=== PATIENT | female | born 1950 | race Caucasian/White ===

== ENCOUNTER 2017-07-04 07:09 | Inpatient (IN) | payer OTHER, MEDICARE ==
[~2017-07-04] VITALS: Ht 172.7 cm; Wt 89.9 kg
[2017-07-04] VITALS (11 sets, daily range): BP systolic 109–135; BP diastolic 59–74
[~2017-07-04 07:09] MED LIST: ASPI-612 PO; BUDE10.2 IH; CALC600T4 PO; CIPR500T94 PO; GLUC1CAP48 PO; ISOS60TA PO; LEVO750T5 PO; LISI-334 PO; LORA10CA PO; LOVA40TA2 PO; Lisinopril PO; METF-620 PO; METH-37 PO; METO50TA2 PO; METR500T8 PO; MIRA25TA PO; MULT-245 PO; OMEG300C PO; RANI150C PO; XOPENEX HFA15 GM IH
--- NOTE | 2017-07-04 07:15 | PHYS DOC ---
Past Medical History Past Medical History: Diabetes-Type II, Hypertension Past Surgical History: Other Alcohol Use: None Drug Use: None Adult General Chief Complaint Chief Complaint: NEAR SYNCOPE HPI HPI Patient is a 66 year old female presenting to the emergency department for evaluation of nausea and abdominal pain and generally not feeling well. 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 She reportedly felt poorly all night long and was having difficulty giving report. She has history of diverticulitis with a microperforation in 2015. Patient says that she has had a hysterectomy but no other abdominal surgeries. She is nontoxic-appearing in no obvious distress with normal vital signs. Review of Systems Review of Systems Constitutional: Denies fever or chills [] Respiratory: Denies cough or shortness of breath [] Cardiovascular: No additional information not addressed in HPI [] GI: + abdominal pain, nausea. No vomiting, bloody stools or diarrhea [] : Denies dysuria or hematuria [] Musculoskeletal: Denies back pain Current Medications Current Medications Current Medications Medications (Trade) Dose Ordered Sig/Vera Start Time Stop Time Status Last Admin Dose Admin Fentanyl Citrate (Fentanyl 2ml Vial) 75 mcg 1X ONCE 07/04/17 07:45 07/04/17 07:46 DC 07/04/17 07:46 75 MCG Multi-Ingredient Mouthwash/Gargle (Gi Cocktail Single Dose) 15 ml 1X ONCE 07/04/17 07:45 07/04/17 07:46 DC 07/04/17 08:17 15 ML Ondansetron HCl (Zofran) 4 mg PRN Q8HRS PRN 07/04/17 09:15 07/05/17 09:14 UNV Sodium Chloride 1,000 ml @ 150 mls/hr Q6H40M 07/04/17 09:09 07/05/17 09:08 UNV Allergies Allergies Allergies Coded Allergies Type Severity Reaction Last Updated Verified Iodinated Contrast- Oral and IV Dye Allergy Severe Shortness of Air 02/09/15 Yes erythromycin base Allergy Severe Shortness of Air 02/09/15 Yes morphine Allergy Severe Anaphylaxis 02/09/15 Yes hydrocodone Allergy Intermediate DIZZINESS 02/09/15 Yes iodine Allergy Intermediate 02/09/15 Yes acetaminophen Allergy Mild DIZZINESS 10/01/15 Yes Physical Exam Physical Exam Constitutional: Well developed, well nourished, no acute distress, non-toxic appearance. [] Cardiovascular:Heart rate regular rhythm, no murmur [] Lungs & Thorax: Bilateral breath sounds clear to auscultation [] Abdomen: Bowel sounds normal, soft, + epigastric tenderness, no rebound or guarding, no masses, no pulsatile masses. [] Skin: Warm, dry, no erythema, no rash. [] Back: No tenderness, no CVA tenderness. [] Extremities: No tenderness, no cyanosis, no clubbing, ROM intact, no edema. [] Neurologic: Alert and oriented X 3, normal motor function, normal sensory function, no focal deficits noted. [] Current Patient Data Vital Signs Vital Signs Date Time Temp Pulse Resp B/P (MAP) Pulse Ox O2 Delivery O2 Flow Rate FiO2 07/04/17 08:14 82 20 153/75 (101) 98 Nasal Cannula 2.0 Lab Values Laboratory Tests Test 07/04/17 07:42 White Blood Count 15.7 x10^3/uL (4.0-11.0) H Red Blood Count 4.56 x10^6/uL (3.50-5.40) Hemoglobin 12.6 g/dL (12.0-15.5) Hematocrit 38.2 % (36.0-47.0) Mean Corpuscular Volume 84 fL (79-100) Mean Corpuscular Hemoglobin 28 pg (25-35) Mean Corpuscular Hemoglobin Concent 33 g/dL (31-37) Red Cell Distribution Width 13.9 % (11.5-14.5) Platelet Count 334 x10^3/uL (140-400) Neutrophils (%) (Auto) 84 % (31-73) H Lymphocytes (%) (Auto) 10 % (24-48) L Monocytes (%) (Auto) 5 % (0-9) Eosinophils (%) (Auto) 1 % (0-3) Basophils (%) (Auto) 0 % (0-3) Neutrophils # (Auto) 13.2 x10^3uL (1.8-7.7) H Lymphocytes # (Auto) 1.6 x10^3/uL (1.0-4.8) Monocytes # (Auto) 0.8 x10^3/uL (0.0-1.1) Eosinophils # (Auto) 0.1 x10^3/uL (0.0-0.7) Basophils # (Auto) 0.1 x10^3/uL (0.0-0.2) Segmented Neutrophils % 77 % (35-66) H Band Neutrophils % 6 % (0-9) Lymphocytes % 12 % (24-48) L Monocytes % 3 % (0-10) Eosinophils % 2 % (0-5) Platelet Estimate Adequate (ADEQUATE) Prothrombin Time 12.7 SEC (11.7-14.0) Prothrombin Time INR 1.0 (0.8-1.1) PTT 25 SEC (24-38) Sodium Level 139 mmol/L (136-145) Potassium Level 4.2 mmol/L (3.5-5.1) Chloride Level 99 mmol/L (98-107) Carbon Dioxide Level 30 mmol/L (21-32) Anion Gap 10 (6-14) Blood Urea Nitrogen 18 mg/dL (7-20) Creatinine 1.5 mg/dL (0.6-1.0) H Estimated GFR (Cockcroft-Gault) 34.9 BUN/Creatinine Ratio 12 (6-20) Glucose Level 200 mg/dL (70-99) H Calcium Level 9.9 mg/dL (8.5-10.1) Magnesium Level 1.5 mg/dL (1.8-2.4) L Total Bilirubin 0.4 mg/dL (0.2-1.0) Aspartate Amino Transferase (AST) 17 U/L (15-37) Alanine Aminotransferase (ALT) 30 U/L (14-59) Alkaline Phosphatase 60 U/L (46-116) Troponin I Quantitative < 0.017 ng/mL (0.000-0.055) Total Protein 7.5 g/dL (6.4-8.2) Albumin 4.3 g/dL (3.4-5.0) Albumin/Globulin Ratio 1.3 (1.0-1.7) Lipase 113 U/L (73-393) Laboratory Tests 07/04/17 07:42 Laboratory Tests 07/04/17 07:42 EKG EKG Sinus rhythm at 80 beats per minutes with normal axis no obvious ST elevation or depression and normal T waves Radiology/Procedures Radiology/Procedures CT of the abdomen and pelvis without contrast, 07/04/2017: History: Abdominal pain Multidetector CT imaging was performed without oral or IV contrast. Comparison is made to a study from 11/06/2016. There is mild bibasilar atelectasis. The unopacified liver is unremarkable. The gallbladder is somewhat contracted. No gallstones are seen. The pancreas is unremarkable. The spleen is of normal size. The unopacified kidneys show no evidence of obstruction. No adrenal abnormality is detected. The abdominal aorta is of normal caliber. No abdominal or pelvic adenopathy is seen. There is gas and stool in the colon without colonic distention. Several colonic diverticula are present without evidence of paracolic inflammation. There is a moderate amount of retained food in the stomach. There is mild distention of mid small bowel loops with gas and fluid. The distal ileum is of normal caliber. There is a partially calcified mass within a small bowel loop in the mid pelvis. The calcification is elongated measuring approximately 30 x 24 x 6 mm. It is best seen on coronal image 26 of series #4 and axial image 78 of series #2. This probably represents a partially calcified enterolith and appears to lie near the level of partial small bowel obstruction. There are numerous duodenal diverticula in this patient. There is a known association of enteroliths with diverticula. A similar partially calcified structure is seen related to proximal small bowel on coronal image 30 of series #4. No free fluid or free air is evident in the abdomen or pelvis. IMPRESSION: 1. Partial small bowel obstruction which appears to be due to a partially calcified enterolith. 2. Duodenal diverticula with an additional developing enterolith within one of those diverticula. 3. Mild sigmoid diverticulosis. PQRS Compliance Statement: One or more of the following individualized dose reduction techniques were utilized for this examination: 1. Automated exposure control 2. Adjustment of the mA and/or kV according to patient size 3. Use of iterative reconstruction technique DICTATED and SIGNED BY: MADAI WILSON MD DATE: 07/04/17812 Course & Med Decision Making Course & Med Decision Making Patient with nonspecific abdominal pain and nausea. We'll check labs CT and reassess. CT shows partial small bowel obstruction from enterolith. She says that she feels quite miserable and given her CT and clinical exam she'll be admitted for further observation and treatment. Dragon Disclaimer Dragon Disclaimer This electronic medical record was generated, in whole or in part, using a voice recognition dictation system. Departure Departure Impression: Primary Impression: SBO (small bowel obstruction) Additional Impressions: Leukocytosis Hypomagnesemia Disposition: ADMITTED INPATIENT Admitting Physician: Alessia Delaney Condition: STABLE Referrals: CORRINA RUBIO MD (PCP) Problem Qualifiers KOBE SANTIAGO DO Jul 04, 2017 07:15
[2017-07-04] MEDS ORDERED: IV NORMAL SALINE 1000ML BAG 1,000 ML IV ONE (07:30)
[2017-07-04] MEDS ORDERED: fentaNYL PF VIAL 100 MCG/2 ML VIAL IV ONE (07:45)
[2017-07-04] MEDS ORDERED: LIDO:MAALOX:DONNATAL 1:1:1 15 ML SINGLE DOSE SWSW ONE (07:45)
[2017-07-04] MEDS ORDERED: ONDANSETRON PF 4 MG/2 ML VIAL. IV ONE (07:45)
[2017-07-04 07:56] LABS: BASO # 0.1 x10^3/uL (0.0-0.2); BASO % 0 % (0-3); EOS % 1 % (0-3); HEMATOCRIT 38.2 % (36.0-47.0); HEMOGLOBIN 12.6 g/dL (12.0-15.5); LYMPH # 1.6 x10^3/uL (1.0-4.8); LYMPH % 10 % (24-48); MEAN CORPUSCULAR HEMOGLOBIN 28 pg (25-35); MEAN CORPUSCULAR HGB CONC 33 g/dL (31-37); MEAN CORPUSCULAR VOLUME 84 fL (79-100); MONO % 5 % (0-9); NEUT % 84 % (31-73); PLATELET COUNT 334 x10^3/uL (140-400); RED BLOOD COUNT 4.56 x10^6/uL (3.50-5.40); RED CELL DISTRIBUTION WIDTH 13.9 % (11.5-14.5); WHITE BLOOD COUNT 15.7 x10^3/uL (4.0-11.0)
[2017-07-04 08:07] LABS: PROTHROMBIN TIME PATIENT 12.7 SEC (11.7-14.0)
[2017-07-04 08:08] LABS: CALCIUM 9.9 mg/dL (8.5-10.1); CREATININE 1.5 mg/dL (0.6-1.0); GFR 34.9; POTASSIUM 4.2 mmol/L (3.5-5.1)
[2017-07-04 08:14] LABS: ALBUMIN 4.3 g/dL (3.4-5.0); ALBUMIN/GLOBULIN RATIO 1.3 (1.0-1.7); MAGNESIUM 1.5 mg/dL (1.8-2.4); TOTAL BILIRUBIN 0.4 mg/dL (0.2-1.0); TOTAL PROTEIN 7.5 g/dL (6.4-8.2)
[2017-07-04 08:31] LABS: % EOS 2 % (0-5)
[2017-07-04 08:32] LABS: PLT ESTIMATE ADEQUATE (ADEQUATE)
--- NOTE | 2017-07-04 08:37 | EKG ---
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
--- NOTE | 2017-07-04 08:56 | RAD ---
CT of the abdomen and pelvis without contrast, 07/04/2017: History: Abdominal pain Multidetector CT imaging was performed without oral or IV contrast. Comparison is made to a study from 11/06/2016. There is mild bibasilar atelectasis. The unopacified liver is unremarkable. The gallbladder is somewhat contracted. No gallstones are seen. The pancreas is unremarkable. The spleen is of normal size. The unopacified kidneys show no evidence of obstruction. No adrenal abnormality is detected. The abdominal aorta is of normal caliber. No abdominal or pelvic adenopathy is seen. There is gas and stool in the colon without colonic distention. Several colonic diverticula are present without evidence of paracolic inflammation. There is a moderate amount of retained food in the stomach. There is mild distention of mid small bowel loops with gas and fluid. The distal ileum is of normal caliber. There is a partially calcified mass within a small bowel loop in the mid pelvis. The calcification is elongated measuring approximately 30 x 24 x 6 mm. It is best seen on coronal image 26 of series #4 and axial image 78 of series #2. This probably represents a partially calcified enterolith and appears to lie near the level of partial small bowel obstruction. There are numerous duodenal diverticula in this patient. There is a known association of enteroliths with diverticula. A similar partially calcified structure is seen related to proximal small bowel on coronal image 30 of series #4. No free fluid or free air is evident in the abdomen or pelvis. IMPRESSION: 1. Partial small bowel obstruction which appears to be due to a partially calcified enterolith. 2. Duodenal diverticula with an additional developing enterolith within one of those diverticula. 3. Mild sigmoid diverticulosis. PQRS Compliance Statement: One or more of the following individualized dose reduction techniques were utilized for this examination: 1. Automated exposure control 2. Adjustment of the mA and/or kV according to patient size 3. Use of iterative reconstruction technique
[2017-07-04] MEDS ORDERED: IV NORMAL SALINE 1000ML BAG 1,000 ML IV SCH (09:09)
[2017-07-04] MEDS ORDERED: ONDANSETRON PF 4 MG/2 ML VIAL. IV PRN ×3 (09:15→18:00)
[2017-07-04] MEDS ORDERED: DEXTROSE 50% 25 GM / 50ML DISP.SYRIN. IV PRN (10:00)
[2017-07-04] MEDS ORDERED: BENZOCAINE/MENTHOL LOZENGE. PO PRN (10:00)
[2017-07-04] MEDS ORDERED: SALIVA STIMULANT AGENT 44ML SPRAY BOTTLE. PO PRN (10:00)
[2017-07-04] MEDS ORDERED: MAGNESIUM SULFATE 2GM 50 ML IV ONE (10:00)
--- NOTE | 2017-07-04 10:02 | PDOC1 ---
History and Physical Date of Admission Date of Admission DATE: 07/04/17 TIME: 09:53 Identification/Chief Complaint Chief Complaint abd pain Problems: Source Source: Chart review, Patient History of Present Illness History of Present Illness Ms. Anna, is a 66 year old female admit from ER for acute nausea and abdominal pain. 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 She felt ill for entire shift at work, almost vomited on Ismael during report. She has history of diverticulitis with a microperforation in 2015. she would prefer to avoid having an NG tube, as she was forced to practice on each other, as a skill when in the , pain is 5/10, better when supine, worse when on her side Past Medical History Cardiovascular: HTN, Hyperlipidemia GI: GERD Endocrine: Diabetes Past Surgical History Past Surgical History: Other Family History Family History: No Significant Social History Smoke: No ALCOHOL: none Drugs: None Current Problem List Problem List Problems Medical Problems: (1) Hypomagnesemia Status: Acute (2) Leukocytosis Status: Acute (3) SBO (small bowel obstruction) Status: Acute Problems: Current Medications Current Medications Current Medications Ondansetron HCl (Zofran) 8 mg 1X ONCE IV Last administered on 07/04/17 07:44 ; Start 07/04/17 at 07:45; Stop 07/04/17 at 07:46; Status DC Fentanyl Citrate (Fentanyl 2ml Vial) 75 mcg 1X ONCE IV Last administered on 07:46; Start 07/04/17 at 07:45; Stop 07/04/17 at 07:46; Status DC Sodium Chloride 1,000 ml @ 1,000 mls/hr 1X ONCE IV Last administered on 07:44; Start 07/04/17 at 07:30; Stop 07/04/17 at 08:29; Status DC Multi-Ingredient Mouthwash/Gargle (Gi Cocktail Single Dose) 15 ml 1X ONCE SWSW Last administered on 07/04/17 08:17; Start 07/04/17 at 07:45; Stop 07/04/17 at 07:46; Status DC Ondansetron HCl (Zofran) 4 mg PRN Q8HRS PRN IV NAUSEA/VOMITING; Start 07/04/17 at 09:15; Stop 07/05/17 at 09:14 Sodium Chloride 1,000 ml @ 150 mls/hr Q6H40M IV ; Start 07/04/17 at 09:09; Stop 07/05/17 at 09:08 Active Scripts Active Levofloxacin 750 Mg Tablet 1 Tab PO DAILY Cipro (Ciprofloxacin Hcl) 500 Mg Tablet 1 Tab PO BID 4 Days Metronidazole 500 Mg Tablet 1 Tab PO TID 4 Days [Lisinopril] 2.5 MG Tablet 2.5 Mg PO DAILY Reported Lovastatin 40 Mg Tablet 40 Mg PO DAILY Imdur (Isosorbide Mononitrate) 60 Mg Tab.er.24h 60 Mg PO DAILY Glucosamine & Chondroitin Cap (Gluc 2KCL/Chondr/Sean Hy/Hy Ac) 1 Each Capsule 2 Each PO DAILY Xopenex Hfa (Levalbuterol Tartrate) 15 Gm Hfa.aer.ad 45 Mcg IH PRN Symbicort 160-4.5 Mcg Inhaler (Budesonide/Formoterol Fumarate) 10.2 Gm Hfa.aer.ad 10.2 Gm IH BID Multi Vitamin Daily (Multivitamin) 1 Each Tablet 1 Each PO DAILY Calcium (Calcium Carbonate) 600 Mg Tablet 600 Mg PO DAILY Fish Oil (Eure-3 Fatty Acids) 300 Mg Capsule 3,000 Mg PO DAILY Ranitidine Hcl 150 Mg Capsule 150 Mg PO DAILY Aspirin Ec (Aspirin) 81 Mg Tablet.dr 81 Mg PO DAILY Claritin (Loratadine) 10 Mg Capsule 10 Mg PO BID Metformin Hcl 1,000 Mg Tablet 1,000 Mg PO BID Metoprolol Tartrate 50 Mg Tablet 50 Mg PO BID Allergies Allergies: Coded Allergies: Iodinated Contrast- Oral and IV Dye (Verified Allergy, Severe, Shortness of Air, 02/09/15) rash erythromycin base (Verified Allergy, Severe, Shortness of Air, 02/09/15) hives morphine (Verified Allergy, Severe, Anaphylaxis, 02/09/15) hydrocodone (Verified Allergy, Intermediate, DIZZINESS, 02/09/15) iodine (Verified Allergy, Intermediate, 02/09/15) peels skin off acetaminophen (Verified Allergy, Mild, DIZZINESS, 10/01/15) ROS General: No: Chills, Night Sweats, Fatigue, Malaise, Appetite, Other PSYCHOLOGICAL ROS: No: Anxiety, Behavioral Disorder, Concentration difficultie , Decreased libido, Depression, Disorientation, Hallucinations, Hostility, Irritablity, Memory difficulties, Mood Swings, Obsessive thoughts, Physical abuse, Sexual abuse, Sleep disturbances, Suicidal ideation, Other Eyes: No Blurry vision, No Decreased vision, No Double vision, No Dry eyes, No Excessive tearing, No Eye Pain, No Itchy Eyes, No Loss of vision, No Photophobia , No Scotomata, No Uses contacts, No Uses glasses, No Other HEENT: No: Heacaches, Visual Changes, Hearing change, Nasal congestion, Nasal discharge, Oral lesions, Sinus pain, Sore Throat, Epistaxis, Sneezing, Snoring, Tinnitus, Vertigo, Vocal changes, Other Respiratory: No: Cough, Hemoptysis, Orthopnea, Pleuritic Pain, Shortness of breath, SOB with excertion, Sputum Changes, Stridor, Tachypnea, Wheezing, Other Cardiovascular: No Chest Pain, No Palpitations, No Orthopnea, No Paroxysmal Noc. Dyspnea, No Edema, No Lt Headedness, No Other Gastrointestinal: Yes Nausea, Yes Abdominal Pain, Yes Diarrhea, Yes Other ( freq stools, small caliber but formed, ) Genitourinary: No Dysuria, No Frequency, No Incontinence, No Hematuria, No Retention, No Discharge, No Urgency, No Pain, No Flank Pain, No Other, No , No , No , No , No , No , No Musculoskeletal: No Gait Disturbance, No Joint Pain, No Joint Stiffness, No Joint Swelling, No Muscle Pain, No Muscular Weakness, No Pain In:, No Swelling In:, No Other Neurological: No Behavorial Changes, No Bowel/Bladder ControlChng, No Confusion , No Dizziness, No Gait Disturbance, No Headaches, No Impaired Coord/balance, No Memory Loss, No Numbness/Tingling, No Seizures, No Speech Problems, No Tremors, No Visual Changes, No Weakness, No Other Skin: No Dry Skin, No Eczema, No Hair Changes, No Lumps, No Mole Changes, No Mottling, No Nail Changes, No Pruritus, No Rash, No Skin Lesion Changes, No Other, No Acne Physical Exam General: Alert, Oriented X3, Cooperative, mild distress HEENT: Atraumatic, PERRLA, EOMI Lungs: Clear to auscultation, Normal air movement Heart: S1S2, no gallops, no murmurs Abdomen: Soft (tender, very active and loud bowel sounds, pitch is normal, no rushing, no referred pain + guarding, no rebound) Male Genitals Exam: normal genitalia Rectal Exam: not examined Extremities: No clubbing, No cyanosis, No edema, Normal pulses Skin: No rashes, No breakdown, No significant lesion Neuro: Normal speech, Sensation intact Psych/Mental Status: Mental status NL, Mood NL Vitals Vitals Vital Signs Date Time Temp Pulse Resp B/P (MAP) Pulse Ox O2 Delivery O2 Flow Rate FiO2 07/04/17 09:44 84 20 142/81 (101) 98 Room Air 07/04/17 08:14 2.0 Labs Labs Laboratory Tests Test 07/04/17 07:42 White Blood Count 15.7 x10^3/uL (4.0-11.0) Red Blood Count 4.56 x10^6/uL (3.50-5.40) Hemoglobin 12.6 g/dL (12.0-15.5) Hematocrit 38.2 % (36.0-47.0) Mean Corpuscular Volume 84 fL (79-100) Mean Corpuscular Hemoglobin 28 pg (25-35) Mean Corpuscular Hemoglobin Concent 33 g/dL (31-37) Red Cell Distribution Width 13.9 % (11.5-14.5) Platelet Count 334 x10^3/uL (140-400) Neutrophils (%) (Auto) 84 % (31-73) Lymphocytes (%) (Auto) 10 % (24-48) Monocytes (%) (Auto) 5 % (0-9) Eosinophils (%) (Auto) 1 % (0-3) Basophils (%) (Auto) 0 % (0-3) Neutrophils # (Auto) 13.2 x10^3uL (1.8-7.7) Lymphocytes # (Auto) 1.6 x10^3/uL (1.0-4.8) Monocytes # (Auto) 0.8 x10^3/uL (0.0-1.1) Eosinophils # (Auto) 0.1 x10^3/uL (0.0-0.7) Basophils # (Auto) 0.1 x10^3/uL (0.0-0.2) Segmented Neutrophils % 77 % (35-66) Band Neutrophils % 6 % (0-9) Lymphocytes % 12 % (24-48) Monocytes % 3 % (0-10) Eosinophils % 2 % (0-5) Platelet Estimate Adequate (ADEQUATE) Prothrombin Time 12.7 SEC (11.7-14.0) Prothromb Time International Ratio 1.0 (0.8-1.1) Activated Partial Thromboplast Time 25 SEC (24-38) Sodium Level 139 mmol/L (136-145) Potassium Level 4.2 mmol/L (3.5-5.1) Chloride Level 99 mmol/L (98-107) Carbon Dioxide Level 30 mmol/L (21-32) Anion Gap 10 (6-14) Blood Urea Nitrogen 18 mg/dL (7-20) Creatinine 1.5 mg/dL (0.6-1.0) Estimated GFR (Cockcroft-Gault) 34.9 BUN/Creatinine Ratio 12 (6-20) Glucose Level 200 mg/dL (70-99) Calcium Level 9.9 mg/dL (8.5-10.1) Magnesium Level 1.5 mg/dL (1.8-2.4) Total Bilirubin 0.4 mg/dL (0.2-1.0) Aspartate Amino Transf (AST/SGOT) 17 U/L (15-37) Alanine Aminotransferase (ALT/SGPT) 30 U/L (14-59) Alkaline Phosphatase 60 U/L (46-116) Troponin I Quantitative < 0.017 ng/mL (0.000-0.055) Total Protein 7.5 g/dL (6.4-8.2) Albumin 4.3 g/dL (3.4-5.0) Albumin/Globulin Ratio 1.3 (1.0-1.7) Lipase 113 U/L (73-393) Laboratory Tests Test 07/04/17 07:42 White Blood Count 15.7 x10^3/uL (4.0-11.0) Red Blood Count 4.56 x10^6/uL (3.50-5.40) Hemoglobin 12.6 g/dL (12.0-15.5) Hematocrit 38.2 % (36.0-47.0) Mean Corpuscular Volume 84 fL (79-100) Mean Corpuscular Hemoglobin 28 pg (25-35) Mean Corpuscular Hemoglobin Concent 33 g/dL (31-37) Red Cell Distribution Width 13.9 % (11.5-14.5) Platelet Count 334 x10^3/uL (140-400) Neutrophils (%) (Auto) 84 % (31-73) Lymphocytes (%) (Auto) 10 % (24-48) Monocytes (%) (Auto) 5 % (0-9) Eosinophils (%) (Auto) 1 % (0-3) Basophils (%) (Auto) 0 % (0-3) Neutrophils # (Auto) 13.2 x10^3uL (1.8-7.7) Lymphocytes # (Auto) 1.6 x10^3/uL (1.0-4.8) Monocytes # (Auto) 0.8 x10^3/uL (0.0-1.1) Eosinophils # (Auto) 0.1 x10^3/uL (0.0-0.7) Basophils # (Auto) 0.1 x10^3/uL (0.0-0.2) Segmented Neutrophils % 77 % (35-66) Band Neutrophils % 6 % (0-9) Lymphocytes % 12 % (24-48) Monocytes % 3 % (0-10) Eosinophils % 2 % (0-5) Platelet Estimate Adequate (ADEQUATE) Prothrombin Time 12.7 SEC (11.7-14.0) Prothromb Time International Ratio 1.0 (0.8-1.1) Activated Partial Thromboplast Time 25 SEC (24-38) Sodium Level 139 mmol/L (136-145) Potassium Level 4.2 mmol/L (3.5-5.1) Chloride Level 99 mmol/L (98-107) Carbon Dioxide Level 30 mmol/L (21-32) Anion Gap 10 (6-14) Blood Urea Nitrogen 18 mg/dL (7-20) Creatinine 1.5 mg/dL (0.6-1.0) Estimated GFR (Cockcroft-Gault) 34.9 BUN/Creatinine Ratio 12 (6-20) Glucose Level 200 mg/dL (70-99) Calcium Level 9.9 mg/dL (8.5-10.1) Magnesium Level 1.5 mg/dL (1.8-2.4) Total Bilirubin 0.4 mg/dL (0.2-1.0) Aspartate Amino Transf (AST/SGOT) 17 U/L (15-37) Alanine Aminotransferase (ALT/SGPT) 30 U/L (14-59) Alkaline Phosphatase 60 U/L (46-116) Troponin I Quantitative < 0.017 ng/mL (0.000-0.055) Total Protein 7.5 g/dL (6.4-8.2) Albumin 4.3 g/dL (3.4-5.0) Albumin/Globulin Ratio 1.3 (1.0-1.7) Lipase 113 U/L (73-393) VTE Prophylaxis Ordered VTE Prophylaxis Devices: No VTE Pharmacological Prophylaxi: No Assessment/Plan Assessment/Plan acute abd pain with nausea partial small bowel obstruction admit with IV fluid, GI consult, may need NG tube if pain worsens obesity, BMI 30 BRYON ELDER MD Jul 04, 2017 10:02
[2017-07-04] MEDS ORDERED: MAGNESIUM SULFATE 2GM 50 ML IV PRN (11:00)
--- NOTE | 2017-07-04 11:03 | PDOC2 ---
CONSULT Date of Consult Date of Consult DATE: 07/04/17 TIME: 10:57 Reason for Consult Reason for Consult: FENG Referring Physician Referring Physician: Dr reyes Identification/Chief Complaint Chief Complaint Abd pain Problems: Source Source: Chart review, Patient History of Present Illness Reason for Visit: as dictated Past Medical History Cardiovascular: HTN, Hyperlipidemia Pulmonary: Asthma, Bronchitis GI: Diverticulosis, GERD, Hemorrhoids Endocrine: Diabetes Past Surgical History Past Surgical History: Hysterectomy, Other Family History Family History: No Significant Social History No ALCOHOL: none Drugs: None Lives: with Family Current Problem List Problem List Problems Medical Problems: (1) Hypomagnesemia Status: Acute (2) Leukocytosis Status: Acute (3) SBO (small bowel obstruction) Status: Acute Current Medications Current Medications Current Medications Ondansetron HCl (Zofran) 8 mg 1X ONCE IV Last administered on 07/04/17 07:44 ; Start 07/04/17 at 07:45; Stop 07/04/17 at 07:46; Status DC Fentanyl Citrate (Fentanyl 2ml Vial) 75 mcg 1X ONCE IV Last administered on 07:46; Start 07/04/17 at 07:45; Stop 07/04/17 at 07:46; Status DC Sodium Chloride 1,000 ml @ 1,000 mls/hr 1X ONCE IV Last administered on 07:44; Start 07/04/17 at 07:30; Stop 07/04/17 at 08:29; Status DC Multi-Ingredient Mouthwash/Gargle (Gi Cocktail Single Dose) 15 ml 1X ONCE SWSW Last administered on 07/04/17 08:17; Start 07/04/17 at 07:45; Stop 07/04/17 at 07:46; Status DC Ondansetron HCl (Zofran) 4 mg PRN Q8HRS PRN IV NAUSEA/VOMITING; Start 07/04/17 at 09:15; Stop 07/05/17 at 09:14 Sodium Chloride 1,000 ml @ 150 mls/hr Q6H40M IV ; Start 07/04/17 at 09:09; Stop 07/05/17 at 09:08 Saliva Substitute (Biotene Moisturizing Mouth) 2 spray PRN Q15MIN PRN PO DRY MOUTH; Start 07/04/17 at 10:00 Fentanyl Citrate (Fentanyl 2ml Vial) 50 mcg PRN Q2HR PRN IV PAIN; Start at 10:00 Throat Lozenges (Cepacol Sore Throat Lozenge) 1 caio PRN Q2HRS PRN PO SORE THROAT; Start 07/04/17 at 10:00 Insulin Aspart (NovoLOG) 0-7 UNITS TIDWMEALS SQ ; Start 07/04/17 at 12:00 Dextrose (Dextrose 50%-Water Syringe) 12.5 gm PRN Q15MIN PRN IV SEE COMMENTS; Start 07/04/17 at 10:00 Magnesium Sulfate/ Dextrose 50 ml @ 25 mls/hr 1X ONCE IV ; Start 07/04/17 at 10 :00; Stop 07/04/17 at 11:59 Aspirin (Ecotrin) 81 mg DAILY PO ; Start 07/04/17 at 11:00 Metoprolol Tartrate (Lopressor) 50 mg BID PO ; Start 07/04/17 at 10:30 Non-Formulary Medication 10.2 gm BID IH ; Start 07/04/17 at 21:00; Status UNV Calcium Carbonate/ Glycine (Oscal) 500 mg DAILY PO ; Start 07/04/17 at 10:30 Isosorbide Mononitrate (Imdur) 60 mg DAILY PO ; Start 07/04/17 at 10:30 Cetirizine HCl (ZyrTEC) 10 mg DAILY PO ; Start 07/05/17 at 09:00 Atorvastatin Calcium (Lipitor) 10 mg QHS PO ; Start 07/04/17 at 21:00 Budesonide (Pulmicort) 0.5 mg RTBID NEB ; Start 07/04/17 at 11:00 Albuterol Sulfate (Ventolin Neb Soln) 2.5 mg RTQID NEB ; Start 07/04/17 at 12:00 Active Scripts Active Levofloxacin 750 Mg Tablet 1 Tab PO DAILY Cipro (Ciprofloxacin Hcl) 500 Mg Tablet 1 Tab PO BID 4 Days Metronidazole 500 Mg Tablet 1 Tab PO TID 4 Days [Lisinopril] 2.5 MG Tablet 2.5 Mg PO DAILY Reported Lovastatin 40 Mg Tablet 40 Mg PO DAILY Imdur (Isosorbide Mononitrate) 60 Mg Tab.er.24h 60 Mg PO DAILY Glucosamine & Chondroitin Cap (Gluc 2KCL/Chondr/Sean Hy/Hy Ac) 1 Each Capsule 2 Each PO DAILY Xopenex Hfa (Levalbuterol Tartrate) 15 Gm Hfa.aer.ad 45 Mcg IH PRN Symbicort 160-4.5 Mcg Inhaler (Budesonide/Formoterol Fumarate) 10.2 Gm Hfa.aer.ad 10.2 Gm IH BID Multi Vitamin Daily (Multivitamin) 1 Each Tablet 1 Each PO DAILY Calcium (Calcium Carbonate) 600 Mg Tablet 600 Mg PO DAILY Fish Oil ([place]-3 Fatty Acids) 300 Mg Capsule 3,000 Mg PO DAILY Ranitidine Hcl 150 Mg Capsule 150 Mg PO DAILY Aspirin Ec (Aspirin) 81 Mg Tablet.dr 81 Mg PO DAILY Claritin (Loratadine) 10 Mg Capsule 10 Mg PO BID Metformin Hcl 1,000 Mg Tablet 1,000 Mg PO BID Metoprolol Tartrate 50 Mg Tablet 50 Mg PO BID Allergies Allergies: Coded Allergies: Iodinated Contrast- Oral and IV Dye (Verified Allergy, Severe, Shortness of Air, 02/09/15) rash erythromycin base (Verified Allergy, Severe, Shortness of Air, 02/09/15) hives morphine (Verified Allergy, Severe, Anaphylaxis, 02/09/15) hydrocodone (Verified Allergy, Intermediate, DIZZINESS, 02/09/15) iodine (Verified Allergy, Intermediate, 02/09/15) peels skin off acetaminophen (Verified Allergy, Mild, DIZZINESS, 10/01/15) ROS Review of System GEN: no Fevers no Chills EYES: no new Visual Complaints ENT: no EN Drainage no Hearing deficiets CVS: no Orthopnea no CP RESP: no SOB no FLORES GI: + Nausea no Vomiting + Abd Pain : no Dysuria no Urgency HEME: no easy bruising no Palp Ly Nodes NEURO no Focal Weakness no Sz PSYCH: no Suicidal Ideation no Depression SKIN: no Rashes ENDO: no Polyuria or Polydipsia no Hot/Cold Intolerance MU SK: no Arthraigia no Myalgia Physical Exam Physical Exam General Appearance: Awake Alert Oriented x 3 In no Distress Eyes: VIsion Unchanged Conjunctiva Normal EN: No EN Drainage Mucous Memb. moist Neck: no JVD no JVP Supple no Thyromegaly CVS: S1 S2 ? Murmur No Gallop No Rub no Edema Resp: no Rales no Rhonchi no Acc. Muscle use GI: BS +ve NO Bruit Non Tender Non Distended : no CVA tenderness; no Suprapubic Tenderness SKIN: no visible Rashes Breast Exam deferred Mu.Sk: Adequate ROM no Muscle Atrophy Heme: Unable to palpate Obvious LAD no Splenomegaly NEURO: Good Strength and Tone Cranial Nerves II - XII grossly intact Psych: no Depressed no Active hallucination Vital Signs Vital Signs Date Time Temp Pulse Resp B/P (MAP) Pulse Ox O2 Delivery O2 Flow Rate FiO2 07/04/17 09:44 84 20 142/81 (101) 98 Room Air 07/04/17 08:14 2.0 Assessment & Plan FENG - presumed VMn from recent NSAID use, ? Nausea and SBO. Current FLuid and E- lyte status does not necessitate emergent need for Dialysis. Will re-evaluate for Dialysis in am. Kidneys without obst on CT scan ? CKD - pt claims she has had ^ed Creat in the past at times. - No MA on most recent cehck. ? DM HTNsive /NS (drinks a lot of Diet Coke) Low Mag - IV supplementation as ordered ? Vol Depeltion - IVf as ordered - Will hold off of TPn for now, pending GS/ Gi plans SBo - await GI/ GS eval and plans Discussed Plan of Care with Pt Labs Labs Laboratory Tests Test 07/04/17 07:42 White Blood Count 15.7 x10^3/uL (4.0-11.0) Red Blood Count 4.56 x10^6/uL (3.50-5.40) Hemoglobin 12.6 g/dL (12.0-15.5) Hematocrit 38.2 % (36.0-47.0) Mean Corpuscular Volume 84 fL (79-100) Mean Corpuscular Hemoglobin 28 pg (25-35) Mean Corpuscular Hemoglobin Concent 33 g/dL (31-37) Red Cell Distribution Width 13.9 % (11.5-14.5) Platelet Count 334 x10^3/uL (140-400) Neutrophils (%) (Auto) 84 % (31-73) Lymphocytes (%) (Auto) 10 % (24-48) Monocytes (%) (Auto) 5 % (0-9) Eosinophils (%) (Auto) 1 % (0-3) Basophils (%) (Auto) 0 % (0-3) Neutrophils # (Auto) 13.2 x10^3uL (1.8-7.7) Lymphocytes # (Auto) 1.6 x10^3/uL (1.0-4.8) Monocytes # (Auto) 0.8 x10^3/uL (0.0-1.1) Eosinophils # (Auto) 0.1 x10^3/uL (0.0-0.7) Basophils # (Auto) 0.1 x10^3/uL (0.0-0.2) Segmented Neutrophils % 77 % (35-66) Band Neutrophils % 6 % (0-9) Lymphocytes % 12 % (24-48) Monocytes % 3 % (0-10) Eosinophils % 2 % (0-5) Platelet Estimate Adequate (ADEQUATE) Prothrombin Time 12.7 SEC (11.7-14.0) Prothromb Time International Ratio 1.0 (0.8-1.1) Activated Partial Thromboplast Time 25 SEC (24-38) Sodium Level 139 mmol/L (136-145) Potassium Level 4.2 mmol/L (3.5-5.1) Chloride Level 99 mmol/L (98-107) Carbon Dioxide Level 30 mmol/L (21-32) Anion Gap 10 (6-14) Blood Urea Nitrogen 18 mg/dL (7-20) Creatinine 1.5 mg/dL (0.6-1.0) Estimated GFR (Cockcroft-Gault) 34.9 BUN/Creatinine Ratio 12 (6-20) Glucose Level 200 mg/dL (70-99) Calcium Level 9.9 mg/dL (8.5-10.1) Magnesium Level 1.5 mg/dL (1.8-2.4) Total Bilirubin 0.4 mg/dL (0.2-1.0) Aspartate Amino Transf (AST/SGOT) 17 U/L (15-37) Alanine Aminotransferase (ALT/SGPT) 30 U/L (14-59) Alkaline Phosphatase 60 U/L (46-116) Troponin I Quantitative < 0.017 ng/mL (0.000-0.055) Total Protein 7.5 g/dL (6.4-8.2) Albumin 4.3 g/dL (3.4-5.0) Albumin/Globulin Ratio 1.3 (1.0-1.7) Lipase 113 U/L (73-393) Laboratory Tests Test 07/04/17 07:42 White Blood Count 15.7 x10^3/uL (4.0-11.0) Red Blood Count 4.56 x10^6/uL (3.50-5.40) Hemoglobin 12.6 g/dL (12.0-15.5) Hematocrit 38.2 % (36.0-47.0) Mean Corpuscular Volume 84 fL (79-100) Mean Corpuscular Hemoglobin 28 pg (25-35) Mean Corpuscular Hemoglobin Concent 33 g/dL (31-37) Red Cell Distribution Width 13.9 % (11.5-14.5) Platelet Count 334 x10^3/uL (140-400) Neutrophils (%) (Auto) 84 % (31-73) Lymphocytes (%) (Auto) 10 % (24-48) Monocytes (%) (Auto) 5 % (0-9) Eosinophils (%) (Auto) 1 % (0-3) Basophils (%) (Auto) 0 % (0-3) Neutrophils # (Auto) 13.2 x10^3uL (1.8-7.7) Lymphocytes # (Auto) 1.6 x10^3/uL (1.0-4.8) Monocytes # (Auto) 0.8 x10^3/uL (0.0-1.1) Eosinophils # (Auto) 0.1 x10^3/uL (0.0-0.7) Basophils # (Auto) 0.1 x10^3/uL (0.0-0.2) Segmented Neutrophils % 77 % (35-66) Band Neutrophils % 6 % (0-9) Lymphocytes % 12 % (24-48) Monocytes % 3 % (0-10) Eosinophils % 2 % (0-5) Platelet Estimate Adequate (ADEQUATE) Prothrombin Time 12.7 SEC (11.7-14.0) Prothromb Time International Ratio 1.0 (0.8-1.1) Activated Partial Thromboplast Time 25 SEC (24-38) Sodium Level 139 mmol/L (136-145) Potassium Level 4.2 mmol/L (3.5-5.1) Chloride Level 99 mmol/L (98-107) Carbon Dioxide Level 30 mmol/L (21-32) Anion Gap 10 (6-14) Blood Urea Nitrogen 18 mg/dL (7-20) Creatinine 1.5 mg/dL (0.6-1.0) Estimated GFR (Cockcroft-Gault) 34.9 BUN/Creatinine Ratio 12 (6-20) Glucose Level 200 mg/dL (70-99) Calcium Level 9.9 mg/dL (8.5-10.1) Magnesium Level 1.5 mg/dL (1.8-2.4) Total Bilirubin 0.4 mg/dL (0.2-1.0) Aspartate Amino Transf (AST/SGOT) 17 U/L (15-37) Alanine Aminotransferase (ALT/SGPT) 30 U/L (14-59) Alkaline Phosphatase 60 U/L (46-116) Troponin I Quantitative < 0.017 ng/mL (0.000-0.055) Total Protein 7.5 g/dL (6.4-8.2) Albumin 4.3 g/dL (3.4-5.0) Albumin/Globulin Ratio 1.3 (1.0-1.7) Lipase 113 U/L (73-393) Images Images IMPRESSION: 1. Partial small bowel obstruction which appears to be due to a partially calcified enterolith. 2. Duodenal diverticula with an additional developing enterolith within one of those diverticula. 3. Mild sigmoid diverticulosis. JUS GARDNER MD Jul 04, 2017 11:03
[2017-07-04] MEDS: BUDESONIDE 0.5 MG/2 ML NEBU. NEB SCH ×2 (11:24→20:39)
--- NOTE | 2017-07-04 11:33 | PDOC2 ---
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 Has felt bloated x 3 days, had potluck during her shift last night and felt worse after eating w/ nausea, sweating, and abd discomfort. "I looked like I was going to give to twins." Went to ER after her shift. Significant labs: WBC 15.7, Cr 1.5, Mg 1.5. CT A/P showed mild distention of small bowel loops, partially calcified mass (probably enterolith) within small bowel loop in pelvis, numerous duodenal diverticula w/ developing enterolith, sigmoid diverticulosis, gas and stool in the colon, and contracted gallbladder w/o stones. Overnight passed small, thin stools and this morning has passed a lot of gas and has noted loud stomach gurgling. Abd is less distended. H/o small pneumoperitoneum presumably due to ruptured diverticulum in 2014. Had EGD (w/ esophageal dilation) and colonoscopy w/ Dr. Hammonds after that, recalls findings c/w GERD, "scarring" probably related to previous ulcer, colon polyps, and diverticulosis. Since microperf, has had occasional recurrence of symptoms, empirically keeps to liquid diet for a few days until symptoms improve. Has had GERD for years, controlled w/ ranitidine BID (w/ previous trial of PPI stopped due to insurance reasons). Additional h/o hiatal hernia, feels this is sometimes bothersome when she feels food "sit" in the epigastrium. Some NSAID use recently. PMH: PMH: HTN, asthma, pneumonia, DM, HLD, DVT (30 years ago, no clear cause), pneumoperitoneum, GERD, hepatic steatosis, colon polyps, diverticulosis, sinus surgery (removal of benign mass), hysterectomy, cystocele repair, lumbar laminectomy FH: Family History: Other (brother - microperforation, father - colon resection for "concrete colon") Social History: Smoke: No ALCOHOL: none Drugs: None ROS: GEN: Denies fevers, chills, sweats HEENT: Denies blurred vision, sore throat CV: Denies chest pain RESP: Denies shortness of air, cough GI: Per HPI : Denies hematuria, dysuria ENDO: Denies weight changes NEURO: Denies confusion, dizziness MSK: Denies weakness, joint pain/swelling SKIN: Denies jaundice, pruritus Vitals: Vitals: Vital Signs Date Time Temp Pulse Resp B/P (MAP) Pulse Ox O2 Delivery O2 Flow Rate FiO2 07/04/17 09:44 84 20 142/81 (101) 98 Room Air 07/04/17 08:14 2.0 Labs: Labs: Laboratory Tests Test 07/04/17 07:42 White Blood Count 15.7 x10^3/uL (4.0-11.0) Red Blood Count 4.56 x10^6/uL (3.50-5.40) Hemoglobin 12.6 g/dL (12.0-15.5) Hematocrit 38.2 % (36.0-47.0) Mean Corpuscular Volume 84 fL (79-100) Mean Corpuscular Hemoglobin 28 pg (25-35) Mean Corpuscular Hemoglobin Concent 33 g/dL (31-37) Red Cell Distribution Width 13.9 % (11.5-14.5) Platelet Count 334 x10^3/uL (140-400) Neutrophils (%) (Auto) 84 % (31-73) Lymphocytes (%) (Auto) 10 % (24-48) Monocytes (%) (Auto) 5 % (0-9) Eosinophils (%) (Auto) 1 % (0-3) Basophils (%) (Auto) 0 % (0-3) Neutrophils # (Auto) 13.2 x10^3uL (1.8-7.7) Lymphocytes # (Auto) 1.6 x10^3/uL (1.0-4.8) Monocytes # (Auto) 0.8 x10^3/uL (0.0-1.1) Eosinophils # (Auto) 0.1 x10^3/uL (0.0-0.7) Basophils # (Auto) 0.1 x10^3/uL (0.0-0.2) Segmented Neutrophils % 77 % (35-66) Band Neutrophils % 6 % (0-9) Lymphocytes % 12 % (24-48) Monocytes % 3 % (0-10) Eosinophils % 2 % (0-5) Platelet Estimate Adequate (ADEQUATE) Prothrombin Time 12.7 SEC (11.7-14.0) Prothromb Time International Ratio 1.0 (0.8-1.1) Activated Partial Thromboplast Time 25 SEC (24-38) Sodium Level 139 mmol/L (136-145) Potassium Level 4.2 mmol/L (3.5-5.1) Chloride Level 99 mmol/L (98-107) Carbon Dioxide Level 30 mmol/L (21-32) Anion Gap 10 (6-14) Blood Urea Nitrogen 18 mg/dL (7-20) Creatinine 1.5 mg/dL (0.6-1.0) Estimated GFR (Cockcroft-Gault) 34.9 BUN/Creatinine Ratio 12 (6-20) Glucose Level 200 mg/dL (70-99) Calcium Level 9.9 mg/dL (8.5-10.1) Magnesium Level 1.5 mg/dL (1.8-2.4) Total Bilirubin 0.4 mg/dL (0.2-1.0) Aspartate Amino Transf (AST/SGOT) 17 U/L (15-37) Alanine Aminotransferase (ALT/SGPT) 30 U/L (14-59) Alkaline Phosphatase 60 U/L (46-116) Troponin I Quantitative < 0.017 ng/mL (0.000-0.055) Total Protein 7.5 g/dL (6.4-8.2) Albumin 4.3 g/dL (3.4-5.0) Albumin/Globulin Ratio 1.3 (1.0-1.7) Lipase 113 U/L (73-393) Allergies: Coded Allergies: Iodinated Contrast- Oral and IV Dye (Verified Allergy, Severe, Shortness of Air, 02/09/15) rash erythromycin base (Verified Allergy, Severe, Shortness of Air, 02/09/15) hives morphine (Verified Allergy, Severe, Anaphylaxis, 02/09/15) hydrocodone (Verified Allergy, Intermediate, DIZZINESS, 02/09/15) iodine (Verified Allergy, Intermediate, 02/09/15) peels skin off acetaminophen (Verified Allergy, Mild, DIZZINESS, 10/01/15) Medications: Current Medications Medications (Trade) Dose Ordered Sig/Vera Route PRN Reason Start Time Stop Time Status Last Admin Dose Admin Ondansetron HCl (Zofran) 8 mg 1X ONCE IV 07/04/17 07:45 07/04/17 07:46 DC 07/04/17 07:44 Fentanyl Citrate (Fentanyl 2ml Vial) 75 mcg 1X ONCE IV 07/04/17 07:45 07/04/17 07:46 DC 07/04/17 07:46 Sodium Chloride 1,000 ml @ 1,000 mls/hr 1X ONCE IV 07/04/17 07:30 07/04/17 08:29 DC 07/04/17 07:44 Multi-Ingredient Mouthwash/Gargle (Gi Cocktail Single Dose) 15 ml 1X ONCE SWSW 07/04/17 07:45 07/04/17 07:46 DC 07/04/17 08:17 Imaging: Imaging: CT A/P w/o contrast 07/04/17 There is mild bibasilar atelectasis. The unopacified liver is unremarkable. The gallbladder is somewhat contracted. No gallstones are seen. The pancreas is unremarkable. The spleen is of normal size. The unopacified kidneys show no evidence of obstruction. No adrenal abnormality is detected. The abdominal aorta is of normal caliber. No abdominal or pelvic adenopathy is seen. There is gas and stool in the colon without colonic distention. Several colonic diverticula are present without evidence of paracolic inflammation. There is a moderate amount of retained food in the stomach. There is mild distention of mid small bowel loops with gas and fluid. The distal ileum is of normal caliber. There is a partially calcified mass within a small bowel loop in the mid pelvis. The calcification is elongated measuring approximately 30 x 24 x 6 mm. It is best seen on coronal image 26 of series #4 and axial image 78 of series #2. This probably represents a partially calcified enterolith and appears to lie near the level of partial small bowel obstruction. There are numerous duodenal diverticula in this patient. There is a known association of enteroliths with diverticula. A similar partially calcified structure is seen related to proximal small bowel on coronal image 30 of series #4. No free fluid or free air is evident in the abdomen or pelvis. IMPRESSION: 1. Partial small bowel obstruction which appears to be due to a partially calcified enterolith. 2. Duodenal diverticula with an additional developing enterolith within one of those diverticula. 3. Mild sigmoid diverticulosis. PE: GEN: NAD HEENT: Atraumatic, PERRL LUNGS: CTAB anteriorly HEART: RRR ABD: +loud BS, distended, not particularly tender EXTREMITY: No edema SKIN: No rashes, no jaundice NEURO/PSYCH: A & O 3 A/P: A/P: Partial SBO w/ enteroliths -abd distention and nausea severe overnight while working, now improving ---> passing gas and small thin stools H/o pneumoperitoneum and diverticulosis (colon, duodenum) GERD -controlled w/ H2 analy BID, EGD ~2 years ago w/ Dr. Hammonds CRC screen, h/o colon polyps -colonoscopy ~2 years ago w/ Dr. Hammonds FENG/CKD, hypomagnesemia -renal following -- D/w Dr. Joyce - will ask surgery to see. NPO for now. NISA SMITH Jul 04, 2017 11:33
[2017-07-04] MEDS ORDERED: ALBUTEROL SULFATE 2.5 MG/3 ML NEBU. NEB SCH (12:00)
[2017-07-04] MEDS: CALCIUM CARBONATE 500 MG TABLET PO SCH (12:01)
[2017-07-04] MEDS: ASPIRIN ENTERIC COATED 81 MG TABLET.DR. PO SCH (12:01)
[2017-07-04] MEDS: METOPROLOL TART IMMED RELEASE 50 MG TABLET. PO SCH ×2 (12:03→21:00)
[2017-07-04] MEDS: ISOSORBIDE MONONITRATE ER 30 MG TAB.ER.24H PO SCH (12:05)
[2017-07-04] MEDS ORDERED: NON FORMULARY ITEM NEB SCH (14:00)
[2017-07-04] MEDS: LEVALBUTEROL 1.25 MG/0.5 ML NEBU. NEB SCH ×3 (14:00→20:39)
[2017-07-04] MEDS ORDERED: ROCURONIUM 100 MG/10 ML VIAL. ONE (14:03)
[2017-07-04] MEDS ORDERED: NEOSTIGMINE 10 MG/10 ML VIAL. ONE (14:03)
[2017-07-04] MEDS ORDERED: PROPOFOL 20 ML IV ONE (14:05)
[2017-07-04] MEDS ORDERED: LIDOCAINE 2% PF Vial for OR 5 ML VIAL. ONE (14:05)
[2017-07-04] MEDS ORDERED: fentaNYL PF VIAL 100 MCG/2 ML VIAL ONE ×4 (14:06→17:51)
[2017-07-04] MEDS ORDERED: SUCCINYLCHOLINE 200 MG/10 ML VIAL. ONE (14:07)
--- NOTE | 2017-07-04 14:25 | RAD ---
Right upper quadrant abdominal ultrasound, 07/04/2017: History: Right upper quadrant pain The gallbladder is partially contracted. No gallstones are seen. There is no evidence of a hepatic mass or bile duct dilatation. The visualized portions of the pancreas and right kidney are unremarkable. IMPRESSION: No significant mass is detected.
[2017-07-04] MEDS ORDERED: SCOPOLAMINE 1.5MG PATCH. TD ONE ×3 (15:16→15:30)
[2017-07-04] MEDS ORDERED: IV RINGERS,LACTATED 1000ML 1,000 ML IV SCH (15:24)
[2017-07-04] MEDS ORDERED: MORPHINE SULFATE 2 MG/ML DISP.SYRIN. IV PRN (15:30)
[2017-07-04] MEDS ORDERED: fentaNYL PF VIAL 100 MCG/2 ML VIAL IV PRN ×2 (15:30)
[2017-07-04] MEDS ORDERED: HYDROmorphone 2 MG/ML VIAL IV PRN (15:30)
[2017-07-04] MEDS ORDERED: LIDOCAINE 1% 1 ML SYRINGE. ID PRN (15:30)
[2017-07-04] MEDS ORDERED: PROCHLORPERAZINE 10 MG/2 ML VIAL. IV PRN (15:30)
[2017-07-04] MEDS ORDERED: DEXAMETHASONE SOD PHOS 20 MG/5 ML VIAL. ONE (15:39)
[2017-07-04] MEDS ORDERED: DESFLURANE 61 TO 120 MINUTES IH ONE (15:39)
--- NOTE | 2017-07-04 15:40 | PDOC ---
Provider Note Provider Note #[id number] ROSA RICHARDSON MD Jul 04, 2017 15:40
[2017-07-04] MEDS ORDERED: FAMOTIDINE 20 MG/2 ML VIAL ONE (15:59)
[2017-07-04] MEDS ORDERED: ONDANSETRON PF 4 MG/2 ML VIAL. ONE ×2 (15:59→17:01)
[2017-07-04] MEDS ORDERED: BUPIVAC MPF-EPI 0.5%-1:200000 30 ML VIAL. ONE (16:15)
[2017-07-04] MEDS: INSULIN ASPART 300 UNITS/3 ML INSULN.PEN SQ SCH ×2 (17:00→19:03)
[2017-07-04] MEDS ORDERED: GLYCOPYRROLATE 1 MG/5 ML VIAL. ONE (17:00)
[2017-07-04] MEDS ORDERED: hydrALAZINE 20 MG/ML VIAL. ONE (17:04)
[2017-07-04] MEDS ORDERED: PROCHLORPERAZINE 10 MG/2 ML VIAL. ONE (17:51)
--- NOTE | 2017-07-04 17:52 | PDOC ---
BRIEF OPERATIVE NOTE Pre-Op Diagnosis sbo same laparotomy; adhesiolysis, enterotomy with removal of enterolith yaa christianson ebl 100 ivf 2000 nadeen well specimen: enterolith to rr stable. ROSA RICHARDSON MD Jul 04, 2017 17:52
[2017-07-04] MEDS ORDERED: 0.9 % SODIUM CHLORIDE 10 ML DISP.SYRIN. IV PRN (18:00)
[2017-07-04] MEDS ORDERED: METOCLOPRAMIDE HCL 10 MG/2 ML VIAL. IV PRN (18:00)
[2017-07-04] MEDS: ENOXAPARIN 40 MG/0.4 ML SYRINGE. SQ SCH (18:00)
--- NOTE | 2017-07-04 18:08 | CONS ---
DATE OF CONSULTATION: 07/04/2017 PRIMARY PHYSICIAN: Dr. Delaney. REASON FOR CONSULTATION: Elevated creatinine. 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 She developed abdominal pain and at the end of her shift decided to be seen in the ER. She was noted to have a creatinine of 1.[address] scan as far abdominal pain as noted. She is known to have elevated creatinine from time to time by her reports, no microalbuminuria, diabetic for 5 years, hypertensive for 10. She does drink a lot of Diet Coke, by her reports no kidney stones that she is aware of. PAST MEDICAL HISTORY: Significant for; 1. Sinus surgery for a mass in 2010. 2. Left little toe numbness. 3. Coronary artery disease, status post cardiac catheterization without intervention. 4. Hyperlipidemia. 5. Hypertension. 6. DVT incidentally found. 7. Asthma, bronchitis, history of pneumonia, sleep apnea, does not use CPAP. 8. Previous history of perforated colon microperforation in 2014, unknown etiology. 9. History of diverticulosis. 10. Hemorrhoids. 11. Hiatal hernia. 12. Obesity. 13. GERD. 14. Hysterectomy. 15. Urinary incontinence and prolapsed bladder, which did "had to put back in." 16. Chronic arthritis. 17. Diabetes 5 years. 18. Hypertension 10 years. FAMILY HISTORY: Father was about to start dialysis prior to him passing away, etiology of renal failure was not known. 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 For rest of details, see electronic records. JUS GARDNER MD DR: PARISH/adeline JOB#: [id number] / [id number]
[2017-07-04] MEDS: IV NORMAL SALINE 1000ML BAG 1,000 ML IV SCH (20:48)
[2017-07-04] MEDS: FAMOTIDINE 20 MG/2 ML VIAL IVP SCH (20:56)
[2017-07-04] MEDS: HYDROmorphone 2 MG/ML VIAL IV PRN ×2 (20:56→23:58)
[2017-07-04] MEDS ORDERED: NON FORMULARY ITEM (Budesonide/Formoterol Fumarate (Symbicort 160-4.5 Mcg Inhaler) 10.2 GM IH SCH (21:00)
[2017-07-04] MEDS ORDERED: ATORVASTATIN CALCIUM 10 MG TABLET. PO SCH (21:00)
[2017-07-04 22:27] LABS: BILIRUBIN,URINE NEGATIVE (NEG); GLUCOSE,URINE 100 mg/dL (NEG); NITRITE,URINE NEGATIVE (NEG); PROTEIN,URINE NEGATIVE (NEG-TRACE); UROBILINOGEN,URINE 0.2 mg/dL (0.2 mg/dL)
[2017-07-04 22:35] LABS: BACTERIA,URINE 0 /HPF (0-FEW); RBC,URINE 0 /HPF (0-2); SQUAMOUS EPITHELIAL CELL,UR OCC /LPF
--- NOTE | 2017-07-04 23:25 | CONS ---
DATE OF CONSULTATION: 07/04/2017 CHIEF COMPLAINT: Abdominal pain. HISTORY OF PRESENT ILLNESS: The patient is a 66-year-old female who at least for the last several days has had increasing abdominal pain. It is diffuse. It is a crampy pain that at times becomes fairly intense. It is relieved at times by passing gas. It is associated with significant bloating and decrease in her stool production. The pain became increasingly severe until the time which she presented to the ER. The pain has now relieved as has her distention because she had the ability to pass a large amount of gas this afternoon after her CAT scan. PAST MEDICAL HISTORY: 1. Coronary artery disease. 2. Diabetes. 3. Hyperlipidemia. 4. Hypertension. 5. Asthma. PAST SURGICAL HISTORY: Hysterectomy. SOCIAL HISTORY: She is employed here at [employer]. She is a nonsmoker, nondrinker. FAMILY HISTORY: Interestingly, she has a family history of her father having surgery for what his surgeon told him was a calcified colon and the surgeon, according to the patient, says that he had not seen anything like that before in his career. CURRENT MEDICATIONS: Include: 1. Zyrtec. 2. Pepcid. 3. Lipitor. 4. Compazine. 5. Fentanyl. 6. Zofran. 7. Xopenex. 8. Insulin. 9. Pulmicort. 10. Aspirin. 11. Imdur. 12. Lopressor. 13. Os-Matt. ALLERGIES: 1. IODINATED CONTRAST. 2. ACETAMINOPHEN. 3. ERYTHROMYCIN. 4. HYDROCODONE. 5. IODINE. 6. MORPHINE. REVIEW OF SYSTEMS: CONSTITUTIONAL: No fevers or chills. EYES: No abrupt loss of vision or double vision. EARS, NOSE, MOUTH AND THROAT: No loss of hearing or ringing in her ears. CARDIOVASCULAR: No chest pain or heart palpitations. RESPIRATORY: She has chronic shortness of breath and cough due to her asthma. GASTROINTESTINAL: See HPI. GENITOURINARY: No dysuria or hematuria. HEMATOLOGIC: No easy bleeding or bruising. MUSCULOSKELETAL: No new myalgias or arthralgias. DERMATOLOGIC: No new skin rashes or lesions. PSYCHIATRIC: No depression or anxiety. ENDOCRINE: No polyuria or polydipsia. PHYSICAL EXAMINATION: VITAL SIGNS: Temperature is 97.9, pulse is 72, respiratory rate 20, blood pressure is 150/71, O2 sats 96% on room air. GENERAL: This is a well-developed, well-nourished female, mildly obese with a BMI of 30, who does not appear to feel well, but she is not in acute distress. EYES: Her pupils are round and reactive. Sclerae nonicteric. She is wearing glasses. HENT: Head is atraumatic. Mucous membranes moist. Face symmetric. NECK: Supple, without cervical lymphadenopathy, no supraclavicular lymphadenopathy. Neck is nontender without masses. CARDIOVASCULAR: By palpation of her right radial pulse, she has 2+ right radial pulse. No pedal edema noted. RESPIRATORY: Respirations are nonlabored. CHEST WALL: Nontender to palpation. She is on room air satting 96%. ABDOMEN: Soft, but distended and diffusely tender. No rebound, no guarding. PSYCHIATRIC: Cooperative with appropriate mood and affect. NEUROLOGIC: No resting tremor. She is alert and oriented x 3. DERMATOLOGIC: Exposed portions of her skin are unremarkable. LABORATORY DATA: Reviewed. I have reviewed her imaging including her CT scan images. ASSESSMENT: 1. Partial small-bowel obstruction due to enteroliths. 2. Duodenal diverticula. 3. Obesity with a BMI of 30. 4. Asthma. 5. Coronary artery disease. 6. Hypertension. 7. Diabetes mellitus. PLAN: Due to the obstructing nature of these enteroliths and the fact that she is quite symptomatic, I recommended that she go to the operating room for diagnostic laparoscopy and removal of the enteroliths, possible bowel resection, possible laparotomy. The duodenal diverticulum was discussed with her. I think at this point, I would advocate addressing the acute pathology of obstructing enteroliths and allowing for postoperative evaluation, possibly with endoscopy of her duodenal diverticulum to see if the developing enteroliths could be removed endoscopically. Ultimately, she may require surgical approach for her duodenal diverticulum, but I think this procedure would add unnecessary risks at this point in her care. The procedure today was discussed with her and the risks of bleeding, infection, need to convert to open, anastomotic leak, recurrent obstruction were all discussed with her. Questions were answered. She desires to proceed. ROSA RICHARDSON MD DR: KELIN/adeline JOB#: [id number] / [id number] CORRINA Bernard MD
--- NOTE | 2017-07-04 23:26 | ACF ---
Admission Forms Criteria INTESTINAL OBSTRUCTION Clinical Indications for Admission to Inpatient Care ([facility]/check or initial the applicable condition/criteria) Admission is indicated for 1 or more of the following (1)(2)(3)(4)(5)(6)(7): [X] I. Partial bowel obstruction II. Complete bowel obstruction Extended stay beyond goal length of stay may be needed for(3)(25): [ ]a) Identified etiology (eg, hernia, volvulus, cancer with obstruction) requiring intervention [ ]b) Gallstone ileus (26) [ ]c) Surgical intervention (3)(4)(5)(7)(27)(28)(29)(30): [ ]d) Acute comorbid illness (eg, electrolyte imbalance, hypovolemia, renal failure) The original [employer] content created by [employer] has been revised. The portions of the content which have been revised are identified through the use of italic text or in bold, and [facility] has neither reviewed nor approved the modified material. All other unmodified content is copyright [facility]. Please see references footnoted in the original [employer] edition 2017 Admission Criteria Met?: Yes LEEROY GREER Jul 04, 2017 23:26
[2017-07-05] VITALS (8 sets, daily range): BP systolic 91–153; BP diastolic 53–83
[2017-07-05] MEDS: HYDROmorphone 2 MG/ML VIAL IV PRN (05:49)
[2017-07-05] MEDS: IV NORMAL SALINE 1000ML BAG 1,000 ML IV SCH (05:50)
[2017-07-05 07:08] LABS: BASO % 0 % (0-3); EOS % 0 % (0-3); HEMATOCRIT 34.9 % (36.0-47.0); HEMOGLOBIN 11.5 g/dL (12.0-15.5); LYMPH # 0.6 x10^3/uL (1.0-4.8); LYMPH % 4 % (24-48); MEAN CORPUSCULAR HEMOGLOBIN 28 pg (25-35); MEAN CORPUSCULAR HGB CONC 33 g/dL (31-37); MEAN CORPUSCULAR VOLUME 83 fL (79-100); MONO % 6 % (0-9); NEUT % 90 % (31-73); PLATELET COUNT 291 x10^3/uL (140-400); RED BLOOD COUNT 4.19 x10^6/uL (3.50-5.40); RED CELL DISTRIBUTION WIDTH 13.8 % (11.5-14.5); WHITE BLOOD COUNT 14.7 x10^3/uL (4.0-11.0)
[2017-07-05 07:35] LABS: ALBUMIN 2.8 g/dL (3.4-5.0); CALCIUM 8.9 mg/dL (8.5-10.1); CREATININE 1.1 mg/dL (0.6-1.0); GFR 49.8; PHOSPHORUS 3.4 mg/dL (2.6-4.7); POTASSIUM 4.1 mmol/L (3.5-5.1)
[2017-07-05] MEDS: INSULIN ASPART 300 UNITS/3 ML INSULN.PEN SQ SCH ×3 (08:00→17:00)
[2017-07-05] MEDS: BUDESONIDE 0.5 MG/2 ML NEBU. NEB SCH ×2 (08:00→20:25)
[2017-07-05] MEDS: CETIRIZINE HCL 10 MG TABLET. PO SCH (09:00)
[2017-07-05] MEDS: ISOSORBIDE MONONITRATE ER 30 MG TAB.ER.24H PO SCH (09:00)
[2017-07-05] MEDS: ASPIRIN ENTERIC COATED 81 MG TABLET.DR. PO SCH (09:00)
[2017-07-05] MEDS: METOPROLOL TART IMMED RELEASE 50 MG TABLET. PO SCH ×2 (09:00→21:00)
[2017-07-05] MEDS: CALCIUM CARBONATE 500 MG TABLET PO SCH (09:00)
[2017-07-05] MEDS: fentaNYL PF VIAL 100 MCG/2 ML VIAL IV PRN ×3 (09:17→21:43)
--- NOTE | 2017-07-05 09:26 | PDOC ---
ABRAHAN LAFLEUR GENERAL ACCOUNTING CLERK 07/05/17 0926: SURGICAL PROGRESS NOTE Subjective up to chair sore improved nausea, was significant yesterday some bloating no flatus Vital Signs Vital Signs Date Time Temp Pulse Resp B/P (MAP) Pulse Ox O2 Delivery O2 Flow Rate FiO2 07/05/17 09:17 Room Air 07/05/17 08:53 95 2.0 07/05/17 07:00 98.1 114 18 142/76 (98) 98.1 I&O Intake and Output 07/05/17 07:00 Intake Total 5700 ml Output Total 650 ml Balance 5050 ml Intake IV Total 5700 ml Output Urine Total 650 ml # Voids 2 PATIENT HAS A RUBIO: No General: Alert, Oriented X3, Cooperative, No acute distress Abdomen: Soft, Other (mildly distended, dressing dry, incisional TTP) Labs Laboratory Tests Test 07/04/17 07:42 07/04/17 11:28 07/04/17 18:20 07/04/17 22:20 White Blood Count 15.7 x10^3/uL (4.0-11.0) Red Blood Count 4.56 x10^6/uL (3.50-5.40) Hemoglobin 12.6 g/dL (12.0-15.5) Hematocrit 38.2 % (36.0-47.0) Mean Corpuscular Volume 84 fL (79-100) Mean Corpuscular Hemoglobin 28 pg (25-35) Mean Corpuscular Hemoglobin Concent 33 g/dL (31-37) Red Cell Distribution Width 13.9 % (11.5-14.5) Platelet Count 334 x10^3/uL (140-400) Neutrophils (%) (Auto) 84 % (31-73) Lymphocytes (%) (Auto) 10 % (24-48) Monocytes (%) (Auto) 5 % (0-9) Eosinophils (%) (Auto) 1 % (0-3) Basophils (%) (Auto) 0 % (0-3) Neutrophils # (Auto) 13.2 x10^3uL (1.8-7.7) Lymphocytes # (Auto) 1.6 x10^3/uL (1.0-4.8) Monocytes # (Auto) 0.8 x10^3/uL (0.0-1.1) Eosinophils # (Auto) 0.1 x10^3/uL (0.0-0.7) Basophils # (Auto) 0.1 x10^3/uL (0.0-0.2) Segmented Neutrophils % 77 % (35-66) Band Neutrophils % 6 % (0-9) Lymphocytes % 12 % (24-48) Monocytes % 3 % (0-10) Eosinophils % 2 % (0-5) Platelet Estimate Adequate (ADEQUATE) Prothrombin Time 12.7 SEC (11.7-14.0) Prothromb Time International Ratio 1.0 (0.8-1.1) Activated Partial Thromboplast Time 25 SEC (24-38) Sodium Level 139 mmol/L (136-145) Potassium Level 4.2 mmol/L (3.5-5.1) Chloride Level 99 mmol/L (98-107) Carbon Dioxide Level 30 mmol/L (21-32) Anion Gap 10 (6-14) Blood Urea Nitrogen 18 mg/dL (7-20) Creatinine 1.5 mg/dL (0.6-1.0) Estimated GFR (Cockcroft-Gault) 34.9 BUN/Creatinine Ratio 12 (6-20) Glucose Level 200 mg/dL (70-99) Calcium Level 9.9 mg/dL (8.5-10.1) Magnesium Level 1.5 mg/dL (1.8-2.4) Total Bilirubin 0.4 mg/dL (0.2-1.0) Aspartate Amino Transf (AST/SGOT) 17 U/L (15-37) Alanine Aminotransferase (ALT/SGPT) 30 U/L (14-59) Alkaline Phosphatase 60 U/L (46-116) Troponin I Quantitative < 0.017 ng/mL (0.000-0.055) Total Protein 7.5 g/dL (6.4-8.2) Albumin 4.3 g/dL (3.4-5.0) Albumin/Globulin Ratio 1.3 (1.0-1.7) Lipase 113 U/L (73-393) Glucose (Fingerstick) 151 mg/dL (70-99) 234 mg/dL (70-99) Urine Collection Type U cath Urine Color Yellow Urine Clarity Clear Urine pH 5.0 Urine Specific [place] 1.020 Urine Protein Negative mg/dL (NEG-TRACE) Urine Glucose (UA) 100 mg/dL (NEG) Urine Ketones (Stick) Negative mg/dL (NEG) Urine Blood Negative (NEG) Urine Nitrite Negative (NEG) Urine Bilirubin Negative (NEG) Urine Urobilinogen Dipstick 0.2 mg/dL (0.2 mg/dL) Urine Leukocyte Esterase Negative (NEG) Urine RBC 0 /HPF (0-2) Urine WBC 1-4 /HPF (0-4) Urine Squamous Epithelial Cells Occ /LPF Urine Bacteria 0 /HPF (0-FEW) Urine Hyaline Casts Moderate /HPF Urine Mucus Mod /LPF Test 07/05/17 00:10 07/05/17 06:03 07/05/17 06:15 Glucose (Fingerstick) 199 mg/dL (70-99) 191 mg/dL (70-99) White Blood Count 14.7 x10^3/uL (4.0-11.0) Red Blood Count 4.19 x10^6/uL (3.50-5.40) Hemoglobin 11.5 g/dL (12.0-15.5) Hematocrit 34.9 % (36.0-47.0) Mean Corpuscular Volume 83 fL (79-100) Mean Corpuscular Hemoglobin 28 pg (25-35) Mean Corpuscular Hemoglobin Concent 33 g/dL (31-37) Red Cell Distribution Width 13.8 % (11.5-14.5) Platelet Count 291 x10^3/uL (140-400) Neutrophils (%) (Auto) 90 % (31-73) Lymphocytes (%) (Auto) 4 % (24-48) Monocytes (%) (Auto) 6 % (0-9) Eosinophils (%) (Auto) 0 % (0-3) Basophils (%) (Auto) 0 % (0-3) Neutrophils # (Auto) 13.2 x10^3uL (1.8-7.7) Lymphocytes # (Auto) 0.6 x10^3/uL (1.0-4.8) Monocytes # (Auto) 0.9 x10^3/uL (0.0-1.1) Eosinophils # (Auto) 0.0 x10^3/uL (0.0-0.7) Basophils # (Auto) 0.0 x10^3/uL (0.0-0.2) Sodium Level 139 mmol/L (136-145) Potassium Level 4.1 mmol/L (3.5-5.1) Chloride Level 103 mmol/L (98-107) Carbon Dioxide Level 24 mmol/L (21-32) Anion Gap 12 (6-14) Blood Urea Nitrogen 14 mg/dL (7-20) Creatinine 1.1 mg/dL (0.6-1.0) Estimated GFR (Cockcroft-Gault) 49.8 Glucose Level 191 mg/dL (70-99) Calcium Level 8.9 mg/dL (8.5-10.1) Phosphorus Level 3.4 mg/dL (2.6-4.7) Magnesium Level 1.6 mg/dL (1.8-2.4) Albumin 2.8 g/dL (3.4-5.0) Laboratory Tests Test 07/04/17 11:28 07/04/17 18:20 07/04/17 22:20 07/05/17 00:10 Glucose (Fingerstick) 151 mg/dL (70-99) 234 mg/dL (70-99) 199 mg/dL (70-99) Urine Collection Type U cath Urine Color Yellow Urine Clarity Clear Urine pH 5.0 Urine Specific [place] 1.020 Urine Protein Negative mg/dL (NEG-TRACE) Urine Glucose (UA) 100 mg/dL (NEG) Urine Ketones (Stick) Negative mg/dL (NEG) Urine Blood Negative (NEG) Urine Nitrite Negative (NEG) Urine Bilirubin Negative (NEG) Urine Urobilinogen Dipstick 0.2 mg/dL (0.2 mg/dL) Urine Leukocyte Esterase Negative (NEG) Urine RBC 0 /HPF (0-2) Urine WBC 1-4 /HPF (0-4) Urine Squamous Epithelial Cells Occ /LPF Urine Bacteria 0 /HPF (0-FEW) Urine Hyaline Casts Moderate /HPF Urine Mucus Mod /LPF Test 07/05/17 06:03 07/05/17 06:15 Glucose (Fingerstick) 191 mg/dL (70-99) White Blood Count 14.7 x10^3/uL (4.0-11.0) Red Blood Count 4.19 x10^6/uL (3.50-5.40) Hemoglobin 11.5 g/dL (12.0-15.5) Hematocrit 34.9 % (36.0-47.0) Mean Corpuscular Volume 83 fL (79-100) Mean Corpuscular Hemoglobin 28 pg (25-35) Mean Corpuscular Hemoglobin Concent 33 g/dL (31-37) Red Cell Distribution Width 13.8 % (11.5-14.5) Platelet Count 291 x10^3/uL (140-400) Neutrophils (%) (Auto) 90 % (31-73) Lymphocytes (%) (Auto) 4 % (24-48) Monocytes (%) (Auto) 6 % (0-9) Eosinophils (%) (Auto) 0 % (0-3) Basophils (%) (Auto) 0 % (0-3) Neutrophils # (Auto) 13.2 x10^3uL (1.8-7.7) Lymphocytes # (Auto) 0.6 x10^3/uL (1.0-4.8) Monocytes # (Auto) 0.9 x10^3/uL (0.0-1.1) Eosinophils # (Auto) 0.0 x10^3/uL (0.0-0.7) Basophils # (Auto) 0.0 x10^3/uL (0.0-0.2) Sodium Level 139 mmol/L (136-145) Potassium Level 4.1 mmol/L (3.5-5.1) Chloride Level 103 mmol/L (98-107) Carbon Dioxide Level 24 mmol/L (21-32) Anion Gap 12 (6-14) Blood Urea Nitrogen 14 mg/dL (7-20) Creatinine 1.1 mg/dL (0.6-1.0) Estimated GFR (Cockcroft-Gault) 49.8 Glucose Level 191 mg/dL (70-99) Calcium Level 8.9 mg/dL (8.5-10.1) Phosphorus Level 3.4 mg/dL (2.6-4.7) Magnesium Level 1.6 mg/dL (1.8-2.4) Albumin 2.8 g/dL (3.4-5.0) Problem List Problems Medical Problems: (1) Hypomagnesemia Status: Acute (2) Leukocytosis Status: Acute (3) SBO (small bowel obstruction) Status: Acute Assessment/Plan POD#1laparotomy; adhesiolysis, enterotomy with removal of enterolith await improved bowel function Problems: ROSA RICHARDSON MD 07/05/17 1620: SURGICAL PROGRESS NOTE Assessment/Plan addendum she has a low grade temps. incisional pain, but otherwise well abd soft moderate distention appropriately tender inc without redness a/p doing well expect this is a benign post op fever but agree with ordered cultures. Problems: ABRAHAN LAFLEUR APRN Jul 05, 2017 09:26 ROSA RICHARDSON MD Jul 05, 2017 16:20
--- NOTE | 2017-07-05 09:39 | PDOC ---
Subjective: Subjective: Sore, a little nausea, no flatus. Objective: Objective: Reviewed other notes. Vital Signs: Vital Signs Date Time Temp Pulse Resp B/P (MAP) Pulse Ox O2 Delivery O2 Flow Rate FiO2 07/05/17 09:17 Room Air 07/05/17 08:53 95 2.0 07/05/17 07:00 98.1 114 18 142/76 (98) 98.1 Labs: Laboratory Tests Test 07/04/17 11:28 07/04/17 18:20 07/04/17 22:20 07/05/17 00:10 Glucose (Fingerstick) 151 mg/dL 234 mg/dL 199 mg/dL Urine Collection Type U cath Urine Color Yellow Urine Clarity Clear Urine pH 5.0 Urine Specific [place] 1.020 Urine Protein Negative mg/dL Urine Glucose (UA) 100 mg/dL Urine Ketones (Stick) Negative mg/dL Urine Blood Negative Urine Nitrite Negative Urine Bilirubin Negative Urine Urobilinogen Dipstick 0.2 mg/dL Urine Leukocyte Esterase Negative Urine RBC 0 /HPF Urine WBC 1-4 /HPF Urine Squamous Epithelial Cells Occ /LPF Urine Bacteria 0 /HPF Urine Hyaline Casts Moderate /HPF Urine Mucus Mod /LPF Test 07/05/17 06:03 07/05/17 06:15 Glucose (Fingerstick) 191 mg/dL White Blood Count 14.7 x10^3/uL Red Blood Count 4.19 x10^6/uL Hemoglobin 11.5 g/dL Hematocrit 34.9 % Mean Corpuscular Volume 83 fL Mean Corpuscular Hemoglobin 28 pg Mean Corpuscular Hemoglobin Concent 33 g/dL Red Cell Distribution Width 13.8 % Platelet Count 291 x10^3/uL Neutrophils (%) (Auto) 90 % Lymphocytes (%) (Auto) 4 % Monocytes (%) (Auto) 6 % Eosinophils (%) (Auto) 0 % Basophils (%) (Auto) 0 % Neutrophils # (Auto) 13.2 x10^3uL Lymphocytes # (Auto) 0.6 x10^3/uL Monocytes # (Auto) 0.9 x10^3/uL Eosinophils # (Auto) 0.0 x10^3/uL Basophils # (Auto) 0.0 x10^3/uL Sodium Level 139 mmol/L Potassium Level 4.1 mmol/L Chloride Level 103 mmol/L Carbon Dioxide Level 24 mmol/L Anion Gap 12 Blood Urea Nitrogen 14 mg/dL Creatinine 1.1 mg/dL Estimated GFR (Cockcroft-Gault) 49.8 Glucose Level 191 mg/dL Calcium Level 8.9 mg/dL Phosphorus Level 3.4 mg/dL Magnesium Level 1.6 mg/dL Albumin 2.8 g/dL Imaging: Abd US IMPRESSION: No significant mass is detected. PE: GEN: NAD, up to chair LUNGS: clear HEART: RRR ABD: some distention NEURO/PSYCH: A & O 3 A/P: SBO s/p laparotomy: adhesiolysis, enterotomy w/ removal of enterolith -- Continue per surgery. NISA SMITH Jul 05, 2017 09:39
[2017-07-05] MEDS ORDERED: hydrALAZINE 20 MG/ML VIAL. IVP PRN ×2 (11:45→14:00)
--- NOTE | 2017-07-05 12:02 | PDOC ---
SUBJECTIVE ROS FENG Doing and feeing better today OBJECTIVE Vital Signs Vital Signs Date Time Temp Pulse Resp B/P (MAP) Pulse Ox O2 Delivery O2 Flow Rate FiO2 07/05/17 11:00 97.9 106 18 129/67 (87) 97 Nasal Cannula 2.0 97.9 I & 0 Intake and Output 07/05/17 07:00 Intake Total 5700 ml Output Total 650 ml Balance 5050 ml Intake IV Total 5700 ml Output Urine Total 650 ml # Voids 2 PHYSICAL EXAM Physical Exam General Appearance: Awake: Alert Oriented x 3 Neck: No JVD or JVP Chest: CTA Mat Heart: S1 S2 Abdomen - Soft NTND Extremities - No Edema DIAGNOSIS/ASSESSMENT Assessment & Plan FENG - resolved with IVF Low Mag - IV supplementation as ordered ? Vol Depeltion - IVf as ordered - Will hold off of TPn for now, pending GS/ Gi plans SBo - await GI/ GS eval and plans Will be available if plans change - pl call with Qs Problems: COMMENT/RELEVANT DATA Meds Current Medications Medications (Trade) Dose Ordered Sig/Vera Start Time Stop Time Status Last Admin Dose Admin Albuterol Sulfate (Ventolin Neb Soln) 2.5 mg RTQID 07/04/17 12:00 07/04/17 12:00 DC Aspirin (Ecotrin) 81 mg DAILY 07/04/17 11:00 07/04/17 12:01 81 MG Atorvastatin Calcium (Lipitor) 10 mg QHS 07/04/17 21:00 Budesonide (Pulmicort) 0.5 mg RTBID 07/04/17 11:00 07/04/17 20:39 0.5 MG Bupivacaine HCl/ Epinephrine Bitart (Sensorcain-Mpf Epi 0.5%-1:[id number]) 30 ml STK-MED ONCE 07/04/17 16:15 07/04/17 16:17 DC 07/04/17 16:15 8 ML Calcium Carbonate/ Glycine (Oscal) 500 mg DAILY 07/04/17 10:30 07/04/17 12:01 500 MG Cefoxitin Sodium 100 ml @ As Directed STK-MED ONCE 07/04/17 15:22 07/04/17 15:37 DC Cetirizine HCl (ZyrTEC) 10 mg DAILY 07/05/17 09:00 Desflurane (Suprane) 60 ml STK-MED ONCE 07/04/17 15:39 07/04/17 15:40 DC Dexamethasone Sodium Phosphate (Decadron) 20 mg STK-MED ONCE 07/04/17 15:39 07/04/17 15:40 DC Dextrose (Dextrose 50%-Water Syringe) 12.5 gm PRN Q15MIN PRN 07/04/17 10:00 Enoxaparin Sodium (Lovenox 40mg Syringe) 40 mg Q24H 07/04/17 18:00 Ephedrine Sulfate (Akovaz) 50 mg STK-MED ONCE 07/04/17 15:51 07/04/17 15:52 DC Famotidine (Pepcid) 20 mg STK-MED ONCE 07/04/17 15:59 07/04/17 16:00 DC Fentanyl Citrate 30 ml @ 0 mls/hr CONT PRN PRN 07/04/17 18:00 Fentanyl Citrate (Fentanyl 2ml Vial) 100 mcg STK-MED ONCE 07/04/17 17:51 07/04/17 17:52 DC Glycopyrrolate (Robinul) 1 mg STK-MED ONCE 07/04/17 17:00 07/04/17 17:01 DC Hydralazine HCl (Apresoline) 10 mg PRN Q4HRS PRN 07/05/17 11:45 Hydromorphone HCl (Dilaudid) 0.2 mg PRN Q1HR PRN 07/04/17 18:00 07/05/17 05:49 0.2 MG Insulin Aspart (NovoLOG) 0-7 UNITS TIDWMEALS 07/04/17 12:00 07/04/17 19:03 2 UNITS Isosorbide Mononitrate (Imdur) 60 mg DAILY 07/04/17 10:30 07/04/17 12:05 60 MG Levalbuterol HCl (Xopenex) 1.25 mg TID 07/04/17 14:00 07/04/17 20:39 1.25 MG Lidocaine HCl 2 ml PRN 1X PRN 07/04/17 15:30 07/05/17 15:29 Lidocaine HCl (Lidocaine Pf 2% Vial) 5 ml STK-MED ONCE 07/04/17 14:05 07/04/17 14:06 DC Magnesium Sulfate/ Dextrose 50 ml @ 25 mls/hr PRN DAILY PRN 07/04/17 11:00 Metoclopramide HCl (Reglan) 10 mg PRN Q6HRS PRN 07/04/17 18:00 Metoprolol Tartrate (Lopressor) 50 mg BID 07/04/17 10:30 07/04/17 12:03 50 MG Morphine Sulfate 1 mg PRN Q10MIN PRN 07/04/17 15:30 07/05/17 15:29 UNV Multi-Ingredient Mouthwash/Gargle (Gi Cocktail Single Dose) 15 ml 1X ONCE 07/04/17 07:45 07/04/17 07:46 DC 07/04/17 08:17 15 ML Neostigmine Methylsulfate (Bloxiverz) 10 mg STK-MED ONCE 07/04/17 14:03 07/04/17 14:04 DC Non-Formulary Medication 1 ea TID 07/04/17 14:00 UNV Ondansetron HCl (Zofran) 4 mg PRN Q6HRS PRN 07/04/17 18:00 Prochlorperazine Edisylate (Compazine) 10 mg STK-MED ONCE 07/04/17 17:51 07/04/17 17:52 DC Propofol 20 ml @ As Directed STK-MED ONCE 07/04/17 14:05 07/04/17 14:06 DC Ringer's Solution 1,000 ml @ 0 mls/hr Q0M 07/04/17 15:24 07/05/17 03:23 DC Rocuronium [place] (Zemuron) 100 mg STK-MED ONCE 07/04/17 14:03 07/04/17 14:04 DC Saliva Substitute (Biotene Moisturizing Mouth) 2 spray PRN Q15MIN PRN 07/04/17 10:00 07/04/17 12:16 2 SPRAY Scopolamine (Transderm-Scop) 1 patch STK-MED ONCE 07/04/17 15:16 07/04/17 15:37 DC Sodium Chloride 1,000 ml @ 100 mls/hr Q10H 07/04/17 17:52 07/05/17 05:50 100 MLS/HR Sodium Chloride (Normal Saline Flush) 3 ml QSHIFT PRN 07/04/17 18:00 Succinylcholine Chloride (Anectine) 200 mg STK-MED ONCE 07/04/17 14:07 07/04/17 14:08 DC Throat Lozenges (Cepacol Sore Throat Lozenge) 1 caio PRN Q2HRS PRN 07/04/17 10:00 Lab Laboratory Tests Test 07/04/17 18:20 07/04/17 22:20 07/05/17 00:10 07/05/17 06:03 Glucose (Fingerstick) 234 mg/dL (70-99) 199 mg/dL (70-99) 191 mg/dL (70-99) Urine Collection Type U cath Urine Color Yellow Urine Clarity Clear Urine pH 5.0 Urine Specific [place] 1.020 Urine Protein Negative mg/dL (NEG-TRACE) Urine Glucose (UA) 100 mg/dL (NEG) Urine Ketones (Stick) Negative mg/dL (NEG) Urine Blood Negative (NEG) Urine Nitrite Negative (NEG) Urine Bilirubin Negative (NEG) Urine Urobilinogen Dipstick 0.2 mg/dL (0.2 mg/dL) Urine Leukocyte Esterase Negative (NEG) Urine RBC 0 /HPF (0-2) Urine WBC 1-4 /HPF (0-4) Urine Squamous Epithelial Cells Occ /LPF Urine Bacteria 0 /HPF (0-FEW) Urine Hyaline Casts Moderate /HPF Urine Mucus Mod /LPF Urine Random Sodium 168 mmol/L (Not Estab.) Test 07/05/17 06:15 07/05/17 09:37 07/05/17 11:30 White Blood Count 14.7 x10^3/uL (4.0-11.0) Red Blood Count 4.19 x10^6/uL (3.50-5.40) Hemoglobin 11.5 g/dL (12.0-15.5) Hematocrit 34.9 % (36.0-47.0) Mean Corpuscular Volume 83 fL (79-100) Mean Corpuscular Hemoglobin 28 pg (25-35) Mean Corpuscular Hemoglobin Concent 33 g/dL (31-37) Red Cell Distribution Width 13.8 % (11.5-14.5) Platelet Count 291 x10^3/uL (140-400) Neutrophils (%) (Auto) 90 % (31-73) Lymphocytes (%) (Auto) 4 % (24-48) Monocytes (%) (Auto) 6 % (0-9) Eosinophils (%) (Auto) 0 % (0-3) Basophils (%) (Auto) 0 % (0-3) Neutrophils # (Auto) 13.2 x10^3uL (1.8-7.7) Lymphocytes # (Auto) 0.6 x10^3/uL (1.0-4.8) Monocytes # (Auto) 0.9 x10^3/uL (0.0-1.1) Eosinophils # (Auto) 0.0 x10^3/uL (0.0-0.7) Basophils # (Auto) 0.0 x10^3/uL (0.0-0.2) Sodium Level 139 mmol/L (136-145) Potassium Level 4.1 mmol/L (3.5-5.1) Chloride Level 103 mmol/L (98-107) Carbon Dioxide Level 24 mmol/L (21-32) Anion Gap 12 (6-14) Blood Urea Nitrogen 14 mg/dL (7-20) Creatinine 1.1 mg/dL (0.6-1.0) Estimated GFR (Cockcroft-Gault) 49.8 Glucose Level 191 mg/dL (70-99) Calcium Level 8.9 mg/dL (8.5-10.1) Phosphorus Level 3.4 mg/dL (2.6-4.7) Magnesium Level 1.6 mg/dL (1.8-2.4) Albumin 2.8 g/dL (3.4-5.0) Glucose (Fingerstick) 175 mg/dL (70-99) 164 mg/dL (70-99) JUS GARDNER MD Jul 05, 2017 12:02
[2017-07-05] MEDS: AMINO AC 3%/ELECTROLYTE/GLYCER 1,000 ML IV SCH (12:47)
--- NOTE | 2017-07-05 13:25 | PDOC ---
PROGRESS NOTES Chief Complaint Chief Complaint [dupl] ARIAS ZIMMER MD Jul 05, 2017 13:25
[2017-07-05] MEDS: LEVALBUTEROL 1.25 MG/0.5 ML NEBU. NEB SCH ×2 (13:26→20:25)
[2017-07-05] MEDS: METOPROLOL TARTRATE 5 MG/5 ML VIAL. IVP SCH ×2 (14:00→17:43)
--- NOTE | 2017-07-05 14:03 | PDOC ---
PROGRESS NOTES Chief Complaint Chief Complaint Partial small-bowel obstruction due to enteroliths ASSESSMENT AND PLAN: 1. Part SBO 2/ enterolith: s/p lap bowel resection with removal of enterolith. recovering appropriately 2. Pain control: IV dilaudid, toradol PRN 3. Nutrition: NPO for now. on PPN 4. DM: borderline control. metformin on hold, cont ISS 5. CAD: no acute issues. cont home meds (parenterally for now) 7. HTN: well controlled on BB. can restart ESTER-I with normalization of creat 8. FENG: vasomotor etiology from dehydration. resolving 9. Asthma: no acute issues. cont home meds/inh 10. Duodenal diverticula: incidental finding. poss resection on O/P basis after eval by GI 11. prophylaxis: lovenox 24h post surgery, SCDs. H2B History of Present Illness History of Present Illness feels ok, abd pain controlled (01/25) Vitals Vitals Vital Signs Date Time Temp Pulse Resp B/P (MAP) Pulse Ox O2 Delivery O2 Flow Rate FiO2 07/05/17 13:26 94 Nasal Cannula 2.0 07/05/17 11:00 97.9 106 18 129/67 (87) 97.9 Physical Exam General: Alert, Oriented X3, Cooperative, No acute distress Abdomen: Soft, Other (mildly distended, dressing dry, incisional TTP) Extremities: No clubbing, No cyanosis, No edema, Normal pulses Skin: No rashes, No breakdown, No significant lesion Labs LABS Laboratory Tests Test 07/04/17 18:20 07/04/17 22:20 07/05/17 00:10 07/05/17 06:03 Glucose (Fingerstick) 234 mg/dL (70-99) 199 mg/dL (70-99) 191 mg/dL (70-99) Urine Collection Type U cath Urine Color Yellow Urine Clarity Clear Urine pH 5.0 Urine Specific [place] 1.020 Urine Protein Negative mg/dL (NEG-TRACE) Urine Glucose (UA) 100 mg/dL (NEG) Urine Ketones (Stick) Negative mg/dL (NEG) Urine Blood Negative (NEG) Urine Nitrite Negative (NEG) Urine Bilirubin Negative (NEG) Urine Urobilinogen Dipstick 0.2 mg/dL (0.2 mg/dL) Urine Leukocyte Esterase Negative (NEG) Urine RBC 0 /HPF (0-2) Urine WBC 1-4 /HPF (0-4) Urine Squamous Epithelial Cells Occ /LPF Urine Bacteria 0 /HPF (0-FEW) Urine Hyaline Casts Moderate /HPF Urine Mucus Mod /LPF Urine Random Sodium 168 mmol/L (Not Estab.) Test 07/05/17 06:15 07/05/17 09:37 07/05/17 11:30 White Blood Count 14.7 x10^3/uL (4.0-11.0) Red Blood Count 4.19 x10^6/uL (3.50-5.40) Hemoglobin 11.5 g/dL (12.0-15.5) Hematocrit 34.9 % (36.0-47.0) Mean Corpuscular Volume 83 fL (79-100) Mean Corpuscular Hemoglobin 28 pg (25-35) Mean Corpuscular Hemoglobin Concent 33 g/dL (31-37) Red Cell Distribution Width 13.8 % (11.5-14.5) Platelet Count 291 x10^3/uL (140-400) Neutrophils (%) (Auto) 90 % (31-73) Lymphocytes (%) (Auto) 4 % (24-48) Monocytes (%) (Auto) 6 % (0-9) Eosinophils (%) (Auto) 0 % (0-3) Basophils (%) (Auto) 0 % (0-3) Neutrophils # (Auto) 13.2 x10^3uL (1.8-7.7) Lymphocytes # (Auto) 0.6 x10^3/uL (1.0-4.8) Monocytes # (Auto) 0.9 x10^3/uL (0.0-1.1) Eosinophils # (Auto) 0.0 x10^3/uL (0.0-0.7) Basophils # (Auto) 0.0 x10^3/uL (0.0-0.2) Sodium Level 139 mmol/L (136-145) Potassium Level 4.1 mmol/L (3.5-5.1) Chloride Level 103 mmol/L (98-107) Carbon Dioxide Level 24 mmol/L (21-32) Anion Gap 12 (6-14) Blood Urea Nitrogen 14 mg/dL (7-20) Creatinine 1.1 mg/dL (0.6-1.0) Estimated GFR (Cockcroft-Gault) 49.8 Glucose Level 191 mg/dL (70-99) Calcium Level 8.9 mg/dL (8.5-10.1) Phosphorus Level 3.4 mg/dL (2.6-4.7) Magnesium Level 1.6 mg/dL (1.8-2.4) Albumin 2.8 g/dL (3.4-5.0) Glucose (Fingerstick) 175 mg/dL (70-99) 164 mg/dL (70-99) ARIAS ZIMMER MD Jul 05, 2017 14:03
[2017-07-05] MEDS ORDERED: NITROGLYCERIN 0.3MG/HR PATCH. TD SCH (15:00)
[2017-07-05] MEDS: ACETAMINOPHEN 325 MG SUPP.RECT. PR PRN (16:30)
[2017-07-05] MEDS: ENOXAPARIN 40 MG/0.4 ML SYRINGE. SQ SCH (17:38)
[2017-07-05] MEDS: PIPERACILLIN/TAZOBACTAM 3.375 GM in IV NORMAL SALINE 50ML 50 ML IV SCH (17:44)
--- NOTE | 2017-07-05 20:49 | OP ---
DATE OF SURGERY: 07/04/2017 PREOPERATIVE DIAGNOSIS: Small bowel obstruction secondary to an enterolith. POSTOPERATIVE DIAGNOSIS: Small bowel obstruction secondary to an enterolith. PROCEDURE: 1. Laparoscopy converted to open exploratory laparotomy. 2. Extensive adhesiolysis. 3. Enterotomy and removal of enterolith. SURGEON: Rosa Richardson MD ANESTHESIA: General. ESTIMATED BLOOD LOSS: 100 mL IV FLUIDS: 2000 mL INDICATIONS: The patient is a 66-year-old female who presented with bowel obstruction. On CT scan, showed an enterolith thought to be responsible for her bowel obstruction. She was therefore taken to the operating room. FINDINGS: She had enterolith that was able to be removed via an enterotomy. The enterolith was freely floating within the dilated jejunum in which I located the enterolith; however, in the pelvis she has some very tightly adhesed loops of jejunum that were likely creating an obstructed area through which the enterolith could not pass. She has large diverticula through much of her proximal and mid jejunum. DESCRIPTION OF PROCEDURE: After informed consent was obtained, the patient was taken to the operating room and placed in supine position. After adequate induction of general anesthesia, she was prepped and draped in the usual sterile fashion. An umbilical skin incision was made with scalpel and subcutaneous tissues with a hemostat. [facility] was used to grab the fascia and lift it anteriorly. Veress was used to gain access to the peritoneal cavity carefully. Low opening pressures confirmed intraperitoneal placement of Veress. Pneumoperitoneum to 15 mmHg was established followed by placement of 5 mm port. A 5 mm 30 degree lens was inserted, which revealed good port placement. No evidence of entry trauma. She was placed head down. Two additional ports were placed, one was suprapubic 5 mm port and one was left lower quadrant 5 mm port. The small bowel was run and was diffusely dilated with some decompressed bowel in the pelvis. This pelvis was densely adherent due to the extensive distention of her colon as well as small bowel adhesiolysis was not feasible and the procedure was converted to open. At this point, while running the small bowel, an enterolith was identified. An incision was made on the antimesenteric side of the small bowel with cautery just large enough for the enterolith to be removed. This was removed and sent to Pathology for examination and then the enterotomy was closed in 2 layers in a transverse fashion with 3-0 Vicryl sutures. At this point, the small bowel was run from ligament of Treitz to ileocecal valve to distal jejunum, proximal ileum. The small bowel was decompressed and adhesed in the pelvis. These adhesions were taken down sharply. It was felt that the enterolith was unable to pass through this small bowel densely adhesed to the pelvis and this was why she was experiencing intermittent obstructive symptoms from her enterolith. After freeing the small bowel, it could be run in its entirety from the ileocecal valve to the ligament of Treitz. There was no enterotomy or serosal tears noted. The small bowel appeared healthy and viable. The visible portions of the rectum and sigmoid colon, right colon as well as transverse colon and cecum were unremarkable, other than being distended. 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 The extent of the diverticulum was too large to warrant resection at this time. At this point, the patient's incision was closed using instruments that had been and not used previously during the procedure. The entire team changed the gloves. The abdomen was re-explored with 4 clean sterile towels. Fascia was closed with the #1 looped PDS starting at the apices and meeting in the middle. Subcutaneous tissue was irrigated. Skin was loosely reapproximated with dwayne followed by insertion of Telfa kindra into the subcutaneous space between the dwayne. She tolerated the procedure well. There were no apparent complications. She was transferred in stable condition to the recovery room. ROSA RICHARDSON MD DR: KELIN/adeline JOB#: [id number] / [id number] NISA Arraiga SCOTT MD SIMMONS, TERRY MD MTDD
[2017-07-05] MEDS: FAMOTIDINE 20 MG/2 ML VIAL IVP SCH (21:42)
[2017-07-06] VITALS (7 sets, daily range): BP systolic 116–166; BP diastolic 60–97
[2017-07-06] MEDS: PIPERACILLIN/TAZOBACTAM 3.375 GM in IV NORMAL SALINE 50ML 50 ML IV SCH ×4 (00:25→18:14)
[2017-07-06] MEDS: AMINO AC 3%/ELECTROLYTE/GLYCER 1,000 ML IV SCH ×2 (00:26→14:34)
[2017-07-06] MEDS: METOPROLOL TARTRATE 5 MG/5 ML VIAL. IVP SCH ×4 (00:26→17:34)
[2017-07-06] MEDS: fentaNYL PF VIAL 100 MCG/2 ML VIAL IV PRN ×5 (02:24→21:24)
[2017-07-06 03:39] LABS: ALBUMIN 2.6 g/dL (3.4-5.0); CALCIUM 8.6 mg/dL (8.5-10.1); GFR 55.6; PHOSPHORUS 2.1 mg/dL (2.6-4.7); POTASSIUM 3.7 mmol/L (3.5-5.1)
[2017-07-06 03:48] LABS: BASO % 0 % (0-3); EOS % 0 % (0-3); HEMOGLOBIN 10.5 g/dL (12.0-15.5); LYMPH # 0.8 x10^3/uL (1.0-4.8); LYMPH % 7 % (24-48); MEAN CORPUSCULAR HEMOGLOBIN 28 pg (25-35); MEAN CORPUSCULAR HGB CONC 33 g/dL (31-37); MEAN CORPUSCULAR VOLUME 84 fL (79-100); MONO % 6 % (0-9); NEUT % 87 % (31-73); PLATELET COUNT 259 x10^3/uL (140-400); RED BLOOD COUNT 3.82 x10^6/uL (3.50-5.40); RED CELL DISTRIBUTION WIDTH 14.1 % (11.5-14.5); WHITE BLOOD COUNT 12.3 x10^3/uL (4.0-11.0)
[2017-07-06] MEDS: BUDESONIDE 0.5 MG/2 ML NEBU. NEB SCH ×2 (07:27→19:56)
[2017-07-06] MEDS: LEVALBUTEROL 1.25 MG/0.5 ML NEBU. NEB SCH ×3 (07:27→19:56)
[2017-07-06] MEDS: INSULIN ASPART 300 UNITS/3 ML INSULN.PEN SQ SCH ×3 (08:00→16:47)
[2017-07-06] MEDS: CALCIUM CARBONATE 500 MG TABLET PO SCH (09:00)
[2017-07-06] MEDS: CETIRIZINE HCL 10 MG TABLET. PO SCH (09:00)
[2017-07-06] MEDS: METOPROLOL TART IMMED RELEASE 50 MG TABLET. PO SCH ×2 (09:00→21:00)
[2017-07-06] MEDS: ACETAMINOPHEN 325 MG SUPP.RECT. PR PRN ×2 (09:47→17:36)
--- NOTE | 2017-07-06 09:54 | PDOC ---
SURGICAL PROGRESS NOTE Subjective Not feeling good. Some nausea has not passed gas or stool. Vital Signs Vital Signs Date Time Temp Pulse Resp B/P (MAP) Pulse Ox O2 Delivery O2 Flow Rate FiO2 07/06/17 09:40 100.3 100.3 07/06/17 09:37 18 Nasal Cannula 2.0 07/06/17 07:27 88 07/06/17 07:00 166/97 (120) 07/06/17 06:23 107 I&O Intake and Output 07/06/17 07:00 Intake Total 800 ml Output Total 700 ml Balance 100 ml Intake Oral 800 ml Output Urine Total 700 ml # Voids 4 PATIENT HAS A RUBIO: No General: Alert, Oriented X3, Cooperative, mild distress Abdomen: Soft, Other (mild incisional tenderness, slightly distended) Neuro: Normal speech Labs Laboratory Tests Test 07/04/17 11:28 07/04/17 18:20 07/04/17 22:20 07/05/17 00:10 Glucose (Fingerstick) 151 mg/dL (70-99) 234 mg/dL (70-99) 199 mg/dL (70-99) Urine Collection Type U cath Urine Color Yellow Urine Clarity Clear Urine pH 5.0 Urine Specific [place] 1.020 Urine Protein Negative mg/dL (NEG-TRACE) Urine Glucose (UA) 100 mg/dL (NEG) Urine Ketones (Stick) Negative mg/dL (NEG) Urine Blood Negative (NEG) Urine Nitrite Negative (NEG) Urine Bilirubin Negative (NEG) Urine Urobilinogen Dipstick 0.2 mg/dL (0.2 mg/dL) Urine Leukocyte Esterase Negative (NEG) Urine RBC 0 /HPF (0-2) Urine WBC 1-4 /HPF (0-4) Urine Squamous Epithelial Cells Occ /LPF Urine Bacteria 0 /HPF (0-FEW) Urine Hyaline Casts Moderate /HPF Urine Mucus Mod /LPF Urine Random Sodium 168 mmol/L (Not Estab.) Test 07/05/17 06:03 07/05/17 06:15 07/05/17 09:37 07/05/17 11:30 Glucose (Fingerstick) 191 mg/dL (70-99) 175 mg/dL (70-99) 164 mg/dL (70-99) White Blood Count 14.7 x10^3/uL (4.0-11.0) Red Blood Count 4.19 x10^6/uL (3.50-5.40) Hemoglobin 11.5 g/dL (12.0-15.5) Hematocrit 34.9 % (36.0-47.0) Mean Corpuscular Volume 83 fL (79-100) Mean Corpuscular Hemoglobin 28 pg (25-35) Mean Corpuscular Hemoglobin Concent 33 g/dL (31-37) Red Cell Distribution Width 13.8 % (11.5-14.5) Platelet Count 291 x10^3/uL (140-400) Neutrophils (%) (Auto) 90 % (31-73) Lymphocytes (%) (Auto) 4 % (24-48) Monocytes (%) (Auto) 6 % (0-9) Eosinophils (%) (Auto) 0 % (0-3) Basophils (%) (Auto) 0 % (0-3) Neutrophils # (Auto) 13.2 x10^3uL (1.8-7.7) Lymphocytes # (Auto) 0.6 x10^3/uL (1.0-4.8) Monocytes # (Auto) 0.9 x10^3/uL (0.0-1.1) Eosinophils # (Auto) 0.0 x10^3/uL (0.0-0.7) Basophils # (Auto) 0.0 x10^3/uL (0.0-0.2) Sodium Level 139 mmol/L (136-145) Potassium Level 4.1 mmol/L (3.5-5.1) Chloride Level 103 mmol/L (98-107) Carbon Dioxide Level 24 mmol/L (21-32) Anion Gap 12 (6-14) Blood Urea Nitrogen 14 mg/dL (7-20) Creatinine 1.1 mg/dL (0.6-1.0) Estimated GFR (Cockcroft-Gault) 49.8 Glucose Level 191 mg/dL (70-99) Calcium Level 8.9 mg/dL (8.5-10.1) Phosphorus Level 3.4 mg/dL (2.6-4.7) Magnesium Level 1.6 mg/dL (1.8-2.4) Albumin 2.8 g/dL (3.4-5.0) Test 07/05/17 16:05 07/05/17 16:20 07/05/17 20:46 07/06/17 03:00 Lactic Acid Level 3.0 mmol/L (0.4-2.0) 1.0 mmol/L (0.4-2.0) Glucose (Fingerstick) 156 mg/dL (70-99) 158 mg/dL (70-99) White Blood Count 12.3 x10^3/uL (4.0-11.0) Red Blood Count 3.82 x10^6/uL (3.50-5.40) Hemoglobin 10.5 g/dL (12.0-15.5) Hematocrit 32.0 % (36.0-47.0) Mean Corpuscular Volume 84 fL (79-100) Mean Corpuscular Hemoglobin 28 pg (25-35) Mean Corpuscular Hemoglobin Concent 33 g/dL (31-37) Red Cell Distribution Width 14.1 % (11.5-14.5) Platelet Count 259 x10^3/uL (140-400) Neutrophils (%) (Auto) 87 % (31-73) Lymphocytes (%) (Auto) 7 % (24-48) Monocytes (%) (Auto) 6 % (0-9) Eosinophils (%) (Auto) 0 % (0-3) Basophils (%) (Auto) 0 % (0-3) Neutrophils # (Auto) 10.8 x10^3uL (1.8-7.7) Lymphocytes # (Auto) 0.8 x10^3/uL (1.0-4.8) Monocytes # (Auto) 0.7 x10^3/uL (0.0-1.1) Eosinophils # (Auto) 0.0 x10^3/uL (0.0-0.7) Basophils # (Auto) 0.0 x10^3/uL (0.0-0.2) Sodium Level 134 mmol/L (136-145) Potassium Level 3.7 mmol/L (3.5-5.1) Chloride Level 100 mmol/L (98-107) Carbon Dioxide Level 26 mmol/L (21-32) Anion Gap 8 (6-14) Blood Urea Nitrogen 15 mg/dL (7-20) Creatinine 1.0 mg/dL (0.6-1.0) Estimated GFR (Cockcroft-Gault) 55.6 Glucose Level 179 mg/dL (70-99) Calcium Level 8.6 mg/dL (8.5-10.1) Phosphorus Level 2.1 mg/dL (2.6-4.7) Magnesium Level 1.9 mg/dL (1.8-2.4) Albumin 2.6 g/dL (3.4-5.0) Test 07/06/17 08:30 Glucose (Fingerstick) 149 mg/dL (70-99) Laboratory Tests Test 07/05/17 11:30 07/05/17 16:05 07/05/17 16:20 07/05/17 20:46 Glucose (Fingerstick) 164 mg/dL (70-99) 156 mg/dL (70-99) 158 mg/dL (70-99) Lactic Acid Level 3.0 mmol/L (0.4-2.0) Test 07/06/17 03:00 07/06/17 08:30 White Blood Count 12.3 x10^3/uL (4.0-11.0) Red Blood Count 3.82 x10^6/uL (3.50-5.40) Hemoglobin 10.5 g/dL (12.0-15.5) Hematocrit 32.0 % (36.0-47.0) Mean Corpuscular Volume 84 fL (79-100) Mean Corpuscular Hemoglobin 28 pg (25-35) Mean Corpuscular Hemoglobin Concent 33 g/dL (31-37) Red Cell Distribution Width 14.1 % (11.5-14.5) Platelet Count 259 x10^3/uL (140-400) Neutrophils (%) (Auto) 87 % (31-73) Lymphocytes (%) (Auto) 7 % (24-48) Monocytes (%) (Auto) 6 % (0-9) Eosinophils (%) (Auto) 0 % (0-3) Basophils (%) (Auto) 0 % (0-3) Neutrophils # (Auto) 10.8 x10^3uL (1.8-7.7) Lymphocytes # (Auto) 0.8 x10^3/uL (1.0-4.8) Monocytes # (Auto) 0.7 x10^3/uL (0.0-1.1) Eosinophils # (Auto) 0.0 x10^3/uL (0.0-0.7) Basophils # (Auto) 0.0 x10^3/uL (0.0-0.2) Sodium Level 134 mmol/L (136-145) Potassium Level 3.7 mmol/L (3.5-5.1) Chloride Level 100 mmol/L (98-107) Carbon Dioxide Level 26 mmol/L (21-32) Anion Gap 8 (6-14) Blood Urea Nitrogen 15 mg/dL (7-20) Creatinine 1.0 mg/dL (0.6-1.0) Estimated GFR (Cockcroft-Gault) 55.6 Glucose Level 179 mg/dL (70-99) Lactic Acid Level 1.0 mmol/L (0.4-2.0) Calcium Level 8.6 mg/dL (8.5-10.1) Phosphorus Level 2.1 mg/dL (2.6-4.7) Magnesium Level 1.9 mg/dL (1.8-2.4) Albumin 2.6 g/dL (3.4-5.0) Glucose (Fingerstick) 149 mg/dL (70-99) Problem List Problems Medical Problems: (1) Hypomagnesemia Status: Acute (2) Leukocytosis Status: Acute (3) SBO (small bowel obstruction) Status: Acute Assessment/Plan s/p xlap for sbo POD#2 low grade fever continue IS and abx awaiting return of bowel function Supportive care. Problems: ERIC HSU MD Jul 06, 2017 09:54
--- NOTE | 2017-07-06 10:20 | PDOC ---
PROGRESS NOTES Chief Complaint Chief Complaint SBO acute abd pain post-op ileus obesity, BMI 32 Dm2, htn Asthma GERD History of Present Illness History of Present Illness feels ok, abd pain controlled (10) pain up to 8 with movement no flatus, no sounds, no stool + dry mouth Vitals Vitals Vital Signs Date Time Temp Pulse Resp B/P (MAP) Pulse Ox O2 Delivery O2 Flow Rate FiO2 07/06/17 09:40 100.3 100.3 07/06/17 09:37 18 Nasal Cannula 2.0 07/06/17 07:27 88 07/06/17 07:00 166/97 (120) 07/06/17 06:23 107 Physical Exam General: Alert, Oriented X3, Cooperative, mild distress Heart: Regular rate, No murmurs Lungs: Clear Abdomen: Soft, Other (mild incisional tenderness, slightly distended) Extremities: No cyanosis Skin: No rashes Labs LABS Laboratory Tests Test 07/05/17 11:30 07/05/17 16:05 07/05/17 16:20 07/05/17 20:46 Glucose (Fingerstick) 164 mg/dL (70-99) 156 mg/dL (70-99) 158 mg/dL (70-99) Lactic Acid Level 3.0 mmol/L (0.4-2.0) Test 07/06/17 03:00 07/06/17 08:30 White Blood Count 12.3 x10^3/uL (4.0-11.0) Red Blood Count 3.82 x10^6/uL (3.50-5.40) Hemoglobin 10.5 g/dL (12.0-15.5) Hematocrit 32.0 % (36.0-47.0) Mean Corpuscular Volume 84 fL (79-100) Mean Corpuscular Hemoglobin 28 pg (25-35) Mean Corpuscular Hemoglobin Concent 33 g/dL (31-37) Red Cell Distribution Width 14.1 % (11.5-14.5) Platelet Count 259 x10^3/uL (140-400) Neutrophils (%) (Auto) 87 % (31-73) Lymphocytes (%) (Auto) 7 % (24-48) Monocytes (%) (Auto) 6 % (0-9) Eosinophils (%) (Auto) 0 % (0-3) Basophils (%) (Auto) 0 % (0-3) Neutrophils # (Auto) 10.8 x10^3uL (1.8-7.7) Lymphocytes # (Auto) 0.8 x10^3/uL (1.0-4.8) Monocytes # (Auto) 0.7 x10^3/uL (0.0-1.1) Eosinophils # (Auto) 0.0 x10^3/uL (0.0-0.7) Basophils # (Auto) 0.0 x10^3/uL (0.0-0.2) Sodium Level 134 mmol/L (136-145) Potassium Level 3.7 mmol/L (3.5-5.1) Chloride Level 100 mmol/L (98-107) Carbon Dioxide Level 26 mmol/L (21-32) Anion Gap 8 (6-14) Blood Urea Nitrogen 15 mg/dL (7-20) Creatinine 1.0 mg/dL (0.6-1.0) Estimated GFR (Cockcroft-Gault) 55.6 Glucose Level 179 mg/dL (70-99) Lactic Acid Level 1.0 mmol/L (0.4-2.0) Calcium Level 8.6 mg/dL (8.5-10.1) Phosphorus Level 2.1 mg/dL (2.6-4.7) Magnesium Level 1.9 mg/dL (1.8-2.4) Albumin 2.6 g/dL (3.4-5.0) Glucose (Fingerstick) 149 mg/dL (70-99) Review of Systems Review of Systems abd pain, no nausea dry mouth Assessment and Plan Assessmemt and Plan Problems Medical Problems: (1) Hypomagnesemia Status: Acute (2) Leukocytosis Status: Acute (3) SBO (small bowel obstruction) Status: Acute Problems: Comment Review of Relevant I have reviewed the following items feliciano (where applicable) has been applied. Labs Laboratory Tests Test 07/04/17 11:28 07/04/17 18:20 07/04/17 22:20 07/05/17 00:10 Glucose (Fingerstick) 151 mg/dL (70-99) 234 mg/dL (70-99) 199 mg/dL (70-99) Urine Collection Type U cath Urine Color Yellow Urine Clarity Clear Urine pH 5.0 Urine Specific [place] 1.020 Urine Protein Negative mg/dL (NEG-TRACE) Urine Glucose (UA) 100 mg/dL (NEG) Urine Ketones (Stick) Negative mg/dL (NEG) Urine Blood Negative (NEG) Urine Nitrite Negative (NEG) Urine Bilirubin Negative (NEG) Urine Urobilinogen Dipstick 0.2 mg/dL (0.2 mg/dL) Urine Leukocyte Esterase Negative (NEG) Urine RBC 0 /HPF (0-2) Urine WBC 1-4 /HPF (0-4) Urine Squamous Epithelial Cells Occ /LPF Urine Bacteria 0 /HPF (0-FEW) Urine Hyaline Casts Moderate /HPF Urine Mucus Mod /LPF Urine Random Sodium 168 mmol/L (Not Estab.) Test 07/05/17 06:03 07/05/17 06:15 07/05/17 09:37 07/05/17 11:30 Glucose (Fingerstick) 191 mg/dL (70-99) 175 mg/dL (70-99) 164 mg/dL (70-99) White Blood Count 14.7 x10^3/uL (4.0-11.0) Red Blood Count 4.19 x10^6/uL (3.50-5.40) Hemoglobin 11.5 g/dL (12.0-15.5) Hematocrit 34.9 % (36.0-47.0) Mean Corpuscular Volume 83 fL (79-100) Mean Corpuscular Hemoglobin 28 pg (25-35) Mean Corpuscular Hemoglobin Concent 33 g/dL (31-37) Red Cell Distribution Width 13.8 % (11.5-14.5) Platelet Count 291 x10^3/uL (140-400) Neutrophils (%) (Auto) 90 % (31-73) Lymphocytes (%) (Auto) 4 % (24-48) Monocytes (%) (Auto) 6 % (0-9) Eosinophils (%) (Auto) 0 % (0-3) Basophils (%) (Auto) 0 % (0-3) Neutrophils # (Auto) 13.2 x10^3uL (1.8-7.7) Lymphocytes # (Auto) 0.6 x10^3/uL (1.0-4.8) Monocytes # (Auto) 0.9 x10^3/uL (0.0-1.1) Eosinophils # (Auto) 0.0 x10^3/uL (0.0-0.7) Basophils # (Auto) 0.0 x10^3/uL (0.0-0.2) Sodium Level 139 mmol/L (136-145) Potassium Level 4.1 mmol/L (3.5-5.1) Chloride Level 103 mmol/L (98-107) Carbon Dioxide Level 24 mmol/L (21-32) Anion Gap 12 (6-14) Blood Urea Nitrogen 14 mg/dL (7-20) Creatinine 1.1 mg/dL (0.6-1.0) Estimated GFR (Cockcroft-Gault) 49.8 Glucose Level 191 mg/dL (70-99) Calcium Level 8.9 mg/dL (8.5-10.1) Phosphorus Level 3.4 mg/dL (2.6-4.7) Magnesium Level 1.6 mg/dL (1.8-2.4) Albumin 2.8 g/dL (3.4-5.0) Test 07/05/17 16:05 07/05/17 16:20 07/05/17 20:46 07/06/17 03:00 Lactic Acid Level 3.0 mmol/L (0.4-2.0) 1.0 mmol/L (0.4-2.0) Glucose (Fingerstick) 156 mg/dL (70-99) 158 mg/dL (70-99) White Blood Count 12.3 x10^3/uL (4.0-11.0) Red Blood Count 3.82 x10^6/uL (3.50-5.40) Hemoglobin 10.5 g/dL (12.0-15.5) Hematocrit 32.0 % (36.0-47.0) Mean Corpuscular Volume 84 fL (79-100) Mean Corpuscular Hemoglobin 28 pg (25-35) Mean Corpuscular Hemoglobin Concent 33 g/dL (31-37) Red Cell Distribution Width 14.1 % (11.5-14.5) Platelet Count 259 x10^3/uL (140-400) Neutrophils (%) (Auto) 87 % (31-73) Lymphocytes (%) (Auto) 7 % (24-48) Monocytes (%) (Auto) 6 % (0-9) Eosinophils (%) (Auto) 0 % (0-3) Basophils (%) (Auto) 0 % (0-3) Neutrophils # (Auto) 10.8 x10^3uL (1.8-7.7) Lymphocytes # (Auto) 0.8 x10^3/uL (1.0-4.8) Monocytes # (Auto) 0.7 x10^3/uL (0.0-1.1) Eosinophils # (Auto) 0.0 x10^3/uL (0.0-0.7) Basophils # (Auto) 0.0 x10^3/uL (0.0-0.2) Sodium Level 134 mmol/L (136-145) Potassium Level 3.7 mmol/L (3.5-5.1) Chloride Level 100 mmol/L (98-107) Carbon Dioxide Level 26 mmol/L (21-32) Anion Gap 8 (6-14) Blood Urea Nitrogen 15 mg/dL (7-20) Creatinine 1.0 mg/dL (0.6-1.0) Estimated GFR (Cockcroft-Gault) 55.6 Glucose Level 179 mg/dL (70-99) Calcium Level 8.6 mg/dL (8.5-10.1) Phosphorus Level 2.1 mg/dL (2.6-4.7) Magnesium Level 1.9 mg/dL (1.8-2.4) Albumin 2.6 g/dL (3.4-5.0) Test 07/06/17 08:30 Glucose (Fingerstick) 149 mg/dL (70-99) Laboratory Tests Test 07/05/17 11:30 07/05/17 16:05 07/05/17 16:20 07/05/17 20:46 Glucose (Fingerstick) 164 mg/dL (70-99) 156 mg/dL (70-99) 158 mg/dL (70-99) Lactic Acid Level 3.0 mmol/L (0.4-2.0) Test 07/06/17 03:00 07/06/17 08:30 White Blood Count 12.3 x10^3/uL (4.0-11.0) Red Blood Count 3.82 x10^6/uL (3.50-5.40) Hemoglobin 10.5 g/dL (12.0-15.5) Hematocrit 32.0 % (36.0-47.0) Mean Corpuscular Volume 84 fL (79-100) Mean Corpuscular Hemoglobin 28 pg (25-35) Mean Corpuscular Hemoglobin Concent 33 g/dL (31-37) Red Cell Distribution Width 14.1 % (11.5-14.5) Platelet Count 259 x10^3/uL (140-400) Neutrophils (%) (Auto) 87 % (31-73) Lymphocytes (%) (Auto) 7 % (24-48) Monocytes (%) (Auto) 6 % (0-9) Eosinophils (%) (Auto) 0 % (0-3) Basophils (%) (Auto) 0 % (0-3) Neutrophils # (Auto) 10.8 x10^3uL (1.8-7.7) Lymphocytes # (Auto) 0.8 x10^3/uL (1.0-4.8) Monocytes # (Auto) 0.7 x10^3/uL (0.0-1.1) Eosinophils # (Auto) 0.0 x10^3/uL (0.0-0.7) Basophils # (Auto) 0.0 x10^3/uL (0.0-0.2) Sodium Level 134 mmol/L (136-145) Potassium Level 3.7 mmol/L (3.5-5.1) Chloride Level 100 mmol/L (98-107) Carbon Dioxide Level 26 mmol/L (21-32) Anion Gap 8 (6-14) Blood Urea Nitrogen 15 mg/dL (7-20) Creatinine 1.0 mg/dL (0.6-1.0) Estimated GFR (Cockcroft-Gault) 55.6 Glucose Level 179 mg/dL (70-99) Lactic Acid Level 1.0 mmol/L (0.4-2.0) Calcium Level 8.6 mg/dL (8.5-10.1) Phosphorus Level 2.1 mg/dL (2.6-4.7) Magnesium Level 1.9 mg/dL (1.8-2.4) Albumin 2.6 g/dL (3.4-5.0) Glucose (Fingerstick) 149 mg/dL (70-99) Medications Current Medications Ondansetron HCl (Zofran) 8 mg 1X ONCE IV Last administered on 07/04/17 07:44 ; Start 07/04/17 at 07:45; Stop 07/04/17 at 07:46; Status DC Fentanyl Citrate (Fentanyl 2ml Vial) 75 mcg 1X ONCE IV Last administered on 07:46; Start 07/04/17 at 07:45; Stop 07/04/17 at 07:46; Status DC Sodium Chloride 1,000 ml @ 1,000 mls/hr 1X ONCE IV Last administered on 07:44; Start 07/04/17 at 07:30; Stop 07/04/17 at 08:29; Status DC Multi-Ingredient Mouthwash/Gargle (Gi Cocktail Single Dose) 15 ml 1X ONCE SWSW Last administered on 07/04/17 08:17; Start 07/04/17 at 07:45; Stop 07/04/17 at 07:46; Status DC Ondansetron HCl (Zofran) 4 mg PRN Q8HRS PRN IV NAUSEA/VOMITING; Start 07/04/17 at 09:15; Stop 07/05/17 at 09:14; Status DC Sodium Chloride 1,000 ml @ 150 mls/hr Q6H40M IV Last administered on 12:11; Start 07/04/17 at 09:09; Stop 07/05/17 at 01:17; Status DC Saliva Substitute (Biotene Moisturizing Mouth) 2 spray PRN Q15MIN PRN PO DRY MOUTH Last administered on 07/04/17 12:16; Start 07/04/17 at 10:00 Fentanyl Citrate (Fentanyl 2ml Vial) 50 mcg PRN Q2HR PRN IV PAIN Last administered on 07/06/17 09:37; Start 07/04/17 at 10:00 Throat Lozenges (Cepacol Sore Throat Lozenge) 1 caio PRN Q2HRS PRN PO SORE THROAT; Start 07/04/17 at 10:00 Insulin Aspart (NovoLOG) 0-7 UNITS TIDWMEALS SQ Last administered on 07/04/17 19:03; Start 07/04/17 at 12:00 Dextrose (Dextrose 50%-Water Syringe) 12.5 gm PRN Q15MIN PRN IV SEE COMMENTS; Start 07/04/17 at 10:00 Magnesium Sulfate/ Dextrose 50 ml @ 25 mls/hr 1X ONCE IV Last administered on 07/04/17 12:15; Start 07/04/17 at 10:00; Stop 07/04/17 at 11:59; Status DC Aspirin (Ecotrin) 81 mg DAILY PO Last administered on 07/04/17 12:01; Start at 11:00; Stop 07/05/17 at 14:02; Status DC Metoprolol Tartrate (Lopressor) 50 mg BID PO Last administered on 07/04/17 12: 03; Start 07/04/17 at 10:30 Non-Formulary Medication 10.2 gm BID IH ; Start 07/04/17 at 21:00; Status UNV Calcium Carbonate/ Glycine (Oscal) 500 mg DAILY PO Last administered on 12:01; Start 07/04/17 at 10:30 Isosorbide Mononitrate (Imdur) 60 mg DAILY PO Last administered on 07/04/17 12 :05; Start 07/04/17 at 10:30; Stop 07/05/17 at 14:02; Status DC Cetirizine HCl (ZyrTEC) 10 mg DAILY PO ; Start 07/05/17 at 09:00 Atorvastatin Calcium (Lipitor) 10 mg QHS PO ; Start 07/04/17 at 21:00; Stop at 14:02; Status DC Budesonide (Pulmicort) 0.5 mg RTBID NEB Last administered on 07/06/17 07:27; Start 07/04/17 at 11:00 Albuterol Sulfate (Ventolin Neb Soln) 2.5 mg RTQID NEB ; Start 07/04/17 at 12:00 ; Stop 07/04/17 at 12:00; Status DC Magnesium Sulfate/ Dextrose 50 ml @ 25 mls/hr PRN DAILY PRN IV for Mag < 1.7 on am labs Last administered on 07/05/17 12:48; Start 07/04/17 at 11:00 Famotidine (Pepcid) 20 mg QHS IVP Last administered on 07/05/17 21:42; Start 07/04/17 at 21:00 Non-Formulary Medication 1 ea TID NEB ; Start 07/04/17 at 14:00; Status UNV Levalbuterol HCl (Xopenex) 1.25 mg TID NEB Last administered on 07/06/17t 07:27 ; Start 07/04/17 at 14:00 Neostigmine Methylsulfate (Bloxiverz) 10 mg STK-MED ONCE .ROUTE ; Start at 14:03; Stop 07/04/17 at 14:04; Status DC Rocuronium [place] (Zemuron) 100 mg STK-MED ONCE .ROUTE ; Start 07/04/17 at 14: 03; Stop 07/04/17 at 14:04; Status DC Propofol 20 ml @ As Directed STK-MED ONCE IV ; Start 07/04/17 at 14:05; Stop at 14:06; Status DC Lidocaine HCl (Lidocaine Pf 2% Vial) 5 ml STK-MED ONCE .ROUTE ; Start 07/04/17 at 14:05; Stop 07/04/17 at 14:06; Status DC Fentanyl Citrate (Fentanyl 2ml Vial) 100 mcg STK-MED ONCE .ROUTE ; Start at 14:06; Stop 07/04/17 at 14:07; Status DC Succinylcholine Chloride (Anectine) 200 mg STK-MED ONCE .ROUTE ; Start 07/04/17 at 14:07; Stop 07/04/17 at 14:08; Status DC Scopolamine (Transderm-Scop) 1 patch 1X ONCE TD Last administered on t 15:22; Start 07/04/17 at 15:30; Stop 07/04/17 at 15:31; Status DC Scopolamine (Transderm-Scop) 1 patch 1X ONCE TD ; Start 07/04/17 at 15:30; Stop 07/04/17 at 15:31; Status DC Ondansetron HCl (Zofran) 4 mg PRN Q6HRS PRN IV NAUSEA/VOMITING; Start 07/04/17 at 15:30; Stop 07/05/17 at 15:29; Status DC Fentanyl Citrate (Fentanyl 2ml Vial) 25 mcg PRN Q5MIN PRN IV MILD PAIN Last administered on 07/04/17t 18:43; Start 07/04/17 at 15:30; Stop 07/05/17 at 15:29 ; Status DC Fentanyl Citrate (Fentanyl 2ml Vial) 50 mcg PRN Q5MIN PRN IV MODERATE PAIN; Start 07/04/17 at 15:30; Stop 07/05/17 at 15:29; Status DC Morphine Sulfate 1 mg PRN Q10MIN PRN IV SEVERE PAIN; Start 07/04/17 at 15:30; Stop 07/05/17 at 15:29; Status UNV Ringer's Solution 1,000 ml @ 0 mls/hr Q0M IV ; Start 07/04/17 at 15:24; Stop at 03:23; Status DC Lidocaine HCl 2 ml PRN 1X PRN ID PRIOR TO IV START; Start 07/04/17 at 15:30; Stop 07/05/17 at 15:29; Status DC Hydromorphone HCl (Dilaudid) 0.5 mg PRN Q10MIN PRN IV SEV PAIN, Second choice; Start 07/04/17 at 15:30; Stop 07/05/17 at 15:29; Status UNV Prochlorperazine Edisylate (Compazine) 5 mg PACU PRN PRN IV NAUSEA, MRX1 Last administered on 07/04/17t 18:53; Start 07/04/17 at 15:30; Stop 07/05/17 at 15:29 ; Status DC Scopolamine (Transderm-Scop) 1 patch STK-MED ONCE TD ; Start 07/04/17 at 15:16; Stop 07/04/17 at 15:37; Status DC Cefoxitin Sodium 100 ml @ As Directed STK-MED ONCE IV ; Start 07/04/17 at 15:22 ; Stop 07/04/17 at 15:37; Status DC Dexamethasone Sodium Phosphate (Decadron) 20 mg STK-MED ONCE .ROUTE ; Start at 15:39; Stop 07/04/17 at 15:40; Status DC Desflurane (Suprane) 60 ml STK-MED ONCE IH ; Start 07/04/17 at 15:39; Stop 07/04 at 15:40; Status DC Ephedrine Sulfate (Akovaz) 50 mg STK-MED ONCE .ROUTE ; Start 07/04/17 at 15:51; Stop 07/04/17 at 15:52; Status DC Famotidine (Pepcid) 20 mg STK-MED ONCE .ROUTE ; Start 07/04/17 at 15:59; Stop at 16:00; Status DC Ondansetron HCl (Zofran) 4 mg STK-MED ONCE .ROUTE ; Start 07/04/17 at 15:59; Stop 07/04/17 at 16:00; Status DC Bupivacaine HCl/ Epinephrine Bitart (Sensorcain-Mpf Epi 0.5%-[id number]) 30 ml STK -MED ONCE .ROUTE Last administered on 07/04/17t 16:15; Start 07/04/17 at 16:15 ; Stop 07/04/17 at 16:17; Status DC Fentanyl Citrate (Fentanyl 2ml Vial) 100 mcg STK-MED ONCE .ROUTE ; Start at 16:27; Stop 07/04/17 at 16:28; Status DC Glycopyrrolate (Robinul) 1 mg STK-MED ONCE .ROUTE ; Start 07/04/17 at 17:00; Stop 07/04/17 at 17:01; Status DC Ondansetron HCl (Zofran) 4 mg STK-MED ONCE .ROUTE ; Start 07/04/17 at 17:01; Stop 07/04/17 at 17:02; Status DC Hydralazine HCl (Apresoline) 20 mg STK-MED ONCE .ROUTE ; Start 07/04/17 at 17:04 ; Stop 07/04/17 at 17:05; Status DC Fentanyl Citrate (Fentanyl 2ml Vial) 100 mcg STK-MED ONCE .ROUTE ; Start at 17:09; Stop 07/04/17 at 17:10; Status DC Prochlorperazine Edisylate (Compazine) 10 mg STK-MED ONCE .ROUTE ; Start at 17:51; Stop 07/04/17 at 17:52; Status DC Fentanyl Citrate (Fentanyl 2ml Vial) 100 mcg STK-MED ONCE .ROUTE ; Start at 17:51; Stop 07/04/17 at 17:52; Status DC Enoxaparin Sodium (Lovenox 40mg Syringe) 40 mg Q24H SQ Last administered on t 17:38; Start 07/04/17 at 18:00 Sodium Chloride (Normal Saline Flush) 3 ml QSHIFT PRN IV AFTER MEDS AND BLOOD DRAWS; Start 07/04/17 at 18:00 Sodium Chloride 1,000 ml @ 100 mls/hr Q10H IV Last administered on 07/05/17 05:50; Start 07/04/17 at 17:52; Stop 07/05/17 at 12:17; Status DC Fentanyl Citrate 30 ml @ 0 mls/hr CONT PRN PRN IV PROTOCOL; Start 07/04/17 at 18:00 Hydromorphone HCl (Dilaudid) 0.2 mg PRN Q1HR PRN IV PAIN Last administered on 05:49; Start 07/04/17 at 18:00 Ondansetron HCl (Zofran) 4 mg PRN Q6HRS PRN IV NAUESA, 1ST CHOICE Last administered on 07/06/17 09:47; Start 07/04/17 at 18:00 Metoclopramide HCl (Reglan) 10 mg PRN Q6HRS PRN IV Nausea/Vomiting, 2nd Choice ; Start 07/04/17 at 18:00 Hydralazine HCl (Apresoline) 10 mg PRN Q4HRS PRN IVP ELEVATED BP, SEE COMMENTS ; Start 07/05/17 at 11:45 Amino Acids/ Glycerin/ Electrolytes 1,000 ml @ 80 mls/hr [id number] IV Last administered on 07/06/17 00:26; Start 07/05/17 at 13:00 Metoprolol Tartrate (Lopressor) 5 mg Q6HRS IVP Last administered on 07/06/17 06:23; Start 07/05/17 at 14:00 Hydralazine HCl (Apresoline) 10 mg PRN Q4HRS PRN IVP ELEVATED BP, SEE COMMENTS ; Start 07/05/17 at 14:00 Nitroglycerin (Nitro-Dur 0.3mg) 1 patch DAILY TD ; Start 07/05/17 at 15:00; Stop 07/05/17 at 19:52; Status DC Acetaminophen (Tylenol) 325 mg PRN Q6HRS PRN [place] MILD PAIN / TEMP Last administered on 07/06/17 09:47; Start 07/05/17 at 15:45 Piperacillin Sod/ Tazobactam Sod 3.375 gm/Sodium Chloride 50 ml @ 100 mls/hr Q6HRS IV Last administered on 07/06/17t 06:23; Start 07/05/17 at 16:00 Active Scripts Active Levofloxacin 750 Mg Tablet 1 Tab PO DAILY Cipro (Ciprofloxacin Hcl) 500 Mg Tablet 1 Tab PO BID 4 Days Metronidazole 500 Mg Tablet 1 Tab PO TID 4 Days [Lisinopril] 2.5 MG Tablet 2.5 Mg PO DAILY Reported Lovastatin 40 Mg Tablet 40 Mg PO DAILY Imdur (Isosorbide Mononitrate) 60 Mg Tab.er.24h 60 Mg PO DAILY Glucosamine & Chondroitin Cap (Gluc 2KCL/Chondr/Sean Hy/Hy Ac) 1 Each Capsule 2 Each PO DAILY Xopenex Hfa (Levalbuterol Tartrate) 15 Gm Hfa.aer.ad 45 Mcg IH PRN Symbicort 160-4.5 Mcg Inhaler (Budesonide/Formoterol Fumarate) 10.2 Gm Hfa.aer.ad 10.2 Gm IH BID Multi Vitamin Daily (Multivitamin) 1 Each Tablet 1 Each PO DAILY Calcium (Calcium Carbonate) 600 Mg Tablet 600 Mg PO DAILY Fish Oil (Hubertus-3 Fatty Acids) 300 Mg Capsule 3,000 Mg PO DAILY Ranitidine Hcl 150 Mg Capsule 150 Mg PO DAILY Aspirin Ec (Aspirin) 81 Mg Tablet.dr 81 Mg PO DAILY Claritin (Loratadine) 10 Mg Capsule 10 Mg PO BID Metformin Hcl 1,000 Mg Tablet 1,000 Mg PO BID Metoprolol Tartrate 50 Mg Tablet 50 Mg PO BID Vitals/I & O Vital Sign - Last 24 Hours 07/05/17 07/05/17 07/05/17 07/05/17 11:00 13:26 14:00 14:33 Temp 97.9 97.9 Pulse 106 106 Resp 18 B/P (MAP) 129/67 (87) 129/67 Pulse Ox 97 94 94 O2 Delivery Nasal Cannula Nasal Cannula Nasal Cannula O2 Flow Rate 2.0 2.0 2.0 07/05/17 07/05/17 07/05/17 07/05/17 15:00 17:43 19:30 19:37 Temp 100.9 100.8 100.9 100.8 Pulse 113 113 117 Resp 18 18 B/P (MAP) 139/65 (89) 139/65 153/83 (106) Pulse Ox 93 92 O2 Delivery Nasal Cannula Nasal Cannula Room Air O2 Flow Rate 2.0 07/05/17 07/05/17 07/05/17 07/05/17 20:25 20:29 21:43 23:26 Temp 100.3 100.3 Pulse 113 Resp 18 B/P (MAP) 143/74 (97) Pulse Ox 87 92 92 92 O2 Delivery Room Air Nasal Cannula Nasal Cannula Nasal Cannula O2 Flow Rate 2.0 2.0 07/06/17 07/06/17 07/06/17 07/06/17 00:26 02:24 03:42 04:00 Temp 100.3 99.5 100.3 99.5 Pulse 113 107 Resp 18 B/P (MAP) 143/74 127/74 (91) Pulse Ox 92 90 O2 Delivery Nasal Cannula Room Air O2 Flow Rate 2.0 07/06/17 07/06/17 07/06/17 07/06/17 05:15 05:55 06:23 07:00 Temp 99.9 99.9 Pulse 107 Resp 20 B/P (MAP) 127/74 166/97 (120) Pulse Ox 90 90 91 O2 Delivery Nasal Cannula Nasal Cannula Room Air O2 Flow Rate 2.0 2.0 07/06/17 07/06/17 07/06/17 07:27 09:37 09:40 Temp 100.3 100.3 Resp 18 Pulse Ox 88 O2 Delivery Room Air Nasal Cannula O2 Flow Rate 2.0 Intake and Output 07/05/17 07/05/17 07/06/17 15:00 23:00 07:00 Intake Total 800 ml Output Total 400 ml 300 ml Balance 400 ml -300 ml BRYON ELDER MD Jul 06, 2017 10:20
[2017-07-06] MEDS: POTASSIUM PHOSPHATE DIBASIC 10 MMOL in IV NORMAL SALINE 100ML 100 ML IV SCH ×2 (16:01→19:01)
[2017-07-06] MEDS: ENOXAPARIN 40 MG/0.4 ML SYRINGE. SQ SCH (17:35)
[2017-07-06] MEDS: FAMOTIDINE 20 MG/2 ML VIAL IVP SCH (21:23)
[2017-07-07] MEDS: PIPERACILLIN/TAZOBACTAM 3.375 GM in IV NORMAL SALINE 50ML 50 ML IV SCH ×5 (00:55→23:43)
[2017-07-07] MEDS: METOPROLOL TARTRATE 5 MG/5 ML VIAL. IVP SCH ×5 (00:56→23:42)
[2017-07-07] MEDS: AMINO AC 3%/ELECTROLYTE/GLYCER 1,000 ML IV SCH ×2 (02:35→15:38)
[2017-07-07 03:00] VITALS: BP 133/81
[2017-07-07 06:02] LABS: BASO % 0 % (0-3); EOS % 1 % (0-3); HEMATOCRIT 28.5 % (36.0-47.0); HEMOGLOBIN 9.8 g/dL (12.0-15.5); LYMPH % 10 % (24-48); MEAN CORPUSCULAR HEMOGLOBIN 28 pg (25-35); MEAN CORPUSCULAR HGB CONC 34 g/dL (31-37); MEAN CORPUSCULAR VOLUME 82 fL (79-100); MONO % 6 % (0-9); NEUT % 83 % (31-73); PLATELET COUNT 255 x10^3/uL (140-400); RED BLOOD COUNT 3.47 x10^6/uL (3.50-5.40); WHITE BLOOD COUNT 9.6 x10^3/uL (4.0-11.0)
[2017-07-07 06:25] LABS: ALBUMIN 2.3 g/dL (3.4-5.0); CALCIUM 8.3 mg/dL (8.5-10.1); GFR 55.6; PHOSPHORUS 2.7 mg/dL (2.6-4.7); POTASSIUM 4.5 mmol/L (3.5-5.1)
[2017-07-07 07:00] VITALS: BP 146/85
[2017-07-07] MEDS: BUDESONIDE 0.5 MG/2 ML NEBU. NEB SCH ×2 (07:20→18:57)
[2017-07-07] MEDS: LEVALBUTEROL 1.25 MG/0.5 ML NEBU. NEB SCH ×3 (07:20→18:57)
[2017-07-07] MEDS: INSULIN ASPART 300 UNITS/3 ML INSULN.PEN SQ SCH ×3 (08:00→17:00)
[2017-07-07] MEDS: CALCIUM CARBONATE 500 MG TABLET PO SCH (08:49)
[2017-07-07] MEDS: METOPROLOL TART IMMED RELEASE 50 MG TABLET. PO SCH (08:49)
[2017-07-07] MEDS: CETIRIZINE HCL 10 MG TABLET. PO SCH (08:50)
--- NOTE | 2017-07-07 10:26 | PDOC ---
PROGRESS NOTES Chief Complaint Chief Complaint SBO, s/p surg on 07/05,. open exploratory laparotomy for Extensive adhesiolysis. w/ Enterotomy and removal of enterolith. acute abd pain post-op ileus obesity, BMI 32 Dm2, htn Asthma GERD History of Present Illness History of Present Illness feels better today, no flatus, some bowel sounds, she has been ambulating, still req 2 liters 02, desat to 85 % with exertion, peak flow is down, check CXR, likely atelectasis , abd pain controlled (3/10) pain up to 8 with movement no flatus, no sounds, no stool + dry mouth Vitals Vitals Vital Signs Date Time Temp Pulse Resp B/P (MAP) Pulse Ox O2 Delivery O2 Flow Rate FiO2 07/07/17 07:22 96 Nasal Cannula 2.0 07/07/17 07:00 99.5 103 20 146/85 (105) 99.5 Physical Exam General: Alert, Oriented X3, Cooperative, mild distress Heart: Regular rate, No murmurs Lungs: Clear Abdomen: Soft, Other (mild incisional tenderness, slightly distended) Extremities: No cyanosis Skin: No rashes Labs LABS Laboratory Tests Test 07/06/17 11:52 07/06/17 16:40 07/06/17 21:17 07/07/17 05:40 Glucose (Fingerstick) 164 mg/dL (70-99) 136 mg/dL (70-99) 171 mg/dL (70-99) White Blood Count 9.6 x10^3/uL (4.0-11.0) Red Blood Count 3.47 x10^6/uL (3.50-5.40) Hemoglobin 9.8 g/dL (12.0-15.5) Hematocrit 28.5 % (36.0-47.0) Mean Corpuscular Volume 82 fL (79-100) Mean Corpuscular Hemoglobin 28 pg (25-35) Mean Corpuscular Hemoglobin Concent 34 g/dL (31-37) Red Cell Distribution Width 14.0 % (11.5-14.5) Platelet Count 255 x10^3/uL (140-400) Neutrophils (%) (Auto) 83 % (31-73) Lymphocytes (%) (Auto) 10 % (24-48) Monocytes (%) (Auto) 6 % (0-9) Eosinophils (%) (Auto) 1 % (0-3) Basophils (%) (Auto) 0 % (0-3) Neutrophils # (Auto) 8.0 x10^3uL (1.8-7.7) Lymphocytes # (Auto) 1.0 x10^3/uL (1.0-4.8) Monocytes # (Auto) 0.6 x10^3/uL (0.0-1.1) Eosinophils # (Auto) 0.0 x10^3/uL (0.0-0.7) Basophils # (Auto) 0.0 x10^3/uL (0.0-0.2) Sodium Level 139 mmol/L (136-145) Potassium Level 4.5 mmol/L (3.5-5.1) Chloride Level 104 mmol/L (98-107) Carbon Dioxide Level 28 mmol/L (21-32) Anion Gap 7 (6-14) Blood Urea Nitrogen 13 mg/dL (7-20) Creatinine 1.0 mg/dL (0.6-1.0) Estimated GFR (Cockcroft-Gault) 55.6 Glucose Level 134 mg/dL (70-99) Calcium Level 8.3 mg/dL (8.5-10.1) Phosphorus Level 2.7 mg/dL (2.6-4.7) Magnesium Level 1.8 mg/dL (1.8-2.4) Albumin 2.3 g/dL (3.4-5.0) Test 07/07/17 07:41 Glucose (Fingerstick) 121 mg/dL (70-99) Assessment and Plan Assessmemt and Plan Problems Medical Problems: (1) Hypomagnesemia Status: Acute (2) Leukocytosis Status: Acute (3) SBO (small bowel obstruction) Status: Acute Problems: Comment Review of Relevant I have reviewed the following items feliciano (where applicable) has been applied. Labs Laboratory Tests Test 07/05/17 11:30 07/05/17 16:05 07/05/17 16:20 07/05/17 20:46 Glucose (Fingerstick) 164 mg/dL (70-99) 156 mg/dL (70-99) 158 mg/dL (70-99) Lactic Acid Level 3.0 mmol/L (0.4-2.0) Test 07/06/17 03:00 07/06/17 08:30 07/06/17 11:52 07/06/17 16:40 White Blood Count 12.3 x10^3/uL (4.0-11.0) Red Blood Count 3.82 x10^6/uL (3.50-5.40) Hemoglobin 10.5 g/dL (12.0-15.5) Hematocrit 32.0 % (36.0-47.0) Mean Corpuscular Volume 84 fL (79-100) Mean Corpuscular Hemoglobin 28 pg (25-35) Mean Corpuscular Hemoglobin Concent 33 g/dL (31-37) Red Cell Distribution Width 14.1 % (11.5-14.5) Platelet Count 259 x10^3/uL (140-400) Neutrophils (%) (Auto) 87 % (31-73) Lymphocytes (%) (Auto) 7 % (24-48) Monocytes (%) (Auto) 6 % (0-9) Eosinophils (%) (Auto) 0 % (0-3) Basophils (%) (Auto) 0 % (0-3) Neutrophils # (Auto) 10.8 x10^3uL (1.8-7.7) Lymphocytes # (Auto) 0.8 x10^3/uL (1.0-4.8) Monocytes # (Auto) 0.7 x10^3/uL (0.0-1.1) Eosinophils # (Auto) 0.0 x10^3/uL (0.0-0.7) Basophils # (Auto) 0.0 x10^3/uL (0.0-0.2) Sodium Level 134 mmol/L (136-145) Potassium Level 3.7 mmol/L (3.5-5.1) Chloride Level 100 mmol/L (98-107) Carbon Dioxide Level 26 mmol/L (21-32) Anion Gap 8 (6-14) Blood Urea Nitrogen 15 mg/dL (7-20) Creatinine 1.0 mg/dL (0.6-1.0) Estimated GFR (Cockcroft-Gault) 55.6 Glucose Level 179 mg/dL (70-99) Lactic Acid Level 1.0 mmol/L (0.4-2.0) Calcium Level 8.6 mg/dL (8.5-10.1) Phosphorus Level 2.1 mg/dL (2.6-4.7) Magnesium Level 1.9 mg/dL (1.8-2.4) Albumin 2.6 g/dL (3.4-5.0) Glucose (Fingerstick) 149 mg/dL (70-99) 164 mg/dL (70-99) 136 mg/dL (70-99) Test 07/06/17 21:17 07/07/17 05:40 07/07/17 07:41 Glucose (Fingerstick) 171 mg/dL (70-99) 121 mg/dL (70-99) White Blood Count 9.6 x10^3/uL (4.0-11.0) Red Blood Count 3.47 x10^6/uL (3.50-5.40) Hemoglobin 9.8 g/dL (12.0-15.5) Hematocrit 28.5 % (36.0-47.0) Mean Corpuscular Volume 82 fL (79-100) Mean Corpuscular Hemoglobin 28 pg (25-35) Mean Corpuscular Hemoglobin Concent 34 g/dL (31-37) Red Cell Distribution Width 14.0 % (11.5-14.5) Platelet Count 255 x10^3/uL (140-400) Neutrophils (%) (Auto) 83 % (31-73) Lymphocytes (%) (Auto) 10 % (24-48) Monocytes (%) (Auto) 6 % (0-9) Eosinophils (%) (Auto) 1 % (0-3) Basophils (%) (Auto) 0 % (0-3) Neutrophils # (Auto) 8.0 x10^3uL (1.8-7.7) Lymphocytes # (Auto) 1.0 x10^3/uL (1.0-4.8) Monocytes # (Auto) 0.6 x10^3/uL (0.0-1.1) Eosinophils # (Auto) 0.0 x10^3/uL (0.0-0.7) Basophils # (Auto) 0.0 x10^3/uL (0.0-0.2) Sodium Level 139 mmol/L (136-145) Potassium Level 4.5 mmol/L (3.5-5.1) Chloride Level 104 mmol/L (98-107) Carbon Dioxide Level 28 mmol/L (21-32) Anion Gap 7 (6-14) Blood Urea Nitrogen 13 mg/dL (7-20) Creatinine 1.0 mg/dL (0.6-1.0) Estimated GFR (Cockcroft-Gault) 55.6 Glucose Level 134 mg/dL (70-99) Calcium Level 8.3 mg/dL (8.5-10.1) Phosphorus Level 2.7 mg/dL (2.6-4.7) Magnesium Level 1.8 mg/dL (1.8-2.4) Albumin 2.3 g/dL (3.4-5.0) Laboratory Tests Test 07/06/17 11:52 07/06/17 16:40 07/06/17 21:17 07/07/17 05:40 Glucose (Fingerstick) 164 mg/dL (70-99) 136 mg/dL (70-99) 171 mg/dL (70-99) White Blood Count 9.6 x10^3/uL (4.0-11.0) Red Blood Count 3.47 x10^6/uL (3.50-5.40) Hemoglobin 9.8 g/dL (12.0-15.5) Hematocrit 28.5 % (36.0-47.0) Mean Corpuscular Volume 82 fL (79-100) Mean Corpuscular Hemoglobin 28 pg (25-35) Mean Corpuscular Hemoglobin Concent 34 g/dL (31-37) Red Cell Distribution Width 14.0 % (11.5-14.5) Platelet Count 255 x10^3/uL (140-400) Neutrophils (%) (Auto) 83 % (31-73) Lymphocytes (%) (Auto) 10 % (24-48) Monocytes (%) (Auto) 6 % (0-9) Eosinophils (%) (Auto) 1 % (0-3) Basophils (%) (Auto) 0 % (0-3) Neutrophils # (Auto) 8.0 x10^3uL (1.8-7.7) Lymphocytes # (Auto) 1.0 x10^3/uL (1.0-4.8) Monocytes # (Auto) 0.6 x10^3/uL (0.0-1.1) Eosinophils # (Auto) 0.0 x10^3/uL (0.0-0.7) Basophils # (Auto) 0.0 x10^3/uL (0.0-0.2) Sodium Level 139 mmol/L (136-145) Potassium Level 4.5 mmol/L (3.5-5.1) Chloride Level 104 mmol/L (98-107) Carbon Dioxide Level 28 mmol/L (21-32) Anion Gap 7 (6-14) Blood Urea Nitrogen 13 mg/dL (7-20) Creatinine 1.0 mg/dL (0.6-1.0) Estimated GFR (Cockcroft-Gault) 55.6 Glucose Level 134 mg/dL (70-99) Calcium Level 8.3 mg/dL (8.5-10.1) Phosphorus Level 2.7 mg/dL (2.6-4.7) Magnesium Level 1.8 mg/dL (1.8-2.4) Albumin 2.3 g/dL (3.4-5.0) Test 07/07/17 07:41 Glucose (Fingerstick) 121 mg/dL (70-99) Microbiology 07/05/17 Blood Culture - Preliminary, Resulted NO GROWTH AFTER 1 DAY Medications Current Medications Ondansetron HCl (Zofran) 8 mg 1X ONCE IV Last administered on 07/04/17 07:44 ; Start 07/04/17 at 07:45; Stop 07/04/17 at 07:46; Status DC Fentanyl Citrate (Fentanyl 2ml Vial) 75 mcg 1X ONCE IV Last administered on 07:46; Start 07/04/17 at 07:45; Stop 07/04/17 at 07:46; Status DC Sodium Chloride 1,000 ml @ 1,000 mls/hr 1X ONCE IV Last administered on 07:44; Start 07/04/17 at 07:30; Stop 07/04/17 at 08:29; Status DC Multi-Ingredient Mouthwash/Gargle (Gi Cocktail Single Dose) 15 ml 1X ONCE SWSW Last administered on 07/04/17 08:17; Start 07/04/17 at 07:45; Stop 07/04/17 at 07:46; Status DC Ondansetron HCl (Zofran) 4 mg PRN Q8HRS PRN IV NAUSEA/VOMITING; Start 07/04/17 at 09:15; Stop 07/05/17 at 09:14; Status DC Sodium Chloride 1,000 ml @ 150 mls/hr Q6H40M IV Last administered on 12:11; Start 07/04/17 at 09:09; Stop 07/05/17 at 01:17; Status DC Saliva Substitute (Biotene Moisturizing Mouth) 2 spray PRN Q15MIN PRN PO DRY MOUTH Last administered on 07/04/17 12:16; Start 07/04/17 at 10:00 Fentanyl Citrate (Fentanyl 2ml Vial) 50 mcg PRN Q2HR PRN IV PAIN Last administered on 07/06/17 21:24; Start 07/04/17 at 10:00 Throat Lozenges (Cepacol Sore Throat Lozenge) 1 caio PRN Q2HRS PRN PO SORE THROAT; Start 07/04/17 at 10:00 Insulin Aspart (NovoLOG) 0-7 UNITS TIDWMEALS SQ Last administered on 07/04/17 19:03; Start 07/04/17 at 12:00 Dextrose (Dextrose 50%-Water Syringe) 12.5 gm PRN Q15MIN PRN IV SEE COMMENTS; Start 07/04/17 at 10:00 Magnesium Sulfate/ Dextrose 50 ml @ 25 mls/hr 1X ONCE IV Last administered on 07/04/17 12:15; Start 07/04/17 at 10:00; Stop 07/04/17 at 11:59; Status DC Aspirin (Ecotrin) 81 mg DAILY PO Last administered on 07/04/17 12:01; Start at 11:00; Stop 07/05/17 at 14:02; Status DC Metoprolol Tartrate (Lopressor) 50 mg BID PO Last administered on 07/04/17 12: 03; Start 07/04/17 at 10:30 Non-Formulary Medication 10.2 gm BID IH ; Start 07/04/17 at 21:00; Status UNV Calcium Carbonate/ Glycine (Oscal) 500 mg DAILY PO Last administered on 12:01; Start 07/04/17 at 10:30 Isosorbide Mononitrate (Imdur) 60 mg DAILY PO Last administered on 07/04/17 12 :05; Start 07/04/17 at 10:30; Stop 07/05/17 at 14:02; Status DC Cetirizine HCl (ZyrTEC) 10 mg DAILY PO ; Start 07/05/17 at 09:00 Atorvastatin Calcium (Lipitor) 10 mg QHS PO ; Start 07/04/17 at 21:00; Stop at 14:02; Status DC Budesonide (Pulmicort) 0.5 mg RTBID NEB Last administered on 07/07/17 07:20; Start 07/04/17 at 11:00 Albuterol Sulfate (Ventolin Neb Soln) 2.5 mg RTQID NEB ; Start 07/04/17 at 12:00 ; Stop 07/04/17 at 12:00; Status DC Magnesium Sulfate/ Dextrose 50 ml @ 25 mls/hr PRN DAILY PRN IV for Mag < 1.7 on am labs Last administered on 07/05/17 12:48; Start 07/04/17 at 11:00 Famotidine (Pepcid) 20 mg QHS IVP Last administered on 07/06/17 21:23; Start 07/04/17 at 21:00 Non-Formulary Medication 1 ea TID NEB ; Start 07/04/17 at 14:00; Status UNV Levalbuterol HCl (Xopenex) 1.25 mg TID NEB Last administered on 07/07/17 07:20 ; Start 07/04/17 at 14:00 Neostigmine Methylsulfate (Bloxiverz) 10 mg STK-MED ONCE .ROUTE ; Start at 14:03; Stop 07/04/17 at 14:04; Status DC Rocuronium Mcdowell (Zemuron) 100 mg STK-MED ONCE .ROUTE ; Start 07/04/17 at 14: 03; Stop 07/04/17 at 14:04; Status DC Propofol 20 ml @ As Directed STK-MED ONCE IV ; Start 07/04/17 at 14:05; Stop at 14:06; Status DC Lidocaine HCl (Lidocaine Pf 2% Vial) 5 ml STK-MED ONCE .ROUTE ; Start 07/04/17 at 14:05; Stop 07/04/17 at 14:06; Status DC Fentanyl Citrate (Fentanyl 2ml Vial) 100 mcg STK-MED ONCE .ROUTE ; Start at 14:06; Stop 07/04/17 at 14:07; Status DC Succinylcholine Chloride (Anectine) 200 mg STK-MED ONCE .ROUTE ; Start 07/04/17 at 14:07; Stop 07/04/17 at 14:08; Status DC Scopolamine (Transderm-Scop) 1 patch 1X ONCE TD Last administered on t 15:22; Start 07/04/17 at 15:30; Stop 07/04/17 at 15:31; Status DC Scopolamine (Transderm-Scop) 1 patch 1X ONCE TD ; Start 07/04/17 at 15:30; Stop 07/04/17 at 15:31; Status DC Ondansetron HCl (Zofran) 4 mg PRN Q6HRS PRN IV NAUSEA/VOMITING; Start 07/04/17 at 15:30; Stop 07/05/17 at 15:29; Status DC Fentanyl Citrate (Fentanyl 2ml Vial) 25 mcg PRN Q5MIN PRN IV MILD PAIN Last administered on 07/04/17t 18:43; Start 07/04/17 at 15:30; Stop 07/05/17 at 15:29 ; Status DC Fentanyl Citrate (Fentanyl 2ml Vial) 50 mcg PRN Q5MIN PRN IV MODERATE PAIN; Start 07/04/17 at 15:30; Stop 07/05/17 at 15:29; Status DC Morphine Sulfate 1 mg PRN Q10MIN PRN IV SEVERE PAIN; Start 07/04/17 at 15:30; Stop 07/05/17 at 15:29; Status UNV Ringer's Solution 1,000 ml @ 0 mls/hr Q0M IV ; Start 07/04/17 at 15:24; Stop at 03:23; Status DC Lidocaine HCl 2 ml PRN 1X PRN ID PRIOR TO IV START; Start 07/04/17 at 15:30; Stop 07/05/17 at 15:29; Status DC Hydromorphone HCl (Dilaudid) 0.5 mg PRN Q10MIN PRN IV SEV PAIN, Second choice; Start 07/04/17 at 15:30; Stop 07/05/17 at 15:29; Status UNV Prochlorperazine Edisylate (Compazine) 5 mg PACU PRN PRN IV NAUSEA, MRX1 Last administered on 07/04/17t 18:53; Start 07/04/17 at 15:30; Stop 07/05/17 at 15:29 ; Status DC Scopolamine (Transderm-Scop) 1 patch STK-MED ONCE TD ; Start 07/04/17 at 15:16; Stop 07/04/17 at 15:37; Status DC Cefoxitin Sodium 100 ml @ As Directed STK-MED ONCE IV ; Start 07/04/17 at 15:22 ; Stop 07/04/17 at 15:37; Status DC Dexamethasone Sodium Phosphate (Decadron) 20 mg STK-MED ONCE .ROUTE ; Start at 15:39; Stop 07/04/17 at 15:40; Status DC Desflurane (Suprane) 60 ml STK-MED ONCE IH ; Start 07/04/17 at 15:39; Stop 07/04 at 15:40; Status DC Ephedrine Sulfate (Akovaz) 50 mg STK-MED ONCE .ROUTE ; Start 07/04/17 at 15:51; Stop 07/04/17 at 15:52; Status DC Famotidine (Pepcid) 20 mg STK-MED ONCE .ROUTE ; Start 07/04/17 at 15:59; Stop at 16:00; Status DC Ondansetron HCl (Zofran) 4 mg STK-MED ONCE .ROUTE ; Start 07/04/17 at 15:59; Stop 07/04/17 at 16:00; Status DC Bupivacaine HCl/ Epinephrine Bitart (Sensorcain-Mpf Epi 0.5%-1:[id number]) 30 ml STK -MED ONCE .ROUTE Last administered on 07/04/17 16:15; Start 07/04/17 at 16:15 ; Stop 07/04/17 at 16:17; Status DC Fentanyl Citrate (Fentanyl 2ml Vial) 100 mcg STK-MED ONCE .ROUTE ; Start at 16:27; Stop 07/04/17 at 16:28; Status DC Glycopyrrolate (Robinul) 1 mg STK-MED ONCE .ROUTE ; Start 07/04/17 at 17:00; Stop 07/04/17 at 17:01; Status DC Ondansetron HCl (Zofran) 4 mg STK-MED ONCE .ROUTE ; Start 07/04/17 at 17:01; Stop 07/04/17 at 17:02; Status DC Hydralazine HCl (Apresoline) 20 mg STK-MED ONCE .ROUTE ; Start 07/04/17 at 17:04 ; Stop 07/04/17 at 17:05; Status DC Fentanyl Citrate (Fentanyl 2ml Vial) 100 mcg STK-MED ONCE .ROUTE ; Start at 17:09; Stop 07/04/17 at 17:10; Status DC Prochlorperazine Edisylate (Compazine) 10 mg STK-MED ONCE .ROUTE ; Start at 17:51; Stop 07/04/17 at 17:52; Status DC Fentanyl Citrate (Fentanyl 2ml Vial) 100 mcg STK-MED ONCE .ROUTE ; Start at 17:51; Stop 07/04/17 at 17:52; Status DC Enoxaparin Sodium (Lovenox 40mg Syringe) 40 mg Q24H SQ Last administered on 17:35; Start 07/04/17 at 18:00 Sodium Chloride (Normal Saline Flush) 3 ml QSHIFT PRN IV AFTER MEDS AND BLOOD DRAWS; Start 07/04/17 at 18:00 Sodium Chloride 1,000 ml @ 100 mls/hr Q10H IV Last administered on 07/05/17 05:50; Start 07/04/17 at 17:52; Stop 07/05/17 at 12:17; Status DC Fentanyl Citrate 30 ml @ 0 mls/hr CONT PRN PRN IV PROTOCOL; Start 07/04/17 at 18:00 Hydromorphone HCl (Dilaudid) 0.2 mg PRN Q1HR PRN IV PAIN Last administered on 05:49; Start 07/04/17 at 18:00 Ondansetron HCl (Zofran) 4 mg PRN Q6HRS PRN IV NAUESA, 1ST CHOICE Last administered on 07/06/17 09:47; Start 07/04/17 at 18:00 Metoclopramide HCl (Reglan) 10 mg PRN Q6HRS PRN IV Nausea/Vomiting, 2nd Choice ; Start 07/04/17 at 18:00 Hydralazine HCl (Apresoline) 10 mg PRN Q4HRS PRN IVP ELEVATED BP, SEE COMMENTS ; Start 07/05/17 at 11:45 Amino Acids/ Glycerin/ Electrolytes 1,000 ml @ 80 mls/hr [id number] IV Last administered on 07/07/17 02:35; Start 07/05/17 at 13:00 Metoprolol Tartrate (Lopressor) 5 mg Q6HRS IVP Last administered on 07/07/17 06:09; Start 07/05/17 at 14:00 Hydralazine HCl (Apresoline) 10 mg PRN Q4HRS PRN IVP ELEVATED BP, SEE COMMENTS ; Start 07/05/17 at 14:00 Nitroglycerin (Nitro-Dur 0.3mg) 1 patch DAILY TD ; Start 07/05/17 at 15:00; Stop 07/05/17 at 19:52; Status DC Acetaminophen (Tylenol) 325 mg PRN Q6HRS PRN [place] MILD PAIN / TEMP Last administered on 07/06/17 17:36; Start 07/05/17 at 15:45 Piperacillin Sod/ Tazobactam Sod 3.375 gm/Sodium Chloride 50 ml @ 100 mls/hr Q6HRS IV Last administered on 07/07/17 06:08; Start 07/05/17 at 16:00 Potassium Phosphate 10 mmol/ Sodium Chloride 103.3333 ml @ 51.667 m... Q2H IV Last administered on 07/06/17 19:01; Start 07/06/17 at 15:00; Stop 07/06/17 at 18:59; Status DC Active Scripts Active Levofloxacin 750 Mg Tablet 1 Tab PO DAILY Cipro (Ciprofloxacin Hcl) 500 Mg Tablet 1 Tab PO BID 4 Days Metronidazole 500 Mg Tablet 1 Tab PO TID 4 Days [Lisinopril] 2.5 MG Tablet 2.5 Mg PO DAILY Reported Lovastatin 40 Mg Tablet 40 Mg PO DAILY Imdur (Isosorbide Mononitrate) 60 Mg Tab.er.24h 60 Mg PO DAILY Glucosamine & Chondroitin Cap (Gluc 2KCL/Chondr/Sean Hy/Hy Ac) 1 Each Capsule 2 Each PO DAILY Xopenex Hfa (Levalbuterol Tartrate) 15 Gm Hfa.aer.ad 45 Mcg IH PRN Symbicort 160-4.5 Mcg Inhaler (Budesonide/Formoterol Fumarate) 10.2 Gm Hfa.aer.ad 10.2 Gm IH BID Multi Vitamin Daily (Multivitamin) 1 Each Tablet 1 Each PO DAILY Calcium (Calcium Carbonate) 600 Mg Tablet 600 Mg PO DAILY Fish Oil ([place]-3 Fatty Acids) 300 Mg Capsule 3,000 Mg PO DAILY Ranitidine Hcl 150 Mg Capsule 150 Mg PO DAILY Aspirin Ec (Aspirin) 81 Mg Tablet.dr 81 Mg PO DAILY Claritin (Loratadine) 10 Mg Capsule 10 Mg PO BID Metformin Hcl 1,000 Mg Tablet 1,000 Mg PO BID Metoprolol Tartrate 50 Mg Tablet 50 Mg PO BID Vitals/I & O Vital Sign - Last 24 Hours 07/06/17 07/06/17 07/06/17 07/06/17 11:00 12:50 13:11 15:00 Temp 99.8 99.8 99.8 99.8 Pulse 128 128 144 Resp 20 20 B/P (MAP) 147/86 (106) 147/86 137/60 (85) Pulse Ox 92 94 O2 Delivery Nasal Cannula Nasal Cannula Nasal Cannula O2 Flow Rate 2.0 2.0 2.0 07/06/17 07/06/17 07/06/17 07/06/17 17:31 17:34 19:00 19:57 Temp 100.1 99.6 100.1 99.6 Pulse 121 121 121 Resp 24 20 B/P (MAP) 132/77 (95) 132/77 116/67 (83) Pulse Ox 92 92 91 O2 Delivery Nasal Cannula Nasal Cannula Nasal Cannula O2 Flow Rate 2.0 2.0 2.0 07/06/17 07/06/17 07/06/17 07/06/17 20:00 21:24 21:54 23:00 Temp 97.7 97.7 Pulse 107 Resp 16 16 18 B/P (MAP) 123/66 (85) Pulse Ox 93 O2 Delivery Nasal Cannula Nasal Cannula Nasal Cannula O2 Flow Rate 2.0 2.0 2.0 07/07/17 07/07/17 07/07/17 07/07/17 00:56 03:00 06:09 07:00 Temp 100.4 99.5 100.4 99.5 Pulse 107 107 107 103 Resp 18 20 B/P (MAP) 123/66 133/81 (98) 133/81 146/85 (105) Pulse Ox 93 95 O2 Delivery Nasal Cannula Nasal Cannula O2 Flow Rate 2.0 2.0 07/07/17 07:22 Pulse Ox 96 O2 Delivery Nasal Cannula O2 Flow Rate 2.0 Intake and Output 07/06/17 07/06/17 07/07/17 15:00 23:00 07:00 Intake Total 90 ml Balance 90 ml BRYON ELDER MD Jul 07, 2017 10:26
[2017-07-07] MEDS: fentaNYL PF VIAL 100 MCG/2 ML VIAL IV PRN ×3 (10:51→21:22)
[2017-07-07 11:00] VITALS: BP 120/73
--- NOTE | 2017-07-07 11:09 | RAD ---
Indication: Atelectasis. Technique: Semiupright portable chest radiograph was obtained. Comparison is from November 01, 2016. There is also a CT abdomen and pelvis from July 04, 2017. Findings: Bands of atelectasis in the lung bases are again noted, similar to recent CT. These are a change from prior chest radiograph. Less likely, this bandlike opacity on the right could represent diaphragm with air under the diaphragm. If there is concern for pneumoperitoneum consider decubitus films. No airspace disease is identified. The heart is not enlarged. The pulmonary vasculature is mildly cephalized. There is no pleural effusion. Bony structures are intact. Bowel in the upper abdomen appears distended. Impression: Bands of atelectasis in the lung bases bilaterally. Less likely, the finding on the right could represent the diaphragm with air under the diaphragm. If there is concern for free air, consider decubitus films.
--- NOTE | 2017-07-07 11:36 | PDOC ---
SURGICAL PROGRESS NOTE Subjective Feeling better, still no flatus or BM, no nausea Vital Signs Vital Signs Date Time Temp Pulse Resp B/P (MAP) Pulse Ox O2 Delivery O2 Flow Rate FiO2 07/07/17 10:51 18 Nasal Cannula 2.0 07/07/17 07:22 96 07/07/17 07:00 99.5 103 146/85 (105) 99.5 I&O Intake and Output 07/07/17 07:00 Intake Total 90 ml Balance 90 ml Intake Oral 90 ml # Voids 9 PATIENT HAS A RUBIO: No General: Alert, Oriented X3, Cooperative, mild distress Abdomen: Normal bowel sounds, Soft, Other (incisional tenderness) Labs Laboratory Tests Test 07/05/17 16:05 07/05/17 16:20 07/05/17 20:46 07/06/17 03:00 Lactic Acid Level 3.0 mmol/L (0.4-2.0) 1.0 mmol/L (0.4-2.0) Glucose (Fingerstick) 156 mg/dL (70-99) 158 mg/dL (70-99) White Blood Count 12.3 x10^3/uL (4.0-11.0) Red Blood Count 3.82 x10^6/uL (3.50-5.40) Hemoglobin 10.5 g/dL (12.0-15.5) Hematocrit 32.0 % (36.0-47.0) Mean Corpuscular Volume 84 fL (79-100) Mean Corpuscular Hemoglobin 28 pg (25-35) Mean Corpuscular Hemoglobin Concent 33 g/dL (31-37) Red Cell Distribution Width 14.1 % (11.5-14.5) Platelet Count 259 x10^3/uL (140-400) Neutrophils (%) (Auto) 87 % (31-73) Lymphocytes (%) (Auto) 7 % (24-48) Monocytes (%) (Auto) 6 % (0-9) Eosinophils (%) (Auto) 0 % (0-3) Basophils (%) (Auto) 0 % (0-3) Neutrophils # (Auto) 10.8 x10^3uL (1.8-7.7) Lymphocytes # (Auto) 0.8 x10^3/uL (1.0-4.8) Monocytes # (Auto) 0.7 x10^3/uL (0.0-1.1) Eosinophils # (Auto) 0.0 x10^3/uL (0.0-0.7) Basophils # (Auto) 0.0 x10^3/uL (0.0-0.2) Sodium Level 134 mmol/L (136-145) Potassium Level 3.7 mmol/L (3.5-5.1) Chloride Level 100 mmol/L (98-107) Carbon Dioxide Level 26 mmol/L (21-32) Anion Gap 8 (6-14) Blood Urea Nitrogen 15 mg/dL (7-20) Creatinine 1.0 mg/dL (0.6-1.0) Estimated GFR (Cockcroft-Gault) 55.6 Glucose Level 179 mg/dL (70-99) Calcium Level 8.6 mg/dL (8.5-10.1) Phosphorus Level 2.1 mg/dL (2.6-4.7) Magnesium Level 1.9 mg/dL (1.8-2.4) Albumin 2.6 g/dL (3.4-5.0) Test 07/06/17 08:30 07/06/17 11:52 07/06/17 16:40 07/06/17 21:17 Glucose (Fingerstick) 149 mg/dL (70-99) 164 mg/dL (70-99) 136 mg/dL (70-99) 171 mg/dL (70-99) Test 07/07/17 05:40 07/07/17 07:41 White Blood Count 9.6 x10^3/uL (4.0-11.0) Red Blood Count 3.47 x10^6/uL (3.50-5.40) Hemoglobin 9.8 g/dL (12.0-15.5) Hematocrit 28.5 % (36.0-47.0) Mean Corpuscular Volume 82 fL (79-100) Mean Corpuscular Hemoglobin 28 pg (25-35) Mean Corpuscular Hemoglobin Concent 34 g/dL (31-37) Red Cell Distribution Width 14.0 % (11.5-14.5) Platelet Count 255 x10^3/uL (140-400) Neutrophils (%) (Auto) 83 % (31-73) Lymphocytes (%) (Auto) 10 % (24-48) Monocytes (%) (Auto) 6 % (0-9) Eosinophils (%) (Auto) 1 % (0-3) Basophils (%) (Auto) 0 % (0-3) Neutrophils # (Auto) 8.0 x10^3uL (1.8-7.7) Lymphocytes # (Auto) 1.0 x10^3/uL (1.0-4.8) Monocytes # (Auto) 0.6 x10^3/uL (0.0-1.1) Eosinophils # (Auto) 0.0 x10^3/uL (0.0-0.7) Basophils # (Auto) 0.0 x10^3/uL (0.0-0.2) Sodium Level 139 mmol/L (136-145) Potassium Level 4.5 mmol/L (3.5-5.1) Chloride Level 104 mmol/L (98-107) Carbon Dioxide Level 28 mmol/L (21-32) Anion Gap 7 (6-14) Blood Urea Nitrogen 13 mg/dL (7-20) Creatinine 1.0 mg/dL (0.6-1.0) Estimated GFR (Cockcroft-Gault) 55.6 Glucose Level 134 mg/dL (70-99) Calcium Level 8.3 mg/dL (8.5-10.1) Phosphorus Level 2.7 mg/dL (2.6-4.7) Magnesium Level 1.8 mg/dL (1.8-2.4) Albumin 2.3 g/dL (3.4-5.0) Glucose (Fingerstick) 121 mg/dL (70-99) Laboratory Tests Test 07/06/17 11:52 07/06/17 16:40 07/06/17 21:17 07/07/17 05:40 Glucose (Fingerstick) 164 mg/dL (70-99) 136 mg/dL (70-99) 171 mg/dL (70-99) White Blood Count 9.6 x10^3/uL (4.0-11.0) Red Blood Count 3.47 x10^6/uL (3.50-5.40) Hemoglobin 9.8 g/dL (12.0-15.5) Hematocrit 28.5 % (36.0-47.0) Mean Corpuscular Volume 82 fL (79-100) Mean Corpuscular Hemoglobin 28 pg (25-35) Mean Corpuscular Hemoglobin Concent 34 g/dL (31-37) Red Cell Distribution Width 14.0 % (11.5-14.5) Platelet Count 255 x10^3/uL (140-400) Neutrophils (%) (Auto) 83 % (31-73) Lymphocytes (%) (Auto) 10 % (24-48) Monocytes (%) (Auto) 6 % (0-9) Eosinophils (%) (Auto) 1 % (0-3) Basophils (%) (Auto) 0 % (0-3) Neutrophils # (Auto) 8.0 x10^3uL (1.8-7.7) Lymphocytes # (Auto) 1.0 x10^3/uL (1.0-4.8) Monocytes # (Auto) 0.6 x10^3/uL (0.0-1.1) Eosinophils # (Auto) 0.0 x10^3/uL (0.0-0.7) Basophils # (Auto) 0.0 x10^3/uL (0.0-0.2) Sodium Level 139 mmol/L (136-145) Potassium Level 4.5 mmol/L (3.5-5.1) Chloride Level 104 mmol/L (98-107) Carbon Dioxide Level 28 mmol/L (21-32) Anion Gap 7 (6-14) Blood Urea Nitrogen 13 mg/dL (7-20) Creatinine 1.0 mg/dL (0.6-1.0) Estimated GFR (Cockcroft-Gault) 55.6 Glucose Level 134 mg/dL (70-99) Calcium Level 8.3 mg/dL (8.5-10.1) Phosphorus Level 2.7 mg/dL (2.6-4.7) Magnesium Level 1.8 mg/dL (1.8-2.4) Albumin 2.3 g/dL (3.4-5.0) Test 07/07/17 07:41 Glucose (Fingerstick) 121 mg/dL (70-99) Problem List Problems Medical Problems: (1) Hypomagnesemia Status: Acute (2) Leukocytosis Status: Acute (3) SBO (small bowel obstruction) Status: Acute Assessment/Plan s/p xlap for sbo Awaiting return of bowel function Problems: ERIC HSU MD Jul 07, 2017 11:36
[2017-07-07 15:00] VITALS: BP 138/82
[2017-07-07] MEDS: ENOXAPARIN 40 MG/0.4 ML SYRINGE. SQ SCH (18:39)
[2017-07-07 19:49] VITALS: BP 145/79
[2017-07-07] MEDS: FAMOTIDINE 20 MG/2 ML VIAL IVP SCH (21:20)
[2017-07-07 22:55] VITALS: BP 128/75
[2017-07-08 03:00] VITALS: BP_SYST 134; BP_SYST 144; BP_DIAS 66; BP_DIAS 84
[2017-07-08] MEDS: AMINO AC 3%/ELECTROLYTE/GLYCER 1,000 ML IV SCH ×2 (03:07→15:29)
[2017-07-08 04:42] LABS: BASO # 0.1 x10^3/uL (0.0-0.2); BASO % 1 % (0-3); EOS % 1 % (0-3); HEMATOCRIT 31.4 % (36.0-47.0); HEMOGLOBIN 10.6 g/dL (12.0-15.5); LYMPH # 0.8 x10^3/uL (1.0-4.8); LYMPH % 9 % (24-48); MEAN CORPUSCULAR HEMOGLOBIN 28 pg (25-35); MEAN CORPUSCULAR HGB CONC 34 g/dL (31-37); MEAN CORPUSCULAR VOLUME 83 fL (79-100); MONO % 8 % (0-9); NEUT % 82 % (31-73); PLATELET COUNT 297 x10^3/uL (140-400); RED BLOOD COUNT 3.77 x10^6/uL (3.50-5.40); WHITE BLOOD COUNT 9.6 x10^3/uL (4.0-11.0)
[2017-07-08] MEDS: PIPERACILLIN/TAZOBACTAM 3.375 GM in IV NORMAL SALINE 50ML 50 ML IV SCH ×4 (05:06→23:55)
[2017-07-08 05:55] LABS: ALBUMIN 2.4 g/dL (3.4-5.0); CALCIUM 8.9 mg/dL (8.5-10.1); CREATININE 0.9 mg/dL (0.6-1.0); GFR 62.8; PHOSPHORUS 3.2 mg/dL (2.6-4.7); POTASSIUM 3.7 mmol/L (3.5-5.1)
[2017-07-08] MEDS: METOPROLOL TARTRATE 5 MG/5 ML VIAL. IVP SCH ×4 (05:59→23:55)
[2017-07-08] MEDS: fentaNYL PF VIAL 100 MCG/2 ML VIAL IV PRN ×2 (06:00→21:09)
[2017-07-08 07:00] VITALS: BP 148/94
[2017-07-08] MEDS: BUDESONIDE 0.5 MG/2 ML NEBU. NEB SCH ×2 (07:57→19:55)
[2017-07-08] MEDS: LEVALBUTEROL 1.25 MG/0.5 ML NEBU. NEB SCH ×3 (07:57→19:55)
[2017-07-08] MEDS: INSULIN ASPART 300 UNITS/3 ML INSULN.PEN SQ SCH ×3 (08:00→17:00)
[2017-07-08] MEDS: CETIRIZINE HCL 10 MG TABLET. PO SCH (08:13)
[2017-07-08] MEDS: CALCIUM CARBONATE 500 MG TABLET PO SCH (08:13)
[2017-07-08] MEDS ORDERED: MAGNESIUM SULFATE 2GM 50 ML IV ONE (09:00)
--- NOTE | 2017-07-08 09:29 | PDOC ---
Subjective: Subjective: Excited she passed gas, hopeful to try some clear liquids. Pain managed, worse w/ movement (up to 5-6/10). Nausea yesterday but none today. Objective: Objective: Tmax 100.9 Vital Signs: Vital Signs Date Time Temp Pulse Resp B/P (MAP) Pulse Ox O2 Delivery O2 Flow Rate FiO2 07/08/17 07:59 93 Room Air 07/08/17 07:00 99.0 99 16 148/94 (112) 99.0 07/07/17 21:59 2.0 Labs: Laboratory Tests Test 07/07/17 11:40 07/07/17 16:35 07/07/17 20:06 07/08/17 03:55 Glucose (Fingerstick) 110 mg/dL 113 mg/dL 105 mg/dL White Blood Count 9.6 x10^3/uL Red Blood Count 3.77 x10^6/uL Hemoglobin 10.6 g/dL Hematocrit 31.4 % Mean Corpuscular Volume 83 fL Mean Corpuscular Hemoglobin 28 pg Mean Corpuscular Hemoglobin Concent 34 g/dL Red Cell Distribution Width 14.0 % Platelet Count 297 x10^3/uL Neutrophils (%) (Auto) 82 % Lymphocytes (%) (Auto) 9 % Monocytes (%) (Auto) 8 % Eosinophils (%) (Auto) 1 % Basophils (%) (Auto) 1 % Neutrophils # (Auto) 7.9 x10^3uL Lymphocytes # (Auto) 0.8 x10^3/uL Monocytes # (Auto) 0.8 x10^3/uL Eosinophils # (Auto) 0.1 x10^3/uL Basophils # (Auto) 0.1 x10^3/uL Sodium Level 137 mmol/L Potassium Level 3.7 mmol/L Chloride Level 100 mmol/L Carbon Dioxide Level 25 mmol/L Anion Gap 12 Blood Urea Nitrogen 13 mg/dL Creatinine 0.9 mg/dL Estimated GFR (Cockcroft-Gault) 62.8 Glucose Level 126 mg/dL Calcium Level 8.9 mg/dL Phosphorus Level 3.2 mg/dL Magnesium Level 1.6 mg/dL Albumin 2.4 g/dL Test 07/08/17 07:02 Glucose (Fingerstick) 138 mg/dL PE: GEN: NAD, up to chair LUNGS: CTAB HEART: RRR ABD: soft NEURO/PSYCH: A & O 3 A/P: SBO s/p laparotomy: adhesiolysis, enterotomy w/ removal of enterolith -path pending -- Improving, diet per surgery. NISA SMITH Jul 08, 2017 09:29
[2017-07-08 10:39] VITALS: BP 134/75
--- NOTE | 2017-07-08 10:47 | PDOC ---
ABRAHAN LAFLEUR FLANGER 07/08/17 1047: SURGICAL PROGRESS NOTE Subjective + flatus today no nausea or emesis mild bloating Vital Signs Vital Signs Date Time Temp Pulse Resp B/P (MAP) Pulse Ox O2 Delivery O2 Flow Rate FiO2 07/08/17 10:39 100.0 57 17 134/75 (94) 92 Room Air 100.0 07/07/17 21:59 2.0 I&O Intake and Output 07/08/17 07:00 Intake Total 4236 ml Output Total 1150 ml Balance 3086 ml Intake Oral 100 ml IV Total 4136 ml Output Urine Total 1150 ml # Voids 4 General: Alert, Oriented X3, Cooperative, No acute distress Abdomen: Soft, Other (incision c/d/i, kindra removed, no drainage) Labs Laboratory Tests Test 07/06/17 11:52 07/06/17 16:40 07/06/17 21:17 07/07/17 05:40 Glucose (Fingerstick) 164 mg/dL (70-99) 136 mg/dL (70-99) 171 mg/dL (70-99) White Blood Count 9.6 x10^3/uL (4.0-11.0) Red Blood Count 3.47 x10^6/uL (3.50-5.40) Hemoglobin 9.8 g/dL (12.0-15.5) Hematocrit 28.5 % (36.0-47.0) Mean Corpuscular Volume 82 fL (79-100) Mean Corpuscular Hemoglobin 28 pg (25-35) Mean Corpuscular Hemoglobin Concent 34 g/dL (31-37) Red Cell Distribution Width 14.0 % (11.5-14.5) Platelet Count 255 x10^3/uL (140-400) Neutrophils (%) (Auto) 83 % (31-73) Lymphocytes (%) (Auto) 10 % (24-48) Monocytes (%) (Auto) 6 % (0-9) Eosinophils (%) (Auto) 1 % (0-3) Basophils (%) (Auto) 0 % (0-3) Neutrophils # (Auto) 8.0 x10^3uL (1.8-7.7) Lymphocytes # (Auto) 1.0 x10^3/uL (1.0-4.8) Monocytes # (Auto) 0.6 x10^3/uL (0.0-1.1) Eosinophils # (Auto) 0.0 x10^3/uL (0.0-0.7) Basophils # (Auto) 0.0 x10^3/uL (0.0-0.2) Sodium Level 139 mmol/L (136-145) Potassium Level 4.5 mmol/L (3.5-5.1) Chloride Level 104 mmol/L (98-107) Carbon Dioxide Level 28 mmol/L (21-32) Anion Gap 7 (6-14) Blood Urea Nitrogen 13 mg/dL (7-20) Creatinine 1.0 mg/dL (0.6-1.0) Estimated GFR (Cockcroft-Gault) 55.6 Glucose Level 134 mg/dL (70-99) Calcium Level 8.3 mg/dL (8.5-10.1) Phosphorus Level 2.7 mg/dL (2.6-4.7) Magnesium Level 1.8 mg/dL (1.8-2.4) Albumin 2.3 g/dL (3.4-5.0) Test 07/07/17 07:41 07/07/17 11:40 07/07/17 16:35 07/07/17 20:06 Glucose (Fingerstick) 121 mg/dL (70-99) 110 mg/dL (70-99) 113 mg/dL (70-99) 105 mg/dL (70-99) Test 07/08/17 03:55 07/08/17 07:02 White Blood Count 9.6 x10^3/uL (4.0-11.0) Red Blood Count 3.77 x10^6/uL (3.50-5.40) Hemoglobin 10.6 g/dL (12.0-15.5) Hematocrit 31.4 % (36.0-47.0) Mean Corpuscular Volume 83 fL (79-100) Mean Corpuscular Hemoglobin 28 pg (25-35) Mean Corpuscular Hemoglobin Concent 34 g/dL (31-37) Red Cell Distribution Width 14.0 % (11.5-14.5) Platelet Count 297 x10^3/uL (140-400) Neutrophils (%) (Auto) 82 % (31-73) Lymphocytes (%) (Auto) 9 % (24-48) Monocytes (%) (Auto) 8 % (0-9) Eosinophils (%) (Auto) 1 % (0-3) Basophils (%) (Auto) 1 % (0-3) Neutrophils # (Auto) 7.9 x10^3uL (1.8-7.7) Lymphocytes # (Auto) 0.8 x10^3/uL (1.0-4.8) Monocytes # (Auto) 0.8 x10^3/uL (0.0-1.1) Eosinophils # (Auto) 0.1 x10^3/uL (0.0-0.7) Basophils # (Auto) 0.1 x10^3/uL (0.0-0.2) Sodium Level 137 mmol/L (136-145) Potassium Level 3.7 mmol/L (3.5-5.1) Chloride Level 100 mmol/L (98-107) Carbon Dioxide Level 25 mmol/L (21-32) Anion Gap 12 (6-14) Blood Urea Nitrogen 13 mg/dL (7-20) Creatinine 0.9 mg/dL (0.6-1.0) Estimated GFR (Cockcroft-Gault) 62.8 Glucose Level 126 mg/dL (70-99) Calcium Level 8.9 mg/dL (8.5-10.1) Phosphorus Level 3.2 mg/dL (2.6-4.7) Magnesium Level 1.6 mg/dL (1.8-2.4) Albumin 2.4 g/dL (3.4-5.0) Glucose (Fingerstick) 138 mg/dL (70-99) Laboratory Tests Test 07/07/17 11:40 07/07/17 16:35 07/07/17 20:06 07/08/17 03:55 Glucose (Fingerstick) 110 mg/dL (70-99) 113 mg/dL (70-99) 105 mg/dL (70-99) White Blood Count 9.6 x10^3/uL (4.0-11.0) Red Blood Count 3.77 x10^6/uL (3.50-5.40) Hemoglobin 10.6 g/dL (12.0-15.5) Hematocrit 31.4 % (36.0-47.0) Mean Corpuscular Volume 83 fL (79-100) Mean Corpuscular Hemoglobin 28 pg (25-35) Mean Corpuscular Hemoglobin Concent 34 g/dL (31-37) Red Cell Distribution Width 14.0 % (11.5-14.5) Platelet Count 297 x10^3/uL (140-400) Neutrophils (%) (Auto) 82 % (31-73) Lymphocytes (%) (Auto) 9 % (24-48) Monocytes (%) (Auto) 8 % (0-9) Eosinophils (%) (Auto) 1 % (0-3) Basophils (%) (Auto) 1 % (0-3) Neutrophils # (Auto) 7.9 x10^3uL (1.8-7.7) Lymphocytes # (Auto) 0.8 x10^3/uL (1.0-4.8) Monocytes # (Auto) 0.8 x10^3/uL (0.0-1.1) Eosinophils # (Auto) 0.1 x10^3/uL (0.0-0.7) Basophils # (Auto) 0.1 x10^3/uL (0.0-0.2) Sodium Level 137 mmol/L (136-145) Potassium Level 3.7 mmol/L (3.5-5.1) Chloride Level 100 mmol/L (98-107) Carbon Dioxide Level 25 mmol/L (21-32) Anion Gap 12 (6-14) Blood Urea Nitrogen 13 mg/dL (7-20) Creatinine 0.9 mg/dL (0.6-1.0) Estimated GFR (Cockcroft-Gault) 62.8 Glucose Level 126 mg/dL (70-99) Calcium Level 8.9 mg/dL (8.5-10.1) Phosphorus Level 3.2 mg/dL (2.6-4.7) Magnesium Level 1.6 mg/dL (1.8-2.4) Albumin 2.4 g/dL (3.4-5.0) Test 07/08/17 07:02 Glucose (Fingerstick) 138 mg/dL (70-99) Problem List Problems Medical Problems: (1) Hypomagnesemia Status: Acute (2) Leukocytosis Status: Acute (3) SBO (small bowel obstruction) Status: Acute Assessment/Plan POD#4 xlap, sbo some flatus-start clears kindra removed, wound clean low grade intermittent fevers postop, normal WBC--she is on Zosyn Lovenox dvt proph Problems: ROSA RICHARDSON MD 07/08/17 1235: SURGICAL PROGRESS NOTE Assessment/Plan addendum i saw and examined her. she is feeling well. she looks well. fever likely benign postop but given persistence will cont zosyn for now abd soft nd nt inc cdi a/p agree with clears Problems: ABRAHAN LAFLEUR FLANGER Jul 08, 2017 10:47 ROSA RICHARDSON MD Jul 08, 2017 12:35
[2017-07-08] MEDS ORDERED: ALBUTEROL SULFATE 2.5 MG/3 ML NEBU. NEB PRN (14:15)
--- NOTE | 2017-07-08 14:19 | PDOC ---
PROGRESS NOTES Chief Complaint Chief Complaint SBO, s/p surg on 07/05,. open exploratory laparotomy for Extensive adhesiolysis. w/ Enterotomy and removal of enterolith on 07/04 acute abd pain post-op ileus intermittent asthma obesity, BMI 32 Dm2, htn acute hypoxic resp failure post op ,2/2 atelectasis likely GERD hypomagnesemia plan; fu with gi, sx clear liquid 07/08 cont ppn replETE MAG ENCourage ambulate cont pain control labs tmr dvt ppx albuterol prn still on zosyn History of Present Illness History of Present Illness better today, + flatus, no BM post op on PPN low Mag abd pain + sob better today, on RA T 100.9 Vitals Vitals Vital Signs Date Time Temp Pulse Resp B/P (MAP) Pulse Ox O2 Delivery O2 Flow Rate FiO2 07/08/17 13:50 Room Air 07/08/17 12:45 57 134/75 07/08/17 10:39 100.0 17 92 100.0 07/07/17 21:59 2.0 Physical Exam General: Alert, Oriented X3, Cooperative, No acute distress Heart: Regular rate, No murmurs Lungs: Clear Abdomen: Soft, Other (incision c/d/i, kindra removed, no drainage) Extremities: No cyanosis Skin: No rashes Labs LABS Laboratory Tests Test 07/07/17 16:35 07/07/17 20:06 07/08/17 03:55 07/08/17 07:02 Glucose (Fingerstick) 113 mg/dL (70-99) 105 mg/dL (70-99) 138 mg/dL (70-99) White Blood Count 9.6 x10^3/uL (4.0-11.0) Red Blood Count 3.77 x10^6/uL (3.50-5.40) Hemoglobin 10.6 g/dL (12.0-15.5) Hematocrit 31.4 % (36.0-47.0) Mean Corpuscular Volume 83 fL (79-100) Mean Corpuscular Hemoglobin 28 pg (25-35) Mean Corpuscular Hemoglobin Concent 34 g/dL (31-37) Red Cell Distribution Width 14.0 % (11.5-14.5) Platelet Count 297 x10^3/uL (140-400) Neutrophils (%) (Auto) 82 % (31-73) Lymphocytes (%) (Auto) 9 % (24-48) Monocytes (%) (Auto) 8 % (0-9) Eosinophils (%) (Auto) 1 % (0-3) Basophils (%) (Auto) 1 % (0-3) Neutrophils # (Auto) 7.9 x10^3uL (1.8-7.7) Lymphocytes # (Auto) 0.8 x10^3/uL (1.0-4.8) Monocytes # (Auto) 0.8 x10^3/uL (0.0-1.1) Eosinophils # (Auto) 0.1 x10^3/uL (0.0-0.7) Basophils # (Auto) 0.1 x10^3/uL (0.0-0.2) Sodium Level 137 mmol/L (136-145) Potassium Level 3.7 mmol/L (3.5-5.1) Chloride Level 100 mmol/L (98-107) Carbon Dioxide Level 25 mmol/L (21-32) Anion Gap 12 (6-14) Blood Urea Nitrogen 13 mg/dL (7-20) Creatinine 0.9 mg/dL (0.6-1.0) Estimated GFR (Cockcroft-Gault) 62.8 Glucose Level 126 mg/dL (70-99) Calcium Level 8.9 mg/dL (8.5-10.1) Phosphorus Level 3.2 mg/dL (2.6-4.7) Magnesium Level 1.6 mg/dL (1.8-2.4) Albumin 2.4 g/dL (3.4-5.0) Test 07/08/17 11:21 Glucose (Fingerstick) 138 mg/dL (70-99) Review of Systems Review of Systems no chills, sob or chest pain Assessment and Plan Assessmemt and Plan Problems Medical Problems: (1) Hypomagnesemia Status: Acute (2) Leukocytosis Status: Acute (3) SBO (small bowel obstruction) Status: Acute Problems: Comment Review of Relevant I have reviewed the following items feliciano (where applicable) has been applied. Labs Laboratory Tests Test 07/06/17 16:40 07/06/17 21:17 07/07/17 05:40 07/07/17 07:41 Glucose (Fingerstick) 136 mg/dL (70-99) 171 mg/dL (70-99) 121 mg/dL (70-99) White Blood Count 9.6 x10^3/uL (4.0-11.0) Red Blood Count 3.47 x10^6/uL (3.50-5.40) Hemoglobin 9.8 g/dL (12.0-15.5) Hematocrit 28.5 % (36.0-47.0) Mean Corpuscular Volume 82 fL (79-100) Mean Corpuscular Hemoglobin 28 pg (25-35) Mean Corpuscular Hemoglobin Concent 34 g/dL (31-37) Red Cell Distribution Width 14.0 % (11.5-14.5) Platelet Count 255 x10^3/uL (140-400) Neutrophils (%) (Auto) 83 % (31-73) Lymphocytes (%) (Auto) 10 % (24-48) Monocytes (%) (Auto) 6 % (0-9) Eosinophils (%) (Auto) 1 % (0-3) Basophils (%) (Auto) 0 % (0-3) Neutrophils # (Auto) 8.0 x10^3uL (1.8-7.7) Lymphocytes # (Auto) 1.0 x10^3/uL (1.0-4.8) Monocytes # (Auto) 0.6 x10^3/uL (0.0-1.1) Eosinophils # (Auto) 0.0 x10^3/uL (0.0-0.7) Basophils # (Auto) 0.0 x10^3/uL (0.0-0.2) Sodium Level 139 mmol/L (136-145) Potassium Level 4.5 mmol/L (3.5-5.1) Chloride Level 104 mmol/L (98-107) Carbon Dioxide Level 28 mmol/L (21-32) Anion Gap 7 (6-14) Blood Urea Nitrogen 13 mg/dL (7-20) Creatinine 1.0 mg/dL (0.6-1.0) Estimated GFR (Cockcroft-Gault) 55.6 Glucose Level 134 mg/dL (70-99) Calcium Level 8.3 mg/dL (8.5-10.1) Phosphorus Level 2.7 mg/dL (2.6-4.7) Magnesium Level 1.8 mg/dL (1.8-2.4) Albumin 2.3 g/dL (3.4-5.0) Test 07/07/17 11:40 07/07/17 16:35 07/07/17 20:06 07/08/17 03:55 Glucose (Fingerstick) 110 mg/dL (70-99) 113 mg/dL (70-99) 105 mg/dL (70-99) White Blood Count 9.6 x10^3/uL (4.0-11.0) Red Blood Count 3.77 x10^6/uL (3.50-5.40) Hemoglobin 10.6 g/dL (12.0-15.5) Hematocrit 31.4 % (36.0-47.0) Mean Corpuscular Volume 83 fL (79-100) Mean Corpuscular Hemoglobin 28 pg (25-35) Mean Corpuscular Hemoglobin Concent 34 g/dL (31-37) Red Cell Distribution Width 14.0 % (11.5-14.5) Platelet Count 297 x10^3/uL (140-400) Neutrophils (%) (Auto) 82 % (31-73) Lymphocytes (%) (Auto) 9 % (24-48) Monocytes (%) (Auto) 8 % (0-9) Eosinophils (%) (Auto) 1 % (0-3) Basophils (%) (Auto) 1 % (0-3) Neutrophils # (Auto) 7.9 x10^3uL (1.8-7.7) Lymphocytes # (Auto) 0.8 x10^3/uL (1.0-4.8) Monocytes # (Auto) 0.8 x10^3/uL (0.0-1.1) Eosinophils # (Auto) 0.1 x10^3/uL (0.0-0.7) Basophils # (Auto) 0.1 x10^3/uL (0.0-0.2) Sodium Level 137 mmol/L (136-145) Potassium Level 3.7 mmol/L (3.5-5.1) Chloride Level 100 mmol/L (98-107) Carbon Dioxide Level 25 mmol/L (21-32) Anion Gap 12 (6-14) Blood Urea Nitrogen 13 mg/dL (7-20) Creatinine 0.9 mg/dL (0.6-1.0) Estimated GFR (Cockcroft-Gault) 62.8 Glucose Level 126 mg/dL (70-99) Calcium Level 8.9 mg/dL (8.5-10.1) Phosphorus Level 3.2 mg/dL (2.6-4.7) Magnesium Level 1.6 mg/dL (1.8-2.4) Albumin 2.4 g/dL (3.4-5.0) Test 07/08/17 07:02 07/08/17 11:21 Glucose (Fingerstick) 138 mg/dL (70-99) 138 mg/dL (70-99) Laboratory Tests Test 07/07/17 16:35 07/07/17 20:06 07/08/17 03:55 07/08/17 07:02 Glucose (Fingerstick) 113 mg/dL (70-99) 105 mg/dL (70-99) 138 mg/dL (70-99) White Blood Count 9.6 x10^3/uL (4.0-11.0) Red Blood Count 3.77 x10^6/uL (3.50-5.40) Hemoglobin 10.6 g/dL (12.0-15.5) Hematocrit 31.4 % (36.0-47.0) Mean Corpuscular Volume 83 fL (79-100) Mean Corpuscular Hemoglobin 28 pg (25-35) Mean Corpuscular Hemoglobin Concent 34 g/dL (31-37) Red Cell Distribution Width 14.0 % (11.5-14.5) Platelet Count 297 x10^3/uL (140-400) Neutrophils (%) (Auto) 82 % (31-73) Lymphocytes (%) (Auto) 9 % (24-48) Monocytes (%) (Auto) 8 % (0-9) Eosinophils (%) (Auto) 1 % (0-3) Basophils (%) (Auto) 1 % (0-3) Neutrophils # (Auto) 7.9 x10^3uL (1.8-7.7) Lymphocytes # (Auto) 0.8 x10^3/uL (1.0-4.8) Monocytes # (Auto) 0.8 x10^3/uL (0.0-1.1) Eosinophils # (Auto) 0.1 x10^3/uL (0.0-0.7) Basophils # (Auto) 0.1 x10^3/uL (0.0-0.2) Sodium Level 137 mmol/L (136-145) Potassium Level 3.7 mmol/L (3.5-5.1) Chloride Level 100 mmol/L (98-107) Carbon Dioxide Level 25 mmol/L (21-32) Anion Gap 12 (6-14) Blood Urea Nitrogen 13 mg/dL (7-20) Creatinine 0.9 mg/dL (0.6-1.0) Estimated GFR (Cockcroft-Gault) 62.8 Glucose Level 126 mg/dL (70-99) Calcium Level 8.9 mg/dL (8.5-10.1) Phosphorus Level 3.2 mg/dL (2.6-4.7) Magnesium Level 1.6 mg/dL (1.8-2.4) Albumin 2.4 g/dL (3.4-5.0) Test 07/08/17 11:21 Glucose (Fingerstick) 138 mg/dL (70-99) Microbiology 07/05/17 Blood Culture - Preliminary, Resulted NO GROWTH AFTER 2 DAYS Medications Current Medications Ondansetron HCl (Zofran) 8 mg 1X ONCE IV Last administered on 07/04/17 07:44 ; Start 07/04/17 at 07:45; Stop 07/04/17 at 07:46; Status DC Fentanyl Citrate (Fentanyl 2ml Vial) 75 mcg 1X ONCE IV Last administered on 07:46; Start 07/04/17 at 07:45; Stop 07/04/17 at 07:46; Status DC Sodium Chloride 1,000 ml @ 1,000 mls/hr 1X ONCE IV Last administered on 07:44; Start 07/04/17 at 07:30; Stop 07/04/17 at 08:29; Status DC Multi-Ingredient Mouthwash/Gargle (Gi Cocktail Single Dose) 15 ml 1X ONCE SWSW Last administered on 07/04/17 08:17; Start 07/04/17 at 07:45; Stop 07/04/17 at 07:46; Status DC Ondansetron HCl (Zofran) 4 mg PRN Q8HRS PRN IV NAUSEA/VOMITING; Start 07/04/17 at 09:15; Stop 07/05/17 at 09:14; Status DC Sodium Chloride 1,000 ml @ 150 mls/hr Q6H40M IV Last administered on 12:11; Start 07/04/17 at 09:09; Stop 07/05/17 at 01:17; Status DC Saliva Substitute (Biotene Moisturizing Mouth) 2 spray PRN Q15MIN PRN PO DRY MOUTH Last administered on 07/04/17 12:16; Start 07/04/17 at 10:00 Fentanyl Citrate (Fentanyl 2ml Vial) 50 mcg PRN Q2HR PRN IV PAIN Last administered on 07/08/17 06:00; Start 07/04/17 at 10:00; Stop 07/08/17 at 13:43 ; Status DC Throat Lozenges (Cepacol Sore Throat Lozenge) 1 caio PRN Q2HRS PRN PO SORE THROAT; Start 07/04/17 at 10:00 Insulin Aspart (NovoLOG) 0-7 UNITS TIDWMEALS SQ Last administered on 07/04/17 19:03; Start 07/04/17 at 12:00 Dextrose (Dextrose 50%-Water Syringe) 12.5 gm PRN Q15MIN PRN IV SEE COMMENTS; Start 07/04/17 at 10:00 Magnesium Sulfate/ Dextrose 50 ml @ 25 mls/hr 1X ONCE IV Last administered on 07/04/17 12:15; Start 07/04/17 at 10:00; Stop 07/04/17 at 11:59; Status DC Aspirin (Ecotrin) 81 mg DAILY PO Last administered on 07/04/17 12:01; Start at 11:00; Stop 07/05/17 at 14:02; Status DC Metoprolol Tartrate (Lopressor) 50 mg BID PO Last administered on 07/04/17 12: 03; Start 07/04/17 at 10:30; Stop 07/07/17 at 12:56; Status DC Non-Formulary Medication 10.2 gm BID IH ; Start 07/04/17 at 21:00; Status UNV Calcium Carbonate/ Glycine (Oscal) 500 mg DAILY PO Last administered on 12:01; Start 07/04/17 at 10:30 Isosorbide Mononitrate (Imdur) 60 mg DAILY PO Last administered on 07/04/17 12 :05; Start 07/04/17 at 10:30; Stop 07/05/17 at 14:02; Status DC Cetirizine HCl (ZyrTEC) 10 mg DAILY PO ; Start 07/05/17 at 09:00 Atorvastatin Calcium (Lipitor) 10 mg QHS PO ; Start 07/04/17 at 21:00; Stop at 14:02; Status DC Budesonide (Pulmicort) 0.5 mg RTBID NEB Last administered on 07/08/17 07:57; Start 07/04/17 at 11:00 Albuterol Sulfate (Ventolin Neb Soln) 2.5 mg RTQID NEB ; Start 07/04/17 at 12:00 ; Stop 07/04/17 at 12:00; Status DC Magnesium Sulfate/ Dextrose 50 ml @ 25 mls/hr PRN DAILY PRN IV for Mag < 1.7 on am labs Last administered on 07/05/17 12:48; Start 07/04/17 at 11:00 Famotidine (Pepcid) 20 mg QHS IVP Last administered on 07/07/17 21:20; Start 07/04/17 at 21:00 Non-Formulary Medication 1 ea TID NEB ; Start 07/04/17 at 14:00; Status UNV Levalbuterol HCl (Xopenex) 1.25 mg TID NEB Last administered on 07/08/17 13:50 ; Start 07/04/17 at 14:00 Neostigmine Methylsulfate (Bloxiverz) 10 mg STK-MED ONCE .ROUTE ; Start at 14:03; Stop 07/04/17 at 14:04; Status DC Rocuronium Mcalister (Zemuron) 100 mg STK-MED ONCE .ROUTE ; Start 07/04/17 at 14: 03; Stop 07/04/17 at 14:04; Status DC Propofol 20 ml @ As Directed STK-MED ONCE IV ; Start 07/04/17 at 14:05; Stop at 14:06; Status DC Lidocaine HCl (Lidocaine Pf 2% Vial) 5 ml STK-MED ONCE .ROUTE ; Start 07/04/17 at 14:05; Stop 07/04/17 at 14:06; Status DC Fentanyl Citrate (Fentanyl 2ml Vial) 100 mcg STK-MED ONCE .ROUTE ; Start at 14:06; Stop 07/04/17 at 14:07; Status DC Succinylcholine Chloride (Anectine) 200 mg STK-MED ONCE .ROUTE ; Start 07/04/17 at 14:07; Stop 07/04/17 at 14:08; Status DC Scopolamine (Transderm-Scop) 1 patch 1X ONCE TD Last administered on t 15:22; Start 07/04/17 at 15:30; Stop 07/04/17 at 15:31; Status DC Scopolamine (Transderm-Scop) 1 patch 1X ONCE TD ; Start 07/04/17 at 15:30; Stop 07/04/17 at 15:31; Status DC Ondansetron HCl (Zofran) 4 mg PRN Q6HRS PRN IV NAUSEA/VOMITING; Start 07/04/17 at 15:30; Stop 07/05/17 at 15:29; Status DC Fentanyl Citrate (Fentanyl 2ml Vial) 25 mcg PRN Q5MIN PRN IV MILD PAIN Last administered on 07/04/17t 18:43; Start 07/04/17 at 15:30; Stop 07/05/17 at 15:29 ; Status DC Fentanyl Citrate (Fentanyl 2ml Vial) 50 mcg PRN Q5MIN PRN IV MODERATE PAIN; Start 07/04/17 at 15:30; Stop 07/05/17 at 15:29; Status DC Morphine Sulfate 1 mg PRN Q10MIN PRN IV SEVERE PAIN; Start 07/04/17 at 15:30; Stop 07/05/17 at 15:29; Status UNV Ringer's Solution 1,000 ml @ 0 mls/hr Q0M IV ; Start 07/04/17 at 15:24; Stop at 03:23; Status DC Lidocaine HCl 2 ml PRN 1X PRN ID PRIOR TO IV START; Start 07/04/17 at 15:30; Stop 07/05/17 at 15:29; Status DC Hydromorphone HCl (Dilaudid) 0.5 mg PRN Q10MIN PRN IV SEV PAIN, Second choice; Start 07/04/17 at 15:30; Stop 07/05/17 at 15:29; Status UNV Prochlorperazine Edisylate (Compazine) 5 mg PACU PRN PRN IV NAUSEA, MRX1 Last administered on 07/04/17t 18:53; Start 07/04/17 at 15:30; Stop 07/05/17 at 15:29 ; Status DC Scopolamine (Transderm-Scop) 1 patch STK-MED ONCE TD ; Start 07/04/17 at 15:16; Stop 07/04/17 at 15:37; Status DC Cefoxitin Sodium 100 ml @ As Directed STK-MED ONCE IV ; Start 07/04/17 at 15:22 ; Stop 07/04/17 at 15:37; Status DC Dexamethasone Sodium Phosphate (Decadron) 20 mg STK-MED ONCE .ROUTE ; Start at 15:39; Stop 07/04/17 at 15:40; Status DC Desflurane (Suprane) 60 ml STK-MED ONCE IH ; Start 07/04/17 at 15:39; Stop 07/04 at 15:40; Status DC Ephedrine Sulfate (Akovaz) 50 mg STK-MED ONCE .ROUTE ; Start 07/04/17 at 15:51; Stop 07/04/17 at 15:52; Status DC Famotidine (Pepcid) 20 mg STK-MED ONCE .ROUTE ; Start 07/04/17 at 15:59; Stop at 16:00; Status DC Ondansetron HCl (Zofran) 4 mg STK-MED ONCE .ROUTE ; Start 07/04/17 at 15:59; Stop 07/04/17 at 16:00; Status DC Bupivacaine HCl/ Epinephrine Bitart (Sensorcain-Mpf Epi 0.5%-1:[id number]) 30 ml STK -MED ONCE .ROUTE Last administered on 07/04/17t 16:15; Start 07/04/17 at 16:15 ; Stop 07/04/17 at 16:17; Status DC Fentanyl Citrate (Fentanyl 2ml Vial) 100 mcg STK-MED ONCE .ROUTE ; Start at 16:27; Stop 07/04/17 at 16:28; Status DC Glycopyrrolate (Robinul) 1 mg STK-MED ONCE .ROUTE ; Start 07/04/17 at 17:00; Stop 07/04/17 at 17:01; Status DC Ondansetron HCl (Zofran) 4 mg STK-MED ONCE .ROUTE ; Start 07/04/17 at 17:01; Stop 07/04/17 at 17:02; Status DC Hydralazine HCl (Apresoline) 20 mg STK-MED ONCE .ROUTE ; Start 07/04/17 at 17:04 ; Stop 07/04/17 at 17:05; Status DC Fentanyl Citrate (Fentanyl 2ml Vial) 100 mcg STK-MED ONCE .ROUTE ; Start at 17:09; Stop 07/04/17 at 17:10; Status DC Prochlorperazine Edisylate (Compazine) 10 mg STK-MED ONCE .ROUTE ; Start at 17:51; Stop 07/04/17 at 17:52; Status DC Fentanyl Citrate (Fentanyl 2ml Vial) 100 mcg STK-MED ONCE .ROUTE ; Start at 17:51; Stop 07/04/17 at 17:52; Status DC Enoxaparin Sodium (Lovenox 40mg Syringe) 40 mg Q24H SQ Last administered on t 18:39; Start 07/04/17 at 18:00 Sodium Chloride (Normal Saline Flush) 3 ml QSHIFT PRN IV AFTER MEDS AND BLOOD DRAWS; Start 07/04/17 at 18:00 Sodium Chloride 1,000 ml @ 100 mls/hr Q10H IV Last administered on 07/05/17t 05:50; Start 07/04/17 at 17:52; Stop 07/05/17 at 12:17; Status DC Fentanyl Citrate 30 ml @ 0 mls/hr CONT PRN PRN IV PROTOCOL; Start 07/04/17 at 18:00 Hydromorphone HCl (Dilaudid) 0.2 mg PRN Q1HR PRN IV PAIN Last administered on 05:49; Start 07/04/17 at 18:00; Stop 07/08/17 at 13:44; Status DC Ondansetron HCl (Zofran) 4 mg PRN Q6HRS PRN IV NAUESA, 1ST CHOICE Last administered on 07/06/17 09:47; Start 07/04/17 at 18:00 Metoclopramide HCl (Reglan) 10 mg PRN Q6HRS PRN IV Nausea/Vomiting, 2nd Choice ; Start 07/04/17 at 18:00 Hydralazine HCl (Apresoline) 10 mg PRN Q4HRS PRN IVP ELEVATED BP, SEE COMMENTS ; Start 07/05/17 at 11:45 Amino Acids/ Glycerin/ Electrolytes 1,000 ml @ 80 mls/hr [id number] IV Last administered on 07/08/17 03:07; Start 07/05/17 at 13:00 Metoprolol Tartrate (Lopressor) 5 mg Q6HRS IVP Last administered on 07/08/17 12:45; Start 07/05/17 at 14:00 Hydralazine HCl (Apresoline) 10 mg PRN Q4HRS PRN IVP ELEVATED BP, SEE COMMENTS ; Start 07/05/17 at 14:00; Stop 07/07/17 at 12:55; Status DC Nitroglycerin (Nitro-Dur 0.3mg) 1 patch DAILY TD ; Start 07/05/17 at 15:00; Stop 07/05/17 at 19:52; Status DC Acetaminophen (Tylenol) 325 mg PRN Q6HRS PRN IL MILD PAIN / TEMP Last administered on 07/06/17 17:36; Start 07/05/17 at 15:45 Piperacillin Sod/ Tazobactam Sod 3.375 gm/Sodium Chloride 50 ml @ 100 mls/hr Q6HRS IV Last administered on 07/08/17 12:44; Start 07/05/17 at 16:00 Potassium Phosphate 10 mmol/ Sodium Chloride 103.3333 ml @ 51.667 m... Q2H IV Last administered on 07/06/17 19:01; Start 07/06/17 at 15:00; Stop 07/06/17 at 18:59; Status DC Magnesium Sulfate/ Dextrose 50 ml @ 25 mls/hr 1X ONCE IV Last administered on 07/08/17 10:12; Start 07/08/17 at 09:00; Stop 07/08/17 at 10:59; Status DC Active Scripts Active Levofloxacin 750 Mg Tablet 1 Tab PO DAILY Cipro (Ciprofloxacin Hcl) 500 Mg Tablet 1 Tab PO BID 4 Days Metronidazole 500 Mg Tablet 1 Tab PO TID 4 Days [Lisinopril] 2.5 MG Tablet 2.5 Mg PO DAILY Reported Lovastatin 40 Mg Tablet 40 Mg PO DAILY Imdur (Isosorbide Mononitrate) 60 Mg Tab.er.24h 60 Mg PO DAILY Glucosamine & Chondroitin Cap (Gluc 2KCL/Chondr/Sean Hy/Hy Ac) 1 Each Capsule 2 Each PO DAILY Xopenex Hfa (Levalbuterol Tartrate) 15 Gm Hfa.aer.ad 45 Mcg IH PRN Symbicort 160-4.5 Mcg Inhaler (Budesonide/Formoterol Fumarate) 10.2 Gm Hfa.aer.ad 10.2 Gm IH BID Multi Vitamin Daily (Multivitamin) 1 Each Tablet 1 Each PO DAILY Calcium (Calcium Carbonate) 600 Mg Tablet 600 Mg PO DAILY Fish Oil ([place]-3 Fatty Acids) 300 Mg Capsule 3,000 Mg PO DAILY Ranitidine Hcl 150 Mg Capsule 150 Mg PO DAILY Aspirin Ec (Aspirin) 81 Mg Tablet.dr 81 Mg PO DAILY Claritin (Loratadine) 10 Mg Capsule 10 Mg PO BID Metformin Hcl 1,000 Mg Tablet 1,000 Mg PO BID Metoprolol Tartrate 50 Mg Tablet 50 Mg PO BID Vitals/I & O Vital Sign - Last 24 Hours 07/07/17 07/07/17 07/07/17 07/07/17 15:00 15:39 16:00 18:40 Temp 100.2 100.2 Pulse 102 102 Resp 20 16 16 B/P (MAP) 138/82 (100) 138/82 Pulse Ox 91 O2 Delivery Room Air Room Air 07/07/17 07/07/17 07/07/17 07/07/17 18:58 19:49 20:00 21:22 Temp 100.8 100.8 Pulse 102 Resp 16 B/P (MAP) 145/79 (101) Pulse Ox 95 O2 Delivery Nasal Cannula Nasal Cannula Nasal Cannula O2 Flow Rate 2.0 2.0 07/07/17 07/07/17 07/07/17 07/08/17 21:59 22:55 23:42 03:00 Temp 99.3 100.9 99.3 100.9 Pulse 96 96 99 Resp 14 18 B/P (MAP) 128/75 (92) 128/75 144/84 (104) Pulse Ox 95 93 O2 Delivery Nasal Cannula Room Air Room Air O2 Flow Rate 2.0 07/08/17 07/08/17 07/08/17 07/08/17 05:59 06:00 06:30 07:00 Temp 99.0 99.0 Pulse 99 99 Resp 20 16 B/P (MAP) 144/84 148/94 (112) Pulse Ox 93 100 O2 Delivery Nasal Cannula Nasal Cannula Room Air 07/08/17 07/08/17 07/08/17 07/08/17 07:59 10:39 12:45 13:50 Temp 100.0 100.0 Pulse 57 57 Resp 17 B/P (MAP) 134/75 (94) 134/75 Pulse Ox 93 92 O2 Delivery Room Air Room Air Room Air Intake and Output 07/07/17 07/07/17 07/08/17 15:00 23:00 07:00 Intake Total 4236 ml Output Total 750 ml 400 ml Balance -750 ml 3836 ml GIBRAN SORIA MD Jul 08, 2017 14:19
[2017-07-08 14:42] VITALS: BP 141/82
[2017-07-08] MEDS: ENOXAPARIN 40 MG/0.4 ML SYRINGE. SQ SCH (18:09)
[2017-07-08 19:00] VITALS: BP 137/80
[2017-07-08] MEDS: FAMOTIDINE 20 MG/2 ML VIAL IVP SCH (21:09)
[2017-07-08 23:00] VITALS: BP 139/76
[2017-07-09 03:00] VITALS: BP 130/67
[2017-07-09] MEDS: AMINO AC 3%/ELECTROLYTE/GLYCER 1,000 ML IV SCH ×2 (03:47→16:39)
[2017-07-09] MEDS: PIPERACILLIN/TAZOBACTAM 3.375 GM in IV NORMAL SALINE 50ML 50 ML IV SCH ×3 (05:10→18:00)
[2017-07-09] MEDS: METOPROLOL TARTRATE 5 MG/5 ML VIAL. IVP SCH ×2 (05:49→12:00)
[2017-07-09 07:00] VITALS: BP 138/80
[2017-07-09 07:05] LABS: BASO % 0 % (0-3); EOS % 3 % (0-3); HEMATOCRIT 31.8 % (36.0-47.0); HEMOGLOBIN 10.5 g/dL (12.0-15.5); LYMPH # 1.2 x10^3/uL (1.0-4.8); LYMPH % 14 % (24-48); MEAN CORPUSCULAR HEMOGLOBIN 27 pg (25-35); MEAN CORPUSCULAR HGB CONC 33 g/dL (31-37); MEAN CORPUSCULAR VOLUME 83 fL (79-100); MONO % 10 % (0-9); NEUT % 73 % (31-73); PLATELET COUNT 362 x10^3/uL (140-400); RED BLOOD COUNT 3.85 x10^6/uL (3.50-5.40); RED CELL DISTRIBUTION WIDTH 13.9 % (11.5-14.5); WHITE BLOOD COUNT 8.8 x10^3/uL (4.0-11.0)
[2017-07-09 07:30] LABS: ALBUMIN 2.4 g/dL (3.4-5.0); CALCIUM 8.7 mg/dL (8.5-10.1); CREATININE 0.9 mg/dL (0.6-1.0); GFR 62.8; PHOSPHORUS 4.5 mg/dL (2.6-4.7)
[2017-07-09] MEDS: BUDESONIDE 0.5 MG/2 ML NEBU. NEB SCH ×2 (07:52→19:47)
[2017-07-09] MEDS: LEVALBUTEROL 1.25 MG/0.5 ML NEBU. NEB SCH ×3 (07:52→19:47)
[2017-07-09] MEDS: INSULIN ASPART 300 UNITS/3 ML INSULN.PEN SQ SCH ×3 (08:00→17:00)
[2017-07-09] MEDS: CETIRIZINE HCL 10 MG TABLET. PO SCH (08:15)
[2017-07-09] MEDS: CALCIUM CARBONATE 500 MG TABLET PO SCH (08:15)
--- NOTE | 2017-07-09 08:23 | PATHOLOGY ---
PATHOLOGY REPORT * * * * * * * * FINAL DIAGNOSIS: Enterolith, clinically from small bowel (Gross only). (JPM:mgr; 07/08/2017) REPORT ELECTRONICALLY SIGNED BY: Nikos Villegas M.D. DATE/TIME: 07/09/2017 08:23 * * * * * * * * GROSS PATHOLOGY: The specimen is received in formalin labeled "Luz Pleitez, enterolith". Received is a flat, somewhat rounded segment of firm ribeiro brown material measuring up to 3.0 cm in diameter and 0.6 cm in thickness. The specimen is gritty and has a bright yellow orange cut surface. No sections are submitted. (JPM; 07/05/17) INITIAL CPT CODE(S): 66158 Professional services performed by [facility] [place] [address] Technical services performed by [facility] at [address] [place] [address]. SPECIMEN(S) RECEIVED: A.Enterolith CLINICAL HISTORY: Small bowel resection PATIENT: LUZ PLEITEZ /AGE: 12 1950 (Age: 66) PATIENT #: [id number] ALT CASE #: SPECIMEN COLLECTION DATE: 07/04/2017 SPECIMEN RECEIVED DATE: 07/05/2017 [facility] - [address] [place] [address] - PHONE: [phone] * * * END OF REPORT * * *
[2017-07-09] MEDS ORDERED: ACETAMINOPHEN 325 MG TABLET. PO PRN (09:30)
[2017-07-09 11:00] VITALS: BP 125/77
[2017-07-09] MEDS: traMADol 50 MG TABLET PO PRN ×2 (11:22→20:00)
--- NOTE | 2017-07-09 12:16 | PDOC ---
ABRAHAN LAFLEUR MOVIE ACTOR 07/09/17 1216: SURGICAL PROGRESS NOTE Subjective tolerating clears, does not like some of the high salt, sugar items + BM today no n/v Vital Signs Vital Signs Date Time Temp Pulse Resp B/P (MAP) Pulse Ox O2 Delivery O2 Flow Rate FiO2 07/09/17 12:00 93 125/77 07/09/17 11:22 97 Room Air 07/09/17 11:00 97.3 16 97.3 07/09/17 08:15 2.0 I&O Intake and Output 07/09/17 07:00 Intake Total 1850 ml Output Total 850 ml Balance 1000 ml Intake Oral 1320 ml IV Total 530 ml Output Urine Total 850 ml # Voids 3 General: Alert, Oriented X3, Cooperative, No acute distress Abdomen: Soft, Other (small amout of serosang drainage to lower portion of incision(noted on dressing no active drainage from incision), some mild erythema to lower incision ) Labs Laboratory Tests Test 07/07/17 16:35 07/07/17 20:06 07/08/17 03:55 07/08/17 07:02 Glucose (Fingerstick) 113 mg/dL (70-99) 105 mg/dL (70-99) 138 mg/dL (70-99) White Blood Count 9.6 x10^3/uL (4.0-11.0) Red Blood Count 3.77 x10^6/uL (3.50-5.40) Hemoglobin 10.6 g/dL (12.0-15.5) Hematocrit 31.4 % (36.0-47.0) Mean Corpuscular Volume 83 fL (79-100) Mean Corpuscular Hemoglobin 28 pg (25-35) Mean Corpuscular Hemoglobin Concent 34 g/dL (31-37) Red Cell Distribution Width 14.0 % (11.5-14.5) Platelet Count 297 x10^3/uL (140-400) Neutrophils (%) (Auto) 82 % (31-73) Lymphocytes (%) (Auto) 9 % (24-48) Monocytes (%) (Auto) 8 % (0-9) Eosinophils (%) (Auto) 1 % (0-3) Basophils (%) (Auto) 1 % (0-3) Neutrophils # (Auto) 7.9 x10^3uL (1.8-7.7) Lymphocytes # (Auto) 0.8 x10^3/uL (1.0-4.8) Monocytes # (Auto) 0.8 x10^3/uL (0.0-1.1) Eosinophils # (Auto) 0.1 x10^3/uL (0.0-0.7) Basophils # (Auto) 0.1 x10^3/uL (0.0-0.2) Sodium Level 137 mmol/L (136-145) Potassium Level 3.7 mmol/L (3.5-5.1) Chloride Level 100 mmol/L (98-107) Carbon Dioxide Level 25 mmol/L (21-32) Anion Gap 12 (6-14) Blood Urea Nitrogen 13 mg/dL (7-20) Creatinine 0.9 mg/dL (0.6-1.0) Estimated GFR (Cockcroft-Gault) 62.8 Glucose Level 126 mg/dL (70-99) Calcium Level 8.9 mg/dL (8.5-10.1) Phosphorus Level 3.2 mg/dL (2.6-4.7) Magnesium Level 1.6 mg/dL (1.8-2.4) Albumin 2.4 g/dL (3.4-5.0) Test 07/08/17 11:21 07/08/17 21:14 07/09/17 06:40 07/09/17 07:04 Glucose (Fingerstick) 138 mg/dL (70-99) 184 mg/dL (70-99) 122 mg/dL (70-99) White Blood Count 8.8 x10^3/uL (4.0-11.0) Red Blood Count 3.85 x10^6/uL (3.50-5.40) Hemoglobin 10.5 g/dL (12.0-15.5) Hematocrit 31.8 % (36.0-47.0) Mean Corpuscular Volume 83 fL (79-100) Mean Corpuscular Hemoglobin 27 pg (25-35) Mean Corpuscular Hemoglobin Concent 33 g/dL (31-37) Red Cell Distribution Width 13.9 % (11.5-14.5) Platelet Count 362 x10^3/uL (140-400) Neutrophils (%) (Auto) 73 % (31-73) Lymphocytes (%) (Auto) 14 % (24-48) Monocytes (%) (Auto) 10 % (0-9) Eosinophils (%) (Auto) 3 % (0-3) Basophils (%) (Auto) 0 % (0-3) Neutrophils # (Auto) 6.4 x10^3uL (1.8-7.7) Lymphocytes # (Auto) 1.2 x10^3/uL (1.0-4.8) Monocytes # (Auto) 0.9 x10^3/uL (0.0-1.1) Eosinophils # (Auto) 0.2 x10^3/uL (0.0-0.7) Basophils # (Auto) 0.0 x10^3/uL (0.0-0.2) Sodium Level 139 mmol/L (136-145) Potassium Level 4.0 mmol/L (3.5-5.1) Chloride Level 102 mmol/L (98-107) Carbon Dioxide Level 25 mmol/L (21-32) Anion Gap 12 (6-14) Blood Urea Nitrogen 15 mg/dL (7-20) Creatinine 0.9 mg/dL (0.6-1.0) Estimated GFR (Cockcroft-Gault) 62.8 Glucose Level 125 mg/dL (70-99) Calcium Level 8.7 mg/dL (8.5-10.1) Phosphorus Level 4.5 mg/dL (2.6-4.7) Magnesium Level 1.8 mg/dL (1.8-2.4) Albumin 2.4 g/dL (3.4-5.0) Test 07/09/17 10:27 Glucose (Fingerstick) 158 mg/dL (70-99) Laboratory Tests Test 07/08/17 21:14 07/09/17 06:40 07/09/17 07:04 07/09/17 10:27 Glucose (Fingerstick) 184 mg/dL (70-99) 122 mg/dL (70-99) 158 mg/dL (70-99) White Blood Count 8.8 x10^3/uL (4.0-11.0) Red Blood Count 3.85 x10^6/uL (3.50-5.40) Hemoglobin 10.5 g/dL (12.0-15.5) Hematocrit 31.8 % (36.0-47.0) Mean Corpuscular Volume 83 fL (79-100) Mean Corpuscular Hemoglobin 27 pg (25-35) Mean Corpuscular Hemoglobin Concent 33 g/dL (31-37) Red Cell Distribution Width 13.9 % (11.5-14.5) Platelet Count 362 x10^3/uL (140-400) Neutrophils (%) (Auto) 73 % (31-73) Lymphocytes (%) (Auto) 14 % (24-48) Monocytes (%) (Auto) 10 % (0-9) Eosinophils (%) (Auto) 3 % (0-3) Basophils (%) (Auto) 0 % (0-3) Neutrophils # (Auto) 6.4 x10^3uL (1.8-7.7) Lymphocytes # (Auto) 1.2 x10^3/uL (1.0-4.8) Monocytes # (Auto) 0.9 x10^3/uL (0.0-1.1) Eosinophils # (Auto) 0.2 x10^3/uL (0.0-0.7) Basophils # (Auto) 0.0 x10^3/uL (0.0-0.2) Sodium Level 139 mmol/L (136-145) Potassium Level 4.0 mmol/L (3.5-5.1) Chloride Level 102 mmol/L (98-107) Carbon Dioxide Level 25 mmol/L (21-32) Anion Gap 12 (6-14) Blood Urea Nitrogen 15 mg/dL (7-20) Creatinine 0.9 mg/dL (0.6-1.0) Estimated GFR (Cockcroft-Gault) 62.8 Glucose Level 125 mg/dL (70-99) Calcium Level 8.7 mg/dL (8.5-10.1) Phosphorus Level 4.5 mg/dL (2.6-4.7) Magnesium Level 1.8 mg/dL (1.8-2.4) Albumin 2.4 g/dL (3.4-5.0) Problem List Problems Medical Problems: (1) Hypomagnesemia Status: Acute (2) Leukocytosis Status: Acute (3) SBO (small bowel obstruction) Status: Acute Assessment/Plan s/p xlap advance diet to full liquids if continues to do well dc likely in next day or two watch incision, right now small amount of drainage and mild erythema to lower incision--does not appear to need to be packed at this time Problems: ROSA RICHARDSON MD 07/09/17 1302: SURGICAL PROGRESS NOTE Assessment/Plan addendum i saw and examined her. +small bm and +flatus. starting fulls now for lunch abd soft nd approp tender a/p cont supportive care. Problems: ABRAHAN LAFLEUR APRN Jul 09, 2017 12:16 ROSA RICHARDSON MD Jul 09, 2017 13:02
--- NOTE | 2017-07-09 12:25 | PDOC ---
PROGRESS NOTES Chief Complaint Chief Complaint SBO, s/p surg on 07/05,. open exploratory laparotomy for Extensive adhesiolysis. w/ Enterotomy and removal of enterolith on 07/04 acute abd pain post-op ileus intermittent asthma obesity, BMI 32 Dm2, htn acute hypoxic resp failure post op ,2/2 atelectasis likely GERD hypomagnesemia plan; fu with gi, sx clear liquid 07/08, advance to full liquid 07/09 with sx cont ppn ENCourage ambulate cont pain control, add tramadol, allergic to morphine, hydrocodone labs tmr dvt ppx albuterol prn still on zosyn dc in 1-2 ds History of Present Illness History of Present Illness better today, + flatus, + BM post op 07/09 on PPN abd pain + sob better , on RA T 100.0 ROS : no chills, sob or chest pain Vitals Vitals Vital Signs Date Time Temp Pulse Resp B/P (MAP) Pulse Ox O2 Delivery O2 Flow Rate FiO2 07/09/17 12:00 93 125/77 07/09/17 11:22 97 Room Air 07/09/17 11:00 97.3 16 97.3 07/09/17 08:15 2.0 Physical Exam General: Alert, Oriented X3, Cooperative, No acute distress Heart: Regular rate, No murmurs Lungs: Clear Abdomen: Soft, Other (small amout of serosang drainage to lower portion of incision(noted on dressing no active drainage from incision), some mild erythema to lower incision ) Extremities: No cyanosis Skin: No rashes Labs LABS Laboratory Tests Test 07/08/17 21:14 07/09/17 06:40 07/09/17 07:04 07/09/17 10:27 Glucose (Fingerstick) 184 mg/dL (70-99) 122 mg/dL (70-99) 158 mg/dL (70-99) White Blood Count 8.8 x10^3/uL (4.0-11.0) Red Blood Count 3.85 x10^6/uL (3.50-5.40) Hemoglobin 10.5 g/dL (12.0-15.5) Hematocrit 31.8 % (36.0-47.0) Mean Corpuscular Volume 83 fL (79-100) Mean Corpuscular Hemoglobin 27 pg (25-35) Mean Corpuscular Hemoglobin Concent 33 g/dL (31-37) Red Cell Distribution Width 13.9 % (11.5-14.5) Platelet Count 362 x10^3/uL (140-400) Neutrophils (%) (Auto) 73 % (31-73) Lymphocytes (%) (Auto) 14 % (24-48) Monocytes (%) (Auto) 10 % (0-9) Eosinophils (%) (Auto) 3 % (0-3) Basophils (%) (Auto) 0 % (0-3) Neutrophils # (Auto) 6.4 x10^3uL (1.8-7.7) Lymphocytes # (Auto) 1.2 x10^3/uL (1.0-4.8) Monocytes # (Auto) 0.9 x10^3/uL (0.0-1.1) Eosinophils # (Auto) 0.2 x10^3/uL (0.0-0.7) Basophils # (Auto) 0.0 x10^3/uL (0.0-0.2) Sodium Level 139 mmol/L (136-145) Potassium Level 4.0 mmol/L (3.5-5.1) Chloride Level 102 mmol/L (98-107) Carbon Dioxide Level 25 mmol/L (21-32) Anion Gap 12 (6-14) Blood Urea Nitrogen 15 mg/dL (7-20) Creatinine 0.9 mg/dL (0.6-1.0) Estimated GFR (Cockcroft-Gault) 62.8 Glucose Level 125 mg/dL (70-99) Calcium Level 8.7 mg/dL (8.5-10.1) Phosphorus Level 4.5 mg/dL (2.6-4.7) Magnesium Level 1.8 mg/dL (1.8-2.4) Albumin 2.4 g/dL (3.4-5.0) Assessment and Plan Assessmemt and Plan Problems Medical Problems: (1) Hypomagnesemia Status: Acute (2) Leukocytosis Status: Acute (3) SBO (small bowel obstruction) Status: Acute Problems: Comment Review of Relevant I have reviewed the following items feliciano (where applicable) has been applied. Labs Laboratory Tests Test 07/07/17 16:35 07/07/17 20:06 07/08/17 03:55 07/08/17 07:02 Glucose (Fingerstick) 113 mg/dL (70-99) 105 mg/dL (70-99) 138 mg/dL (70-99) White Blood Count 9.6 x10^3/uL (4.0-11.0) Red Blood Count 3.77 x10^6/uL (3.50-5.40) Hemoglobin 10.6 g/dL (12.0-15.5) Hematocrit 31.4 % (36.0-47.0) Mean Corpuscular Volume 83 fL (79-100) Mean Corpuscular Hemoglobin 28 pg (25-35) Mean Corpuscular Hemoglobin Concent 34 g/dL (31-37) Red Cell Distribution Width 14.0 % (11.5-14.5) Platelet Count 297 x10^3/uL (140-400) Neutrophils (%) (Auto) 82 % (31-73) Lymphocytes (%) (Auto) 9 % (24-48) Monocytes (%) (Auto) 8 % (0-9) Eosinophils (%) (Auto) 1 % (0-3) Basophils (%) (Auto) 1 % (0-3) Neutrophils # (Auto) 7.9 x10^3uL (1.8-7.7) Lymphocytes # (Auto) 0.8 x10^3/uL (1.0-4.8) Monocytes # (Auto) 0.8 x10^3/uL (0.0-1.1) Eosinophils # (Auto) 0.1 x10^3/uL (0.0-0.7) Basophils # (Auto) 0.1 x10^3/uL (0.0-0.2) Sodium Level 137 mmol/L (136-145) Potassium Level 3.7 mmol/L (3.5-5.1) Chloride Level 100 mmol/L (98-107) Carbon Dioxide Level 25 mmol/L (21-32) Anion Gap 12 (6-14) Blood Urea Nitrogen 13 mg/dL (7-20) Creatinine 0.9 mg/dL (0.6-1.0) Estimated GFR (Cockcroft-Gault) 62.8 Glucose Level 126 mg/dL (70-99) Calcium Level 8.9 mg/dL (8.5-10.1) Phosphorus Level 3.2 mg/dL (2.6-4.7) Magnesium Level 1.6 mg/dL (1.8-2.4) Albumin 2.4 g/dL (3.4-5.0) Test 07/08/17 11:21 07/08/17 21:14 07/09/17 06:40 07/09/17 07:04 Glucose (Fingerstick) 138 mg/dL (70-99) 184 mg/dL (70-99) 122 mg/dL (70-99) White Blood Count 8.8 x10^3/uL (4.0-11.0) Red Blood Count 3.85 x10^6/uL (3.50-5.40) Hemoglobin 10.5 g/dL (12.0-15.5) Hematocrit 31.8 % (36.0-47.0) Mean Corpuscular Volume 83 fL (79-100) Mean Corpuscular Hemoglobin 27 pg (25-35) Mean Corpuscular Hemoglobin Concent 33 g/dL (31-37) Red Cell Distribution Width 13.9 % (11.5-14.5) Platelet Count 362 x10^3/uL (140-400) Neutrophils (%) (Auto) 73 % (31-73) Lymphocytes (%) (Auto) 14 % (24-48) Monocytes (%) (Auto) 10 % (0-9) Eosinophils (%) (Auto) 3 % (0-3) Basophils (%) (Auto) 0 % (0-3) Neutrophils # (Auto) 6.4 x10^3uL (1.8-7.7) Lymphocytes # (Auto) 1.2 x10^3/uL (1.0-4.8) Monocytes # (Auto) 0.9 x10^3/uL (0.0-1.1) Eosinophils # (Auto) 0.2 x10^3/uL (0.0-0.7) Basophils # (Auto) 0.0 x10^3/uL (0.0-0.2) Sodium Level 139 mmol/L (136-145) Potassium Level 4.0 mmol/L (3.5-5.1) Chloride Level 102 mmol/L (98-107) Carbon Dioxide Level 25 mmol/L (21-32) Anion Gap 12 (6-14) Blood Urea Nitrogen 15 mg/dL (7-20) Creatinine 0.9 mg/dL (0.6-1.0) Estimated GFR (Cockcroft-Gault) 62.8 Glucose Level 125 mg/dL (70-99) Calcium Level 8.7 mg/dL (8.5-10.1) Phosphorus Level 4.5 mg/dL (2.6-4.7) Magnesium Level 1.8 mg/dL (1.8-2.4) Albumin 2.4 g/dL (3.4-5.0) Test 07/09/17 10:27 Glucose (Fingerstick) 158 mg/dL (70-99) Laboratory Tests Test 07/08/17 21:14 07/09/17 06:40 07/09/17 07:04 07/09/17 10:27 Glucose (Fingerstick) 184 mg/dL (70-99) 122 mg/dL (70-99) 158 mg/dL (70-99) White Blood Count 8.8 x10^3/uL (4.0-11.0) Red Blood Count 3.85 x10^6/uL (3.50-5.40) Hemoglobin 10.5 g/dL (12.0-15.5) Hematocrit 31.8 % (36.0-47.0) Mean Corpuscular Volume 83 fL (79-100) Mean Corpuscular Hemoglobin 27 pg (25-35) Mean Corpuscular Hemoglobin Concent 33 g/dL (31-37) Red Cell Distribution Width 13.9 % (11.5-14.5) Platelet Count 362 x10^3/uL (140-400) Neutrophils (%) (Auto) 73 % (31-73) Lymphocytes (%) (Auto) 14 % (24-48) Monocytes (%) (Auto) 10 % (0-9) Eosinophils (%) (Auto) 3 % (0-3) Basophils (%) (Auto) 0 % (0-3) Neutrophils # (Auto) 6.4 x10^3uL (1.8-7.7) Lymphocytes # (Auto) 1.2 x10^3/uL (1.0-4.8) Monocytes # (Auto) 0.9 x10^3/uL (0.0-1.1) Eosinophils # (Auto) 0.2 x10^3/uL (0.0-0.7) Basophils # (Auto) 0.0 x10^3/uL (0.0-0.2) Sodium Level 139 mmol/L (136-145) Potassium Level 4.0 mmol/L (3.5-5.1) Chloride Level 102 mmol/L (98-107) Carbon Dioxide Level 25 mmol/L (21-32) Anion Gap 12 (6-14) Blood Urea Nitrogen 15 mg/dL (7-20) Creatinine 0.9 mg/dL (0.6-1.0) Estimated GFR (Cockcroft-Gault) 62.8 Glucose Level 125 mg/dL (70-99) Calcium Level 8.7 mg/dL (8.5-10.1) Phosphorus Level 4.5 mg/dL (2.6-4.7) Magnesium Level 1.8 mg/dL (1.8-2.4) Albumin 2.4 g/dL (3.4-5.0) Microbiology 07/05/17 Blood Culture - Preliminary, Resulted NO GROWTH AFTER 3 DAYS Medications Current Medications Ondansetron HCl (Zofran) 8 mg 1X ONCE IV Last administered on 07/04/17 07:44 ; Start 07/04/17 at 07:45; Stop 07/04/17 at 07:46; Status DC Fentanyl Citrate (Fentanyl 2ml Vial) 75 mcg 1X ONCE IV Last administered on 07:46; Start 07/04/17 at 07:45; Stop 07/04/17 at 07:46; Status DC Sodium Chloride 1,000 ml @ 1,000 mls/hr 1X ONCE IV Last administered on 07:44; Start 07/04/17 at 07:30; Stop 07/04/17 at 08:29; Status DC Multi-Ingredient Mouthwash/Gargle (Gi Cocktail Single Dose) 15 ml 1X ONCE SWSW Last administered on 07/04/17 08:17; Start 07/04/17 at 07:45; Stop 07/04/17 at 07:46; Status DC Ondansetron HCl (Zofran) 4 mg PRN Q8HRS PRN IV NAUSEA/VOMITING; Start 07/04/17 at 09:15; Stop 07/05/17 at 09:14; Status DC Sodium Chloride 1,000 ml @ 150 mls/hr Q6H40M IV Last administered on 12:11; Start 07/04/17 at 09:09; Stop 07/05/17 at 01:17; Status DC Saliva Substitute (Biotene Moisturizing Mouth) 2 spray PRN Q15MIN PRN PO DRY MOUTH Last administered on 07/04/17 12:16; Start 07/04/17 at 10:00 Fentanyl Citrate (Fentanyl 2ml Vial) 50 mcg PRN Q2HR PRN IV PAIN Last administered on 07/08/17 06:00; Start 07/04/17 at 10:00; Stop 07/08/17 at 13:43 ; Status DC Throat Lozenges (Cepacol Sore Throat Lozenge) 1 caio PRN Q2HRS PRN PO SORE THROAT; Start 07/04/17 at 10:00 Insulin Aspart (NovoLOG) 0-7 UNITS TIDWMEALS SQ Last administered on 07/04/17 19:03; Start 07/04/17 at 12:00 Dextrose (Dextrose 50%-Water Syringe) 12.5 gm PRN Q15MIN PRN IV SEE COMMENTS; Start 07/04/17 at 10:00 Magnesium Sulfate/ Dextrose 50 ml @ 25 mls/hr 1X ONCE IV Last administered on 07/04/17 12:15; Start 07/04/17 at 10:00; Stop 07/04/17 at 11:59; Status DC Aspirin (Ecotrin) 81 mg DAILY PO Last administered on 07/04/17 12:01; Start at 11:00; Stop 07/05/17 at 14:02; Status DC Metoprolol Tartrate (Lopressor) 50 mg BID PO Last administered on 07/04/17 12: 03; Start 07/04/17 at 10:30; Stop 07/07/17 at 12:56; Status DC Non-Formulary Medication 10.2 gm BID IH ; Start 07/04/17 at 21:00; Status UNV Calcium Carbonate/ Glycine (Oscal) 500 mg DAILY PO Last administered on 08:15; Start 07/04/17 at 10:30 Isosorbide Mononitrate (Imdur) 60 mg DAILY PO Last administered on 07/04/17 12 :05; Start 07/04/17 at 10:30; Stop 07/05/17 at 14:02; Status DC Cetirizine HCl (ZyrTEC) 10 mg DAILY PO Last administered on 07/09/17 08:15; Start 07/05/17 at 09:00 Atorvastatin Calcium (Lipitor) 10 mg QHS PO ; Start 07/04/17 at 21:00; Stop at 14:02; Status DC Budesonide (Pulmicort) 0.5 mg RTBID NEB Last administered on 07/09/17 07:52; Start 07/04/17 at 11:00 Albuterol Sulfate (Ventolin Neb Soln) 2.5 mg RTQID NEB ; Start 07/04/17 at 12:00 ; Stop 07/04/17 at 12:00; Status DC Magnesium Sulfate/ Dextrose 50 ml @ 25 mls/hr PRN DAILY PRN IV for Mag < 1.7 on am labs Last administered on 07/05/17 12:48; Start 07/04/17 at 11:00 Famotidine (Pepcid) 20 mg QHS IVP Last administered on 07/08/17 21:09; Start 07/04/17 at 21:00; Stop 07/09/17 at 12:06; Status DC Non-Formulary Medication 1 ea TID NEB ; Start 07/04/17 at 14:00; Status UNV Levalbuterol HCl (Xopenex) 1.25 mg TID NEB Last administered on 07/09/17 12:20 ; Start 07/04/17 at 14:00 Neostigmine Methylsulfate (Bloxiverz) 10 mg STK-MED ONCE .ROUTE ; Start at 14:03; Stop 07/04/17 at 14:04; Status DC Rocuronium [place] (Zemuron) 100 mg STK-MED ONCE .ROUTE ; Start 07/04/17 at 14: 03; Stop 07/04/17 at 14:04; Status DC Propofol 20 ml @ As Directed STK-MED ONCE IV ; Start 07/04/17 at 14:05; Stop at 14:06; Status DC Lidocaine HCl (Lidocaine Pf 2% Vial) 5 ml STK-MED ONCE .ROUTE ; Start 07/04/17 at 14:05; Stop 07/04/17 at 14:06; Status DC Fentanyl Citrate (Fentanyl 2ml Vial) 100 mcg STK-MED ONCE .ROUTE ; Start at 14:06; Stop 07/04/17 at 14:07; Status DC Succinylcholine Chloride (Anectine) 200 mg STK-MED ONCE .ROUTE ; Start 07/04/17 at 14:07; Stop 07/04/17 at 14:08; Status DC Scopolamine (Transderm-Scop) 1 patch 1X ONCE TD Last administered on t 15:22; Start 07/04/17 at 15:30; Stop 07/04/17 at 15:31; Status DC Scopolamine (Transderm-Scop) 1 patch 1X ONCE TD ; Start 07/04/17 at 15:30; Stop 07/04/17 at 15:31; Status DC Ondansetron HCl (Zofran) 4 mg PRN Q6HRS PRN IV NAUSEA/VOMITING; Start 07/04/17 at 15:30; Stop 07/05/17 at 15:29; Status DC Fentanyl Citrate (Fentanyl 2ml Vial) 25 mcg PRN Q5MIN PRN IV MILD PAIN Last administered on 07/04/17t 18:43; Start 07/04/17 at 15:30; Stop 07/05/17 at 15:29 ; Status DC Fentanyl Citrate (Fentanyl 2ml Vial) 50 mcg PRN Q5MIN PRN IV MODERATE PAIN; Start 07/04/17 at 15:30; Stop 07/05/17 at 15:29; Status DC Morphine Sulfate 1 mg PRN Q10MIN PRN IV SEVERE PAIN; Start 07/04/17 at 15:30; Stop 07/05/17 at 15:29; Status UNV Ringer's Solution 1,000 ml @ 0 mls/hr Q0M IV ; Start 07/04/17 at 15:24; Stop at 03:23; Status DC Lidocaine HCl 2 ml PRN 1X PRN ID PRIOR TO IV START; Start 07/04/17 at 15:30; Stop 07/05/17 at 15:29; Status DC Hydromorphone HCl (Dilaudid) 0.5 mg PRN Q10MIN PRN IV SEV PAIN, Second choice; Start 07/04/17 at 15:30; Stop 07/05/17 at 15:29; Status UNV Prochlorperazine Edisylate (Compazine) 5 mg PACU PRN PRN IV NAUSEA, MRX1 Last administered on 07/04/17t 18:53; Start 07/04/17 at 15:30; Stop 07/05/17 at 15:29 ; Status DC Scopolamine (Transderm-Scop) 1 patch STK-MED ONCE TD ; Start 07/04/17 at 15:16; Stop 07/04/17 at 15:37; Status DC Cefoxitin Sodium 100 ml @ As Directed STK-MED ONCE IV ; Start 07/04/17 at 15:22 ; Stop 07/04/17 at 15:37; Status DC Dexamethasone Sodium Phosphate (Decadron) 20 mg STK-MED ONCE .ROUTE ; Start at 15:39; Stop 07/04/17 at 15:40; Status DC Desflurane (Suprane) 60 ml STK-MED ONCE IH ; Start 07/04/17 at 15:39; Stop 07/04 at 15:40; Status DC Ephedrine Sulfate (Akovaz) 50 mg STK-MED ONCE .ROUTE ; Start 07/04/17 at 15:51; Stop 07/04/17 at 15:52; Status DC Famotidine (Pepcid) 20 mg STK-MED ONCE .ROUTE ; Start 07/04/17 at 15:59; Stop at 16:00; Status DC Ondansetron HCl (Zofran) 4 mg STK-MED ONCE .ROUTE ; Start 07/04/17 at 15:59; Stop 07/04/17 at 16:00; Status DC Bupivacaine HCl/ Epinephrine Bitart (Sensorcain-Mpf Epi 0.5%-[id number]) 30 ml STK -MED ONCE .ROUTE Last administered on 07/04/17t 16:15; Start 07/04/17 at 16:15 ; Stop 07/04/17 at 16:17; Status DC Fentanyl Citrate (Fentanyl 2ml Vial) 100 mcg STK-MED ONCE .ROUTE ; Start at 16:27; Stop 07/04/17 at 16:28; Status DC Glycopyrrolate (Robinul) 1 mg STK-MED ONCE .ROUTE ; Start 07/04/17 at 17:00; Stop 07/04/17 at 17:01; Status DC Ondansetron HCl (Zofran) 4 mg STK-MED ONCE .ROUTE ; Start 07/04/17 at 17:01; Stop 07/04/17 at 17:02; Status DC Hydralazine HCl (Apresoline) 20 mg STK-MED ONCE .ROUTE ; Start 07/04/17 at 17:04 ; Stop 07/04/17 at 17:05; Status DC Fentanyl Citrate (Fentanyl 2ml Vial) 100 mcg STK-MED ONCE .ROUTE ; Start at 17:09; Stop 07/04/17 at 17:10; Status DC Prochlorperazine Edisylate (Compazine) 10 mg STK-MED ONCE .ROUTE ; Start at 17:51; Stop 07/04/17 at 17:52; Status DC Fentanyl Citrate (Fentanyl 2ml Vial) 100 mcg STK-MED ONCE .ROUTE ; Start at 17:51; Stop 07/04/17 at 17:52; Status DC Enoxaparin Sodium (Lovenox 40mg Syringe) 40 mg Q24H SQ Last administered on 18:09; Start 07/04/17 at 18:00 Sodium Chloride (Normal Saline Flush) 3 ml QSHIFT PRN IV AFTER MEDS AND BLOOD DRAWS; Start 07/04/17 at 18:00 Sodium Chloride 1,000 ml @ 100 mls/hr Q10H IV Last administered on 07/05/17 05:50; Start 07/04/17 at 17:52; Stop 07/05/17 at 12:17; Status DC Fentanyl Citrate 30 ml @ 0 mls/hr CONT PRN PRN IV PROTOCOL; Start 07/04/17 at 18:00; Stop 07/08/17 at 20:42; Status DC Hydromorphone HCl (Dilaudid) 0.2 mg PRN Q1HR PRN IV PAIN Last administered on 05:49; Start 07/04/17 at 18:00; Stop 07/08/17 at 13:44; Status DC Ondansetron HCl (Zofran) 4 mg PRN Q6HRS PRN IV NAUESA, 1ST CHOICE Last administered on 07/06/17 09:47; Start 07/04/17 at 18:00 Metoclopramide HCl (Reglan) 10 mg PRN Q6HRS PRN IV Nausea/Vomiting, 2nd Choice ; Start 07/04/17 at 18:00 Hydralazine HCl (Apresoline) 10 mg PRN Q4HRS PRN IVP ELEVATED BP, SEE COMMENTS ; Start 07/05/17 at 11:45 Amino Acids/ Glycerin/ Electrolytes 1,000 ml @ 80 mls/hr [id number] IV Last administered on 07/09/17 03:47; Start 07/05/17 at 13:00 Metoprolol Tartrate (Lopressor) 5 mg Q6HRS IVP Last administered on 07/09/17 05:49; Start 07/05/17 at 14:00; Stop 07/09/17 at 12:08; Status DC Hydralazine HCl (Apresoline) 10 mg PRN Q4HRS PRN IVP ELEVATED BP, SEE COMMENTS ; Start 07/05/17 at 14:00; Stop 07/07/17 at 12:55; Status DC Nitroglycerin (Nitro-Dur 0.3mg) 1 patch DAILY TD ; Start 07/05/17 at 15:00; Stop 07/05/17 at 19:52; Status DC Acetaminophen (Tylenol) 325 mg PRN Q6HRS PRN CA MILD PAIN / TEMP Last administered on 07/06/17 17:36; Start 07/05/17 at 15:45 Piperacillin Sod/ Tazobactam Sod 3.375 gm/Sodium Chloride 50 ml @ 100 mls/hr Q6HRS IV Last administered on 07/09/17 11:23; Start 07/05/17 at 16:00 Potassium Phosphate 10 mmol/ Sodium Chloride 103.3333 ml @ 51.667 m... Q2H IV Last administered on 07/06/17 19:01; Start 07/06/17 at 15:00; Stop 07/06/17 at 18:59; Status DC Magnesium Sulfate/ Dextrose 50 ml @ 25 mls/hr 1X ONCE IV Last administered on 07/08/17 10:12; Start 07/08/17 at 09:00; Stop 07/08/17 at 10:59; Status DC Albuterol Sulfate (Ventolin Neb Soln) 2.5 mg PRN Q4HRS PRN NEB SHORTNESS OF BREATH; Start 07/08/17 at 14:15 Fentanyl Citrate (Fentanyl 2ml Vial) 50 mcg PRN Q2HR PRN IV PAIN Last administered on 07/08/17 21:09; Start 07/08/17 at 20:45 Acetaminophen (Tylenol) 650 mg PRN Q6HRS PRN PO FEVER; Start 07/09/17 at 09:30 Tramadol HCl (Ultram) 50 mg PRN Q6HRS PRN PO PAIN Last administered on 11:22; Start 07/09/17 at 09:30 Famotidine (Pepcid) 20 mg QHS PO ; Start 07/09/17 at 21:00 Active Scripts Active Levofloxacin 750 Mg Tablet 1 Tab PO DAILY Cipro (Ciprofloxacin Hcl) 500 Mg Tablet 1 Tab PO BID 4 Days Metronidazole 500 Mg Tablet 1 Tab PO TID 4 Days [Lisinopril] 2.5 MG Tablet 2.5 Mg PO DAILY Reported Lovastatin 40 Mg Tablet 40 Mg PO DAILY Imdur (Isosorbide Mononitrate) 60 Mg Tab.er.24h 60 Mg PO DAILY Glucosamine & Chondroitin Cap (Gluc 2KCL/Chondr/Sean Hy/Hy Ac) 1 Each Capsule 2 Each PO DAILY Xopenex Hfa (Levalbuterol Tartrate) 15 Gm Hfa.aer.ad 45 Mcg IH PRN Symbicort 160-4.5 Mcg Inhaler (Budesonide/Formoterol Fumarate) 10.2 Gm Hfa.aer.ad 10.2 Gm IH BID Multi Vitamin Daily (Multivitamin) 1 Each Tablet 1 Each PO DAILY Calcium (Calcium Carbonate) 600 Mg Tablet 600 Mg PO DAILY Fish Oil ([place]-3 Fatty Acids) 300 Mg Capsule 3,000 Mg PO DAILY Ranitidine Hcl 150 Mg Capsule 150 Mg PO DAILY Aspirin Ec (Aspirin) 81 Mg Tablet.dr 81 Mg PO DAILY Claritin (Loratadine) 10 Mg Capsule 10 Mg PO BID Metformin Hcl 1,000 Mg Tablet 1,000 Mg PO BID Metoprolol Tartrate 50 Mg Tablet 50 Mg PO BID Vitals/I & O Vital Sign - Last 24 Hours 07/08/17 07/08/17 07/08/17 07/08/17 12:45 13:50 14:42 18:10 Temp 100.0 100.0 Pulse 57 94 94 Resp 17 B/P (MAP) 134/75 141/82 (101) 141/82 Pulse Ox 95 O2 Delivery Room Air Room Air 07/08/17 07/08/17 07/08/17 07/08/17 19:00 19:55 19:57 20:00 Temp 99.8 99.8 Pulse 91 Resp 20 B/P (MAP) 137/80 (99) Pulse Ox 94 96 96 O2 Delivery Room Air Room Air Room Air Room Air 07/08/17 07/08/17 07/08/17 07/08/17 21:09 21:39 23:00 23:55 Temp 99.6 99.6 Pulse 89 89 Resp 20 B/P (MAP) 139/76 (97) 139/76 Pulse Ox 93 O2 Delivery Room Air Room Air Room Air 07/09/17 07/09/17 07/09/17 07/09/17 03:00 05:49 07:00 07:52 Temp 99.3 99.2 99.3 99.2 Pulse 87 87 84 Resp 20 18 B/P (MAP) 130/67 (88) 130/67 138/80 (99) Pulse Ox 94 95 97 O2 Delivery Room Air Room Air Room Air 07/09/17 07/09/17 07/09/17 07/09/17 08:15 11:00 11:22 12:00 Temp 97.3 97.3 Pulse 93 93 Resp 16 B/P (MAP) 125/77 (93) 125/77 Pulse Ox 95 97 O2 Delivery Room Air Room Air Room Air O2 Flow Rate 2.0 Intake and Output 07/08/17 07/08/17 07/09/17 15:00 23:00 07:00 Intake Total 240 ml 480 ml 1130 ml Output Total 850 ml Balance 240 ml 480 ml 280 ml GIBRAN SORIA MD Jul 09, 2017 12:25
--- NOTE | 2017-07-09 13:20 | PDOC ---
Subjective: Subjective: Doing better. +flatus + stool Trying Tramadol for pain and full liquids for lunch. Objective: Vital Signs: Vital Signs Date Time Temp Pulse Resp B/P (MAP) Pulse Ox O2 Delivery O2 Flow Rate FiO2 07/09/17 12:23 97 Room Air 07/09/17 12:00 93 125/77 07/09/17 11:00 97.3 16 97.3 07/09/17 08:15 2.0 Labs: Laboratory Tests Test 07/08/17 21:14 07/09/17 07:04 07/09/17 10:27 Glucose (Fingerstick) 184 mg/dL (70-99) 122 mg/dL (70-99) 158 mg/dL (70-99) PE: GEN: NAD, up to chair LUNGS: clear HEART: RRR ABD: soft NEURO/PSYCH: A & O 3 A/P: SBO s/p laparotomy: adhesiolysis, enterotomy w/ removal of enterolith -- Improved, advancing diet per surgery. NISA SMITH Jul 09, 2017 13:20
[2017-07-09 15:00] VITALS: BP 142/81
[2017-07-09] MEDS: ENOXAPARIN 40 MG/0.4 ML SYRINGE. SQ SCH (18:00)
[2017-07-09 19:00] VITALS: BP 153/87
[2017-07-09] MEDS: FAMOTIDINE 20 MG TABLET. PO SCH (19:59)
[2017-07-09] MEDS: METOPROLOL TART IMMED RELEASE 50 MG TABLET. PO SCH (20:05)
[2017-07-09 23:00] VITALS: BP 137/87
[2017-07-10] MEDS: PIPERACILLIN/TAZOBACTAM 3.375 GM in IV NORMAL SALINE 50ML 50 ML IV SCH ×5 (00:08→23:46)
[2017-07-10 03:00] VITALS: BP 132/78
[2017-07-10] MEDS: AMINO AC 3%/ELECTROLYTE/GLYCER 1,000 ML IV SCH (05:50)
[2017-07-10 05:58] LABS: BASO # 0.1 x10^3/uL (0.0-0.2); BASO % 1 % (0-3); EOS % 3 % (0-3); HEMATOCRIT 32.3 % (36.0-47.0); HEMOGLOBIN 11.1 g/dL (12.0-15.5); LYMPH # 1.3 x10^3/uL (1.0-4.8); LYMPH % 14 % (24-48); MEAN CORPUSCULAR HEMOGLOBIN 28 pg (25-35); MEAN CORPUSCULAR HGB CONC 34 g/dL (31-37); MEAN CORPUSCULAR VOLUME 82 fL (79-100); MONO % 10 % (0-9); NEUT % 73 % (31-73); PLATELET COUNT 365 x10^3/uL (140-400); RED BLOOD COUNT 3.95 x10^6/uL (3.50-5.40); RED CELL DISTRIBUTION WIDTH 13.8 % (11.5-14.5); WHITE BLOOD COUNT 8.8 x10^3/uL (4.0-11.0)
[2017-07-10 06:25] LABS: ALBUMIN 2.3 g/dL (3.4-5.0); CALCIUM 9.3 mg/dL (8.5-10.1); CREATININE 0.8 mg/dL (0.6-1.0); PHOSPHORUS 4.3 mg/dL (2.6-4.7); POTASSIUM 4.1 mmol/L (3.5-5.1)
[2017-07-10 07:00] VITALS: BP 122/69
[2017-07-10] MEDS: LEVALBUTEROL 1.25 MG/0.5 ML NEBU. NEB SCH ×3 (07:22→19:56)
[2017-07-10] MEDS: BUDESONIDE 0.5 MG/2 ML NEBU. NEB SCH ×2 (07:23→19:56)
[2017-07-10] MEDS: INSULIN ASPART 300 UNITS/3 ML INSULN.PEN SQ SCH ×3 (08:00→17:00)
[2017-07-10] MEDS: CALCIUM CARBONATE 500 MG TABLET PO SCH (09:27)
[2017-07-10] MEDS: CETIRIZINE HCL 10 MG TABLET. PO SCH (09:28)
[2017-07-10] MEDS: METOPROLOL TART IMMED RELEASE 50 MG TABLET. PO SCH ×2 (09:28→21:31)
[2017-07-10] MEDS: traMADol 50 MG TABLET PO PRN ×3 (11:00→17:06)
[2017-07-10 11:06] VITALS: BP 124/71
--- NOTE | 2017-07-10 12:19 | PDOC ---
Provider Note Provider Note wound with serous drainage. +bm nadeen full liquids. is hungry tmax 100.1 vss abd soft nd nt inc without purulence or erythema wbc normal a/p advance to solid food pack wound daily with guaze to promote drainage and prevent infection. i packed the wound with sterile iodoform. fascia intact. ROSA RICHARDSON MD Jul 10, 2017 12:19
--- NOTE | 2017-07-10 12:27 | PDOC ---
PROGRESS NOTES Chief Complaint Chief Complaint SBO, s/p surg on 07/05,. open exploratory laparotomy for Extensive adhesiolysis. w/ Enterotomy and removal of enterolith on 07/04 acute abd pain post-op ileus intermittent asthma obesity, BMI 32 Dm2, htn acute hypoxic resp failure post op ,2/2 atelectasis likely GERD hypomagnesemia plan; fu with gi, sx clear liquid 07/08, advance to full liquid 07/09 with sx, advance again today dc ppn ENCourage ambulate, local wound care cont pain control, add tramadol, allergic to morphine, hydrocodone labs tmr dvt ppx albuterol prn still on zosyn dc tmr History of Present Illness History of Present Illness better today, + flatus, + BM post op 07/09 on PPN abd pain better sob better , on RA T 100.1 tolerate full liquid well ROS : no chills, sob or chest pain Vitals Vitals Vital Signs Date Time Temp Pulse Resp B/P (MAP) Pulse Ox O2 Delivery O2 Flow Rate FiO2 07/10/17 11:10 Room Air 07/10/17 11:06 99.4 93 18 124/71 (88) 95 99.4 07/09/17 21:00 2.0 Physical Exam General: Alert, Oriented X3, Cooperative, No acute distress Heart: Regular rate, No murmurs Lungs: Clear Abdomen: Soft, Other (small amout of serosang drainage to lower portion of incision(noted on dressing no active drainage from incision), some mild erythema to lower incision ) Extremities: No cyanosis Skin: No rashes Labs LABS Laboratory Tests Test 07/09/17 16:53 07/09/17 23:30 07/10/17 04:35 07/10/17 09:29 Glucose (Fingerstick) 137 mg/dL (70-99) 157 mg/dL (70-99) 210 mg/dL (70-99) White Blood Count 8.8 x10^3/uL (4.0-11.0) Red Blood Count 3.95 x10^6/uL (3.50-5.40) Hemoglobin 11.1 g/dL (12.0-15.5) Hematocrit 32.3 % (36.0-47.0) Mean Corpuscular Volume 82 fL (79-100) Mean Corpuscular Hemoglobin 28 pg (25-35) Mean Corpuscular Hemoglobin Concent 34 g/dL (31-37) Red Cell Distribution Width 13.8 % (11.5-14.5) Platelet Count 365 x10^3/uL (140-400) Neutrophils (%) (Auto) 73 % (31-73) Lymphocytes (%) (Auto) 14 % (24-48) Monocytes (%) (Auto) 10 % (0-9) Eosinophils (%) (Auto) 3 % (0-3) Basophils (%) (Auto) 1 % (0-3) Neutrophils # (Auto) 6.4 x10^3uL (1.8-7.7) Lymphocytes # (Auto) 1.3 x10^3/uL (1.0-4.8) Monocytes # (Auto) 0.8 x10^3/uL (0.0-1.1) Eosinophils # (Auto) 0.3 x10^3/uL (0.0-0.7) Basophils # (Auto) 0.1 x10^3/uL (0.0-0.2) Sodium Level 138 mmol/L (136-145) Potassium Level 4.1 mmol/L (3.5-5.1) Chloride Level 101 mmol/L (98-107) Carbon Dioxide Level 27 mmol/L (21-32) Anion Gap 10 (6-14) Blood Urea Nitrogen 14 mg/dL (7-20) Creatinine 0.8 mg/dL (0.6-1.0) Estimated GFR (Cockcroft-Gault) 72.0 Glucose Level 120 mg/dL (70-99) Calcium Level 9.3 mg/dL (8.5-10.1) Phosphorus Level 4.3 mg/dL (2.6-4.7) Albumin 2.3 g/dL (3.4-5.0) Test 07/10/17 11:47 Glucose (Fingerstick) 168 mg/dL (70-99) Assessment and Plan Assessmemt and Plan Problems Medical Problems: (1) Hypomagnesemia Status: Acute (2) Leukocytosis Status: Acute (3) SBO (small bowel obstruction) Status: Acute Problems: Comment Review of Relevant I have reviewed the following items feliciano (where applicable) has been applied. Labs Laboratory Tests Test 07/08/17 21:14 07/09/17 06:40 07/09/17 07:04 07/09/17 10:27 Glucose (Fingerstick) 184 mg/dL (70-99) 122 mg/dL (70-99) 158 mg/dL (70-99) White Blood Count 8.8 x10^3/uL (4.0-11.0) Red Blood Count 3.85 x10^6/uL (3.50-5.40) Hemoglobin 10.5 g/dL (12.0-15.5) Hematocrit 31.8 % (36.0-47.0) Mean Corpuscular Volume 83 fL (79-100) Mean Corpuscular Hemoglobin 27 pg (25-35) Mean Corpuscular Hemoglobin Concent 33 g/dL (31-37) Red Cell Distribution Width 13.9 % (11.5-14.5) Platelet Count 362 x10^3/uL (140-400) Neutrophils (%) (Auto) 73 % (31-73) Lymphocytes (%) (Auto) 14 % (24-48) Monocytes (%) (Auto) 10 % (0-9) Eosinophils (%) (Auto) 3 % (0-3) Basophils (%) (Auto) 0 % (0-3) Neutrophils # (Auto) 6.4 x10^3uL (1.8-7.7) Lymphocytes # (Auto) 1.2 x10^3/uL (1.0-4.8) Monocytes # (Auto) 0.9 x10^3/uL (0.0-1.1) Eosinophils # (Auto) 0.2 x10^3/uL (0.0-0.7) Basophils # (Auto) 0.0 x10^3/uL (0.0-0.2) Sodium Level 139 mmol/L (136-145) Potassium Level 4.0 mmol/L (3.5-5.1) Chloride Level 102 mmol/L (98-107) Carbon Dioxide Level 25 mmol/L (21-32) Anion Gap 12 (6-14) Blood Urea Nitrogen 15 mg/dL (7-20) Creatinine 0.9 mg/dL (0.6-1.0) Estimated GFR (Cockcroft-Gault) 62.8 Glucose Level 125 mg/dL (70-99) Calcium Level 8.7 mg/dL (8.5-10.1) Phosphorus Level 4.5 mg/dL (2.6-4.7) Magnesium Level 1.8 mg/dL (1.8-2.4) Albumin 2.4 g/dL (3.4-5.0) Test 07/09/17 16:53 07/09/17 23:30 07/10/17 04:35 07/10/17 09:29 Glucose (Fingerstick) 137 mg/dL (70-99) 157 mg/dL (70-99) 210 mg/dL (70-99) White Blood Count 8.8 x10^3/uL (4.0-11.0) Red Blood Count 3.95 x10^6/uL (3.50-5.40) Hemoglobin 11.1 g/dL (12.0-15.5) Hematocrit 32.3 % (36.0-47.0) Mean Corpuscular Volume 82 fL (79-100) Mean Corpuscular Hemoglobin 28 pg (25-35) Mean Corpuscular Hemoglobin Concent 34 g/dL (31-37) Red Cell Distribution Width 13.8 % (11.5-14.5) Platelet Count 365 x10^3/uL (140-400) Neutrophils (%) (Auto) 73 % (31-73) Lymphocytes (%) (Auto) 14 % (24-48) Monocytes (%) (Auto) 10 % (0-9) Eosinophils (%) (Auto) 3 % (0-3) Basophils (%) (Auto) 1 % (0-3) Neutrophils # (Auto) 6.4 x10^3uL (1.8-7.7) Lymphocytes # (Auto) 1.3 x10^3/uL (1.0-4.8) Monocytes # (Auto) 0.8 x10^3/uL (0.0-1.1) Eosinophils # (Auto) 0.3 x10^3/uL (0.0-0.7) Basophils # (Auto) 0.1 x10^3/uL (0.0-0.2) Sodium Level 138 mmol/L (136-145) Potassium Level 4.1 mmol/L (3.5-5.1) Chloride Level 101 mmol/L (98-107) Carbon Dioxide Level 27 mmol/L (21-32) Anion Gap 10 (6-14) Blood Urea Nitrogen 14 mg/dL (7-20) Creatinine 0.8 mg/dL (0.6-1.0) Estimated GFR (Cockcroft-Gault) 72.0 Glucose Level 120 mg/dL (70-99) Calcium Level 9.3 mg/dL (8.5-10.1) Phosphorus Level 4.3 mg/dL (2.6-4.7) Albumin 2.3 g/dL (3.4-5.0) Test 07/10/17 11:47 Glucose (Fingerstick) 168 mg/dL (70-99) Laboratory Tests Test 07/09/17 16:53 07/09/17 23:30 07/10/17 04:35 07/10/17 09:29 Glucose (Fingerstick) 137 mg/dL (70-99) 157 mg/dL (70-99) 210 mg/dL (70-99) White Blood Count 8.8 x10^3/uL (4.0-11.0) Red Blood Count 3.95 x10^6/uL (3.50-5.40) Hemoglobin 11.1 g/dL (12.0-15.5) Hematocrit 32.3 % (36.0-47.0) Mean Corpuscular Volume 82 fL (79-100) Mean Corpuscular Hemoglobin 28 pg (25-35) Mean Corpuscular Hemoglobin Concent 34 g/dL (31-37) Red Cell Distribution Width 13.8 % (11.5-14.5) Platelet Count 365 x10^3/uL (140-400) Neutrophils (%) (Auto) 73 % (31-73) Lymphocytes (%) (Auto) 14 % (24-48) Monocytes (%) (Auto) 10 % (0-9) Eosinophils (%) (Auto) 3 % (0-3) Basophils (%) (Auto) 1 % (0-3) Neutrophils # (Auto) 6.4 x10^3uL (1.8-7.7) Lymphocytes # (Auto) 1.3 x10^3/uL (1.0-4.8) Monocytes # (Auto) 0.8 x10^3/uL (0.0-1.1) Eosinophils # (Auto) 0.3 x10^3/uL (0.0-0.7) Basophils # (Auto) 0.1 x10^3/uL (0.0-0.2) Sodium Level 138 mmol/L (136-145) Potassium Level 4.1 mmol/L (3.5-5.1) Chloride Level 101 mmol/L (98-107) Carbon Dioxide Level 27 mmol/L (21-32) Anion Gap 10 (6-14) Blood Urea Nitrogen 14 mg/dL (7-20) Creatinine 0.8 mg/dL (0.6-1.0) Estimated GFR (Cockcroft-Gault) 72.0 Glucose Level 120 mg/dL (70-99) Calcium Level 9.3 mg/dL (8.5-10.1) Phosphorus Level 4.3 mg/dL (2.6-4.7) Albumin 2.3 g/dL (3.4-5.0) Test 07/10/17 11:47 Glucose (Fingerstick) 168 mg/dL (70-99) Microbiology 07/05/17 Blood Culture - Preliminary, Resulted NO GROWTH AFTER 4 DAYS Medications Current Medications Ondansetron HCl (Zofran) 8 mg 1X ONCE IV Last administered on 07/04/17 07:44 ; Start 07/04/17 at 07:45; Stop 07/04/17 at 07:46; Status DC Fentanyl Citrate (Fentanyl 2ml Vial) 75 mcg 1X ONCE IV Last administered on 07:46; Start 07/04/17 at 07:45; Stop 07/04/17 at 07:46; Status DC Sodium Chloride 1,000 ml @ 1,000 mls/hr 1X ONCE IV Last administered on 07:44; Start 07/04/17 at 07:30; Stop 07/04/17 at 08:29; Status DC Multi-Ingredient Mouthwash/Gargle (Gi Cocktail Single Dose) 15 ml 1X ONCE SWSW Last administered on 07/04/17 08:17; Start 07/04/17 at 07:45; Stop 07/04/17 at 07:46; Status DC Ondansetron HCl (Zofran) 4 mg PRN Q8HRS PRN IV NAUSEA/VOMITING; Start 07/04/17 at 09:15; Stop 07/05/17 at 09:14; Status DC Sodium Chloride 1,000 ml @ 150 mls/hr Q6H40M IV Last administered on 12:11; Start 07/04/17 at 09:09; Stop 07/05/17 at 01:17; Status DC Saliva Substitute (Biotene Moisturizing Mouth) 2 spray PRN Q15MIN PRN PO DRY MOUTH Last administered on 07/04/17 12:16; Start 07/04/17 at 10:00 Fentanyl Citrate (Fentanyl 2ml Vial) 50 mcg PRN Q2HR PRN IV PAIN Last administered on 07/08/17 06:00; Start 07/04/17 at 10:00; Stop 07/08/17 at 13:43 ; Status DC Throat Lozenges (Cepacol Sore Throat Lozenge) 1 caio PRN Q2HRS PRN PO SORE THROAT; Start 07/04/17 at 10:00 Insulin Aspart (NovoLOG) 0-7 UNITS TIDWMEALS SQ Last administered on 07/04/17 19:03; Start 07/04/17 at 12:00 Dextrose (Dextrose 50%-Water Syringe) 12.5 gm PRN Q15MIN PRN IV SEE COMMENTS; Start 07/04/17 at 10:00 Magnesium Sulfate/ Dextrose 50 ml @ 25 mls/hr 1X ONCE IV Last administered on 07/04/17 12:15; Start 07/04/17 at 10:00; Stop 07/04/17 at 11:59; Status DC Aspirin (Ecotrin) 81 mg DAILY PO Last administered on 07/04/17 12:01; Start at 11:00; Stop 07/05/17 at 14:02; Status DC Metoprolol Tartrate (Lopressor) 50 mg BID PO Last administered on 07/04/17 12: 03; Start 07/04/17 at 10:30; Stop 07/07/17 at 12:56; Status DC Non-Formulary Medication 10.2 gm BID IH ; Start 07/04/17 at 21:00; Status UNV Calcium Carbonate/ Glycine (Oscal) 500 mg DAILY PO Last administered on 09:27; Start 07/04/17 at 10:30 Isosorbide Mononitrate (Imdur) 60 mg DAILY PO Last administered on 07/04/17 12 :05; Start 07/04/17 at 10:30; Stop 07/05/17 at 14:02; Status DC Cetirizine HCl (ZyrTEC) 10 mg DAILY PO Last administered on 07/10/17 09:28; Start 07/05/17 at 09:00 Atorvastatin Calcium (Lipitor) 10 mg QHS PO ; Start 07/04/17 at 21:00; Stop at 14:02; Status DC Budesonide (Pulmicort) 0.5 mg RTBID NEB Last administered on 07/10/17 07:23; Start 07/04/17 at 11:00 Albuterol Sulfate (Ventolin Neb Soln) 2.5 mg RTQID NEB ; Start 07/04/17 at 12:00 ; Stop 07/04/17 at 12:00; Status DC Magnesium Sulfate/ Dextrose 50 ml @ 25 mls/hr PRN DAILY PRN IV for Mag < 1.7 on am labs Last administered on 07/05/17 12:48; Start 07/04/17 at 11:00 Famotidine (Pepcid) 20 mg QHS IVP Last administered on 07/08/17 21:09; Start 07/04/17 at 21:00; Stop 07/09/17 at 12:06; Status DC Non-Formulary Medication 1 ea TID NEB ; Start 07/04/17 at 14:00; Status UNV Levalbuterol HCl (Xopenex) 1.25 mg TID NEB Last administered on 07/10/17 07:22 ; Start 07/04/17 at 14:00 Neostigmine Methylsulfate (Bloxiverz) 10 mg STK-MED ONCE .ROUTE ; Start at 14:03; Stop 07/04/17 at 14:04; Status DC Rocuronium Lipscomb (Zemuron) 100 mg STK-MED ONCE .ROUTE ; Start 07/04/17 at 14: 03; Stop 07/04/17 at 14:04; Status DC Propofol 20 ml @ As Directed STK-MED ONCE IV ; Start 07/04/17 at 14:05; Stop at 14:06; Status DC Lidocaine HCl (Lidocaine Pf 2% Vial) 5 ml STK-MED ONCE .ROUTE ; Start 07/04/17 at 14:05; Stop 07/04/17 at 14:06; Status DC Fentanyl Citrate (Fentanyl 2ml Vial) 100 mcg STK-MED ONCE .ROUTE ; Start at 14:06; Stop 07/04/17 at 14:07; Status DC Succinylcholine Chloride (Anectine) 200 mg STK-MED ONCE .ROUTE ; Start 07/04/17 at 14:07; Stop 07/04/17 at 14:08; Status DC Scopolamine (Transderm-Scop) 1 patch 1X ONCE TD Last administered on t 15:22; Start 07/04/17 at 15:30; Stop 07/04/17 at 15:31; Status DC Scopolamine (Transderm-Scop) 1 patch 1X ONCE TD ; Start 07/04/17 at 15:30; Stop 07/04/17 at 15:31; Status DC Ondansetron HCl (Zofran) 4 mg PRN Q6HRS PRN IV NAUSEA/VOMITING; Start 07/04/17 at 15:30; Stop 07/05/17 at 15:29; Status DC Fentanyl Citrate (Fentanyl 2ml Vial) 25 mcg PRN Q5MIN PRN IV MILD PAIN Last administered on 07/04/17t 18:43; Start 07/04/17 at 15:30; Stop 07/05/17 at 15:29 ; Status DC Fentanyl Citrate (Fentanyl 2ml Vial) 50 mcg PRN Q5MIN PRN IV MODERATE PAIN; Start 07/04/17 at 15:30; Stop 07/05/17 at 15:29; Status DC Morphine Sulfate 1 mg PRN Q10MIN PRN IV SEVERE PAIN; Start 07/04/17 at 15:30; Stop 07/05/17 at 15:29; Status UNV Ringer's Solution 1,000 ml @ 0 mls/hr Q0M IV ; Start 07/04/17 at 15:24; Stop at 03:23; Status DC Lidocaine HCl 2 ml PRN 1X PRN ID PRIOR TO IV START; Start 07/04/17 at 15:30; Stop 07/05/17 at 15:29; Status DC Hydromorphone HCl (Dilaudid) 0.5 mg PRN Q10MIN PRN IV SEV PAIN, Second choice; Start 07/04/17 at 15:30; Stop 07/05/17 at 15:29; Status UNV Prochlorperazine Edisylate (Compazine) 5 mg PACU PRN PRN IV NAUSEA, MRX1 Last administered on 07/04/17t 18:53; Start 07/04/17 at 15:30; Stop 07/05/17 at 15:29 ; Status DC Scopolamine (Transderm-Scop) 1 patch STK-MED ONCE TD ; Start 07/04/17 at 15:16; Stop 07/04/17 at 15:37; Status DC Cefoxitin Sodium 100 ml @ As Directed STK-MED ONCE IV ; Start 07/04/17 at 15:22 ; Stop 07/04/17 at 15:37; Status DC Dexamethasone Sodium Phosphate (Decadron) 20 mg STK-MED ONCE .ROUTE ; Start at 15:39; Stop 07/04/17 at 15:40; Status DC Desflurane (Suprane) 60 ml STK-MED ONCE IH ; Start 07/04/17 at 15:39; Stop 07/04 at 15:40; Status DC Ephedrine Sulfate (Akovaz) 50 mg STK-MED ONCE .ROUTE ; Start 07/04/17 at 15:51; Stop 07/04/17 at 15:52; Status DC Famotidine (Pepcid) 20 mg STK-MED ONCE .ROUTE ; Start 07/04/17 at 15:59; Stop at 16:00; Status DC Ondansetron HCl (Zofran) 4 mg STK-MED ONCE .ROUTE ; Start 07/04/17 at 15:59; Stop 07/04/17 at 16:00; Status DC Bupivacaine HCl/ Epinephrine Bitart (Sensorcain-Mpf Epi 0.5%-1:[id number]) 30 ml STK -MED ONCE .ROUTE Last administered on 07/04/17t 16:15; Start 07/04/17 at 16:15 ; Stop 07/04/17 at 16:17; Status DC Fentanyl Citrate (Fentanyl 2ml Vial) 100 mcg STK-MED ONCE .ROUTE ; Start at 16:27; Stop 07/04/17 at 16:28; Status DC Glycopyrrolate (Robinul) 1 mg STK-MED ONCE .ROUTE ; Start 07/04/17 at 17:00; Stop 07/04/17 at 17:01; Status DC Ondansetron HCl (Zofran) 4 mg STK-MED ONCE .ROUTE ; Start 07/04/17 at 17:01; Stop 07/04/17 at 17:02; Status DC Hydralazine HCl (Apresoline) 20 mg STK-MED ONCE .ROUTE ; Start 07/04/17 at 17:04 ; Stop 07/04/17 at 17:05; Status DC Fentanyl Citrate (Fentanyl 2ml Vial) 100 mcg STK-MED ONCE .ROUTE ; Start at 17:09; Stop 07/04/17 at 17:10; Status DC Prochlorperazine Edisylate (Compazine) 10 mg STK-MED ONCE .ROUTE ; Start at 17:51; Stop 07/04/17 at 17:52; Status DC Fentanyl Citrate (Fentanyl 2ml Vial) 100 mcg STK-MED ONCE .ROUTE ; Start at 17:51; Stop 07/04/17 at 17:52; Status DC Enoxaparin Sodium (Lovenox 40mg Syringe) 40 mg Q24H SQ Last administered on 18:09; Start 07/04/17 at 18:00 Sodium Chloride (Normal Saline Flush) 3 ml QSHIFT PRN IV AFTER MEDS AND BLOOD DRAWS; Start 07/04/17 at 18:00 Sodium Chloride 1,000 ml @ 100 mls/hr Q10H IV Last administered on 07/05/17 05:50; Start 07/04/17 at 17:52; Stop 07/05/17 at 12:17; Status DC Fentanyl Citrate 30 ml @ 0 mls/hr CONT PRN PRN IV PROTOCOL; Start 07/04/17 at 18:00; Stop 07/08/17 at 20:42; Status DC Hydromorphone HCl (Dilaudid) 0.2 mg PRN Q1HR PRN IV PAIN Last administered on 05:49; Start 07/04/17 at 18:00; Stop 07/08/17 at 13:44; Status DC Ondansetron HCl (Zofran) 4 mg PRN Q6HRS PRN IV NAUESA, 1ST CHOICE Last administered on 07/06/17 09:47; Start 07/04/17 at 18:00 Metoclopramide HCl (Reglan) 10 mg PRN Q6HRS PRN IV Nausea/Vomiting, 2nd Choice ; Start 07/04/17 at 18:00 Hydralazine HCl (Apresoline) 10 mg PRN Q4HRS PRN IVP ELEVATED BP, SEE COMMENTS ; Start 07/05/17 at 11:45 Amino Acids/ Glycerin/ Electrolytes 1,000 ml @ 80 mls/hr [id number] IV Last administered on 07/10/17 05:50; Start 07/05/17 at 13:00; Stop 07/10/17 at 10:50 ; Status DC Metoprolol Tartrate (Lopressor) 5 mg Q6HRS IVP Last administered on 07/09/17 05:49; Start 07/05/17 at 14:00; Stop 07/09/17 at 12:08; Status DC Hydralazine HCl (Apresoline) 10 mg PRN Q4HRS PRN IVP ELEVATED BP, SEE COMMENTS ; Start 07/05/17 at 14:00; Stop 07/07/17 at 12:55; Status DC Nitroglycerin (Nitro-Dur 0.3mg) 1 patch DAILY TD ; Start 07/05/17 at 15:00; Stop 07/05/17 at 19:52; Status DC Acetaminophen (Tylenol) 325 mg PRN Q6HRS PRN CT MILD PAIN / TEMP Last administered on 07/06/17 17:36; Start 07/05/17 at 15:45 Piperacillin Sod/ Tazobactam Sod 3.375 gm/Sodium Chloride 50 ml @ 100 mls/hr Q6HRS IV Last administered on 07/10/17 11:11; Start 07/05/17 at 16:00 Potassium Phosphate 10 mmol/ Sodium Chloride 103.3333 ml @ 51.667 m... Q2H IV Last administered on 07/06/17 19:01; Start 07/06/17 at 15:00; Stop 07/06/17 at 18:59; Status DC Magnesium Sulfate/ Dextrose 50 ml @ 25 mls/hr 1X ONCE IV Last administered on 07/08/17 10:12; Start 07/08/17 at 09:00; Stop 07/08/17 at 10:59; Status DC Albuterol Sulfate (Ventolin Neb Soln) 2.5 mg PRN Q4HRS PRN NEB SHORTNESS OF BREATH; Start 07/08/17 at 14:15 Fentanyl Citrate (Fentanyl 2ml Vial) 50 mcg PRN Q2HR PRN IV PAIN Last administered on 07/08/17 21:09; Start 07/08/17 at 20:45 Acetaminophen (Tylenol) 650 mg PRN Q6HRS PRN PO FEVER Last administered on 07/09 19:51; Start 07/09/17 at 09:30 Tramadol HCl (Ultram) 50 mg PRN Q6HRS PRN PO PAIN Last administered on 11:10; Start 07/09/17 at 09:30 Famotidine (Pepcid) 20 mg QHS PO Last administered on 07/09/17 19:59; Start at 21:00 Metoprolol Tartrate (Lopressor) 50 mg BID PO Last administered on 07/10/17 09: 28; Start 07/09/17 at 21:00 Active Scripts Active Levofloxacin 750 Mg Tablet 1 Tab PO DAILY Cipro (Ciprofloxacin Hcl) 500 Mg Tablet 1 Tab PO BID 4 Days Metronidazole 500 Mg Tablet 1 Tab PO TID 4 Days [Lisinopril] 2.5 MG Tablet 2.5 Mg PO DAILY Reported Lovastatin 40 Mg Tablet 40 Mg PO DAILY Imdur (Isosorbide Mononitrate) 60 Mg Tab.er.24h 60 Mg PO DAILY Glucosamine & Chondroitin Cap (Gluc 2KCL/Chondr/Sean Hy/Hy Ac) 1 Each Capsule 2 Each PO DAILY Xopenex Hfa (Levalbuterol Tartrate) 15 Gm Hfa.aer.ad 45 Mcg IH PRN Symbicort 160-4.5 Mcg Inhaler (Budesonide/Formoterol Fumarate) 10.2 Gm Hfa.aer.ad 10.2 Gm IH BID Multi Vitamin Daily (Multivitamin) 1 Each Tablet 1 Each PO DAILY Calcium (Calcium Carbonate) 600 Mg Tablet 600 Mg PO DAILY Fish Oil (Howell-3 Fatty Acids) 300 Mg Capsule 3,000 Mg PO DAILY Ranitidine Hcl 150 Mg Capsule 150 Mg PO DAILY Aspirin Ec (Aspirin) 81 Mg Tablet.dr 81 Mg PO DAILY Claritin (Loratadine) 10 Mg Capsule 10 Mg PO BID Metformin Hcl 1,000 Mg Tablet 1,000 Mg PO BID Metoprolol Tartrate 50 Mg Tablet 50 Mg PO BID Vitals/I & O Vital Sign - Last 24 Hours 07/09/17 07/09/17 07/09/17 07/09/17 15:00 19:00 19:51 20:00 Temp 98.6 100.1 98.6 100.1 Pulse 95 100 Resp 18 18 20 B/P (MAP) 142/81 (101) 153/87 (109) Pulse Ox 95 95 96 96 O2 Delivery Room Air Room Air Room Air Room Air 07/09/17 07/09/17 07/09/17 07/10/17 20:05 21:00 23:00 03:00 Temp 98.3 98.1 98.3 98.1 Pulse 100 80 81 Resp 18 18 18 B/P (MAP) 153/87 137/87 (104) 132/78 (96) Pulse Ox 98 92 93 O2 Delivery Room Air Room Air Room Air O2 Flow Rate 2.0 07/10/17 07/10/17 07/10/17 07/10/17 07:00 07:24 08:00 09:28 Temp 98.4 98.4 Pulse 85 85 Resp 18 B/P (MAP) 122/69 (86) 122/69 Pulse Ox 94 98 O2 Delivery Room Air Room Air Room Air 07/10/17 07/10/17 11:06 11:10 Temp 99.4 99.4 Pulse 93 Resp 18 B/P (MAP) 124/71 (88) Pulse Ox 95 O2 Delivery Room Air Room Air Intake and Output 07/09/17 07/09/17 07/10/17 15:00 23:00 07:00 Intake Total 180 ml Output Total 1405 ml 1150 ml Balance -1405 ml -970 ml GIBRAN SORIA MD Jul 10, 2017 12:27
--- NOTE | 2017-07-10 13:20 | PDOC ---
Subjective: Subjective: Says wound just packed, possible DC tomorrow. Had a few bites of chicken, peas, and cake. Okay so far although chicken rather bland. Objective: Objective: Tmax 100.1 Vital Signs: Vital Signs Date Time Temp Pulse Resp B/P (MAP) Pulse Ox O2 Delivery O2 Flow Rate FiO2 07/10/17 11:10 Room Air 07/10/17 11:06 99.4 93 18 124/71 (88) 95 99.4 07/09/17 21:00 2.0 Labs: Laboratory Tests Test 07/09/17 16:53 07/09/17 23:30 07/10/17 04:35 07/10/17 09:29 Glucose (Fingerstick) 137 mg/dL 157 mg/dL 210 mg/dL White Blood Count 8.8 x10^3/uL Red Blood Count 3.95 x10^6/uL Hemoglobin 11.1 g/dL Hematocrit 32.3 % Mean Corpuscular Volume 82 fL Mean Corpuscular Hemoglobin 28 pg Mean Corpuscular Hemoglobin Concent 34 g/dL Red Cell Distribution Width 13.8 % Platelet Count 365 x10^3/uL Neutrophils (%) (Auto) 73 % Lymphocytes (%) (Auto) 14 % Monocytes (%) (Auto) 10 % Eosinophils (%) (Auto) 3 % Basophils (%) (Auto) 1 % Neutrophils # (Auto) 6.4 x10^3uL Lymphocytes # (Auto) 1.3 x10^3/uL Monocytes # (Auto) 0.8 x10^3/uL Eosinophils # (Auto) 0.3 x10^3/uL Basophils # (Auto) 0.1 x10^3/uL Sodium Level 138 mmol/L Potassium Level 4.1 mmol/L Chloride Level 101 mmol/L Carbon Dioxide Level 27 mmol/L Anion Gap 10 Blood Urea Nitrogen 14 mg/dL Creatinine 0.8 mg/dL Estimated GFR (Cockcroft-Gault) 72.0 Glucose Level 120 mg/dL Calcium Level 9.3 mg/dL Phosphorus Level 4.3 mg/dL Albumin 2.3 g/dL Test 07/10/17 11:47 Glucose (Fingerstick) 168 mg/dL PE: GEN: NAD, up to chair talking on phone LUNGS: clear HEART: RRR ABD: soft NEURO/PSYCH: A & O 3 A/P: SBO s/p laparotomy: adhesiolysis, enterotomy w/ removal of enterolith Fever, on atbx -- Improving, tolerating GI soft. DC per surgery. NISA SMITH Jul 10, 2017 13:19
[2017-07-10 15:00] VITALS: BP 122/74
[2017-07-10] MEDS: ENOXAPARIN 40 MG/0.4 ML SYRINGE. SQ SCH (17:08)
[2017-07-10 19:00] VITALS: BP 129/79
[2017-07-10] MEDS: FAMOTIDINE 20 MG TABLET. PO SCH (21:30)
[2017-07-10 23:00] VITALS: BP 113/66
[2017-07-10] MEDS: fentaNYL PF VIAL 100 MCG/2 ML VIAL IV PRN (23:56)
[2017-07-11 03:00] VITALS: BP 147/88
[2017-07-11] MEDS: PIPERACILLIN/TAZOBACTAM 3.375 GM in IV NORMAL SALINE 50ML 50 ML IV SCH (05:33)
[2017-07-11] MEDS: LEVALBUTEROL 1.25 MG/0.5 ML NEBU. NEB SCH ×2 (06:55→11:45)
[2017-07-11] MEDS: BUDESONIDE 0.5 MG/2 ML NEBU. NEB SCH (06:55)
[2017-07-11 07:00] VITALS: BP 129/62
[2017-07-11] MEDS: INSULIN ASPART 300 UNITS/3 ML INSULN.PEN SQ SCH ×3 (07:31→12:18)
[2017-07-11] MEDS: CETIRIZINE HCL 10 MG TABLET. PO SCH (08:18)
[2017-07-11] MEDS: METOPROLOL TART IMMED RELEASE 50 MG TABLET. PO SCH (08:18)
[2017-07-11] MEDS: CALCIUM CARBONATE 500 MG TABLET PO SCH (08:18)
[2017-07-11] MEDS: traMADol 50 MG TABLET PO PRN (09:08)
[2017-07-11 11:00] VITALS: BP 148/89
--- NOTE | 2017-07-11 11:00 | PDOC ---
Provider Note Provider Note feeling really well. daughter packed her wound and the pt is comfortable dcing home nadeen diet. +flatus afeb vss abd soft nd nt inc clean. some serous drainage, less than yest at lowest part of wound a/p dc home. ROSA RICHARDSON MD Jul 11, 2017 11:00
[2017-07-11] MEDS ORDERED: TRAM50TA PO (11:28)
--- NOTE | 2017-07-11 11:29 | PDOC3 ---
Discharge Summary Visit Information Date of Admission: Jul 04, 2017 Date of Discharge: Jul 11, 2017 Admitting Diagnosis Comment: SBO, s/p surg on 07/05,. open exploratory laparotomy for Extensive adhesiolysis. w/ Enterotomy and removal of enterolith on 07/04 acute abd pain post-op ileus intermittent asthma obesity, BMI 32 Dm2, htn acute hypoxic resp failure post op ,2/2 atelectasis likely GERD hypomagnesemia Final Diagnosis Problems Medical Problems: (1) Hypomagnesemia Status: Acute (2) Leukocytosis Status: Acute (3) SBO (small bowel obstruction) Status: Acute Brief Hospital Course Allergies Allergies Coded Allergies Type Severity Reaction Last Updated Verified Iodinated Contrast- Oral and IV Dye Allergy Severe Shortness of Air 02/09/15 Yes erythromycin base Allergy Severe Shortness of Air 02/09/15 Yes morphine Allergy Severe Anaphylaxis 02/09/15 Yes hydrocodone Allergy Intermediate DIZZINESS 02/09/15 Yes iodine Allergy Intermediate 02/09/15 Yes Vital Signs Vital Signs Date Time Temp Pulse Resp B/P (MAP) Pulse Ox O2 Delivery O2 Flow Rate FiO2 07/11/17 11:12 Room Air 07/11/17 08:18 83 147/88 07/11/17 07:00 97.8 20 94 97.8 Lab Results Laboratory Tests Test 07/09/17 16:53 07/09/17 23:30 07/10/17 04:35 07/10/17 09:29 Glucose (Fingerstick) 137 mg/dL (70-99) 157 mg/dL (70-99) 210 mg/dL (70-99) White Blood Count 8.8 x10^3/uL (4.0-11.0) Red Blood Count 3.95 x10^6/uL (3.50-5.40) Hemoglobin 11.1 g/dL (12.0-15.5) Hematocrit 32.3 % (36.0-47.0) Mean Corpuscular Volume 82 fL (79-100) Mean Corpuscular Hemoglobin 28 pg (25-35) Mean Corpuscular Hemoglobin Concent 34 g/dL (31-37) Red Cell Distribution Width 13.8 % (11.5-14.5) Platelet Count 365 x10^3/uL (140-400) Neutrophils (%) (Auto) 73 % (31-73) Lymphocytes (%) (Auto) 14 % (24-48) Monocytes (%) (Auto) 10 % (0-9) Eosinophils (%) (Auto) 3 % (0-3) Basophils (%) (Auto) 1 % (0-3) Neutrophils # (Auto) 6.4 x10^3uL (1.8-7.7) Lymphocytes # (Auto) 1.3 x10^3/uL (1.0-4.8) Monocytes # (Auto) 0.8 x10^3/uL (0.0-1.1) Eosinophils # (Auto) 0.3 x10^3/uL (0.0-0.7) Basophils # (Auto) 0.1 x10^3/uL (0.0-0.2) Sodium Level 138 mmol/L (136-145) Potassium Level 4.1 mmol/L (3.5-5.1) Chloride Level 101 mmol/L (98-107) Carbon Dioxide Level 27 mmol/L (21-32) Anion Gap 10 (6-14) Blood Urea Nitrogen 14 mg/dL (7-20) Creatinine 0.8 mg/dL (0.6-1.0) Estimated GFR (Cockcroft-Gault) 72.0 Glucose Level 120 mg/dL (70-99) Calcium Level 9.3 mg/dL (8.5-10.1) Phosphorus Level 4.3 mg/dL (2.6-4.7) Albumin 2.3 g/dL (3.4-5.0) Test 07/10/17 11:47 07/10/17 16:44 07/10/17 20:51 07/11/17 07:28 Glucose (Fingerstick) 168 mg/dL (70-99) 113 mg/dL (70-99) 155 mg/dL (70-99) 131 mg/dL (70-99) Laboratory Tests Test 07/10/17 11:47 07/10/17 16:44 07/10/17 20:51 07/11/17 07:28 Glucose (Fingerstick) 168 mg/dL (70-99) 113 mg/dL (70-99) 155 mg/dL (70-99) 131 mg/dL (70-99) Brief Hospital Course Ms. Anna is a 66 old female admitted fro SBO, underwent SBO, s/p surg on 07/05,. open exploratory laparotomy for Extensive adhesiolysis. w/ Enterotomy and removal of enterolith on 07/04. I am assuming care on day of dc. BEing dcd on PO tramadol prn. Ff up GS next sat as instructed nO pT needs Discharge Information Condition at Discharge: Improved, Stable Follow Up: Weeks (Saturday Dr. Kang) Disposition/Orders: D/C to Home Scheduled Aspirin (Aspirin Ec), 81 MG PO DAILY, (Reported) Budesonide/Formoterol Fumarate (Symbicort 160-4.5 Mcg Inhaler), 10.2 GM IH BID, (Reported) Calcium Carbonate (Calcium), 600 MG PO DAILY, (Reported) Ciprofloxacin Hcl (Cipro), 1 TAB PO BID Gluc 2KCL/Chondr/Sean Hy/Hy Ac (Glucosamine & Chondroitin Cap), 2 EACH PO DAILY, (Reported) Isosorbide Mononitrate (Imdur), 60 MG PO DAILY, (Reported) Levofloxacin (Levofloxacin), 1 TAB PO DAILY Loratadine (Claritin), 10 MG PO BID, (Reported) Lovastatin (Lovastatin), 40 MG PO DAILY, (Reported) Metformin Hcl (Metformin Hcl), 1,000 MG PO BID, (Reported) Metoprolol Tartrate (Metoprolol Tartrate), 50 MG PO BID, (Reported) Metronidazole (Metronidazole), 1 TAB PO TID Multivitamin (Multi Vitamin Daily), 1 EACH PO DAILY, (Reported) Wells-3 Fatty Acids (Fish Oil), 3,000 MG PO DAILY, (Reported) Ranitidine Hcl (Ranitidine Hcl), 150 MG PO DAILY, (Reported) [Lisinopril], 2.5 MG PO DAILY Scheduled PRN Levalbuterol Tartrate (Xopenex Hfa), 45 MCG IH, (Reported) KASSY MADERA MD Jul 11, 2017 11:29
--- NOTE | 2017-07-11 13:50 | PDOC ---
Subjective: Subjective: Ready to go home. Objective: Vital Signs: Vital Signs Date Time Temp Pulse Resp B/P (MAP) Pulse Ox O2 Delivery O2 Flow Rate FiO2 07/11/17 11:12 Room Air 07/11/17 11:00 98.9 84 20 148/89 (108) 99 98.9 Labs: Laboratory Tests Test 07/10/17 16:44 07/10/17 20:51 07/11/17 07:28 07/11/17 11:27 Glucose (Fingerstick) 113 mg/dL 155 mg/dL 131 mg/dL 130 mg/dL PE: GEN: NAD LUNGS: CTAB HEART: RRR ABD: soft NEURO/PSYCH: A & O 3 A/P: SBO s/p laparotomy: adhesiolysis, enterotomy w/ removal of enterolith -- DC per primary, follow-up w/ GI PRN. NISA SMITH Jul 11, 2017 13:50 CHEYANNE BAKER MD Jul 11, 2017 13:56
== END 2017-07-11 14:30 | disposition home or self-care (01) | DRG 335 ==
LOC: ER 07:09 → 4 NORTH 09:08
PROVIDERS: ADMIT Internal Medicine; ATTEND Internal Medicine
PROC: 0DNW0ZZ Release Peritoneum, Open Approach (ICD-10-PCS; principal; 2017-07-05)
PROC: 0DPD0JZ Removal of Synthetic Substitute from Lower Intestinal Tract, Open Approach (ICD-10-PCS; 2017-07-05)
PROC: 0WJG0ZZ Inspection of Peritoneal Cavity, Open Approach (ICD-10-PCS; 2017-07-05)
DX: K56.60 Unspecified intestinal obstruction (principal); J96.01 Acute respiratory failure with hypoxia; N17.9 Acute kidney failure, unspecified; K66.8 Other specified disorders of peritoneum; E11.22 Type 2 diabetes mellitus with diabetic chronic kidney disease; E83.42 Hypomagnesemia; J98.11 Atelectasis; E87.71 Transfusion associated circulatory overload; D72.829 Elevated white blood cell count, unspecified; G47.30 Sleep apnea, unspecified; G89.18 Other acute postprocedural pain; J45.20 Mild intermittent asthma, uncomplicated; I25.10 Atherosclerotic heart disease of native coronary artery without angina pectoris; E78.5 Hyperlipidemia, unspecified; E66.9 Obesity, unspecified; K57.50 Diverticulosis of both small and large intestine without perforation or abscess without bleeding; K56.7 Ileus, unspecified; K56.49 Other impaction of intestine; K21.9 Gastro-esophageal reflux disease without esophagitis; Z53.31 Laparoscopic surgical procedure converted to open procedure; Z68.32 Body mass index [BMI] 32.0-32.9, adult; Z88.5 Allergy status to narcotic agent; Z87.01 Personal history of pneumonia (recurrent); Z86.718 Personal history of other venous thrombosis and embolism; Z86.010 Personal history of colon polyps; Z90.710 Acquired absence of both cervix and uterus; M19.90 Unspecified osteoarthritis, unspecified site; Z88.1 Allergy status to other antibiotic agents; Z88.8 Allergy status to other drugs, medicaments and biological substances; I12.9 Hypertensive chronic kidney disease with stage 1 through stage 4 chronic kidney disease, or unspecified chronic kidney disease; N18.9 Chronic kidney disease, unspecified
CPT/HCPCS: 36415; 71010; 74176; 76705; 80053; 80069; 81001; 82962; 83605; 83690; 83735; 84300; 84484; 85007; 85025; 85610; 85730; 87040; 88300; 93005; 94250; 94640; 94760; 96361; 96374; 96375; J0330; J0360; J0694; J0780; J1100; J1170; J1650; J1815; J2405; J2543; J2704; J2710; J3010; J3490; J7030; J7060; J7120; J7626; S0028; 97116; 97530; 99285-25; J2001

== ENCOUNTER → 2018-05-13 | Outpatient (CLI) | payer OTHER, MEDICARE | END | disposition home or self-care (01) | LOC: RAD 12:15 | DX: M25.561 Pain in right knee (principal); M25.562 Pain in left knee; I12.9 Hypertensive chronic kidney disease with stage 1 through stage 4 chronic kidney disease, or unspecified chronic kidney disease; E11.22 Type 2 diabetes mellitus with diabetic chronic kidney disease; N18.9 Chronic kidney disease, unspecified; E78.5 Hyperlipidemia, unspecified; E78.00 Pure hypercholesterolemia, unspecified | CPT/HCPCS: 73562; 73565 ==

== ENCOUNTER → 2018-08-25 | Outpatient (CLI) | payer OTHER, MEDICARE ==
[2018-08-17 11:00] VITALS: BP 125/78
[~2018-08-25] MED LIST changes: +AMOX1TAB11 PO; +FENO145T PO; +FLUT1DIS3 IH; +HYDR25TA9 PO; +LISI10TA PO; -METF-620 PO; +METF10007 PO; -METO50TA2 PO; +METO50TA6 PO; +MONT10TA9 PO; +OMEG100021 PO; +TIOT18CA IH; +TRAM50TA PO
[2018-08-25 08:05] LABS: BASO # 0.2 x10^3/uL (0.0-0.2); BASO % 2 % (0-3); EOS # 0.2 x10^3/uL (0.0-0.7); EOS % 2 % (0-3); HEMATOCRIT 36.9 % (36.0-47.0); HEMOGLOBIN 12.4 g/dL (12.0-15.5); LYMPH # 2.4 x10^3/uL (1.0-4.8); LYMPH % 26 % (24-48); MEAN CORPUSCULAR HEMOGLOBIN 28 pg (25-35); MEAN CORPUSCULAR HGB CONC 34 g/dL (31-37); MEAN CORPUSCULAR VOLUME 82 fL (79-100); MONO # 0.7 x10^3/uL (0.0-1.1); MONO % 8 % (0-9); NEUT # 5.8 x10^3uL (1.8-7.7); NEUT % 63 % (31-73); PLATELET COUNT 391 x10^3/uL (140-400); RED BLOOD COUNT 4.48 x10^6/uL (3.50-5.40); RED CELL DISTRIBUTION WIDTH 14.9 % (11.5-14.5); WHITE BLOOD COUNT 9.2 x10^3/uL (4.0-11.0)
[2018-08-25 08:29] LABS: ALBUMIN 3.9 g/dL (3.4-5.0); CREATININE 1.1 mg/dL (0.6-1.0); GFR 49.7; POTASSIUM 4.3 mmol/L (3.5-5.1); TOTAL BILIRUBIN 0.4 mg/dL (0.2-1.0); TOTAL PROTEIN 7.7 g/dL (6.4-8.2)
== END | disposition home or self-care (01) ==
LOC: LAB 07:12
PROVIDERS: ATTEND Family Medicine
DX: K52.9 Noninfective gastroenteritis and colitis, unspecified (principal)
CPT/HCPCS: 36415; 80053; 85025

== ENCOUNTER → 2018-09-12 | Day surgery (SDC) | payer OTHER, MEDICARE ==
[~2018-09-12] MED LIST changes: +IV RINGERS,LACTATED 1000ML 1,000 ML IV SCH; +LIDOCAINE 1% PF 2 ML VIAL. ID PRN; +LIDOCAINE 1% PF 2 ML VIAL. ONE; +ONDANSETRON PF 4 MG/2 ML VIAL. IV PRN; +PROCHLORPERAZINE 10 MG/2 ML VIAL. IV PRN; +PROPOFOL 20 ML IV ONE; +fentaNYL PF VIAL 100 MCG/2 ML VIAL IV PRN
[2018-09-12 09:31] VITALS: BP 112/65
--- NOTE | 2018-09-12 21:10 | CONS ---
DATE OF CONSULTATION: UPDATE HISTORY AND PHYSICAL REASON FOR CONSULTATION: Left lower quadrant abdominal pain, diverticulitis, and abnormal CT scan. HISTORY OF PRESENT ILLNESS: A 67-year-old female whose past medical history is significant for hypertension, bronchitis, GERD, diabetes, hyperlipidemia, history of diverticular disease as well as partial small-bowel obstruction, admitted to [facility] with diverticulitis, responded to antibiotics and she is now here for interval colonoscopy. No bleeding was encountered. No weight loss is noted. She is otherwise without additional complaints. PAST MEDICAL HISTORY: Significant for hypertension, GERD, diabetes. ALLERGIES: IODINE, ERYTHROMYCIN, HYDROCODONE. MEDICATIONS: Aspirin, fenofibrate, Advair, hydrochlorothiazide, Imdur, Prinivil, Claritin, lovastatin, metformin, metoprolol, montelukast, omega-3 fish oils, ranitidine and Spiriva. FAMILY AND SOCIAL HISTORY: Nondrinker, nonsmoker. Per records. REVIEW OF SYSTEMS: Per records. PHYSICAL EXAMINATION: GENERAL: Reveals a well-nourished, well-developed female who is alert, cooperative, in no acute distress. VITAL SIGNS: Temperature 97.7, pulse , respiratory rate 20. HEENT: Reveals normocephalic, atraumatic head. Pupils and extraocular muscles are not tested. Sclerae anicteric. NECK: Supple. LUNGS: Clear. CARDIOVASCULAR: Reveals an S1, S2 without S3, S4 or appreciable murmur. ABDOMEN: Reveals soft abdomen, normal bowel sounds without appreciable hepatosplenomegaly. EXTREMITIES: Reveals no cyanosis, clubbing or edema. IMPRESSION AND PLAN: Left lower quadrant abdominal pain, abnormal CT scan, diverticular disease, most likely resolving diverticulitis. Interval colonoscopy to assess risks and benefits of the procedures including the risk of hemorrhage and perforation requiring operation have been discussed with the patient and is willing to proceed at this time. CHEYANNE BAKER MD DR: DELVIS/adeline JOB#: [id number] / [id number]
== END | disposition home or self-care (01) ==
LOC: ENDOS 07:33
PROVIDERS: ATTEND Internal Medicine Gastroenterology
DX: K57.30 Diverticulosis of large intestine without perforation or abscess without bleeding (principal); K64.0 First degree hemorrhoids; I10 Essential (primary) hypertension; K21.9 Gastro-esophageal reflux disease without esophagitis; E11.9 Type 2 diabetes mellitus without complications; E78.5 Hyperlipidemia, unspecified; Z88.8 Allergy status to other drugs, medicaments and biological substances; Z88.1 Allergy status to other antibiotic agents; Z88.5 Allergy status to narcotic agent; Z79.82 Long term (current) use of aspirin; Z79.899 Other long term (current) drug therapy; Z79.84 Long term (current) use of oral hypoglycemic drugs
CPT/HCPCS: 45378; J2704

== ENCOUNTER 2018-11-24 20:42 | Inpatient (IN) | payer OTHER, MEDICARE ==
[~2018-11-24] VITALS: Ht 172.7 cm; Wt 89.0 kg
--- NOTE | 2018-11-24 20:10 | NUR ---
Admission The patient, FLOYD PLEITEZ, 68 y/o, F admitted by KASSY MADERA MD, was given written information regarding hospital policies, unit procedures and contact persons. Pt was brought up via wheelchair from ED with daughter by her side. VSS and afebrile. Head to toe assessment was done at this time. Valuables were checked and left with patient in the room.
[~2018-11-24 20:42] MED LIST changes: +HYDR-2145 PO; -HYDR25TA9 PO; -IV RINGERS,LACTATED 1000ML 1,000 ML IV SCH; -LIDOCAINE 1% PF 2 ML VIAL. ID PRN; -LIDOCAINE 1% PF 2 ML VIAL. ONE; +METR-84 PO; -METR500T8 PO; -ONDANSETRON PF 4 MG/2 ML VIAL. IV PRN; -PROCHLORPERAZINE 10 MG/2 ML VIAL. IV PRN; -PROPOFOL 20 ML IV ONE; -fentaNYL PF VIAL 100 MCG/2 ML VIAL IV PRN
[2018-11-24] MEDS ORDERED: FAMOTIDINE 20 MG/2 ML VIAL IVP ONE (21:00)
[2018-11-24] MEDS ORDERED: IV NORMAL SALINE 1000ML BAG 1,000 ML IV ONE (21:00)
--- NOTE | 2018-11-24 21:08 | PHYS DOC ---
Past Medical History Past Medical History: Diabetes-Type II, Hypertension, Other Additional Past Medical Histor: ruptured diverticulm, bowel obstruction Past Surgical History: Hysterectomy, Other Additional Past Surgical Histo: lumbar laminectomy, Colectomy Alcohol Use: None Drug Use: None Adult General Chief Complaint Chief Complaint: ABDOMINAL PAIN HPI HPI 68-year-old female presents with one-day history of diffuse abdominal pain and distention with associated nausea and vomiting. Patient reports history of prior perforated diverticulum with abscess requiring admission and surgical intervention. Patient also with prior obstruction. Reports some associated subjective fever and chills. Denies known trauma. Denies known sick contacts. 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 Review of Systems Review of Systems Constitutional: Reports subjective fever and chills [] Eyes: Denies change in visual acuity, redness, or eye pain [] HENT: Denies nasal congestion or sore throat [] Respiratory: Denies cough or shortness of breath [] Cardiovascular: Denies chest pain or palpitations GI: Reports abdominal pain, distention, nausea, and vomiting : Denies dysuria or hematuria [] Musculoskeletal: Denies back pain or joint pain [] Integument: Denies rash or skin lesions [] Neurologic: Denies headache, focal weakness or sensory changes [] Complete systems were reviewed and found to be within normal limits, except as documented in this note. Current Medications Current Medications Current Medications Medications (Trade) Dose Ordered Sig/Vera Start Time Stop Time Status Last Admin Dose Admin Dextrose (Dextrose 50%-Water Syringe) 12.5 gm PRN Q15MIN PRN 11/24/18 22:45 Famotidine (Pepcid Vial) 20 mg 1X ONCE 11/24/18 21:00 11/24/18 21:03 DC 11/24/18 21:39 20 MG Fentanyl Citrate (Fentanyl 2ml Vial) 50 mcg PRN Q2HR PRN 11/24/18 22:45 Insulin Human Lispro (HumaLOG) 0-5 UNITS TIDWMEALS 11/25/18 08:00 Ondansetron HCl (Zofran) 4 mg PRN Q8HRS PRN 11/24/18 22:45 11/25/18 22:44 Sodium Chloride 1,000 ml @ 1,000 mls/hr 1X ONCE 11/24/18 21:00 11/24/18 21:59 DC 11/24/18 21:40 1,000 MLS/HR Allergies Allergies Allergies Coded Allergies Type Severity Reaction Last Updated Verified Iodinated Contrast- Oral and IV Dye Allergy Severe Shortness of Air 09/12/18 Yes erythromycin base Allergy Severe Shortness of Air 09/12/18 Yes morphine Allergy Severe Anaphylaxis 09/12/18 Yes hydrocodone Allergy Intermediate DIZZINESS 09/12/18 Yes iodine Allergy Intermediate 09/12/18 Yes Physical Exam Physical Exam Constitutional: Well developed, well nourished, no acute distress, non-toxic appearance. [] HENT: Normocephalic, atraumatic, oropharynx moist Eyes: Conjunctiva normal, no discharge. [] Neck: Normal range of motion, no tenderness, supple, no stridor. [] Cardiovascular: Heart rate regular rhythm, no murmur [] Lungs & Thorax: Bilateral breath sounds clear to auscultation [] Abdomen: Soft, mild diffuse tenderness, moderate distention Skin: Warm, dry, no erythema, no rash. [] Extremities: No tenderness, ROM intact, 1+ nonpitting edema. [] Neurologic: Alert and oriented X 3, no focal deficits noted. [] Psychologic: Affect normal, judgement normal, mood normal. [] Current Patient Data Vital Signs Vital Signs Date Time Temp Pulse Resp B/P (MAP) Pulse Ox O2 Delivery O2 Flow Rate FiO2 11/24/18 21:02 97.6 107 18 182/84 (116) 97 Room Air 97.6 Lab Values Laboratory Tests Test 11/24/18 21:14 White Blood Count 14.6 x10^3/uL (4.0-11.0) H Red Blood Count 4.52 x10^6/uL (3.50-5.40) Hemoglobin 12.6 g/dL (12.0-15.5) Hematocrit 36.4 % (36.0-47.0) Mean Corpuscular Volume 80 fL (79-100) Mean Corpuscular Hemoglobin 28 pg (25-35) Mean Corpuscular Hemoglobin Concent 35 g/dL (31-37) Red Cell Distribution Width 14.5 % (11.5-14.5) Platelet Count 326 x10^3/uL (140-400) Neutrophils (%) (Auto) 86 % (31-73) H Lymphocytes (%) (Auto) 9 % (24-48) L Monocytes (%) (Auto) 4 % (0-9) Eosinophils (%) (Auto) 0 % (0-3) Basophils (%) (Auto) 1 % (0-3) Neutrophils # (Auto) 12.6 x10^3uL (1.8-7.7) H Lymphocytes # (Auto) 1.3 x10^3/uL (1.0-4.8) Monocytes # (Auto) 0.6 x10^3/uL (0.0-1.1) Eosinophils # (Auto) 0.0 x10^3/uL (0.0-0.7) Basophils # (Auto) 0.1 x10^3/uL (0.0-0.2) Segmented Neutrophils % 83 % (35-66) H Band Neutrophils % 8 % (0-9) Lymphocytes % 5 % (24-48) L Monocytes % 4 % (0-10) Platelet Estimate Adequate (ADEQUATE) Prothrombin Time 13.6 SEC (11.7-14.0) Prothrombin Time INR 1.1 (0.8-1.1) PTT 28 SEC (24-38) Urine Collection Type Unknown Urine Color Yellow Urine Clarity Cloudy Urine pH 7.5 Urine Specific [place] 1.020 Urine Protein Negative mg/dL (NEG-TRACE) Urine Glucose (UA) Negative mg/dL (NEG) Urine Ketones (Stick) Negative mg/dL (NEG) Urine Blood Negative (NEG) Urine Nitrite Negative (NEG) Urine Bilirubin Negative (NEG) Urine Urobilinogen Dipstick 0.2 mg/dL (0.2 mg/dL) Urine Leukocyte Esterase Small (NEG) Urine RBC 0 /HPF (0-2) Urine WBC Occ /HPF (0-4) Urine Squamous Epithelial Cells Few /LPF Urine Amorphous Sediment Present /HPF Urine Bacteria Few /HPF (0-FEW) Urine Mucus Mod /LPF Sodium Level 136 mmol/L (136-145) Potassium Level 4.1 mmol/L (3.5-5.1) Chloride Level 100 mmol/L (98-107) Carbon Dioxide Level 27 mmol/L (21-32) Anion Gap 9 (6-14) Blood Urea Nitrogen 18 mg/dL (7-20) Creatinine 1.3 mg/dL (0.6-1.0) H Estimated GFR (Cockcroft-Gault) 40.9 BUN/Creatinine Ratio 14 (6-20) Glucose Level 177 mg/dL (70-99) H Lactic Acid Level 1.7 mmol/L (0.4-2.0) Calcium Level 10.2 mg/dL (8.5-10.1) H Magnesium Level 1.4 mg/dL (1.8-2.4) L Total Bilirubin 0.4 mg/dL (0.2-1.0) Aspartate Amino Transferase (AST) 23 U/L (15-37) Alanine Aminotransferase (ALT) 25 U/L (14-59) Alkaline Phosphatase 63 U/L (46-116) Creatine Kinase 76 U/L (26-192) Creatine Kinase MB (Mass) 5.3 ng/mL (0.0-3.6) H Creatine Kinase MB Relative Index 7.0 % (0-4) H Troponin I Quantitative < 0.017 ng/mL (0.000-0.055) Total Protein 7.3 g/dL (6.4-8.2) Albumin 3.4 g/dL (3.4-5.0) Albumin/Globulin Ratio 0.9 (1.0-1.7) L Lipase 77 U/L (73-393) Laboratory Tests 11/24/18 21:14 Laboratory Tests 11/24/18 21:14 EKG EKG @2135 NSR at 100bpm, NO ST elevation Radiology/Procedures Radiology/Procedures PROCEDURE: CT ABDOMEN PELVIS WO CONTRAST Examination: CT ABDOMEN PELVIS WO CONTRAST History: ABD PAIN, N/V, HX DIVERITCULITIS, COLON SX, PRIOR SENT Comparison/Correlation: 08/17/2018 CT abdomen and pelvis without contrast Findings: Axial images of the abdomen and pelvis were obtained without contrast. Minimal left basilar atelectasis is present. Minimal right perihepatic ascites is noted. Unenhanced liver, spleen, pancreas, adrenal glands, and kidneys are unremarkable. Gallbladder fossa is normal. No radiopaque collecting system calculi. Urinary bladder is mostly decompressed. Duodenal diverticulum is present. No extraluminal gas. Multiple fluid-filled, distended small bowel loops are present. Fluid is noted within colon is well. Distention of small bowel is primarily noted at the level of the pelvis. Terminal ileum is relatively decompressed. Linear density involving left upper quadrant small bowel is again seen. Diverticulosis of the colon is present. No inflammatory findings or abscess. L2-3 disc space narrowing present. Left very low abdominal wall laxity noted near the midline. Minimal extension of omental fat into this region noted. Midline scarring of the low abdominal wall is evident. Hysterectomy noted. Pelvic ascites evident. Impression: Diverticulosis of the duodenum and colon are present without acute inflammatory findings. Multiple distended small bowel loops are present and fluid-filled. Possibility transition point involving the lower pelvis is raised. Findings may represent early/partial obstruction or possibly ileus. Fluid is noted within the colon is well. Findings alternatively may represent gastroenteritis. Correlate clinically in determining further evaluation. Minimal ascites. Electronically signed by: Gaurang Hummel MD (11/24/2018 9:56 PM) [facility] Course & Med Decision Making Course & Med Decision Making Pertinent Labs and Imaging studies reviewed. (See chart for details) Patient presents with diffuse abdominal pain with distention and associated nausea and vomiting. History of prior diverticulum perforations with abscess requiring surgical intervention. Patient also with history of bowel obstruction. Labs obtained and posted to chart. EKG stable. IV fluid hydration provided. IV Pepcid also given. Patient declined antiemetic or pain medication at this time. CT abdomen/pelvis with concern for partial small bowel obstruction /ileus. Patient without vomiting in ED. Patient requiring admission for further evaluation and treatment. Discussed with Dr. Celaya (hospitalist) who is in agreement with admission. Consult placed to Dr. Newsome (surgery) due to patient request and continuity of care. Discussed findings and plan with patient and family, who acknowledge understanding and agreement. Dragon Disclaimer Dragon Disclaimer This electronic medical record was generated, in whole or in part, using a voice recognition dictation system. Departure Departure Impression: Primary Impression: Small bowel obstruction Disposition: ADMITTED INPATIENT Admitting Physician: Justyna Celaya Condition: GUARDED Referrals: CORRINA RUBIO MD (PCP) OSORIO YOUNG DO Nov 24, 2018 21:08
[2018-11-24 21:29] LABS: BASO # 0.1 x10^3/uL (0.0-0.2); BASO % 1 % (0-3); BILIRUBIN,URINE NEGATIVE (NEG); CLARITY,URINE CLOUDY; COLOR,URINE YELLOW; EOS % 0 % (0-3); HEMATOCRIT 36.4 % (36.0-47.0); HEMOGLOBIN 12.6 g/dL (12.0-15.5); LYMPH # 1.3 x10^3/uL (1.0-4.8); LYMPH % 9 % (24-48); MEAN CORPUSCULAR HEMOGLOBIN 28 pg (25-35); MEAN CORPUSCULAR HGB CONC 35 g/dL (31-37); MEAN CORPUSCULAR VOLUME 80 fL (79-100); MONO # 0.6 x10^3/uL (0.0-1.1); MONO % 4 % (0-9); NEUT # 12.6 x10^3uL (1.8-7.7); NEUT % 86 % (31-73); NITRITE,URINE NEGATIVE (NEG); PH,URINE 7.5; PLATELET COUNT 326 x10^3/uL (140-400); PROTEIN,URINE NEGATIVE (NEG-TRACE); RED BLOOD COUNT 4.52 x10^6/uL (3.50-5.40); RED CELL DISTRIBUTION WIDTH 14.5 % (11.5-14.5); UROBILINOGEN,URINE 0.2 mg/dL (0.2 mg/dL); WHITE BLOOD COUNT 14.6 x10^3/uL (4.0-11.0)
[2018-11-24 21:39] LABS: PROTHROMBIN TIME PATIENT 13.6 SEC (11.7-14.0)
[2018-11-24 21:40] LABS: SQUAMOUS EPITHELIAL CELL,UR FEW /LPF
[2018-11-24 21:43] LABS: AMORPHOUS SEDIMENT,UR PRESENT /HPF; BACTERIA,URINE FEW /HPF (0-FEW); RBC,URINE 0 /HPF (0-2); WBC,URINE OCC /HPF (0-4)
[2018-11-24 21:50] LABS: CALCIUM 10.2 mg/dL (8.5-10.1); CREATININE 1.3 mg/dL (0.6-1.0); GFR 40.9; POTASSIUM 4.1 mmol/L (3.5-5.1)
[2018-11-24 21:55] LABS: ALBUMIN 3.4 g/dL (3.4-5.0); ALBUMIN/GLOBULIN RATIO 0.9 (1.0-1.7); MAGNESIUM 1.4 mg/dL (1.8-2.4); TOTAL BILIRUBIN 0.4 mg/dL (0.2-1.0); TOTAL PROTEIN 7.3 g/dL (6.4-8.2)
[2018-11-24 21:57] LABS: % BANDS 8 % (0-9); % LYMPHS 5 % (24-48); % MONOS 4 % (0-10); % SEGS 83 % (35-66); PLT ESTIMATE ADEQUATE (ADEQUATE)
--- NOTE | 2018-11-24 22:01 | RAD ---
Examination: CT ABDOMEN PELVIS WO CONTRAST History: ABD PAIN, N/V, HX DIVERITCULITIS, COLON SX, PRIOR SENT Comparison/Correlation: 08/17/2018 CT abdomen and pelvis without contrast Findings: Axial images of the abdomen and pelvis were obtained without contrast. Minimal left basilar atelectasis is present. Minimal right perihepatic ascites is noted. Unenhanced liver, spleen, pancreas, adrenal glands, and kidneys are unremarkable. Gallbladder fossa is normal. No radiopaque collecting system calculi. Urinary bladder is mostly decompressed. Duodenal diverticulum is present. No extraluminal gas. Multiple fluid-filled, distended small bowel loops are present. Fluid is noted within colon is well. Distention of small bowel is primarily noted at the level of the pelvis. Terminal ileum is relatively decompressed. Linear density involving left upper quadrant small bowel is again seen. Diverticulosis of the colon is present. No inflammatory findings or abscess. L2-3 disc space narrowing present. Left very low abdominal wall laxity noted near the midline. Minimal extension of omental fat into this region noted. Midline scarring of the low abdominal wall is evident. Hysterectomy noted. Pelvic ascites evident. Impression: Diverticulosis of the duodenum and colon are present without acute inflammatory findings. Multiple distended small bowel loops are present and fluid-filled. Possibility transition point involving the lower pelvis is raised. Findings may represent early/partial obstruction or possibly ileus. Fluid is noted within the colon is well. Findings alternatively may represent gastroenteritis. Correlate clinically in determining further evaluation. Minimal ascites. Electronically signed by: Gaurang Hummel MD (11/24/2018 9:56 PM) [facility]
[2018-11-24] MEDS ORDERED: fentaNYL PF VIAL 100 MCG/2 ML VIAL IV PRN (22:45)
[2018-11-24] MEDS ORDERED: DEXTROSE 50% 25 GM / 50ML DISP.SYRIN. IV PRN (22:45)
[2018-11-24] MEDS ORDERED: ONDANSETRON PF 4 MG/2 ML VIAL. IV PRN (22:45)
[2018-11-24 23:15] VITALS: BP 127/75
[2018-11-25] MEDS: IV NORMAL SALINE 1000ML BAG 1,000 ML IV SCH ×3 (00:26→23:17)
[2018-11-25] MEDS ORDERED: MAGNESIUM SULFATE 1GM 100 ML IV ONE (00:30)
[2018-11-25 03:45] VITALS: BP 102/53
--- NOTE | 2018-11-25 05:06 | EKG ---
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
[2018-11-25 07:00] VITALS: BP 173/88
[2018-11-25] MEDS: INSULIN LISPRO 300 UNITS/3 ML INSULN.PEN. SQ SCH ×3 (07:26→17:00)
--- NOTE | 2018-11-25 08:36 | PDOC2 ---
ABRAHAN LAFLEUR [employer] 11/25/18 0836: CONSULT Date of Consult Date of Consult DATE: 11/25/18 TIME: 08:31 Reason for Consult Reason for Consult: SBO Referring Physician Referring Physician: ER Identification/Chief Complaint Chief Complaint abdominal pain and distention Source Source: Chart review, Patient History of Present Illness Reason for Visit: Reports developed abdominal distention, pain and vomiting yesterday. Some stools yesterday, however they were thin. Associated belching and flatus Hx of 1. Laparoscopy converted to open exploratory laparotomy.2. Extensive adhesiolysis.3. Enterotomy and removal of enterolith. With Dr Horta in 2017 Here last in Jul 2018 for diverticulitis, treated medically Currently feels better, minimal pain, no emesis, less bloating, some flatus Past Medical History Cardiovascular: HTN, Hyperlipidemia Pulmonary: Asthma, Bronchitis GI: Diverticulosis, GERD, Hemorrhoids Endocrine: Diabetes Past Surgical History Past Surgical History: Hysterectomy, Other (XLAP, DEBO) Family History Family History: No Significant Social History No ALCOHOL: none Drugs: None Lives: with Family Current Problem List Problem List Problems Medical Problems: (1) Small bowel obstruction Status: Acute Current Medications Current Medications Current Medications Famotidine (Pepcid Vial) 20 mg 1X ONCE IVP Last administered on 11/24/18at 21:39 ; Start 11/24/18 at 21:00; Stop 11/24/18 at 21:03; Status DC Sodium Chloride 1,000 ml @ 1,000 mls/hr 1X ONCE IV Last administered on at 21:40; Start 11/24/18 at 21:00; Stop 11/24/18 at 21:59; Status DC Ondansetron HCl (Zofran) 4 mg PRN Q8HRS PRN IV NAUSEA/VOMITING 1ST CHOICE; Start 11/24/18 at 22:45; Stop 11/25/18 at 22:44 Fentanyl Citrate (Fentanyl 2ml Vial) 50 mcg PRN Q2HR PRN IV SEVERE PAIN; Start 11/24/18 at 22:45 Insulin Human Lispro (HumaLOG) 0-5 UNITS TIDWMEALS SQ ; Start 11/25/18 at 08:00 Dextrose (Dextrose 50%-Water Syringe) 12.5 gm PRN Q15MIN PRN IV SEE COMMENTS; Start 11/24/18 at 22:45 Magnesium Sulfate/ Dextrose 100 ml @ 100 mls/hr 1X ONCE IV Last administered on 11/25/18at 00:07; Start 11/25/18 at 00:30; Stop 11/25/18 at 01:29; Status DC Sodium Chloride 1,000 ml @ 100 mls/hr Q10H IV Last administered on 11/25/18at 00 :26; Start 11/25/18 at 00:30 Active Scripts Active Reported Advair 250-50 Diskus (Fluticasone/Salmeterol) 1 Each Disk.w.dev 1 Puff IH BID Hydrochlorothiazide Tablet (Hydrochlorothiazide) 25 Mg Tablet 1 Tab PO DAILY Tricor (Fenofibrate Nanocrystallized) 145 Mg Tablet 1 Tab PO DAILY Montelukast Sodium Tablet (Montelukast Sodium) 10 Mg Tablet 1 Tab PO DAILY Spiriva (Tiotropium [place]) 18 Mcg Cap.w.dev 2 Inh IH DAILY Multi Vitamin Daily (Multivitamin) 1 Each Tablet 1 Each PO DAILY Prinivil (Lisinopril) 10 Mg Tablet 10 Mg PO BID Fish Oil 1,000 mg Softgel ([place]-3/Dha/Epa/Fish Oil) 1,000 Mg Capsule 1,000 Mg PO HS Lovastatin 40 Mg Tablet 40 Mg PO HS Imdur (Isosorbide Mononitrate) 60 Mg Tab.er.24h 60 Mg PO HS Glucosamine & Chondroitin Cap (Gluc 2KCL/Chondr/Sean Hy/Hy Ac) 1 Each Capsule 2 Each PO DAILY Calcium (Calcium Carbonate) 600 Mg Tablet 600 Mg PO HS Fish Oil ([place]-3 Fatty Acids) 300 Mg Capsule 2,000 Mg PO DAILY Ranitidine Hcl 150 Mg Capsule 150 Mg PO BID Aspirin Ec (Aspirin) 81 Mg Tablet.dr 81 Mg PO HS Claritin (Loratadine) 10 Mg Capsule 10 Mg PO HS Metformin Hcl 1,000 Mg Tablet 1,000 Mg PO BID Metoprolol Tartrate 50 Mg Tablet 50 Mg PO BID Allergies Allergies: Coded Allergies: Iodinated Contrast- Oral and IV Dye (Verified Allergy, Severe, Shortness of Air, 09/12/18) rash erythromycin base (Verified Allergy, Severe, Shortness of Air, 09/12/18) hives morphine (Verified Allergy, Severe, Anaphylaxis, 09/12/18) hydrocodone (Verified Allergy, Intermediate, DIZZINESS, 09/12/18) iodine (Verified Allergy, Intermediate, 09/12/18) peels skin off ROS General: YES: Chills, Other (+fevers subjectively ) PSYCHOLOGICAL ROS: No: Anxiety, Depression Eyes: No Blurry vision, No Double vision HEENT: No: Heacaches, Sore Throat Hematological and Lymphatic: No: Bleeding Problems, Blood Clots Respiratory: No: Cough, Shortness of breath Cardiovascular: No Chest Pain, No Palpitations Gastrointestinal: Yes Other (see hpi) Genitourinary: No Dysuria, No Hematuria Musculoskeletal: No Joint Pain, No Muscle Pain Neurological: No Confusion, No Numbness/Tingling Skin: No Pruritus, No Rash Physical Exam General: Alert, Oriented X3, Cooperative, No acute distress HEENT: PERRLA, Mucous membr. moist/pink Lungs: Clear to auscultation, Normal air movement Heart: Regular rate, Normal S1, Normal S2, No murmurs Abdomen: Soft, Other (mild distention, mild TTP mid right abdomen, midline scar ) Extremities: No clubbing, No cyanosis Skin: No rashes, No breakdown Neuro: Normal gait, Normal speech Psych/Mental Status: Mental status NL, Mood NL MUSCULOSKELETAL: No deformity, No swelling Vitals VITALS Vital Signs Date Time Temp Pulse Resp B/P (MAP) Pulse Ox O2 Delivery O2 Flow Rate FiO2 11/25/18 07:00 97.7 99 18 173/88 (116) 100 Room Air 97.7 Labs Labs Laboratory Tests Test 11/24/18 21:14 11/25/18 00:07 11/25/18 06:07 11/25/18 06:11 White Blood Count 14.6 x10^3/uL (4.0-11.0) Red Blood Count 4.52 x10^6/uL (3.50-5.40) Hemoglobin 12.6 g/dL (12.0-15.5) Hematocrit 36.4 % (36.0-47.0) Mean Corpuscular Volume 80 fL (79-100) Mean Corpuscular Hemoglobin 28 pg (25-35) Mean Corpuscular Hemoglobin Concent 35 g/dL (31-37) Red Cell Distribution Width 14.5 % (11.5-14.5) Platelet Count 326 x10^3/uL (140-400) Neutrophils (%) (Auto) 86 % (31-73) Lymphocytes (%) (Auto) 9 % (24-48) Monocytes (%) (Auto) 4 % (0-9) Eosinophils (%) (Auto) 0 % (0-3) Basophils (%) (Auto) 1 % (0-3) Neutrophils # (Auto) 12.6 x10^3uL (1.8-7.7) Lymphocytes # (Auto) 1.3 x10^3/uL (1.0-4.8) Monocytes # (Auto) 0.6 x10^3/uL (0.0-1.1) Eosinophils # (Auto) 0.0 x10^3/uL (0.0-0.7) Basophils # (Auto) 0.1 x10^3/uL (0.0-0.2) Segmented Neutrophils % 83 % (35-66) Band Neutrophils % 8 % (0-9) Lymphocytes % 5 % (24-48) Monocytes % 4 % (0-10) Platelet Estimate Adequate (ADEQUATE) Prothrombin Time 13.6 SEC (11.7-14.0) Prothromb Time International Ratio 1.1 (0.8-1.1) Activated Partial Thromboplast Time 28 SEC (24-38) Urine Collection Type Unknown Urine Color Yellow Urine Clarity Cloudy Urine pH 7.5 Urine Specific [place] 1.020 Urine Protein Negative mg/dL (NEG-TRACE) Urine Glucose (UA) Negative mg/dL (NEG) Urine Ketones (Stick) Negative mg/dL (NEG) Urine Blood Negative (NEG) Urine Nitrite Negative (NEG) Urine Bilirubin Negative (NEG) Urine Urobilinogen Dipstick 0.2 mg/dL (0.2 mg/dL) Urine Leukocyte Esterase Small (NEG) Urine RBC 0 /HPF (0-2) Urine WBC Occ /HPF (0-4) Urine Squamous Epithelial Cells Few /LPF Urine Amorphous Sediment Present /HPF Urine Bacteria Few /HPF (0-FEW) Urine Mucus Mod /LPF Sodium Level 136 mmol/L (136-145) Potassium Level 4.1 mmol/L (3.5-5.1) Chloride Level 100 mmol/L (98-107) Carbon Dioxide Level 27 mmol/L (21-32) Anion Gap 9 (6-14) Blood Urea Nitrogen 18 mg/dL (7-20) Creatinine 1.3 mg/dL (0.6-1.0) Estimated GFR (Cockcroft-Gault) 40.9 BUN/Creatinine Ratio 14 (6-20) Glucose Level 177 mg/dL (70-99) Lactic Acid Level 1.7 mmol/L (0.4-2.0) Calcium Level 10.2 mg/dL (8.5-10.1) Magnesium Level 1.4 mg/dL (1.8-2.4) 1.7 mg/dL (1.8-2.4) Total Bilirubin 0.4 mg/dL (0.2-1.0) Aspartate Amino Transf (AST/SGOT) 23 U/L (15-37) Alanine Aminotransferase (ALT/SGPT) 25 U/L (14-59) Alkaline Phosphatase 63 U/L (46-116) Creatine Kinase 76 U/L (26-192) Creatine Kinase MB (Mass) 5.3 ng/mL (0.0-3.6) Creatine Kinase MB Relative Index 7.0 % (0-4) Troponin I Quantitative < 0.017 ng/mL (0.000-0.055) Total Protein 7.3 g/dL (6.4-8.2) Albumin 3.4 g/dL (3.4-5.0) Albumin/Globulin Ratio 0.9 (1.0-1.7) Lipase 77 U/L (73-393) Glucose (Fingerstick) 116 mg/dL (70-99) 101 mg/dL (70-99) Laboratory Tests Test 11/24/18 21:14 11/25/18 00:07 11/25/18 06:07 11/25/18 06:11 White Blood Count 14.6 x10^3/uL (4.0-11.0) Red Blood Count 4.52 x10^6/uL (3.50-5.40) Hemoglobin 12.6 g/dL (12.0-15.5) Hematocrit 36.4 % (36.0-47.0) Mean Corpuscular Volume 80 fL (79-100) Mean Corpuscular Hemoglobin 28 pg (25-35) Mean Corpuscular Hemoglobin Concent 35 g/dL (31-37) Red Cell Distribution Width 14.5 % (11.5-14.5) Platelet Count 326 x10^3/uL (140-400) Neutrophils (%) (Auto) 86 % (31-73) Lymphocytes (%) (Auto) 9 % (24-48) Monocytes (%) (Auto) 4 % (0-9) Eosinophils (%) (Auto) 0 % (0-3) Basophils (%) (Auto) 1 % (0-3) Neutrophils # (Auto) 12.6 x10^3uL (1.8-7.7) Lymphocytes # (Auto) 1.3 x10^3/uL (1.0-4.8) Monocytes # (Auto) 0.6 x10^3/uL (0.0-1.1) Eosinophils # (Auto) 0.0 x10^3/uL (0.0-0.7) Basophils # (Auto) 0.1 x10^3/uL (0.0-0.2) Segmented Neutrophils % 83 % (35-66) Band Neutrophils % 8 % (0-9) Lymphocytes % 5 % (24-48) Monocytes % 4 % (0-10) Platelet Estimate Adequate (ADEQUATE) Prothrombin Time 13.6 SEC (11.7-14.0) Prothromb Time International Ratio 1.1 (0.8-1.1) Activated Partial Thromboplast Time 28 SEC (24-38) Urine Collection Type Unknown Urine Color Yellow Urine Clarity Cloudy Urine pH 7.5 Urine Specific [place] 1.020 Urine Protein Negative mg/dL (NEG-TRACE) Urine Glucose (UA) Negative mg/dL (NEG) Urine Ketones (Stick) Negative mg/dL (NEG) Urine Blood Negative (NEG) Urine Nitrite Negative (NEG) Urine Bilirubin Negative (NEG) Urine Urobilinogen Dipstick 0.2 mg/dL (0.2 mg/dL) Urine Leukocyte Esterase Small (NEG) Urine RBC 0 /HPF (0-2) Urine WBC Occ /HPF (0-4) Urine Squamous Epithelial Cells Few /LPF Urine Amorphous Sediment Present /HPF Urine Bacteria Few /HPF (0-FEW) Urine Mucus Mod /LPF Sodium Level 136 mmol/L (136-145) Potassium Level 4.1 mmol/L (3.5-5.1) Chloride Level 100 mmol/L (98-107) Carbon Dioxide Level 27 mmol/L (21-32) Anion Gap 9 (6-14) Blood Urea Nitrogen 18 mg/dL (7-20) Creatinine 1.3 mg/dL (0.6-1.0) Estimated GFR (Cockcroft-Gault) 40.9 BUN/Creatinine Ratio 14 (6-20) Glucose Level 177 mg/dL (70-99) Lactic Acid Level 1.7 mmol/L (0.4-2.0) Calcium Level 10.2 mg/dL (8.5-10.1) Magnesium Level 1.4 mg/dL (1.8-2.4) 1.7 mg/dL (1.8-2.4) Total Bilirubin 0.4 mg/dL (0.2-1.0) Aspartate Amino Transf (AST/SGOT) 23 U/L (15-37) Alanine Aminotransferase (ALT/SGPT) 25 U/L (14-59) Alkaline Phosphatase 63 U/L (46-116) Creatine Kinase 76 U/L (26-192) Creatine Kinase MB (Mass) 5.3 ng/mL (0.0-3.6) Creatine Kinase MB Relative Index 7.0 % (0-4) Troponin I Quantitative < 0.017 ng/mL (0.000-0.055) Total Protein 7.3 g/dL (6.4-8.2) Albumin 3.4 g/dL (3.4-5.0) Albumin/Globulin Ratio 0.9 (1.0-1.7) Lipase 77 U/L (73-393) Glucose (Fingerstick) 116 mg/dL (70-99) 101 mg/dL (70-99) Assessment/Plan Assessment/Plan SBO vs ileus/enteritis bowel rest, hydration will check xrays toady ERIC HSU MD 11/25/18 1141: CONSULT Assessment/Plan Assessment/Plan Patient seen and examined by me, feeling better. Passing flatus had BM yesterday. No nausea or vomiting. Abd soft, NT ND abd films today improved. Start clear liquids. Agree with Winter's assessment and plan. ABRAHAN LAFLEUR APRN Nov 25, 2018 08:36 ERIC HSU MD Nov 25, 2018 11:41
--- NOTE | 2018-11-25 10:35 | RAD ---
Acute abdomen series with chest, 3 views, 11/25/2018: HISTORY: Small bowel obstruction There is a moderate amount gas in large and small bowel in a nonspecific pattern. No significant air-fluid levels are seen. No free air is evident in the abdomen. There is no evidence organomegaly. The heart size is normal. There is minimal parenchymal scarring. No consolidating infiltrate is seen. IMPRESSION: Nonspecific bowel gas pattern. Electronically signed by: Donald Pineda MD (11/25/2018 10:31 AM) [facility]
[2018-11-25 11:00] VITALS: BP 140/69
--- NOTE | 2018-11-25 13:23 | PDOC1 ---
History and Physical Date of Admission Date of Admission DATE: 11/25/18 TIME: 13:19 Identification/Chief Complaint Chief Complaint abdominal pain Problems: (1) Small bowel obstruction History of Present Illness History of Present Illness Pleasant 68 year old female abdominal distention, pain and vomiting yesterday now resolved with associatd belching and flatus patient has Laparoscopy converted to open exploratory laparotomy.2. Extensive adhesiolysis.3. Enterotomy and removal of enterolith. With Dr Horta in 2016 Here last in Jul 2018 for diverticulitis, treated medically. admitted to hospitalst service for sbo vs enteritis feels better, minimal pain, no vomiting, passing gas Past Medical History Cardiovascular: HTN, Hyperlipidemia Pulmonary: Asthma, Bronchitis GI: Diverticulosis, GERD, Hemorrhoids Endocrine: Diabetes Past Surgical History Past Surgical History: Hysterectomy, Other (XLAP, DEBO) Family History Family History: No Significant Social History Smoke: No ALCOHOL: none Drugs: None Current Problem List Problem List Problems Medical Problems: (1) Small bowel obstruction Status: Acute Current Medications Current Medications Current Medications Famotidine (Pepcid Vial) 20 mg 1X ONCE IVP Last administered on 11/24/18at 21:39 ; Start 11/24/18 at 21:00; Stop 11/24/18 at 21:03; Status DC Sodium Chloride 1,000 ml @ 1,000 mls/hr 1X ONCE IV Last administered on at 21:40; Start 11/24/18 at 21:00; Stop 11/24/18 at 21:59; Status DC Ondansetron HCl (Zofran) 4 mg PRN Q8HRS PRN IV NAUSEA/VOMITING 1ST CHOICE; Start 11/24/18 at 22:45; Stop 11/25/18 at 22:44 Fentanyl Citrate (Fentanyl 2ml Vial) 50 mcg PRN Q2HR PRN IV SEVERE PAIN; Start 11/24/18 at 22:45 Insulin Human Lispro (HumaLOG) 0-5 UNITS TIDWMEALS SQ ; Start 11/25/18 at 08:00 Dextrose (Dextrose 50%-Water Syringe) 12.5 gm PRN Q15MIN PRN IV SEE COMMENTS; Start 11/24/18 at 22:45 Magnesium Sulfate/ Dextrose 100 ml @ 100 mls/hr 1X ONCE IV Last administered on 11/25/18at 00:07; Start 11/25/18 at 00:30; Stop 11/25/18 at 01:29; Status DC Sodium Chloride 1,000 ml @ 100 mls/hr Q10H IV Last administered on 11/25/18at 11 :03; Start 11/25/18 at 00:30 Magnesium Sulfate 50 ml @ 25 mls/hr 1X ONCE IV ; Start 11/25/18 at 13:30; Stop 11/25/18 at 15:29 Active Scripts Active Reported Advair 250-50 Diskus (Fluticasone/Salmeterol) 1 Each Disk.w.dev 1 Puff IH BID Hydrochlorothiazide Tablet (Hydrochlorothiazide) 25 Mg Tablet 1 Tab PO DAILY Tricor (Fenofibrate Nanocrystallized) 145 Mg Tablet 1 Tab PO DAILY Montelukast Sodium Tablet (Montelukast Sodium) 10 Mg Tablet 1 Tab PO DAILY Spiriva (Tiotropium [place]) 18 Mcg Cap.w.dev 2 Inh IH DAILY Multi Vitamin Daily (Multivitamin) 1 Each Tablet 1 Each PO DAILY Prinivil (Lisinopril) 10 Mg Tablet 10 Mg PO BID Fish Oil 1,000 mg Softgel ([place]-3/Dha/Epa/Fish Oil) 1,000 Mg Capsule 2,000 Mg PO HS Imdur (Isosorbide Mononitrate) 60 Mg Tab.er.24h 60 Mg PO HS Glucosamine & Chondroitin Cap (Gluc 2KCL/Chondr/Sean Hy/Hy Ac) 1 Each Capsule 2 Each PO DAILY Calcium (Calcium Carbonate) 600 Mg Tablet 600 Mg PO HS Fish Oil ([place]-3 Fatty Acids) 300 Mg Capsule 2,000 Mg PO DAILY Ranitidine Hcl 150 Mg Capsule 150 Mg PO BID Aspirin Ec (Aspirin) 81 Mg Tablet.dr 81 Mg PO HS Claritin (Loratadine) 10 Mg Capsule 10 Mg PO HS Metformin Hcl 1,000 Mg Tablet 1,000 Mg PO BID Metoprolol Tartrate 50 Mg Tablet 50 Mg PO BID Allergies Allergies: Coded Allergies: Iodinated Contrast- Oral and IV Dye (Verified Allergy, Severe, Shortness of Air, 09/12/18) rash erythromycin base (Verified Allergy, Severe, Shortness of Air, 09/12/18) hives morphine (Verified Allergy, Severe, Anaphylaxis, 09/12/18) hydrocodone (Verified Allergy, Intermediate, DIZZINESS, 09/12/18) iodine (Verified Allergy, Intermediate, 09/12/18) peels skin off ROS Review of System CONSTITUTIONAL: No fever or chills EYES: No recent changes SKIN: No rash or itching CARDIOVASCULAR: No chest pain, syncope, palpitations, or edema RESPIRATORY: No SOB or cough GASTROINTESTINAL: No nausea, vomiting or abdominal pain NEUROLOGICAL: No headaches or weakness ENDOCRINE: No cold or heat intolerance GENITOURINARY: No urgency or frequency of urination MUSCULOSKELETAL: No back pain or joint pain LYMPHATICS: No enlarged lymph nodes PSYCHIATRIC: No anxiety or depression Physical Exam Physical Exam GENERAL: No apparent distress. Alert and oriented. HEENT: Head normocephalic, atraumatic. NECK: Supple LUNGS: Clear to auscultation. HEART: RRR, S1, S2 present, pulses intact ABDOMEN: Soft distended; + bs EXTREMITIES: No cyanosis or edema. NEUROLOGIC: Normal speech, normal tone PSYCHIATRIC: Normal affect, normal mood. SKIN: No ulceration. Vitals Vitals Vital Signs Date Time Temp Pulse Resp B/P (MAP) Pulse Ox O2 Delivery O2 Flow Rate FiO2 11/25/18 11:00 98.1 87 18 140/69 (92) 96 Room Air 98.1 Labs Labs Laboratory Tests Test 11/24/18 21:14 11/25/18 00:07 11/25/18 06:07 11/25/18 06:11 White Blood Count 14.6 x10^3/uL (4.0-11.0) Red Blood Count 4.52 x10^6/uL (3.50-5.40) Hemoglobin 12.6 g/dL (12.0-15.5) Hematocrit 36.4 % (36.0-47.0) Mean Corpuscular Volume 80 fL (79-100) Mean Corpuscular Hemoglobin 28 pg (25-35) Mean Corpuscular Hemoglobin Concent 35 g/dL (31-37) Red Cell Distribution Width 14.5 % (11.5-14.5) Platelet Count 326 x10^3/uL (140-400) Neutrophils (%) (Auto) 86 % (31-73) Lymphocytes (%) (Auto) 9 % (24-48) Monocytes (%) (Auto) 4 % (0-9) Eosinophils (%) (Auto) 0 % (0-3) Basophils (%) (Auto) 1 % (0-3) Neutrophils # (Auto) 12.6 x10^3uL (1.8-7.7) Lymphocytes # (Auto) 1.3 x10^3/uL (1.0-4.8) Monocytes # (Auto) 0.6 x10^3/uL (0.0-1.1) Eosinophils # (Auto) 0.0 x10^3/uL (0.0-0.7) Basophils # (Auto) 0.1 x10^3/uL (0.0-0.2) Segmented Neutrophils % 83 % (35-66) Band Neutrophils % 8 % (0-9) Lymphocytes % 5 % (24-48) Monocytes % 4 % (0-10) Platelet Estimate Adequate (ADEQUATE) Prothrombin Time 13.6 SEC (11.7-14.0) Prothromb Time International Ratio 1.1 (0.8-1.1) Activated Partial Thromboplast Time 28 SEC (24-38) Urine Collection Type Unknown Urine Color Yellow Urine Clarity Cloudy Urine pH 7.5 Urine Specific [place] 1.020 Urine Protein Negative mg/dL (NEG-TRACE) Urine Glucose (UA) Negative mg/dL (NEG) Urine Ketones (Stick) Negative mg/dL (NEG) Urine Blood Negative (NEG) Urine Nitrite Negative (NEG) Urine Bilirubin Negative (NEG) Urine Urobilinogen Dipstick 0.2 mg/dL (0.2 mg/dL) Urine Leukocyte Esterase Small (NEG) Urine RBC 0 /HPF (0-2) Urine WBC Occ /HPF (0-4) Urine Squamous Epithelial Cells Few /LPF Urine Amorphous Sediment Present /HPF Urine Bacteria Few /HPF (0-FEW) Urine Mucus Mod /LPF Sodium Level 136 mmol/L (136-145) Potassium Level 4.1 mmol/L (3.5-5.1) Chloride Level 100 mmol/L (98-107) Carbon Dioxide Level 27 mmol/L (21-32) Anion Gap 9 (6-14) Blood Urea Nitrogen 18 mg/dL (7-20) Creatinine 1.3 mg/dL (0.6-1.0) Estimated GFR (Cockcroft-Gault) 40.9 BUN/Creatinine Ratio 14 (6-20) Glucose Level 177 mg/dL (70-99) Lactic Acid Level 1.7 mmol/L (0.4-2.0) Calcium Level 10.2 mg/dL (8.5-10.1) Magnesium Level 1.4 mg/dL (1.8-2.4) 1.7 mg/dL (1.8-2.4) Total Bilirubin 0.4 mg/dL (0.2-1.0) Aspartate Amino Transf (AST/SGOT) 23 U/L (15-37) Alanine Aminotransferase (ALT/SGPT) 25 U/L (14-59) Alkaline Phosphatase 63 U/L (46-116) Creatine Kinase 76 U/L (26-192) Creatine Kinase MB (Mass) 5.3 ng/mL (0.0-3.6) Creatine Kinase MB Relative Index 7.0 % (0-4) Troponin I Quantitative < 0.017 ng/mL (0.000-0.055) Total Protein 7.3 g/dL (6.4-8.2) Albumin 3.4 g/dL (3.4-5.0) Albumin/Globulin Ratio 0.9 (1.0-1.7) Lipase 77 U/L (73-393) Glucose (Fingerstick) 116 mg/dL (70-99) 101 mg/dL (70-99) Test 11/25/18 11:51 Glucose (Fingerstick) 88 mg/dL (70-99) Laboratory Tests Test 11/24/18 21:14 11/25/18 00:07 11/25/18 06:07 11/25/18 06:11 White Blood Count 14.6 x10^3/uL (4.0-11.0) Red Blood Count 4.52 x10^6/uL (3.50-5.40) Hemoglobin 12.6 g/dL (12.0-15.5) Hematocrit 36.4 % (36.0-47.0) Mean Corpuscular Volume 80 fL (79-100) Mean Corpuscular Hemoglobin 28 pg (25-35) Mean Corpuscular Hemoglobin Concent 35 g/dL (31-37) Red Cell Distribution Width 14.5 % (11.5-14.5) Platelet Count 326 x10^3/uL (140-400) Neutrophils (%) (Auto) 86 % (31-73) Lymphocytes (%) (Auto) 9 % (24-48) Monocytes (%) (Auto) 4 % (0-9) Eosinophils (%) (Auto) 0 % (0-3) Basophils (%) (Auto) 1 % (0-3) Neutrophils # (Auto) 12.6 x10^3uL (1.8-7.7) Lymphocytes # (Auto) 1.3 x10^3/uL (1.0-4.8) Monocytes # (Auto) 0.6 x10^3/uL (0.0-1.1) Eosinophils # (Auto) 0.0 x10^3/uL (0.0-0.7) Basophils # (Auto) 0.1 x10^3/uL (0.0-0.2) Segmented Neutrophils % 83 % (35-66) Band Neutrophils % 8 % (0-9) Lymphocytes % 5 % (24-48) Monocytes % 4 % (0-10) Platelet Estimate Adequate (ADEQUATE) Prothrombin Time 13.6 SEC (11.7-14.0) Prothromb Time International Ratio 1.1 (0.8-1.1) Activated Partial Thromboplast Time 28 SEC (24-38) Urine Collection Type Unknown Urine Color Yellow Urine Clarity Cloudy Urine pH 7.5 Urine Specific [place] 1.020 Urine Protein Negative mg/dL (NEG-TRACE) Urine Glucose (UA) Negative mg/dL (NEG) Urine Ketones (Stick) Negative mg/dL (NEG) Urine Blood Negative (NEG) Urine Nitrite Negative (NEG) Urine Bilirubin Negative (NEG) Urine Urobilinogen Dipstick 0.2 mg/dL (0.2 mg/dL) Urine Leukocyte Esterase Small (NEG) Urine RBC 0 /HPF (0-2) Urine WBC Occ /HPF (0-4) Urine Squamous Epithelial Cells Few /LPF Urine Amorphous Sediment Present /HPF Urine Bacteria Few /HPF (0-FEW) Urine Mucus Mod /LPF Sodium Level 136 mmol/L (136-145) Potassium Level 4.1 mmol/L (3.5-5.1) Chloride Level 100 mmol/L (98-107) Carbon Dioxide Level 27 mmol/L (21-32) Anion Gap 9 (6-14) Blood Urea Nitrogen 18 mg/dL (7-20) Creatinine 1.3 mg/dL (0.6-1.0) Estimated GFR (Cockcroft-Gault) 40.9 BUN/Creatinine Ratio 14 (6-20) Glucose Level 177 mg/dL (70-99) Lactic Acid Level 1.7 mmol/L (0.4-2.0) Calcium Level 10.2 mg/dL (8.5-10.1) Magnesium Level 1.4 mg/dL (1.8-2.4) 1.7 mg/dL (1.8-2.4) Total Bilirubin 0.4 mg/dL (0.2-1.0) Aspartate Amino Transf (AST/SGOT) 23 U/L (15-37) Alanine Aminotransferase (ALT/SGPT) 25 U/L (14-59) Alkaline Phosphatase 63 U/L (46-116) Creatine Kinase 76 U/L (26-192) Creatine Kinase MB (Mass) 5.3 ng/mL (0.0-3.6) Creatine Kinase MB Relative Index 7.0 % (0-4) Troponin I Quantitative < 0.017 ng/mL (0.000-0.055) Total Protein 7.3 g/dL (6.4-8.2) Albumin 3.4 g/dL (3.4-5.0) Albumin/Globulin Ratio 0.9 (1.0-1.7) Lipase 77 U/L (73-393) Glucose (Fingerstick) 116 mg/dL (70-99) 101 mg/dL (70-99) Test 11/25/18 11:51 Glucose (Fingerstick) 88 mg/dL (70-99) VTE Prophylaxis Ordered VTE Prophylaxis Devices: No VTE Pharmacological Prophylaxi: No Assessment/Plan Assessment/Plan A/P: SBO vs ileus/enteritis. admit to medical floor bed. IVF, advance diet as tolerated. suspected enteritis given imrproved xray. continue home meds for HTN. labs in AM. anticipate dc [place] if clinical improvement. MISTI UMAÑA MD Nov 25, 2018 13:23
[2018-11-25] MEDS ORDERED: MAGNESIUM SULFATE 2GM 50 ML IV ONE (13:30)
[2018-11-25] MEDS: MULTIVITAMIN with MINERAL TABLET. PO SCH (13:30)
[2018-11-25] MEDS: OMEGA-3 FATTY ACIDS/FISH OIL 1,000 MG CAPSULE. PO SCH (13:30)
[2018-11-25] MEDS: FENOFIBRATE,MICRONIZED 134 MG CAPSULE PO SCH (13:30)
[2018-11-25] MEDS: hydroCHLOROthiazide 25 MG TABLET PO SCH (13:50)
--- NOTE | 2018-11-25 13:50 | NUR ---
SW following for discharge planning. 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 SW will continue to follow.
--- NOTE | 2018-11-25 14:06 | NUR ---
Home medications resumed by hospitalist. Pt only wanted to take HCTZ at this time.
[2018-11-25 15:00] VITALS: BP 123/72
[2018-11-25] MEDS ORDERED: IPRATRPIUM/ALBUTEROL 0.5/2.5MG 3 ML NEBU. NEB SCH (16:00)
[2018-11-25] MEDS: metFORMIN 500 MG TABLET PO SCH (17:00)
[2018-11-25] MEDS ORDERED: IPRATRPIUM/ALBUTEROL 0.5/2.5MG 3 ML NEBU. NEB PRN (17:30)
[2018-11-25 19:00] VITALS: BP 126/67
[2018-11-25] MEDS ORDERED: BUDESONIDE 0.5 MG/2 ML NEBU. NEB SCH (20:00)
[2018-11-25] MEDS ORDERED: BUDESONIDE 0.5 MG/2 ML NEBU. NEB PRN (20:00)
[2018-11-25] MEDS: CALCIUM CARBONATE 500 MG TABLET PO SCH (20:53)
[2018-11-25] MEDS: FAMOTIDINE 20 MG TABLET. PO SCH (20:54)
[2018-11-25] MEDS: MONTELUKAST SODIUM 10 MG TABLET. PO SCH (20:54)
[2018-11-25] MEDS: METOPROLOL TART IMMED RELEASE 50 MG TABLET. PO SCH (20:54)
[2018-11-25] MEDS: ASPIRIN ENTERIC COATED 81 MG TABLET.DR. PO SCH (20:54)
[2018-11-25] MEDS: LISINOPRIL 10 MG TABLET PO SCH (20:55)
[2018-11-25] MEDS: ISOSORBIDE MONONITRATE ER 30 MG TAB.ER.24H PO SCH (20:55)
[2018-11-25] MEDS ORDERED: NON FORMULARY ITEM (Fluticasone/Salmeterol (Advair 250-50 Diskus) 1 PUFF) IH SCH (21:00)
[2018-11-25 23:00] VITALS: BP 119/67
[2018-11-26 03:00] VITALS: BP 96/46
[2018-11-26 05:03] LABS: CALCIUM 8.9 mg/dL (8.5-10.1); GFR 55.3; POTASSIUM 3.4 mmol/L (3.5-5.1)
[2018-11-26 07:00] VITALS: BP 118/58
[2018-11-26] MEDS ORDERED: POTASSIUM CHLORIDE 20 MEQ TABLET.ER. PO ONE (07:15)
[2018-11-26] MEDS: IV NORMAL SALINE 1000ML BAG 1,000 ML IV SCH ×2 (07:19→16:30)
[2018-11-26] MEDS: metFORMIN 500 MG TABLET PO SCH ×2 (08:00→17:00)
[2018-11-26] MEDS: INSULIN LISPRO 300 UNITS/3 ML INSULN.PEN. SQ SCH ×3 (08:00→17:00)
[2018-11-26] MEDS: FAMOTIDINE 20 MG TABLET. PO SCH ×2 (08:19→21:40)
[2018-11-26] MEDS: LISINOPRIL 10 MG TABLET PO SCH ×2 (08:21→21:40)
[2018-11-26] MEDS: OMEGA-3 FATTY ACIDS/FISH OIL 1,000 MG CAPSULE. PO SCH (08:23)
[2018-11-26] MEDS: hydroCHLOROthiazide 25 MG TABLET PO SCH (08:24)
[2018-11-26] MEDS: FENOFIBRATE,MICRONIZED 134 MG CAPSULE PO SCH (08:26)
[2018-11-26] MEDS: METOPROLOL TART IMMED RELEASE 50 MG TABLET. PO SCH ×2 (08:26→21:37)
[2018-11-26] MEDS: MULTIVITAMIN with MINERAL TABLET. PO SCH (08:26)
--- NOTE | 2018-11-26 08:28 | PDOC ---
SURGICAL PROGRESS NOTE Subjective Sitting up in chair. Has taken some clears but she says she feels full. No BM or flatus this morning. No N/V Vital Signs Vital Signs Date Time Temp Pulse Resp B/P (MAP) Pulse Ox O2 Delivery O2 Flow Rate FiO2 11/26/18 03:00 97.9 64 16 96/46 (63) 95 Room Air 97.9 I&O Intake and Output 11/26/18 07:01 Intake Total 440 ml Output Total 1320 ml Balance -880 ml Intake Oral 440 ml Output Urine Total 1320 ml # Voids 5 # Bowel Movements 2 PATIENT HAS A RUBIO: No General: Alert, Oriented X3, Cooperative, mild distress Abdomen: Normal bowel sounds, Soft, Other (mildly distended) Labs Laboratory Tests Test 11/24/18 21:14 11/25/18 00:07 11/25/18 06:07 11/25/18 06:11 White Blood Count 14.6 x10^3/uL (4.0-11.0) Red Blood Count 4.52 x10^6/uL (3.50-5.40) Hemoglobin 12.6 g/dL (12.0-15.5) Hematocrit 36.4 % (36.0-47.0) Mean Corpuscular Volume 80 fL (79-100) Mean Corpuscular Hemoglobin 28 pg (25-35) Mean Corpuscular Hemoglobin Concent 35 g/dL (31-37) Red Cell Distribution Width 14.5 % (11.5-14.5) Platelet Count 326 x10^3/uL (140-400) Neutrophils (%) (Auto) 86 % (31-73) Lymphocytes (%) (Auto) 9 % (24-48) Monocytes (%) (Auto) 4 % (0-9) Eosinophils (%) (Auto) 0 % (0-3) Basophils (%) (Auto) 1 % (0-3) Neutrophils # (Auto) 12.6 x10^3uL (1.8-7.7) Lymphocytes # (Auto) 1.3 x10^3/uL (1.0-4.8) Monocytes # (Auto) 0.6 x10^3/uL (0.0-1.1) Eosinophils # (Auto) 0.0 x10^3/uL (0.0-0.7) Basophils # (Auto) 0.1 x10^3/uL (0.0-0.2) Segmented Neutrophils % 83 % (35-66) Band Neutrophils % 8 % (0-9) Lymphocytes % 5 % (24-48) Monocytes % 4 % (0-10) Platelet Estimate Adequate (ADEQUATE) Prothrombin Time 13.6 SEC (11.7-14.0) Prothromb Time International Ratio 1.1 (0.8-1.1) Activated Partial Thromboplast Time 28 SEC (24-38) Urine Collection Type Unknown Urine Color Yellow Urine Clarity Cloudy Urine pH 7.5 Urine Specific [place] 1.020 Urine Protein Negative mg/dL (NEG-TRACE) Urine Glucose (UA) Negative mg/dL (NEG) Urine Ketones (Stick) Negative mg/dL (NEG) Urine Blood Negative (NEG) Urine Nitrite Negative (NEG) Urine Bilirubin Negative (NEG) Urine Urobilinogen Dipstick 0.2 mg/dL (0.2 mg/dL) Urine Leukocyte Esterase Small (NEG) Urine RBC 0 /HPF (0-2) Urine WBC Occ /HPF (0-4) Urine Squamous Epithelial Cells Few /LPF Urine Amorphous Sediment Present /HPF Urine Bacteria Few /HPF (0-FEW) Urine Mucus Mod /LPF Sodium Level 136 mmol/L (136-145) Potassium Level 4.1 mmol/L (3.5-5.1) Chloride Level 100 mmol/L (98-107) Carbon Dioxide Level 27 mmol/L (21-32) Anion Gap 9 (6-14) Blood Urea Nitrogen 18 mg/dL (7-20) Creatinine 1.3 mg/dL (0.6-1.0) Estimated GFR (Cockcroft-Gault) 40.9 BUN/Creatinine Ratio 14 (6-20) Glucose Level 177 mg/dL (70-99) Lactic Acid Level 1.7 mmol/L (0.4-2.0) Calcium Level 10.2 mg/dL (8.5-10.1) Magnesium Level 1.4 mg/dL (1.8-2.4) 1.7 mg/dL (1.8-2.4) Total Bilirubin 0.4 mg/dL (0.2-1.0) Aspartate Amino Transf (AST/SGOT) 23 U/L (15-37) Alanine Aminotransferase (ALT/SGPT) 25 U/L (14-59) Alkaline Phosphatase 63 U/L (46-116) Creatine Kinase 76 U/L (26-192) Creatine Kinase MB (Mass) 5.3 ng/mL (0.0-3.6) Creatine Kinase MB Relative Index 7.0 % (0-4) Troponin I Quantitative < 0.017 ng/mL (0.000-0.055) Total Protein 7.3 g/dL (6.4-8.2) Albumin 3.4 g/dL (3.4-5.0) Albumin/Globulin Ratio 0.9 (1.0-1.7) Lipase 77 U/L (73-393) Glucose (Fingerstick) 116 mg/dL (70-99) 101 mg/dL (70-99) Test 11/25/18 11:51 11/25/18 16:23 11/25/18 20:07 11/26/18 03:05 Glucose (Fingerstick) 88 mg/dL (70-99) 87 mg/dL (70-99) 86 mg/dL (70-99) Sodium Level 143 mmol/L (136-145) Potassium Level 3.4 mmol/L (3.5-5.1) Chloride Level 107 mmol/L (98-107) Carbon Dioxide Level 27 mmol/L (21-32) Anion Gap 9 (6-14) Blood Urea Nitrogen 9 mg/dL (7-20) Creatinine 1.0 mg/dL (0.6-1.0) Estimated GFR (Cockcroft-Gault) 55.3 Glucose Level 84 mg/dL (70-99) Calcium Level 8.9 mg/dL (8.5-10.1) Test 11/26/18 07:46 Glucose (Fingerstick) 96 mg/dL (70-99) Laboratory Tests Test 11/25/18 11:51 11/25/18 16:23 11/25/18 20:07 11/26/18 03:05 Glucose (Fingerstick) 88 mg/dL (70-99) 87 mg/dL (70-99) 86 mg/dL (70-99) Sodium Level 143 mmol/L (136-145) Potassium Level 3.4 mmol/L (3.5-5.1) Chloride Level 107 mmol/L (98-107) Carbon Dioxide Level 27 mmol/L (21-32) Anion Gap 9 (6-14) Blood Urea Nitrogen 9 mg/dL (7-20) Creatinine 1.0 mg/dL (0.6-1.0) Estimated GFR (Cockcroft-Gault) 55.3 Glucose Level 84 mg/dL (70-99) Calcium Level 8.9 mg/dL (8.5-10.1) Test 11/26/18 07:46 Glucose (Fingerstick) 96 mg/dL (70-99) Problem List Problems Medical Problems: (1) Small bowel obstruction Status: Acute Assessment/Plan SBO vs ileus Appeared to be improving yesterday. Would not adv diet, encourage activity ERIC HSU MD Nov 26, 2018 08:28
[2018-11-26] MEDS ORDERED: NON FORMULARY ITEM (Tiotropium Bromide (Spiriva) 2 INH) IH SCH (09:00)
[2018-11-26] MEDS ORDERED: NON FORMULARY ITEM (Gluc 2KCL/Chondr/Coll Hy/Hy Ac (Glucosamine & Chondroitin Cap) 2 EACH) PO SCH (09:00)
--- NOTE | 2018-11-26 10:21 | NUR ---
SW following for dc planning. Discussed with RN, RN advised no SW needs at this time. SW will continue to follow.
[2018-11-26 11:00] VITALS: BP 129/72
--- NOTE | 2018-11-26 12:22 | PDOC ---
PROGRESS NOTES Chief Complaint Chief Complaint belly more distended today. no gas or BM yet History of Present Illness History of Present Illness A/P: SBO vs ileus/enteritis. continue IVF, advance diet as tolerated. suspected enteritis given imrproved xray. continue home meds for HTN with perameters. BP this AM so held meds. K low so repleted. keep on clears for today. repeat xray in AM Vitals Vitals Vital Signs Date Time Temp Pulse Resp B/P (MAP) Pulse Ox O2 Delivery O2 Flow Rate FiO2 11/26/18 08:26 69 118/58 11/26/18 07:45 Room Air 11/26/18 07:00 97.6 18 98 97.6 Physical Exam General: Alert, Oriented X3, Cooperative, mild distress Heart: Regular rate, Normal S1, Normal S2, No murmurs Lungs: Clear Abdomen: Soft, Other (distended, minimal BS) Extremities: No clubbing, No cyanosis Skin: No rashes, No breakdown Labs LABS Laboratory Tests Test 11/25/18 16:23 11/25/18 20:07 11/26/18 03:05 11/26/18 07:46 Glucose (Fingerstick) 87 mg/dL (70-99) 86 mg/dL (70-99) 96 mg/dL (70-99) Sodium Level 143 mmol/L (136-145) Potassium Level 3.4 mmol/L (3.5-5.1) Chloride Level 107 mmol/L (98-107) Carbon Dioxide Level 27 mmol/L (21-32) Anion Gap 9 (6-14) Blood Urea Nitrogen 9 mg/dL (7-20) Creatinine 1.0 mg/dL (0.6-1.0) Estimated GFR (Cockcroft-Gault) 55.3 Glucose Level 84 mg/dL (70-99) Calcium Level 8.9 mg/dL (8.5-10.1) Test 11/26/18 11:54 Glucose (Fingerstick) 104 mg/dL (70-99) Assessment and Plan Assessmemt and Plan Problems Medical Problems: (1) Small bowel obstruction Status: Acute Comment Review of Relevant I have reviewed the following items feliciano (where applicable) has been applied. Labs Laboratory Tests Test 11/24/18 21:14 11/25/18 00:07 11/25/18 06:07 11/25/18 06:11 White Blood Count 14.6 x10^3/uL (4.0-11.0) Red Blood Count 4.52 x10^6/uL (3.50-5.40) Hemoglobin 12.6 g/dL (12.0-15.5) Hematocrit 36.4 % (36.0-47.0) Mean Corpuscular Volume 80 fL (79-100) Mean Corpuscular Hemoglobin 28 pg (25-35) Mean Corpuscular Hemoglobin Concent 35 g/dL (31-37) Red Cell Distribution Width 14.5 % (11.5-14.5) Platelet Count 326 x10^3/uL (140-400) Neutrophils (%) (Auto) 86 % (31-73) Lymphocytes (%) (Auto) 9 % (24-48) Monocytes (%) (Auto) 4 % (0-9) Eosinophils (%) (Auto) 0 % (0-3) Basophils (%) (Auto) 1 % (0-3) Neutrophils # (Auto) 12.6 x10^3uL (1.8-7.7) Lymphocytes # (Auto) 1.3 x10^3/uL (1.0-4.8) Monocytes # (Auto) 0.6 x10^3/uL (0.0-1.1) Eosinophils # (Auto) 0.0 x10^3/uL (0.0-0.7) Basophils # (Auto) 0.1 x10^3/uL (0.0-0.2) Segmented Neutrophils % 83 % (35-66) Band Neutrophils % 8 % (0-9) Lymphocytes % 5 % (24-48) Monocytes % 4 % (0-10) Platelet Estimate Adequate (ADEQUATE) Prothrombin Time 13.6 SEC (11.7-14.0) Prothromb Time International Ratio 1.1 (0.8-1.1) Activated Partial Thromboplast Time 28 SEC (24-38) Urine Collection Type Unknown Urine Color Yellow Urine Clarity Cloudy Urine pH 7.5 Urine Specific [place] 1.020 Urine Protein Negative mg/dL (NEG-TRACE) Urine Glucose (UA) Negative mg/dL (NEG) Urine Ketones (Stick) Negative mg/dL (NEG) Urine Blood Negative (NEG) Urine Nitrite Negative (NEG) Urine Bilirubin Negative (NEG) Urine Urobilinogen Dipstick 0.2 mg/dL (0.2 mg/dL) Urine Leukocyte Esterase Small (NEG) Urine RBC 0 /HPF (0-2) Urine WBC Occ /HPF (0-4) Urine Squamous Epithelial Cells Few /LPF Urine Amorphous Sediment Present /HPF Urine Bacteria Few /HPF (0-FEW) Urine Mucus Mod /LPF Sodium Level 136 mmol/L (136-145) Potassium Level 4.1 mmol/L (3.5-5.1) Chloride Level 100 mmol/L (98-107) Carbon Dioxide Level 27 mmol/L (21-32) Anion Gap 9 (6-14) Blood Urea Nitrogen 18 mg/dL (7-20) Creatinine 1.3 mg/dL (0.6-1.0) Estimated GFR (Cockcroft-Gault) 40.9 BUN/Creatinine Ratio 14 (6-20) Glucose Level 177 mg/dL (70-99) Lactic Acid Level 1.7 mmol/L (0.4-2.0) Calcium Level 10.2 mg/dL (8.5-10.1) Magnesium Level 1.4 mg/dL (1.8-2.4) 1.7 mg/dL (1.8-2.4) Total Bilirubin 0.4 mg/dL (0.2-1.0) Aspartate Amino Transf (AST/SGOT) 23 U/L (15-37) Alanine Aminotransferase (ALT/SGPT) 25 U/L (14-59) Alkaline Phosphatase 63 U/L (46-116) Creatine Kinase 76 U/L (26-192) Creatine Kinase MB (Mass) 5.3 ng/mL (0.0-3.6) Creatine Kinase MB Relative Index 7.0 % (0-4) Troponin I Quantitative < 0.017 ng/mL (0.000-0.055) Total Protein 7.3 g/dL (6.4-8.2) Albumin 3.4 g/dL (3.4-5.0) Albumin/Globulin Ratio 0.9 (1.0-1.7) Lipase 77 U/L (73-393) Glucose (Fingerstick) 116 mg/dL (70-99) 101 mg/dL (70-99) Test 11/25/18 11:51 11/25/18 16:23 11/25/18 20:07 11/26/18 03:05 Glucose (Fingerstick) 88 mg/dL (70-99) 87 mg/dL (70-99) 86 mg/dL (70-99) Sodium Level 143 mmol/L (136-145) Potassium Level 3.4 mmol/L (3.5-5.1) Chloride Level 107 mmol/L (98-107) Carbon Dioxide Level 27 mmol/L (21-32) Anion Gap 9 (6-14) Blood Urea Nitrogen 9 mg/dL (7-20) Creatinine 1.0 mg/dL (0.6-1.0) Estimated GFR (Cockcroft-Gault) 55.3 Glucose Level 84 mg/dL (70-99) Calcium Level 8.9 mg/dL (8.5-10.1) Test 11/26/18 07:46 11/26/18 11:54 Glucose (Fingerstick) 96 mg/dL (70-99) 104 mg/dL (70-99) Laboratory Tests Test 11/25/18 16:23 11/25/18 20:07 11/26/18 03:05 11/26/18 07:46 Glucose (Fingerstick) 87 mg/dL (70-99) 86 mg/dL (70-99) 96 mg/dL (70-99) Sodium Level 143 mmol/L (136-145) Potassium Level 3.4 mmol/L (3.5-5.1) Chloride Level 107 mmol/L (98-107) Carbon Dioxide Level 27 mmol/L (21-32) Anion Gap 9 (6-14) Blood Urea Nitrogen 9 mg/dL (7-20) Creatinine 1.0 mg/dL (0.6-1.0) Estimated GFR (Cockcroft-Gault) 55.3 Glucose Level 84 mg/dL (70-99) Calcium Level 8.9 mg/dL (8.5-10.1) Test 11/26/18 11:54 Glucose (Fingerstick) 104 mg/dL (70-99) Medications Current Medications Famotidine (Pepcid Vial) 20 mg 1X ONCE IVP Last administered on 11/24/18at 21:39 ; Start 11/24/18 at 21:00; Stop 11/24/18 at 21:03; Status DC Sodium Chloride 1,000 ml @ 1,000 mls/hr 1X ONCE IV Last administered on at 21:40; Start 11/24/18 at 21:00; Stop 11/24/18 at 21:59; Status DC Ondansetron HCl (Zofran) 4 mg PRN Q8HRS PRN IV NAUSEA/VOMITING 1ST CHOICE; Start 11/24/18 at 22:45; Stop 11/25/18 at 22:44; Status DC Fentanyl Citrate (Fentanyl 2ml Vial) 50 mcg PRN Q2HR PRN IV SEVERE PAIN; Start 11/24/18 at 22:45 Insulin Human Lispro (HumaLOG) 0-5 UNITS TIDWMEALS SQ ; Start 11/25/18 at 08:00 Dextrose (Dextrose 50%-Water Syringe) 12.5 gm PRN Q15MIN PRN IV SEE COMMENTS; Start 11/24/18 at 22:45 Magnesium Sulfate/ Dextrose 100 ml @ 100 mls/hr 1X ONCE IV Last administered on 11/25/18at 00:07; Start 11/25/18 at 00:30; Stop 11/25/18 at 01:29; Status DC Sodium Chloride 1,000 ml @ 100 mls/hr Q10H IV Last administered on 11/26/18 07 :19; Start 11/25/18 at 00:30 Magnesium Sulfate 50 ml @ 25 mls/hr 1X ONCE IV Last administered on 11/25/18 13:48; Start 11/25/18 at 13:30; Stop 11/25/18 at 15:29; Status DC Aspirin (Ecotrin) 81 mg HS PO Last administered on 11/25/18 20:54; Start at 21:00 Hydrochlorothiazide (Hydrodiuril) 25 mg DAILY PO Last administered on 11/25/18at 13:50; Start 11/25/18 at 13:30 Lisinopril (Prinivil) 10 mg BID PO Last administered on 11/26/18 08:21; Start 11/25/18 at 21:00 Metoprolol Tartrate (Lopressor) 50 mg BID PO Last administered on 11/25/18 20: 54; Start 11/25/18 at 21:00 Calcium Carbonate/ Glycine (Oscal) 500 mg QHS PO Last administered on 1/8/19at 20:53; Start 11/25/18 at 21:00 Fenofibrate (Lofibra) 134 mg DAILY PO ; Start 11/25/18 at 13:30 Non-Formulary Medication (Fluticasone/ Salmeterol (Advair 250-50 Diskus)) 1 puff BID IH ; Start 11/25/18 at 21:00; Status UNV Non-Formulary Medication (Gluc 2KCL/ Chondr/Sean Hy/Hy Ac (Glucosamine & Chondroitin Cap)) 2 each DAILY PO ; Start 11/26/18 at 09:00; Status UNV Isosorbide Mononitrate (Imdur) 60 mg QHS PO Last administered on 11/25/18at 20:55 ; Start 11/25/18 at 21:00 Cetirizine HCl (ZyrTEC) 10 mg QHS PO ; Start 11/26/18 at 21:00 Metformin HCl (Glucophage) 1,000 mg BIDWMEALS PO ; Start 11/25/18 at 17:00 Montelukast Sodium (Singulair) 10 mg QHS PO Last administered on 11/25/18at 20:54 ; Start 11/25/18 at 21:00 Multivitamins (Thera M Plus) 1 tab DAILY PO ; Start 11/25/18 at 13:30 Fish Oil (Fish Oil) 2,000 mg DAILY PO ; Start 11/25/18 at 13:30 Famotidine (Pepcid) 20 mg BID PO Last administered on 11/26/18at 08:19; Start 11/25/18 at 21:00 Non-Formulary Medication (Tiotropium [place] (Spiriva)) 2 inh DAILY IH ; Start 11/26/18 at 09:00; Status UNV Budesonide (Pulmicort) 0.5 mg RTBID NEB ; Start 11/25/18 at 20:00; Stop 11/25/18 at 20:00; Status DC Albuterol/ Ipratropium (Duoneb) 3 ml RTQID NEB ; Start 11/25/18 at 16:00; Stop at 17:29; Status DC Budesonide (Pulmicort) 0.5 mg PRN BID PRN NEB SHORTNESS OF BREATH; Start at 20:00 Albuterol/ Ipratropium (Duoneb) 3 ml PRN QID PRN NEB SHORTNESS OF BREATH; Start 11/25/18 at 17:30 Potassium Chloride (Klor-Con) 40 meq 1X ONCE PO Last administered on 11/26/18at 08:19; Start 11/26/18 at 07:15; Stop 11/26/18 at 07:16; Status DC Active Scripts Active Reported Advair 250-50 Diskus (Fluticasone/Salmeterol) 1 Each Disk.w.dev 1 Puff IH BID Hydrochlorothiazide Tablet (Hydrochlorothiazide) 25 Mg Tablet 1 Tab PO DAILY Tricor (Fenofibrate Nanocrystallized) 145 Mg Tablet 1 Tab PO DAILY Montelukast Sodium Tablet (Montelukast Sodium) 10 Mg Tablet 1 Tab PO DAILY Spiriva (Tiotropium [place]) 18 Mcg Cap.w.dev 2 Inh IH DAILY Multi Vitamin Daily (Multivitamin) 1 Each Tablet 1 Each PO DAILY Prinivil (Lisinopril) 10 Mg Tablet 10 Mg PO BID Fish Oil 1,000 mg Softgel ([place]-3/Dha/Epa/Fish Oil) 1,000 Mg Capsule 2,000 Mg PO HS Imdur (Isosorbide Mononitrate) 60 Mg Tab.er.24h 60 Mg PO HS Glucosamine & Chondroitin Cap (Gluc 2KCL/Chondr/Sean Hy/Hy Ac) 1 Each Capsule 2 Each PO DAILY Calcium (Calcium Carbonate) 600 Mg Tablet 600 Mg PO HS Fish Oil ([place]-3 Fatty Acids) 300 Mg Capsule 2,000 Mg PO DAILY Ranitidine Hcl 150 Mg Capsule 150 Mg PO BID Aspirin Ec (Aspirin) 81 Mg Tablet.dr 81 Mg PO HS Claritin (Loratadine) 10 Mg Capsule 10 Mg PO HS Metformin Hcl 1,000 Mg Tablet 1,000 Mg PO BID Metoprolol Tartrate 50 Mg Tablet 50 Mg PO BID Vitals/I & O Vital Sign - Last 24 Hours 11/25/18 11/25/18 11/25/18 11/25/18 15:00 19:00 20:15 20:54 Temp 98.2 97.6 98.2 97.6 Pulse 88 75 75 Resp 18 16 B/P (MAP) 123/72 (89) 126/67 (86) 126/67 Pulse Ox 95 96 O2 Delivery Room Air Room Air Room Air 11/25/18 11/25/18 11/25/18/9/19 20:55 20:55 23:00 03:00 Temp 98.7 97.9 98.7 97.9 Pulse 75 75 65 64 Resp 18 16 B/P (MAP) 126/67 126/67 119/67 (84) 96/46 (63) Pulse Ox 95 95 O2 Delivery Room Air Room Air 11/26/18 11/26/18 11/26/18 11/26/18 07:00 07:45 08:21 08:26 Temp 97.6 97.6 Pulse 69 69 69 Resp 18 B/P (MAP) 118/58 (78) 118/58 118/58 Pulse Ox 98 O2 Delivery Room Air Room Air Intake and Output 11/25/18 11/25/18 11/26/18 15:01 23:01 07:01 Intake Total 50 ml 150 ml 240 ml Output Total 420 ml 900 ml Balance -370 ml 150 ml -660 ml MISTI UMAÑA MD Nov 26, 2018 12:22
[2018-11-26 15:00] VITALS: BP 147/74
[2018-11-26 19:00] VITALS: BP 145/81
[2018-11-26] MEDS ORDERED: CETIRIZINE HCL 10 MG TABLET. PO SCH (21:00)
[2018-11-26] MEDS: ASPIRIN ENTERIC COATED 81 MG TABLET.DR. PO SCH (21:35)
[2018-11-26] MEDS: ISOSORBIDE MONONITRATE ER 30 MG TAB.ER.24H PO SCH (21:35)
[2018-11-26] MEDS: CALCIUM CARBONATE 500 MG TABLET PO SCH (21:36)
[2018-11-26] MEDS: MONTELUKAST SODIUM 10 MG TABLET. PO SCH (21:45)
[2018-11-26 23:00] VITALS: BP 139/82
[2018-11-27 03:00] VITALS: BP 117/69
[2018-11-27 07:00] VITALS: BP 158/87
[2018-11-27] MEDS: INSULIN LISPRO 300 UNITS/3 ML INSULN.PEN. SQ SCH ×2 (08:00→11:55)
--- NOTE | 2018-11-27 08:42 | RAD ---
ACUTE ABDOMEN SERIES History: Small bowel obstruction, abdominal distention Comparison: November 25, 2018 Findings: Single view of the chest and single supine and upright views of the abdomen are submitted. There is no free air. There is again scattered gas in the large and small bowel although degree of gas decreased compared with previous November 24, 2017 CT exam. There is no pleural fluid or new infiltrate. There is probable single small air-fluid level in small bowel in the left abdomen. Impression: 1. There is again scattered gas in large and small bowel, degree of gas in the bowel decreased compared with previous CT exam. Electronically signed by: Sonny Hodge MD (11/27/2018 8:37 AM) [id number]
[2018-11-27] MEDS: FENOFIBRATE,MICRONIZED 134 MG CAPSULE PO SCH (08:49)
[2018-11-27] MEDS: OMEGA-3 FATTY ACIDS/FISH OIL 1,000 MG CAPSULE. PO SCH (08:49)
[2018-11-27] MEDS: metFORMIN 500 MG TABLET PO SCH (08:50)
[2018-11-27] MEDS: MULTIVITAMIN with MINERAL TABLET. PO SCH (08:50)
[2018-11-27] MEDS: METOPROLOL TART IMMED RELEASE 50 MG TABLET. PO SCH (08:50)
[2018-11-27] MEDS: LISINOPRIL 10 MG TABLET PO SCH (08:50)
[2018-11-27] MEDS: hydroCHLOROthiazide 25 MG TABLET PO SCH (08:50)
[2018-11-27] MEDS: FAMOTIDINE 20 MG TABLET. PO SCH (08:50)
--- NOTE | 2018-11-27 08:55 | PDOC ---
ABRAHAN LAFLEUR [employer]IEF [employer]INE[employer] 11/27/18 0854: SURGICAL PROGRESS NOTE Subjective No pain + flatus and stool feels much better wants to eat and get home Vital Signs Vital Signs Date Time Temp Pulse Resp B/P (MAP) Pulse Ox O2 Delivery O2 Flow Rate FiO2 11/27/18 08:50 69 158/87 11/27/18 07:00 97.7 16 97 Room Air 97.7 I&O Intake and Output 11/27/18 07:01 Output Total 1350 ml Balance -1350 ml Output Urine Total 1350 ml # Voids 6 # Bowel Movements 1 General: Alert, Oriented X3, Cooperative, No acute distress Abdomen: Soft, No tenderness Labs Laboratory Tests Test 11/25/18 11:51 11/25/18 16:23 11/25/18 20:07 11/26/18 03:05 Glucose (Fingerstick) 88 mg/dL (70-99) 87 mg/dL (70-99) 86 mg/dL (70-99) Sodium Level 143 mmol/L (136-145) Potassium Level 3.4 mmol/L (3.5-5.1) Chloride Level 107 mmol/L (98-107) Carbon Dioxide Level 27 mmol/L (21-32) Anion Gap 9 (6-14) Blood Urea Nitrogen 9 mg/dL (7-20) Creatinine 1.0 mg/dL (0.6-1.0) Estimated GFR (Cockcroft-Gault) 55.3 Glucose Level 84 mg/dL (70-99) Calcium Level 8.9 mg/dL (8.5-10.1) Test 11/26/18 07:46 11/26/18 11:54 11/26/18 16:26 11/26/18 20:53 Glucose (Fingerstick) 96 mg/dL (70-99) 104 mg/dL (70-99) 71 mg/dL (70-99) 95 mg/dL (70-99) Test 11/27/18 07:52 Glucose (Fingerstick) 99 mg/dL (70-99) Laboratory Tests Test 11/26/18 11:54 11/26/18 16:26 11/26/18 20:53 11/27/18 07:52 Glucose (Fingerstick) 104 mg/dL (70-99) 71 mg/dL (70-99) 95 mg/dL (70-99) 99 mg/dL (70-99) Problem List Problems Medical Problems: (1) Small bowel obstruction Status: Acute Assessment/Plan advance diet ERIC HSU MD 11/27/18 0922: SURGICAL PROGRESS NOTE Assessment/Plan Much improved, tolerating liquids. Has had several BM's. No further surgical recommendations.Agree with Winter's assessment and plan. ABRAHAN LAFLEUR APRN Nov 27, 2018 08:54 ERIC HSU MD Nov 27, 2018 09:22
[2018-11-27 11:00] VITALS: BP 131/69
--- NOTE | 2018-11-27 13:07 | NUR ---
SW following for dc planning. Discussed with RN, RN advised no SW needs and anticipates pt will dc home today. SW will continue to follow.
--- NOTE | 2018-11-27 14:05 | NUR ---
Discharge instructions reviewed with patient. Patient was escorted out with Yessenia OROZCO via ambulation and accompanied by her daughter.
--- NOTE | 2018-11-27 16:19 | PDOC3 ---
Discharge Summary Visit Information Date of Admission: Nov 24, 2018 Date of Discharge: Nov 27, 2018 Final Diagnosis Problems Medical Problems: (1) Small bowel obstruction Status: Acute Brief Hospital Course Allergies Allergies Coded Allergies Type Severity Reaction Last Updated Verified Iodinated Contrast- Oral and IV Dye Allergy Severe Shortness of Air 09/12/18 Yes erythromycin base Allergy Severe Shortness of Air 09/12/18 Yes morphine Allergy Severe Anaphylaxis 09/12/18 Yes hydrocodone Allergy Intermediate DIZZINESS 09/12/18 Yes iodine Allergy Intermediate 09/12/18 Yes Vital Signs Vital Signs Date Time Temp Pulse Resp B/P (MAP) Pulse Ox O2 Delivery O2 Flow Rate FiO2 11/27/18 11:00 97.8 72 18 131/69 (89) 97 Room Air 97.8 Lab Results Laboratory Tests Test 11/25/18 16:23 11/25/18 20:07 11/26/18 03:05 11/26/18 07:46 Glucose (Fingerstick) 87 mg/dL (70-99) 86 mg/dL (70-99) 96 mg/dL (70-99) Sodium Level 143 mmol/L (136-145) Potassium Level 3.4 mmol/L (3.5-5.1) Chloride Level 107 mmol/L (98-107) Carbon Dioxide Level 27 mmol/L (21-32) Anion Gap 9 (6-14) Blood Urea Nitrogen 9 mg/dL (7-20) Creatinine 1.0 mg/dL (0.6-1.0) Estimated GFR (Cockcroft-Gault) 55.3 Glucose Level 84 mg/dL (70-99) Calcium Level 8.9 mg/dL (8.5-10.1) Test 11/26/18 11:54 11/26/18 16:26 11/26/18 20:53 11/27/18 07:52 Glucose (Fingerstick) 104 mg/dL (70-99) 71 mg/dL (70-99) 95 mg/dL (70-99) 99 mg/dL (70-99) Test 11/27/18 11:49 Glucose (Fingerstick) 114 mg/dL (70-99) Laboratory Tests Test 11/26/18 16:26 11/26/18 20:53 11/27/18 07:52 11/27/18 11:49 Glucose (Fingerstick) 71 mg/dL (70-99) 95 mg/dL (70-99) 99 mg/dL (70-99) 114 mg/dL (70-99) Brief Hospital Course 68 year old female abdominal distention, pain and vomiting yesterday now resolved with associatd belching and flatus. patient had Laparoscopy converted to open exploratory laparotomy.2. Extensive adhesiolysis.3. Enterotomy and removal of enterolith. With Dr Horta in 2017 Here last in Jul 2018 for diverticulitis, treated medically. admitted to hospitalst service for sbo vs enteritis. patient placed on clears and had serial xrays which showed improvement. she was advanced eventually to a regular diet and tolerated. gen sx consulted and no surgical intervention. all home meds were continued. she did have hypokalemia which was replaced. she was discharged in stable condition home. Discharge Information Condition at Discharge: Stable Disposition/Orders: D/C to Home Scheduled Aspirin (Aspirin Ec) 81 Mg Tablet.dr, 81 MG PO HS, (Reported) Entered as Reported by: AD CARLSON on 11/06/13 1539 Last Action: Continued on 11/25/181316 by MISTI UMAÑA MD Calcium Carbonate (Calcium) 600 Mg Tablet, 600 MG PO HS, (Reported) Entered as Reported by: AD CARLSON on 11/06/13 1541 Last Action: Converted on 11/25/181316 by MISTI UMAÑA MD Fenofibrate Nanocrystallized (Tricor) 145 Mg Tablet, 1 TAB PO DAILY, #30 Ref 5 ( Reported) Entered as Reported by: ERMA EDWARD on 08/09/181606 Last Action: Converted on 11/25/181317 by MISTI UMAÑA MD Fluticasone/Salmeterol (Advair 250-50 Diskus) 1 Each Disk.w.dev, 1 PUFF IH BID, #3 Ref 3 (Reported) Entered as Reported by: ERMA EDWARD on 08/09/181606 Last Action: Converted on 11/25/181317 by MISTI UMAÑA MD Gluc 2KCL/Chondr/Sean Hy/Hy Ac (Glucosamine & Chondroitin Cap) 1 Each Capsule, 2 EACH PO DAILY, (Reported) Entered as Reported by: AD CARLSON on 11/06/13 1550 Last Action: Converted on 11/25/181317 by MISTI UMAÑA MD Hydrochlorothiazide (Hydrochlorothiazide Tablet ) 25 Mg Tablet, 1 TAB PO DAILY, #30 Ref 5 (Reported) Entered as Reported by: EMRA EDWARD on 08/09/181606 Last Action: Continued on 11/25/181316 by MISTI UMAÑA MD Isosorbide Mononitrate (Imdur) 60 Mg Tab.er.24h, 60 MG PO HS, (Reported) Entered as Reported by: AD CARLSON on 11/06/13 1551 Last Action: Converted on 11/25/181317 by MISTI UMAÑA MD Lisinopril (Prinivil) 10 Mg Tablet, 10 MG PO BID for FOR HYPERTENSION, #30 Ref 0 (Reported) Entered as Reported by: ERMA EDWARD on 08/09/181606 Last Action: Continued on 11/25/181316 by MISTI UMAÑA MD Loratadine (Claritin) 10 Mg Capsule, 10 MG PO HS, (Reported) Entered as Reported by: AD CARLSON on 11/06/13 1539 Last Action: Converted on 11/25/181317 by MISTI UMAÑA MD Metformin Hcl (Metformin Hcl) 1,000 Mg Tablet, 1,000 MG PO BID, (Reported) Entered as Reported by: AD CARLSON on 11/06/13 1538 Last Action: Converted on 11/25/181317 by MISTI UMAÑA MD Metoprolol Tartrate (Metoprolol Tartrate) 50 Mg Tablet, 50 MG PO BID, (Reported) Entered as Reported by: AD CARLSON on 11/06/13 153 Last Action: Continued on 11/25/181316 by MISTI UMAÑA MD Montelukast Sodium (Montelukast Sodium Tablet) 10 Mg Tablet, 1 TAB PO DAILY, # 30 Ref 5 (Reported) Entered as Reported by: ERMA EDWARD on 08/09/181606 Last Action: Converted on 11/25/181317 by MISTI UMAÑA MD Multivitamin (Multi Vitamin Daily) 1 Each Tablet, 1 EACH PO DAILY, (Reported) Entered as Reported by: ERMA EDWARD on 08/09/181606 Last Action: Converted on 11/25/181317 by MISTI UMAÑA MD [place]-3 Fatty Acids (Fish Oil) 300 Mg Capsule, 2,000 MG PO DAILY, (Reported) Entered as Reported by: AD CARLSON on 11/06/13 1541 Last Action: Converted on 11/25/181317 by MISTI UMAÑA MD [place]-3/Dha/Epa/Fish Oil (Fish Oil 1,000 mg Softgel) 1,000 Mg Capsule, 2,000 MG PO HS for Heart Health, (Reported) Entered as Reported by: ERMA EDWARD on 08/09/18 1607 Last Action: Edited on 11/25/18 111 by YINA SEAY Ranitidine Hcl (Ranitidine Hcl) 150 Mg Capsule, 150 MG PO BID, (Reported) Entered as Reported by: AD CARLSON on 11/06/13 1540 Last Action: Converted on 11/25/181317 by MISTI UMAÑA MD Tiotropium [place] (Spiriva) 18 Mcg Cap.w.dev, 2 INH IH DAILY, #1 Ref 0 ( Reported) Entered as Reported by: ERMA EDWARD on 08/09/18 1607 Last Action: Converted on 11/25/181317 by MISTI UMAÑA MD Discontinued Medications Lovastatin (Lovastatin) 40 Mg Tablet, 40 MG PO HS, (Reported) Entered as Reported by: AD CARLSON on 11/06/13 1553 Last Action: Discontinued on 11/25/18 1112 by MISTI JAMES MD Nov 27, 2018 16:19
== END 2018-11-27 14:07 | disposition home or self-care (01) | DRG 390 ==
LOC: ER 20:42 → 4 NORTH 22:25
PROVIDERS: ADMIT Internal Medicine; ATTEND Internal Medicine
DX: K56.609 Unspecified intestinal obstruction, unspecified as to partial versus complete obstruction (principal); I10 Essential (primary) hypertension; E78.5 Hyperlipidemia, unspecified; K21.9 Gastro-esophageal reflux disease without esophagitis; E11.9 Type 2 diabetes mellitus without complications; E87.6 Hypokalemia; K57.10 Diverticulosis of small intestine without perforation or abscess without bleeding; J45.909 Unspecified asthma, uncomplicated; Z79.51 Long term (current) use of inhaled steroids; Z90.710 Acquired absence of both cervix and uterus; Z79.84 Long term (current) use of oral hypoglycemic drugs; Z53.31 Laparoscopic surgical procedure converted to open procedure
CPT/HCPCS: 36415; 74022; 74176; 80048; 80053; 81001; 82553; 82962; 83605; 83690; 83735; 84484; 85007; 85025; 85610; 85730; 87086; 93005; 96361; 96374; J1815; J3475; J3490; J7030; 99285-25

== ENCOUNTER → 2018-12-05 | Outpatient (CLI) | payer OTHER, MEDICARE ==
[2018-11-27 11:00] VITALS: BP 131/69
[2018-12-05 08:59] LABS: CHOLESTEROL/HDL RATIO 4.7
== END | disposition home or self-care (01) ==
LOC: LAB 07:43
PROVIDERS: ATTEND Family Medicine
DX: E78.5 Hyperlipidemia, unspecified (principal)
CPT/HCPCS: 36415; 80061

== ENCOUNTER → 2019-01-02 | Outpatient (CLI) | payer OTHER, MEDICARE ==
[~2019-01-02] MED LIST changes: +METR-34 PO; -METR-84 PO
--- NOTE | 2019-01-02 13:05 | RAD ---
EXAM: Nuclear gastric emptying scan. HISTORY: Bloating. COMPARISON: None. TECHNIQUE: Serial static images were obtained over the stomach following oral administration of 2 mCi of 99m-Tc sulfur colloid. FINDINGS: The stomach empties into the small bowel without evidence of reflux in the area of the esophagus. The estimated time for half emptying of gastric contents, i.e. 'gastric emptying time' is 56 minutes (normal is 66 +/- 22 minutes). There is 49 percent retained tracer activity within the stomach at one hour, 13 percent retained tracer activity within the stomach at 2 hours, 5 percent retained tracer activity within the stomach at 3 hours, and 4 percent retained tracer activity within the stomach at 4 hours. IMPRESSION: Normal gastric emptying scan. Electronically signed by: Cary Baker MD (01/02/2019 1:02 PM) [id number]
== END | disposition home or self-care (01) ==
LOC: NM 07:52
PROVIDERS: ATTEND Surgery
DX: K56.50 Intestinal adhesions [bands], unspecified as to partial versus complete obstruction (principal); E11.9 Type 2 diabetes mellitus without complications; R14.0 Abdominal distension (gaseous)
CPT/HCPCS: 78264; A9541

== ENCOUNTER → 2019-01-06 | Outpatient (CLI) | payer OTHER, MEDICARE ==
[~2019-01-06] MED LIST changes: +SINCALIDE 1.7 MCG in IV NORMAL SALINE 50ML 30 ML IV ONE
--- NOTE | 2019-01-06 13:42 | RAD ---
Radionuclide hepatobiliary scan, 01/06/2019: HISTORY: Bloating, obstruction due to adhesions Following IV injection of 5.5 mCi of technetium 99m Choletec there was prompt uptake of the radionuclide from the blood stream by the liver. Activity is present in the gallbladder and bile ducts at 10 minutes. Initial imaging out to 1 hour showed increasing gallbladder activity without extension into the small bowel. Additional imaging was then performed following IV injection of 1.72 mcg of cholecystokinin. Small bowel activity developed after the cholecystokinin injection. There is vigorous gallbladder emptying. The gallbladder ejection fraction was calculated at 94 percent. IMPRESSION: 1. No evidence of cystic duct or common bile duct obstruction. 2. The gallbladder ejection fraction is 94 percent. Electronically signed by: Donald Pineda MD (01/06/2019 1:39 PM) [facility]
== END | disposition home or self-care (01) ==
LOC: NM 08:00
PROVIDERS: ATTEND Surgery
DX: K56.50 Intestinal adhesions [bands], unspecified as to partial versus complete obstruction (principal)
CPT/HCPCS: 78227; A9537; J2805

== ENCOUNTER 2019-02-10 07:34 | Inpatient (IN) | payer OTHER, MEDICARE ==
[2019-02-10] VITALS (9 sets, daily range): BP systolic 104–148; BP diastolic 53–81
[~2019-02-10] VITALS: Ht 174 cm; Wt 87.5 kg
[~2019-02-10 07:34] MED LIST changes: +BISACODYL 10 MG SUPP.RECT. ONE; +BUPIVAC MPF-EPI 0.5%-1:200000 30 ML VIAL. ONE; +FLUT9.9S NS; +HEPARIN 1,000 UNIT in IV NORMAL SALINE 1,000 ML for SURG PERIOP IRR ONE; +IBUPROFEN 200 MG TABLET. PO SCH; +IOHEXOL 300 MG/ML 100ML VIAL. ONE; +IV RINGERS,LACTATED 1000ML 1,000 ML IV SCH; +LACT1CAP8 PO; +ONDANSETRON PF 4 MG/2 ML VIAL. IV PRN; +PROCHLORPERAZINE 10 MG/2 ML VIAL. IV PRN; -SINCALIDE 1.7 MCG in IV NORMAL SALINE 50ML 30 ML IV ONE; +SURGICEL HEMOSTAT 4X8 EACH. ONE; +XOPENEX0.63 MG/3 NEB; +fentaNYL PF VIAL 100 MCG/2 ML VIAL IV PRN
[2019-02-10] MEDS ORDERED: BISACODYL 10 MG SUPP.RECT. PR ONE (08:00)
[2019-02-10] MEDS ORDERED: ONDANSETRON PF 4 MG/2 ML VIAL. ONE (08:34)
[2019-02-10] MEDS ORDERED: FAMOTIDINE 20 MG/2 ML VIAL ONE (08:34)
[2019-02-10] MEDS ORDERED: DEXAMETHASONE SOD PHOS 20 MG/5 ML VIAL. ONE (08:34)
[2019-02-10] MEDS ORDERED: LIDOCAINE 2% PF 5 ML VIAL. ONE (08:35)
[2019-02-10] MEDS ORDERED: MIDAZOLAM HCL/PF 2 MG/2 ML VIAL. ONE (08:35)
[2019-02-10] MEDS ORDERED: PROPOFOL 20 ML IV ONE (08:35)
[2019-02-10] MEDS ORDERED: ePHEDrine PF IN SALINE 50 MG/10 ML SYRINGE. IV ONE (08:35)
[2019-02-10] MEDS ORDERED: ROCURONIUM 50 MG/5 ML VIAL. ONE (08:36)
[2019-02-10] MEDS ORDERED: SUCCINYLCHOLINE 200 MG/10 ML VIAL. ONE (08:36)
[2019-02-10] MEDS ORDERED: fentaNYL PF VIAL 100 MCG/2 ML VIAL ONE ×2 (08:36→09:16)
--- NOTE | 2019-02-10 08:57 | PDOC ---
SURGICAL PROGRESS NOTE Subjective 68 yo F with abd bloating and discomfort. PIPPDA concerning for biliary dyskinesia Previous CT concerning for possible adhesions and small bowel obstruction Possible incisional hernia by CT TO OR for laparoscopic versus open cholecystectomy with cholangiogram, possible lysis of adhesions, possible incisional hernia repair. R/R/B/A d/w pt and pt's supportive daughter. Risks, including, but not limited to: bleeding, infection, damage to surrounding structures, risk of anesthesia, risk of open. They appear to understand, their questions are answered and they elect to proceed. Office note H&P reviewed and unchanged. Pt reexamined. Vital Signs Vital Signs Date Time Temp Pulse Resp B/P (MAP) Pulse Ox O2 Delivery O2 Flow Rate FiO2 02/10/19 08:06 97.0 73 18 107/75 98 Room Air 97.0 Labs Laboratory Tests Test 02/10/19 08:14 Glucose (Fingerstick) 103 mg/dL (70-99) Laboratory Tests Test 02/10/19 08:14 Glucose (Fingerstick) 103 mg/dL (70-99) VIKI BLANCO MD Feb 10, 2019 08:57
[2019-02-10] MEDS ORDERED: NEOSTIGMINE METHYLSULFATE 5 MG/5 ML SYRINGE. ONE (09:21)
[2019-02-10] MEDS ORDERED: SEVOFLURANE > 120 MINUTES. IH ONE (09:21)
[2019-02-10] MEDS ORDERED: GLYCOPYRROLATE 1 MG/5 ML VIAL. ONE (09:21)
[2019-02-10] MEDS ORDERED: ceFAZolin 2GM PREMIX 2 GM/50 ML BAG IV ONE (10:00)
--- NOTE | 2019-02-10 10:20 | RAD ---
Intraoperative cholangiogram February 10, 2019 INDICATION: Cholecystectomy. COMPARISON: None available TECHNIQUE: 18 seconds of fluoroscopy were utilized. 4 images are provided. FINDINGS: There is opacification of the cystic duct, common bile duct and intrahepatic biliary tree. Contrast appears to opacify the duodenum. No filling defects or stricture identified. IMPRESSION: Intraoperative fluoroscopy provided for intraoperative cholangiogram.. Please refer to the separate operative report for further details. Electronically signed by: Amy Mathur MD (02/10/2019 10:17 AM) [id number]
[2019-02-10] MEDS: IV RINGERS,LACTATED 1000ML 1,000 ML IV SCH ×2 (10:30→14:56)
[2019-02-10] MEDS ORDERED: HYDROmorphone 2 MG/ML VIAL IV PRN (11:00)
[2019-02-10] MEDS ORDERED: INSULIN LISPRO 100 UNIT/ML 3ML VIAL. SQ PRN (11:00)
[2019-02-10] MEDS ORDERED: 0.9 % SODIUM CHLORIDE 10 ML DISP.SYRIN. IV PRN (11:00)
[2019-02-10] MEDS ORDERED: ONDANSETRON PF 4 MG/2 ML VIAL. IV PRN (11:00)
[2019-02-10] MEDS ORDERED: NON FORMULARY ITEM (Levalbuterol Hcl (Xopenex) 1 VIAL) NEB SCH (11:00)
--- NOTE | 2019-02-10 11:11 | PDOC4 ---
OPERATIVE NOTE Date: Date: Feb 10, 2019 Pre-Op Diagnosis: Abdominal bloating, biliary dyskinesia Post-Op Diagnosis: same, abdominal adhesions, incisional hernia Procedure Performed: Laparoscopic lysis of adhesions, laparoscopic cholecystectomy with cholangiogram , incisional hernia repair Surgeon: Ismael Blanco Anesthesia Type: GETA plus local Blood Loss: 50 Specimans Obtained: gallbladder Findings: multiple adhesions, chronic adhesions to gallbladder, normal cholangiogram, multiple jejunal diverticuli, uncomplicated, extensive hernia lower abdominal wall Complications: none Operative Note: After obtaining informed consent, patient was taken to OR, induced under GETA and prepped in the usual fashion. 5 mm port x 2 placed in RUQ under laparoscopic guidance. Abdominal cavity was explored. Liver was normal in appearance. Gallbladder had extensive adhesions to it. Extensive omental adhesions were seen and taken down using sharp dissection. Visualized portions of bowel and viscera otherwise were normal in appearance. Removal of adhesions off the abdominal wall demonstrated multiple incisional hernias. 12 port placed epigastric and umbilical 5 port placed. Gallbladder adhesions taken down using sharp dissection. Critical view dissected out. Cystic artery ligated with clips. Cholangiogram obtained via cystic duct and was normal. Cystic duct secured with clips and hemolok. Gallbladder taken off fossa using cautery, placed in bag, delivered and sent to pathology. Copious irrigation. No evidence of bleeding or other pathology. Attention turned to incisional hernia. Given risk for occult cause of bloating and other complications, repair is indicated. Given concurrent gallbladder surgery, mesh is not being used. Previous lower abdominal wall scar excised. Fascia divided in midline. Hernia sacs excised and discarded. Small bowel evicerated and noted to have proximal jejunal diverticuli. Enteroliths were disrupted and placed into lumen, but no other complicated features noted. Small bowel resection for diverticuli not indicated without complicating features. Bowel returned to abdominal cavity. Fascia repaired with 0 looped PDS. Skin repaired with 3 0 vicryl and 4 0 monocryl. Laparoscopic ports removed without bleeding. Fascia repaired with 0 vicryl. Skin repaired with 4 0 monocryl. Dressing placed. Patient tolerated procedure well and sent to PACU in stable condition. All counts correct. Wound class is 2. VIKI BLANCO MD Feb 10, 2019 11:11
[2019-02-10] MEDS ORDERED: ALBUTEROL SULFATE 2.5 MG/3 ML NEBU. NEB PRN (11:30)
--- NOTE | 2019-02-10 11:35 | RAD ---
Single view of the abdomen 02/10/2019 INDICATION: Postoperative COMPARISON STUDY: None FINDINGS: The bowel gas pattern is nonobstructive. No gross pneumoperitoneum is identified, though exam limited for the purpose. Surgical clips noted in the right upper quadrant and left midabdomen. Contrast within the bowel appears be present likely from intraoperative cholangiogram. IMPRESSION: No radiographic evidence of acute intra-abdominal abnormality Electronically signed by: Víctor Holder MD (02/10/2019 11:32 AM) [id number]
[2019-02-10] MEDS ORDERED: DEXTROSE 50% 25 GM / 50ML DISP.SYRIN. IV PRN (12:45)
[2019-02-10] MEDS: INSULIN LISPRO 300 UNITS/3 ML INSULN.PEN. SQ SCH ×2 (13:30→17:00)
--- NOTE | 2019-02-10 13:45 | PDOC1 ---
History and Physical Date of Admission Date of Admission DATE: 02/10/19 TIME: 13:45 Identification/Chief Complaint Chief Complaint recent admit , had Laparoscopy converted to open exploratory laparotomy.2. Extensive adhesiolysis.3. Enterotomy and removal of enterolith. With Dr Horta in 2016 Here in Jul 2018 for diverticulitis, treated medically. nov 2018, admitted to [facility] for sbo vs enteritis. patient placed on clears and had serial xrays which showed improvement. now admitted for Laparoscopic lysis of adhesions, laparoscopic cholecystectomy with cholangiogram, incisional hernia repair History of Present Illness History of Present Illness Post-Op Diagnosis: same, abdominal adhesions, incisional hernia Procedure Performed: Laparoscopic lysis of adhesions, laparoscopic cholecystectomy with cholangiogram , incisional hernia repair Surgeon: Ismael Newsome Anesthesia Type: GETA plus local Blood Loss: 50 Specimans Obtained: gallbladder Findings: multiple adhesions, chronic adhesions to gallbladder, normal cholangiogram, multiple jejunal diverticuli, uncomplicated, extensive hernia lower abdominal wall Past Medical History Past Medical History Past Medical History Past Medical History: Diabetes-Type II, Hypertension, Other Additional Past Medical Histor: ruptured diverticulm, bowel obstruction Past Surgical History: Hysterectomy, Other Additional Past Surgical Histo: lumbar laminectomy, Colectomy Alcohol Use: None Drug Use: None family hx htn Cardiovascular: HTN, Hyperlipidemia Pulmonary: Asthma, Bronchitis GI: Diverticulosis, GERD, Hemorrhoids ENT: No pertinent hx Endocrine: Diabetes Past Surgical History Past Surgical History: Hysterectomy, Other Family History Family History: No Significant Social History Smoke: No ALCOHOL: none Drugs: None Current Medications Current Medications Current Medications Heparin Sodium (Porcine) 1000 unit/Sodium Chloride 1,001 ml @ 1,001 mls/hr 1X ONCE IRR Last administered on 02/10/19at 09:46; Start 02/10/19 at 06:00; Stop at 06:59; Status DC Ondansetron HCl (Zofran) 4 mg PRN Q6HRS PRN IV NAUSEA/VOMITING; Start 02/10/19 at 07:00; Stop 02/10/19 at 19:00 Fentanyl Citrate (Fentanyl 2ml Vial) 25 mcg PRN Q5MIN PRN IV MILD PAIN; Start 02/10/19 at 07:00; Stop 02/10/19 at 19:00 Fentanyl Citrate (Fentanyl 2ml Vial) 50 mcg PRN Q5MIN PRN IV MODERATE TO SEVERE PAIN; Start 02/10/19 at 07:00; Stop 02/10/19 at 19:00 Ringer's Solution 1,000 ml @ 30 mls/hr Q24H IV Last administered on 02/10/19at 07:00; Start 02/10/19 at 07:00; Stop 02/10/19 at 18:59 Prochlorperazine Edisylate (Compazine) 5 mg PACU PRN PRN IV NAUSEA, MRX1; Start 02/10/19 at 07:00; Stop 02/10/19 at 19:00 Ibuprofen (Motrin) 200 mg 1X PREOP PO Last administered on 02/10/19at 08:18; Start 02/10/19 at 06:00; Stop 02/10/19 at 15:00 Cefazolin Sodium/ Dextrose 50 ml @ 100 mls/hr 1X PREOP PRN IV PRIOR TO PROCEDURE Last administered on 02/10/19at 08:56; Start 02/10/19 at 06:00; Stop at 18:00 Bisacodyl (Dulcolax Supp) [address] Last administered on 02/10/19at 11: 53; Start 02/10/19 at 08:00; Stop 02/10/19 at 08:01; Status DC Bupivacaine HCl/ Epinephrine Bitart (Sensorcain-Mpf Epi 0.5%-[id number]) 30 ml STK -MED ONCE .ROUTE Last administered on 02/10/19at 09:45; Start 02/10/19 at 07:00 ; Stop 02/10/19 at 08:02; Status DC Iohexol (Omnipaque 300 Mg/ml) 100 ml STK-MED ONCE .ROUTE Last administered on at 09:46; Start 02/10/19 at 07:00; Stop 02/10/19 at 08:02; Status DC Cellulose (Surgicel Hemostat 4x8) 1 each STK-MED ONCE .ROUTE ; Start 02/10/19 at 07:00; Stop 02/10/19 at 08:02; Status DC Bisacodyl (Dulcolax Supp) 10 mg STK-MED ONCE .ROUTE ; Start 02/10/19 at 07:01; Stop 02/10/19 at 08:02; Status DC Dexamethasone Sodium Phosphate (Decadron) 20 mg STK-MED ONCE .ROUTE ; Start at 08:34; Stop 02/10/19 at 08:35; Status DC Ondansetron HCl (Zofran) 4 mg STK-MED ONCE .ROUTE ; Start 02/10/19 at 08:34; Stop 02/10/19 at 08:35; Status DC Famotidine (Pepcid Vial) 20 mg STK-MED ONCE .ROUTE ; Start 02/10/19 at 08:34; Stop 02/10/19 at 08:35; Status DC Propofol 20 ml @ As Directed STK-MED ONCE IV ; Start 02/10/19 at 08:35; Stop at 08:36; Status DC Lidocaine HCl (Lidocaine Pf 2% Vial) 5 ml STK-MED ONCE .ROUTE ; Start 02/10/19 at 08:35; Stop 02/10/19 at 08:36; Status DC Ephedrine Sulfate (ePHEDrine PF IN SALINE SYRINGE) 50 mg STK-MED ONCE IV ; Start 02/10/19 at 08:35; Stop 02/10/19 at 08:36; Status DC Midazolam HCl (Versed) 2 mg STK-MED ONCE .ROUTE ; Start 02/10/19 at 08:35; Stop 02/10/19 at 08:36; Status DC Fentanyl Citrate (Fentanyl 2ml Vial) 100 mcg STK-MED ONCE .ROUTE ; Start at 08:36; Stop 02/10/19 at 08:37; Status DC Succinylcholine Chloride (Anectine) 200 mg STK-MED ONCE .ROUTE ; Start 02/10/19 at 08:36; Stop 02/10/19 at 08:37; Status DC Rocuronium Lily (Zemuron) 50 mg STK-MED ONCE .ROUTE ; Start 02/10/19 at 08:36 ; Stop 02/10/19 at 08:37; Status DC Fentanyl Citrate (Fentanyl 2ml Vial) 100 mcg STK-MED ONCE .ROUTE ; Start at 09:16; Stop 02/10/19 at 09:17; Status DC Glycopyrrolate (Robinul) 1 mg STK-MED ONCE .ROUTE ; Start 02/10/19 at 09:21; Stop 02/10/19 at 09:22; Status DC Sevoflurane (Ultane) 90 ml STK-MED ONCE IH ; Start 02/10/19 at 09:21; Stop 02/10 at 09:22; Status DC Neostigmine Methylsulfate (Neostigmine Methylsulfate) 5 mg STK-MED ONCE .ROUTE ; Start 02/10/19 at 09:21; Stop 02/10/19 at 09:22; Status DC Insulin Human Lispro (HumaLOG VIAL) 0-10 units SSI PRN SQ PER PROTOCOL; Start 02/10/19 at 11:00; Stop 02/11/19 at 10:59 Enoxaparin Sodium (Lovenox 40mg Syringe) 40 mg Q24H SQ ; Start 02/11/19 at 09:00 Sodium Chloride (Normal Saline Flush) 3 ml QSHIFT PRN IV AFTER MEDS AND BLOOD DRAWS; Start 02/10/19 at 11:00 Ringer's Solution 1,000 ml @ 100 mls/hr Q10H IV Last administered on at 10:30; Start 02/10/19 at 11:30 Oxycodone/ Acetaminophen (Percocet 5/325) 1 tab PRN Q4HRS PRN PO MILD PAIN, 1ST CHOICE; Start 02/10/19 at 11:00 Hydromorphone HCl (Dilaudid) 0.2 mg PRN Q1HR PRN IV PAIN; Start 02/10/19 at 11: 00 Senna/Docusate Sodium (Senna Plus) 1 tab BID PO ; Start 02/10/19 at 21:00 Ondansetron HCl (Zofran) 4 mg PRN Q6HRS PRN IV NAUESA, 1ST CHOICE; Start at 11:00 Aspirin (Ecotrin) 81 mg HS PO ; Start 02/10/19 at 21:00 Hydrochlorothiazide (Hydrodiuril) 25 mg DAILY PO ; Start 02/11/19 at 09:00 Lisinopril (Prinivil) 10 mg BID PO ; Start 02/10/19 at 21:00 Metoprolol Tartrate (Lopressor) 50 mg BID PO ; Start 02/10/19 at 21:00 Calcium Carbonate/ Glycine (Oscal) 500 mg QHS PO ; Start 02/10/19 at 21:00 Fenofibrate (Lofibra) 134 mg DAILY PO ; Start 02/11/19 at 09:00 Fluticasone Propionate (Flonase) 2 spray DAILY NS ; Start 02/11/19 at 09:00 Budesonide (Pulmicort) 0.5 mg RTBID NEB ; Start 02/10/19 at 20:00 Non-Formulary Medication (Gluc 2KCL/ Chondr/Sean Hy/Hy Ac (Glucosamine & Chondroitin Cap)) 2 each DAILY PO ; Start 02/11/19 at 09:00; Status UNV Isosorbide Mononitrate (Imdur) 60 mg QHS PO ; Start 02/10/19 at 21:00 Lactobacillus Rhamnosus (Culturelle) 2 cap QHS PO ; Start 02/10/19 at 21:00 Non-Formulary Medication (Levalbuterol Hcl (Xopenex)) 1 vial PRN NEB ; Start at 11:00; Status UNV Albuterol Sulfate (Ventolin Neb Soln) 2.5 mg PRN Q4HRS PRN NEB SHORTNESS OF BREATH; Start 02/10/19 at 11:30 Cetirizine HCl (ZyrTEC) 10 mg QHS PO ; Start 02/10/19 at 21:00 Metformin HCl (Glucophage) 1,000 mg BIDWMEALS PO ; Start 02/10/19 at 17:00 Montelukast Sodium (Singulair) 10 mg QHS PO ; Start 02/10/19 at 21:00 Multivitamins (Thera M Plus) 1 tab DAILY PO ; Start 02/11/19 at 09:00 Fish Oil (Fish Oil) 2,000 mg BID PO ; Start 02/10/19 at 21:00 Famotidine (Pepcid) 20 mg BID PO ; Start 02/10/19 at 21:00 Albuterol/ Ipratropium (Duoneb) 3 ml RTQID NEB ; Start 02/10/19 at 16:00 Insulin Human Lispro (HumaLOG) 0-5 UNITS TIDWMEALS SQ ; Start 02/10/19 at 13:30 Dextrose (Dextrose 50%-Water Syringe) 12.5 gm PRN Q15MIN PRN IV SEE COMMENTS; Start 02/10/19 at 12:45 Active Scripts Active Reported Flonase Allergy Relief (Fluticasone Propionate) 9.[address] [place].susp 2 Sprays NS DAILY Probiotic (Lactobacillus Combo No.11) 1 Each Cap.sprink 2 Each PO HS Xopenex (Levalbuterol Hcl) 0.63 Mg/3 Ml Vial.neb 1 Vial NEB PRN Xopenex Hfa (Levalbuterol Tartrate) 15 Gm Hfa.aer.ad 2 Puff IH PRN Q4-6HRS Advair 250-50 Diskus (Fluticasone/Salmeterol) 1 Each Disk.w.dev 1 Puff IH BID Hydrochlorothiazide Tablet (Hydrochlorothiazide) 25 Mg Tablet 1 Tab PO DAILY Tricor (Fenofibrate Nanocrystallized) 145 Mg Tablet 1 Tab PO DAILY Montelukast Sodium Tablet (Montelukast Sodium) 10 Mg Tablet 1 Tab PO DAILY Spiriva (Tiotropium Lily) 18 Mcg Cap.w.dev 2 Inh IH DAILY Multi Vitamin Daily (Multivitamin) 1 Each Tablet 1 Each PO DAILY Prinivil (Lisinopril) 10 Mg Tablet 10 Mg PO BID Imdur (Isosorbide Mononitrate) 60 Mg Tab.er.24h 60 Mg PO HS Glucosamine & Chondroitin Cap (Gluc 2KCL/Chondr/Sean Hy/Hy Ac) 1 Each Capsule 2 Each PO DAILY Calcium (Calcium Carbonate) 600 Mg Tablet 600 Mg PO HS Fish Oil ([place]-3 Fatty Acids) 300 Mg Capsule 2,000 Mg PO BID Ranitidine Hcl 150 Mg Capsule 150 Mg PO BID Aspirin Ec (Aspirin) 81 Mg Tablet.dr 81 Mg PO HS Claritin (Loratadine) 10 Mg Capsule 10 Mg PO HS Metformin Hcl 1,000 Mg Tablet 1,000 Mg PO BID Metoprolol Tartrate 50 Mg Tablet 50 Mg PO BID Allergies Allergies: Coded Allergies: Iodinated Contrast- Oral and IV Dye (Verified Allergy, Severe, Shortness of Air, 02/10/19) rash erythromycin base (Verified Allergy, Severe, Shortness of Air, 02/10/19) hives morphine (Verified Allergy, Severe, Anaphylaxis, 02/10/19) takes ULTRAM at home/in past and has had DILAUDID in the past hydrocodone (Verified Allergy, Intermediate, DIZZINESS, 02/10/19) takes ULTRAM at home/in past iodine (Verified Allergy, Intermediate, 02/10/19) peels skin off ROS Review of System HENT: Denies nasal congestion or sore throat [] Respiratory: Denies cough or shortness of breath [] Cardiovascular: Denies chest pain or palpitations GI: Reports abdominal pain, post-op : Denies dysuria or hematuria [] Musculoskeletal: Denies back pain or joint pain [] Integument: Denies rash or skin lesions [] Neurologic: Denies headache, focal weakness or sensory changes [] 14 pt systems were reviewed and found to be within normal limits, except as documented in this note. General: No: Chills, Night Sweats, Fatigue, Malaise, Appetite, Other PSYCHOLOGICAL ROS: No: Anxiety, Behavioral Disorder, Concentration difficultie , Decreased libido, Depression, Disorientation, Hallucinations, Hostility, Irritablity, Memory difficulties, Mood Swings, Obsessive thoughts, Physical abuse, Sexual abuse, Sleep disturbances, Suicidal ideation, Other ALLERGY AND IMMUNOLOGY: No: Hives, Insect Bite Sensitivity, Itchy/Watery Eyes, Nasal Congestion, Post Nasal Drip, Seasonal Allergies, Other Hematological and Lymphatic: No: Bleeding Problems, Blood Clots, Blood Transfusions, Brusing, Night Sweats, Pallor, Swollen Lymph Nodes, Other ENDOCRINE: No: Breast Changes, Galactorrhea, Hair Pattern Changes, Hot Flashes , Malaise/lethargy, Mood Swings, Palpitations, Polydipsia/polyuria, Skin Changes , Temperature Intolerance, Unexpected Weight Changes, Other Gastrointestinal: Yes Abdominal Pain; No Nausea, No Vomiting, No Diarrhea, No Constipation, No Melena, No Hematochezia, No Other Genitourinary: No Dysuria, No Frequency, No Incontinence, No Hematuria, No Retention, No Discharge, No Urgency, No Pain, No Flank Pain, No Other, No , No , No , No , No , No , No Neurological: No Behavorial Changes, No Bowel/Bladder ControlChng, No Confusion , No Dizziness, No Gait Disturbance, No Headaches, No Impaired Coord/balance, No Memory Loss, No Numbness/Tingling, No Seizures, No Speech Problems, No Tremors, No Visual Changes, No Weakness, No Other Physical Exam Physical Exam Physical Exam Physical Exam Constitutional: Well developed, well nourished, mild acute distress, non-toxic appearance. [] HENT: Normocephalic, atraumatic, oropharynx moist Eyes: Conjunctiva normal, no discharge. [] Neck: Normal range of motion, no tenderness, supple, no stridor. [] Cardiovascular: Heart rate regular rhythm, no murmur [] Lungs & Thorax: Bilateral breath sounds clear to auscultation [] Abdomen: dressings dry, intact Skin: Warm, dry, no erythema, no rash. [] Extremities: No tenderness, ROM intact,no edema. [] Neurologic: Alert and oriented X 3, no focal deficits noted. [] Psychologic: Affect normal, judgement normal, mood normal. [] General: Oriented X3, Cooperative, mild distress HEENT: Atraumatic, EOMI, Mucous membr. moist/pink Lungs: Clear to auscultation, Normal air movement Heart: RRR, no thrills, no murmurs Breasts: Not examined Rectal Exam: not examined Extremities: No cyanosis Neuro: Normal speech, Cranial nerves 3-12 NL Psych/Mental Status: Mental status NL, Mood NL Vitals Vitals Vital Signs Date Time Temp Pulse Resp B/P (MAP) Pulse Ox O2 Delivery O2 Flow Rate FiO2 02/10/19 12:04 97.8 61 20 99/54 91 Nasal Cannula 2 97.8 Labs Labs Laboratory Tests Test 02/10/19 08:14 02/10/19 11:46 Glucose (Fingerstick) 103 mg/dL (70-99) 172 mg/dL (70-99) Laboratory Tests Test 02/10/19 08:14 02/10/19 11:46 Glucose (Fingerstick) 103 mg/dL (70-99) 172 mg/dL (70-99) Images Images Single view of the abdomen 02/10/2019 INDICATION: Postoperative COMPARISON STUDY: None FINDINGS: The bowel gas pattern is nonobstructive. No gross pneumoperitoneum is identified, though exam limited for the purpose. Surgical clips noted in the right upper quadrant and left midabdomen. Contrast within the bowel appears be present likely from intraoperative cholangiogram. IMPRESSION: No radiographic evidence of acute intra-abdominal abnormality Electronically signed by: Víctor Holder MD (02/10/2019 11:32 AM) [id number] Intraoperative cholangiogram February 10, 2019 INDICATION: Cholecystectomy. COMPARISON: None available TECHNIQUE: 18 seconds of fluoroscopy were utilized. 4 images are provided. FINDINGS: There is opacification of the cystic duct, common bile duct and intrahepatic biliary tree. Contrast appears to opacify the duodenum. No filling defects or stricture identified. IMPRESSION: Intraoperative fluoroscopy provided for intraoperative cholangiogram.. Please refer to the separate operative report for further details. Electronically signed by: Amy Mathur MD (02/10/2019 10:17 AM) [facility] VTE Prophylaxis Ordered VTE Prophylaxis Devices: Yes VTE Pharmacological Prophylaxi: Yes Assessment/Plan Assessment/Plan IMPRESSION OR for laparoscopic versus open cholecystectomy with cholangiogram, possible lysis of adhesions, possible incisional hernia repair. diabetes hypertension plan will follow for medical needs xopenex rx Spiriva inhaler pain control iv prn accuchecks ss insulin bp control home meds ERIC LAST MD Feb 10, 2019 13:45
[2019-02-10] MEDS: IPRATRPIUM/ALBUTEROL 0.5/2.5MG 3 ML NEBU. NEB SCH ×2 (16:00→20:00)
[2019-02-10] MEDS: metFORMIN 500 MG TABLET PO SCH (17:14)
[2019-02-10] MEDS ORDERED: BUDESONIDE 0.5 MG/2 ML NEBU. NEB SCH (20:00)
[2019-02-10] MEDS ORDERED: MONTELUKAST SODIUM 10 MG TABLET. PO SCH (21:00)
[2019-02-10] MEDS: CALCIUM CARBONATE 500 MG TABLET PO SCH (21:11)
[2019-02-10] MEDS: ASPIRIN ENTERIC COATED 81 MG TABLET.DR. PO SCH (21:11)
[2019-02-10] MEDS: OMEGA-3 FATTY ACIDS/FISH OIL 1,000 MG CAPSULE. PO SCH (21:11)
[2019-02-10] MEDS: CETIRIZINE HCL 10 MG TABLET. PO SCH (21:11)
[2019-02-10] MEDS: SENNOSIDES/DOCUSATE 8.6/50MG TABLET. PO SCH (21:11)
[2019-02-10] MEDS: METOPROLOL TART IMMED RELEASE 50 MG TABLET. PO SCH (21:12)
[2019-02-10] MEDS: ISOSORBIDE MONONITRATE ER 30 MG TAB.ER.24H PO SCH (21:13)
[2019-02-10] MEDS: LACTOBACILLUS RHAMNOSUS GG 1 CAPSULE. PO SCH (21:14)
[2019-02-10] MEDS: LISINOPRIL 10 MG TABLET PO SCH (21:14)
[2019-02-10] MEDS: FAMOTIDINE 20 MG TABLET. PO SCH (21:39)
[2019-02-10] MEDS: oxyCODONE/APAP 5/325 1 TAB TABLET PO PRN (23:21)
[2019-02-11 03:00] VITALS: BP 110/66
[2019-02-11] MEDS: oxyCODONE/APAP 5/325 1 TAB TABLET PO PRN ×5 (04:33→21:47)
[2019-02-11 05:02] LABS: BASO % 0 % (0-3); EOS % 0 % (0-3); HEMATOCRIT 32.5 % (36.0-47.0); HEMOGLOBIN 10.5 g/dL (12.0-15.5); LYMPH # 1.3 x10^3/uL (1.0-4.8); LYMPH % 8 % (24-48); MEAN CORPUSCULAR HEMOGLOBIN 26 pg (25-35); MEAN CORPUSCULAR HGB CONC 32 g/dL (31-37); MEAN CORPUSCULAR VOLUME 81 fL (79-100); MONO # 1.1 x10^3/uL (0.0-1.1); MONO % 7 % (0-9); NEUT # 13.9 x10^3uL (1.8-7.7); NEUT % 85 % (31-73); PLATELET COUNT 301 x10^3/uL (140-400); RED BLOOD COUNT 4.01 x10^6/uL (3.50-5.40); RED CELL DISTRIBUTION WIDTH 14.9 % (11.5-14.5); WHITE BLOOD COUNT 16.4 x10^3/uL (4.0-11.0)
[2019-02-11 05:40] LABS: CALCIUM 8.7 mg/dL (8.5-10.1); CREATININE 1.2 mg/dL (0.6-1.0); GFR 44.8; POTASSIUM 4.1 mmol/L (3.5-5.1); TOTAL BILIRUBIN 0.4 mg/dL (0.2-1.0); TOTAL PROTEIN 6.1 g/dL (6.4-8.2)
[2019-02-11 07:00] VITALS: BP 127/73
[2019-02-11] MEDS: IPRATRPIUM/ALBUTEROL 0.5/2.5MG 3 ML NEBU. NEB SCH (08:00)
[2019-02-11] MEDS: INSULIN LISPRO 300 UNITS/3 ML INSULN.PEN. SQ SCH ×3 (08:00→17:00)
[2019-02-11 08:15] LABS: % ATYL 1 % (0-0); % BANDS 5 % (0-9); % LYMPHS 6 % (24-48); % MONOS 7 % (0-10); % SEGS 81 % (35-66)
[2019-02-11 08:16] LABS: PLT ESTIMATE ADEQUATE (ADEQUATE)
[2019-02-11] MEDS: SENNOSIDES/DOCUSATE 8.6/50MG TABLET. PO SCH ×2 (08:20→21:48)
[2019-02-11] MEDS: FENOFIBRATE,MICRONIZED 134 MG CAPSULE PO SCH (08:20)
[2019-02-11] MEDS: FAMOTIDINE 20 MG TABLET. PO SCH ×2 (08:20→21:46)
[2019-02-11] MEDS: MONTELUKAST SODIUM 10 MG TABLET. PO SCH (08:20)
[2019-02-11] MEDS: metFORMIN 500 MG TABLET PO SCH ×2 (08:20→17:05)
[2019-02-11] MEDS: OMEGA-3 FATTY ACIDS/FISH OIL 1,000 MG CAPSULE. PO SCH ×2 (08:20→21:48)
[2019-02-11] MEDS: MULTIVITAMIN with MINERAL TABLET. PO SCH (08:21)
[2019-02-11] MEDS: LISINOPRIL 10 MG TABLET PO SCH ×2 (08:21→21:47)
[2019-02-11] MEDS: METOPROLOL TART IMMED RELEASE 50 MG TABLET. PO SCH ×2 (08:22→21:56)
[2019-02-11] MEDS: hydroCHLOROthiazide 25 MG TABLET PO SCH (08:22)
[2019-02-11] MEDS: IV RINGERS,LACTATED 1000ML 1,000 ML IV SCH (08:22)
[2019-02-11] MEDS: ENOXAPARIN 40 MG/0.4 ML SYRINGE. SQ SCH (08:26)
[2019-02-11] MEDS: FLUTICASONE 50MCG/NASAL SPRAY 16GM BOTTLE. NS SCH (08:34)
[2019-02-11] MEDS ORDERED: NON FORMULARY ITEM (Gluc 2KCL/Chondr/Coll Hy/Hy Ac (Glucosamine & Chondroitin Cap) 2 EACH) PO SCH (09:00)
--- NOTE | 2019-02-11 09:10 | PDOC ---
SURGICAL PROGRESS NOTE Subjective Pt with c/o lower abd pain, nadeen reg diet, no N/V Vital Signs Vital Signs Date Time Temp Pulse Resp B/P (MAP) Pulse Ox O2 Delivery O2 Flow Rate FiO2 02/11/19 08:27 Room Air 02/11/19 08:22 88 127/73 02/11/19 07:00 97.8 18 95 97.8 02/10/19 12:04 2 I&O Intake and Output 02/11/19 06:59 Intake Total 2770 ml Output Total 795 ml Balance 1975 ml Intake Oral 120 ml IV Total 2650 ml Output Urine Total 745 ml Estimated Blood Loss 50 ml # Voids 1 General: Alert, Oriented X3, Cooperative, mild distress Abdomen: Soft, Other (lower abd wall incisional pain) Labs Laboratory Tests Test 02/10/19 08:14 02/10/19 11:46 02/10/19 17:01 02/10/19 20:19 Glucose (Fingerstick) 103 mg/dL (70-99) 172 mg/dL (70-99) 151 mg/dL (70-99) 173 mg/dL (70-99) Test 02/11/19 03:45 02/11/19 07:10 White Blood Count 16.4 x10^3/uL (4.0-11.0) Red Blood Count 4.01 x10^6/uL (3.50-5.40) Hemoglobin 10.5 g/dL (12.0-15.5) Hematocrit 32.5 % (36.0-47.0) Mean Corpuscular Volume 81 fL (79-100) Mean Corpuscular Hemoglobin 26 pg (25-35) Mean Corpuscular Hemoglobin Concent 32 g/dL (31-37) Red Cell Distribution Width 14.9 % (11.5-14.5) Platelet Count 301 x10^3/uL (140-400) Neutrophils (%) (Auto) 85 % (31-73) Lymphocytes (%) (Auto) 8 % (24-48) Monocytes (%) (Auto) 7 % (0-9) Eosinophils (%) (Auto) 0 % (0-3) Basophils (%) (Auto) 0 % (0-3) Neutrophils # (Auto) 13.9 x10^3uL (1.8-7.7) Lymphocytes # (Auto) 1.3 x10^3/uL (1.0-4.8) Monocytes # (Auto) 1.1 x10^3/uL (0.0-1.1) Eosinophils # (Auto) 0.0 x10^3/uL (0.0-0.7) Basophils # (Auto) 0.0 x10^3/uL (0.0-0.2) Segmented Neutrophils % 81 % (35-66) Band Neutrophils % 5 % (0-9) Lymphocytes % 6 % (24-48) Atypical Lymphocytes % (Manual) 1 % (0-0) Monocytes % 7 % (0-10) Platelet Estimate Adequate (ADEQUATE) Sodium Level 138 mmol/L (136-145) Potassium Level 4.1 mmol/L (3.5-5.1) Chloride Level 101 mmol/L (98-107) Carbon Dioxide Level 25 mmol/L (21-32) Anion Gap 12 (6-14) Blood Urea Nitrogen 15 mg/dL (7-20) Creatinine 1.2 mg/dL (0.6-1.0) Estimated GFR (Cockcroft-Gault) 44.8 BUN/Creatinine Ratio 13 (6-20) Glucose Level 117 mg/dL (70-99) Calcium Level 8.7 mg/dL (8.5-10.1) Total Bilirubin 0.4 mg/dL (0.2-1.0) Aspartate Amino Transf (AST/SGOT) 44 U/L (15-37) Alanine Aminotransferase (ALT/SGPT) 42 U/L (14-59) Alkaline Phosphatase 50 U/L (46-116) Total Protein 6.1 g/dL (6.4-8.2) Albumin 3.0 g/dL (3.4-5.0) Albumin/Globulin Ratio 1.0 (1.0-1.7) Glucose (Fingerstick) 111 mg/dL (70-99) Laboratory Tests Test 02/10/19 11:46 02/10/19 17:01 02/10/19 20:19 02/11/19 03:45 Glucose (Fingerstick) 172 mg/dL (70-99) 151 mg/dL (70-99) 173 mg/dL (70-99) White Blood Count 16.4 x10^3/uL (4.0-11.0) Red Blood Count 4.01 x10^6/uL (3.50-5.40) Hemoglobin 10.5 g/dL (12.0-15.5) Hematocrit 32.5 % (36.0-47.0) Mean Corpuscular Volume 81 fL (79-100) Mean Corpuscular Hemoglobin 26 pg (25-35) Mean Corpuscular Hemoglobin Concent 32 g/dL (31-37) Red Cell Distribution Width 14.9 % (11.5-14.5) Platelet Count 301 x10^3/uL (140-400) Neutrophils (%) (Auto) 85 % (31-73) Lymphocytes (%) (Auto) 8 % (24-48) Monocytes (%) (Auto) 7 % (0-9) Eosinophils (%) (Auto) 0 % (0-3) Basophils (%) (Auto) 0 % (0-3) Neutrophils # (Auto) 13.9 x10^3uL (1.8-7.7) Lymphocytes # (Auto) 1.3 x10^3/uL (1.0-4.8) Monocytes # (Auto) 1.1 x10^3/uL (0.0-1.1) Eosinophils # (Auto) 0.0 x10^3/uL (0.0-0.7) Basophils # (Auto) 0.0 x10^3/uL (0.0-0.2) Segmented Neutrophils % 81 % (35-66) Band Neutrophils % 5 % (0-9) Lymphocytes % 6 % (24-48) Atypical Lymphocytes % (Manual) 1 % (0-0) Monocytes % 7 % (0-10) Platelet Estimate Adequate (ADEQUATE) Sodium Level 138 mmol/L (136-145) Potassium Level 4.1 mmol/L (3.5-5.1) Chloride Level 101 mmol/L (98-107) Carbon Dioxide Level 25 mmol/L (21-32) Anion Gap 12 (6-14) Blood Urea Nitrogen 15 mg/dL (7-20) Creatinine 1.2 mg/dL (0.6-1.0) Estimated GFR (Cockcroft-Gault) 44.8 BUN/Creatinine Ratio 13 (6-20) Glucose Level 117 mg/dL (70-99) Calcium Level 8.7 mg/dL (8.5-10.1) Total Bilirubin 0.4 mg/dL (0.2-1.0) Aspartate Amino Transf (AST/SGOT) 44 U/L (15-37) Alanine Aminotransferase (ALT/SGPT) 42 U/L (14-59) Alkaline Phosphatase 50 U/L (46-116) Total Protein 6.1 g/dL (6.4-8.2) Albumin 3.0 g/dL (3.4-5.0) Albumin/Globulin Ratio 1.0 (1.0-1.7) Test 02/11/19 07:10 Glucose (Fingerstick) 111 mg/dL (70-99) Problem List s/p lap poli, DEBO, VIAndreas repair cont pain control plan d/c home in AM VIKI BLANCO MD Feb 11, 2019 09:10
[2019-02-11 11:00] VITALS: BP 123/69
--- NOTE | 2019-02-11 13:28 | PDOC ---
PROGRESS NOTES Chief Complaint Chief Complaint Laparoscopic DEBO, cholecystectomy, VIH repair (02/10) H/o extensive adhesiolysis, enterotomy (2017) H/o diverticulitis, SBO (11/2018) DM2 HTN History of Present Illness History of Present Illness Pt was seen and examined in room today She was sitting on the bed eating breakfast, NAD Stated she was feeling better once she accepted pain medication, pain is well controlled Discussed with daughter at bedside Vitals Vitals Vital Signs Date Time Temp Pulse Resp B/P (MAP) Pulse Ox O2 Delivery O2 Flow Rate FiO2 02/11/19 12:30 Room Air 02/11/19 11:00 98.2 74 18 123/69 (87) 95 98.2 02/10/19 12:04 2 Physical Exam General: Alert, Oriented X3, Cooperative, mild distress Heart: Regular rate, No murmurs Lungs: Clear Abdomen: Soft, Other (lower abd wall mild incisional pain) Extremities: No cyanosis Skin: No breakdown, No significant lesion Labs LABS Laboratory Tests Test 02/10/19 17:01 02/10/19 20:19 02/11/19 03:45 02/11/19 07:10 Glucose (Fingerstick) 151 mg/dL (70-99) 173 mg/dL (70-99) 111 mg/dL (70-99) White Blood Count 16.4 x10^3/uL (4.0-11.0) Red Blood Count 4.01 x10^6/uL (3.50-5.40) Hemoglobin 10.5 g/dL (12.0-15.5) Hematocrit 32.5 % (36.0-47.0) Mean Corpuscular Volume 81 fL (79-100) Mean Corpuscular Hemoglobin 26 pg (25-35) Mean Corpuscular Hemoglobin Concent 32 g/dL (31-37) Red Cell Distribution Width 14.9 % (11.5-14.5) Platelet Count 301 x10^3/uL (140-400) Neutrophils (%) (Auto) 85 % (31-73) Lymphocytes (%) (Auto) 8 % (24-48) Monocytes (%) (Auto) 7 % (0-9) Eosinophils (%) (Auto) 0 % (0-3) Basophils (%) (Auto) 0 % (0-3) Neutrophils # (Auto) 13.9 x10^3uL (1.8-7.7) Lymphocytes # (Auto) 1.3 x10^3/uL (1.0-4.8) Monocytes # (Auto) 1.1 x10^3/uL (0.0-1.1) Eosinophils # (Auto) 0.0 x10^3/uL (0.0-0.7) Basophils # (Auto) 0.0 x10^3/uL (0.0-0.2) Segmented Neutrophils % 81 % (35-66) Band Neutrophils % 5 % (0-9) Lymphocytes % 6 % (24-48) Atypical Lymphocytes % (Manual) 1 % (0-0) Monocytes % 7 % (0-10) Platelet Estimate Adequate (ADEQUATE) Sodium Level 138 mmol/L (136-145) Potassium Level 4.1 mmol/L (3.5-5.1) Chloride Level 101 mmol/L (98-107) Carbon Dioxide Level 25 mmol/L (21-32) Anion Gap 12 (6-14) Blood Urea Nitrogen 15 mg/dL (7-20) Creatinine 1.2 mg/dL (0.6-1.0) Estimated GFR (Cockcroft-Gault) 44.8 BUN/Creatinine Ratio 13 (6-20) Glucose Level 117 mg/dL (70-99) Calcium Level 8.7 mg/dL (8.5-10.1) Total Bilirubin 0.4 mg/dL (0.2-1.0) Aspartate Amino Transf (AST/SGOT) 44 U/L (15-37) Alanine Aminotransferase (ALT/SGPT) 42 U/L (14-59) Alkaline Phosphatase 50 U/L (46-116) Total Protein 6.1 g/dL (6.4-8.2) Albumin 3.0 g/dL (3.4-5.0) Albumin/Globulin Ratio 1.0 (1.0-1.7) Review of Systems Review of Systems Pt reports some post-op pain, controlled on medications Denies CP, SOB, CAMACHO, n/v Assessment and Plan Assessmemt and Plan Assessment: Laparoscopic DEBO, cholecystectomy, VIH repair (02/10) H/o extensive adhesiolysis, enterotomy (2016) H/o diverticulitis, SBO (11/2018) DM2 HTN Plan: Pain management Wound care PT/OT Encourage PO intake SS insulin home meds DVT prophylaxis Will continue to follow Potential D/C tomorrow if continues to improve and Gen Surg agrees Comment Review of Relevant I have reviewed the following items feliciano (where applicable) has been applied. Labs Laboratory Tests Test 02/10/19 08:14 02/10/19 11:46 02/10/19 17:01 02/10/19 20:19 Glucose (Fingerstick) 103 mg/dL (70-99) 172 mg/dL (70-99) 151 mg/dL (70-99) 173 mg/dL (70-99) Test 02/11/19 03:45 02/11/19 07:10 White Blood Count 16.4 x10^3/uL (4.0-11.0) Red Blood Count 4.01 x10^6/uL (3.50-5.40) Hemoglobin 10.5 g/dL (12.0-15.5) Hematocrit 32.5 % (36.0-47.0) Mean Corpuscular Volume 81 fL (79-100) Mean Corpuscular Hemoglobin 26 pg (25-35) Mean Corpuscular Hemoglobin Concent 32 g/dL (31-37) Red Cell Distribution Width 14.9 % (11.5-14.5) Platelet Count 301 x10^3/uL (140-400) Neutrophils (%) (Auto) 85 % (31-73) Lymphocytes (%) (Auto) 8 % (24-48) Monocytes (%) (Auto) 7 % (0-9) Eosinophils (%) (Auto) 0 % (0-3) Basophils (%) (Auto) 0 % (0-3) Neutrophils # (Auto) 13.9 x10^3uL (1.8-7.7) Lymphocytes # (Auto) 1.3 x10^3/uL (1.0-4.8) Monocytes # (Auto) 1.1 x10^3/uL (0.0-1.1) Eosinophils # (Auto) 0.0 x10^3/uL (0.0-0.7) Basophils # (Auto) 0.0 x10^3/uL (0.0-0.2) Segmented Neutrophils % 81 % (35-66) Band Neutrophils % 5 % (0-9) Lymphocytes % 6 % (24-48) Atypical Lymphocytes % (Manual) 1 % (0-0) Monocytes % 7 % (0-10) Platelet Estimate Adequate (ADEQUATE) Sodium Level 138 mmol/L (136-145) Potassium Level 4.1 mmol/L (3.5-5.1) Chloride Level 101 mmol/L (98-107) Carbon Dioxide Level 25 mmol/L (21-32) Anion Gap 12 (6-14) Blood Urea Nitrogen 15 mg/dL (7-20) Creatinine 1.2 mg/dL (0.6-1.0) Estimated GFR (Cockcroft-Gault) 44.8 BUN/Creatinine Ratio 13 (6-20) Glucose Level 117 mg/dL (70-99) Calcium Level 8.7 mg/dL (8.5-10.1) Total Bilirubin 0.4 mg/dL (0.2-1.0) Aspartate Amino Transf (AST/SGOT) 44 U/L (15-37) Alanine Aminotransferase (ALT/SGPT) 42 U/L (14-59) Alkaline Phosphatase 50 U/L (46-116) Total Protein 6.1 g/dL (6.4-8.2) Albumin 3.0 g/dL (3.4-5.0) Albumin/Globulin Ratio 1.0 (1.0-1.7) Glucose (Fingerstick) 111 mg/dL (70-99) Laboratory Tests Test 02/10/19 17:01 02/10/19 20:19 02/11/19 03:45 02/11/19 07:10 Glucose (Fingerstick) 151 mg/dL (70-99) 173 mg/dL (70-99) 111 mg/dL (70-99) White Blood Count 16.4 x10^3/uL (4.0-11.0) Red Blood Count 4.01 x10^6/uL (3.50-5.40) Hemoglobin 10.5 g/dL (12.0-15.5) Hematocrit 32.5 % (36.0-47.0) Mean Corpuscular Volume 81 fL (79-100) Mean Corpuscular Hemoglobin 26 pg (25-35) Mean Corpuscular Hemoglobin Concent 32 g/dL (31-37) Red Cell Distribution Width 14.9 % (11.5-14.5) Platelet Count 301 x10^3/uL (140-400) Neutrophils (%) (Auto) 85 % (31-73) Lymphocytes (%) (Auto) 8 % (24-48) Monocytes (%) (Auto) 7 % (0-9) Eosinophils (%) (Auto) 0 % (0-3) Basophils (%) (Auto) 0 % (0-3) Neutrophils # (Auto) 13.9 x10^3uL (1.8-7.7) Lymphocytes # (Auto) 1.3 x10^3/uL (1.0-4.8) Monocytes # (Auto) 1.1 x10^3/uL (0.0-1.1) Eosinophils # (Auto) 0.0 x10^3/uL (0.0-0.7) Basophils # (Auto) 0.0 x10^3/uL (0.0-0.2) Segmented Neutrophils % 81 % (35-66) Band Neutrophils % 5 % (0-9) Lymphocytes % 6 % (24-48) Atypical Lymphocytes % (Manual) 1 % (0-0) Monocytes % 7 % (0-10) Platelet Estimate Adequate (ADEQUATE) Sodium Level 138 mmol/L (136-145) Potassium Level 4.1 mmol/L (3.5-5.1) Chloride Level 101 mmol/L (98-107) Carbon Dioxide Level 25 mmol/L (21-32) Anion Gap 12 (6-14) Blood Urea Nitrogen 15 mg/dL (7-20) Creatinine 1.2 mg/dL (0.6-1.0) Estimated GFR (Cockcroft-Gault) 44.8 BUN/Creatinine Ratio 13 (6-20) Glucose Level 117 mg/dL (70-99) Calcium Level 8.7 mg/dL (8.5-10.1) Total Bilirubin 0.4 mg/dL (0.2-1.0) Aspartate Amino Transf (AST/SGOT) 44 U/L (15-37) Alanine Aminotransferase (ALT/SGPT) 42 U/L (14-59) Alkaline Phosphatase 50 U/L (46-116) Total Protein 6.1 g/dL (6.4-8.2) Albumin 3.0 g/dL (3.4-5.0) Albumin/Globulin Ratio 1.0 (1.0-1.7) Medications Current Medications Heparin Sodium (Porcine) 1000 unit/Sodium Chloride 1,001 ml @ 1,001 mls/hr 1X ONCE IRR Last administered on 02/10/19at 09:46; Start 02/10/19 at 06:00; Stop at 06:59; Status DC Ondansetron HCl (Zofran) 4 mg PRN Q6HRS PRN IV NAUSEA/VOMITING; Start 02/10/19 at 07:00; Stop 02/10/19 at 19:00; Status DC Fentanyl Citrate (Fentanyl 2ml Vial) 25 mcg PRN Q5MIN PRN IV MILD PAIN; Start 02/10/19 at 07:00; Stop 02/10/19 at 19:00; Status DC Fentanyl Citrate (Fentanyl 2ml Vial) 50 mcg PRN Q5MIN PRN IV MODERATE TO SEVERE PAIN; Start 02/10/19 at 07:00; Stop 02/10/19 at 19:00; Status DC Ringer's Solution 1,000 ml @ 30 mls/hr Q24H IV Last administered on 02/10/19at 07:00; Start 02/10/19 at 07:00; Stop 02/10/19 at 18:59; Status DC Prochlorperazine Edisylate (Compazine) 5 mg PACU PRN PRN IV NAUSEA, MRX1; Start 02/10/19 at 07:00; Stop 02/10/19 at 19:00; Status DC Ibuprofen (Motrin) 200 mg 1X PREOP PO Last administered on 02/10/19at 08:18; Start 02/10/19 at 06:00; Stop 02/10/19 at 15:00; Status DC Cefazolin Sodium/ Dextrose 50 ml @ 100 mls/hr 1X PREOP PRN IV PRIOR TO PROCEDURE Last administered on 02/10/19at 08:56; Start 02/10/19 at 06:00; Stop at 18:00; Status DC Bisacodyl (Dulcolax Supp) 10 mg 1X ONCE IA Last administered on 02/10/19at 11: 53; Start 02/10/19 at 08:00; Stop 02/10/19 at 08:01; Status DC Bupivacaine HCl/ Epinephrine Bitart (Sensorcain-Mpf Epi 0.5%-1:[id number]) 30 ml STK -MED ONCE .ROUTE Last administered on 02/10/19at 09:45; Start 02/10/19 at 07:00 ; Stop 02/10/19 at 08:02; Status DC Iohexol (Omnipaque 300 Mg/ml) 100 ml STK-MED ONCE .ROUTE Last administered on at 09:46; Start 02/10/19 at 07:00; Stop 02/10/19 at 08:02; Status DC Cellulose (Surgicel Hemostat 4x8) 1 each STK-MED ONCE .ROUTE ; Start 02/10/19 at 07:00; Stop 02/10/19 at 08:02; Status DC Bisacodyl (Dulcolax Supp) 10 mg STK-MED ONCE .ROUTE ; Start 02/10/19 at 07:01; Stop 02/10/19 at 08:02; Status DC Dexamethasone Sodium Phosphate (Decadron) 20 mg STK-MED ONCE .ROUTE ; Start at 08:34; Stop 02/10/19 at 08:35; Status DC Ondansetron HCl (Zofran) 4 mg STK-MED ONCE .ROUTE ; Start 02/10/19 at 08:34; Stop 02/10/19 at 08:35; Status DC Famotidine (Pepcid Vial) 20 mg STK-MED ONCE .ROUTE ; Start 02/10/19 at 08:34; Stop 02/10/19 at 08:35; Status DC Propofol 20 ml @ As Directed STK-MED ONCE IV ; Start 02/10/19 at 08:35; Stop at 08:36; Status DC Lidocaine HCl (Lidocaine Pf 2% Vial) 5 ml STK-MED ONCE .ROUTE ; Start 02/10/19 at 08:35; Stop 02/10/19 at 08:36; Status DC Ephedrine Sulfate (ePHEDrine PF IN SALINE SYRINGE) 50 mg STK-MED ONCE IV ; Start 02/10/19 at 08:35; Stop 02/10/19 at 08:36; Status DC Midazolam HCl (Versed) 2 mg STK-MED ONCE .ROUTE ; Start 02/10/19 at 08:35; Stop 02/10/19 at 08:36; Status DC Fentanyl Citrate (Fentanyl 2ml Vial) 100 mcg STK-MED ONCE .ROUTE ; Start at 08:36; Stop 02/10/19 at 08:37; Status DC Succinylcholine Chloride (Anectine) 200 mg STK-MED ONCE .ROUTE ; Start 02/10/19 at 08:36; Stop 02/10/19 at 08:37; Status DC Rocuronium [place] (Zemuron) 50 mg STK-MED ONCE .ROUTE ; Start 02/10/19 at 08:36 ; Stop 02/10/19 at 08:37; Status DC Fentanyl Citrate (Fentanyl 2ml Vial) 100 mcg STK-MED ONCE .ROUTE ; Start at 09:16; Stop 02/10/19 at 09:17; Status DC Glycopyrrolate (Robinul) 1 mg STK-MED ONCE .ROUTE ; Start 02/10/19 at 09:21; Stop 02/10/19 at 09:22; Status DC Sevoflurane (Ultane) 90 ml STK-MED ONCE IH ; Start 02/10/19 at 09:21; Stop 02/10 at 09:22; Status DC Neostigmine Methylsulfate (Neostigmine Methylsulfate) 5 mg STK-MED ONCE .ROUTE ; Start 02/10/19 at 09:21; Stop 02/10/19 at 09:22; Status DC Insulin Human Lispro (HumaLOG VIAL) 0-10 units SSI PRN SQ PER PROTOCOL; Start 02/10/19 at 11:00; Stop 02/11/19 at 10:59; Status DC Enoxaparin Sodium (Lovenox 40mg Syringe) 40 mg Q24H SQ Last administered on at 08:26; Start 02/11/19 at 09:00 Sodium Chloride (Normal Saline Flush) 3 ml QSHIFT PRN IV AFTER MEDS AND BLOOD DRAWS; Start 02/10/19 at 11:00 Ringer's Solution 1,000 ml @ 100 mls/hr Q10H IV Last administered on at 08:22; Start 02/10/19 at 11:30; Stop 02/11/19 at 10:54; Status DC Oxycodone/ Acetaminophen (Percocet 5/325) 1 tab PRN Q4HRS PRN PO MILD PAIN, 1ST CHOICE Last administered on 02/11/19 08:27; Start 02/10/19 at 11:00; Stop 02/11/19 at 10:54; Status DC Hydromorphone HCl (Dilaudid) 0.2 mg PRN Q1HR PRN IV PAIN Last administered on 21:25; Start 02/10/19 at 11:00 Senna/Docusate Sodium (Senna Plus) 1 tab BID PO Last administered on 02/11/19 08:20; Start 02/10/19 at 21:00 Ondansetron HCl (Zofran) 4 mg PRN Q6HRS PRN IV NAUESA, 1ST CHOICE; Start at 11:00 Aspirin (Ecotrin) 81 mg HS PO Last administered on 02/10/19 21:11; Start 02/10 at 21:00 Hydrochlorothiazide (Hydrodiuril) 25 mg DAILY PO Last administered on 08:22; Start 02/11/19 at 09:00 Lisinopril (Prinivil) 10 mg BID PO Last administered on 02/11/19 08:21; Start 02/10/19 at 21:00 Metoprolol Tartrate (Lopressor) 50 mg BID PO Last administered on 02/11/19 08: 22; Start 02/10/19 at 21:00 Calcium Carbonate/ Glycine (Oscal) 500 mg QHS PO Last administered on 21:11; Start 02/10/19 at 21:00 Fenofibrate (Lofibra) 134 mg DAILY PO Last administered on 02/11/19 08:20; Start 02/11/19 at 09:00 Fluticasone Propionate (Flonase) 2 spray DAILY NS Last administered on 08:34; Start 02/11/19 at 09:00 Budesonide (Pulmicort) 0.5 mg RTBID NEB ; Start 02/10/19 at 20:00; Stop at 05:15; Status DC Non-Formulary Medication (Gluc 2KCL/ Chondr/Sean Hy/Hy Ac (Glucosamine & Chondroitin Cap)) 2 each DAILY PO ; Start 02/11/19 at 09:00; Status UNV Isosorbide Mononitrate (Imdur) 60 mg QHS PO Last administered on 02/10/19at 21: 13; Start 02/10/19 at 21:00 Lactobacillus Rhamnosus (Culturelle) 2 cap QHS PO Last administered on at 21:14; Start 02/10/19 at 21:00 Non-Formulary Medication (Levalbuterol Hcl (Xopenex)) 1 vial PRN NEB ; Start at 11:00; Status UNV Albuterol Sulfate (Ventolin Neb Soln) 2.5 mg PRN Q4HRS PRN NEB SHORTNESS OF BREATH; Start 02/10/19 at 11:30; Stop 02/11/19 at 05:15; Status DC Cetirizine HCl (ZyrTEC) 10 mg QHS PO Last administered on 02/10/19at 21:11; Start 02/10/19 at 21:00 Metformin HCl (Glucophage) 1,000 mg BIDWMEALS PO Last administered on at 08:20; Start 02/10/19 at 17:00 Montelukast Sodium (Singulair) 10 mg QHS PO ; Start 02/10/19 at 21:00; Stop at 02:34; Status DC Multivitamins (Thera M Plus) 1 tab DAILY PO Last administered on 02/11/19at 08: 21; Start 02/11/19 at 09:00 Fish Oil (Fish Oil) 2,000 mg BID PO Last administered on 02/11/19at 08:20; Start 02/10/19 at 21:00 Famotidine (Pepcid) 20 mg BID PO Last administered on 02/11/19at 08:20; Start at 21:00 Albuterol/ Ipratropium (Duoneb) 3 ml RTQID NEB ; Start 02/10/19 at 16:00; Stop 02/11/19 at 08:15; Status DC Insulin Human Lispro (HumaLOG) 0-5 UNITS TIDWMEALS SQ ; Start 02/10/19 at 13:30 Dextrose (Dextrose 50%-Water Syringe) 12.5 gm PRN Q15MIN PRN IV SEE COMMENTS; Start 02/10/19 at 12:45 Montelukast Sodium (Singulair) 10 mg DAILY PO Last administered on 02/11/19at 08 :20; Start 02/11/19 at 09:00 Oxycodone/ Acetaminophen (Percocet 5/325) 2 tab PRN Q4HRS PRN PO MILD PAIN, 1ST CHOICE Last administered on 02/11/19at 12:30; Start 02/11/19 at 11:00 Cefazolin Sodium/ Dextrose (Ancef 2gm Premix) 2 gm STK-MED ONCE IV ; Start 02/10 at 10:00; Stop 02/11/19 at 12:39; Status DC Active Scripts Active Reported Flonase Allergy Relief (Fluticasone Propionate) 9.9 Ml [place].susp 2 Sprays NS DAILY Probiotic (Lactobacillus Combo No.11) 1 Each Cap.sprink 2 Each PO HS Xopenex (Levalbuterol Hcl) 0.63 Mg/3 Ml Vial.neb 1 Vial NEB PRN Xopenex Hfa (Levalbuterol Tartrate) 15 Gm Hfa.aer.ad 2 Puff IH PRN Q4-6HRS Advair 250-50 Diskus (Fluticasone/Salmeterol) 1 Each Disk.w.dev 1 Puff IH BID Hydrochlorothiazide Tablet (Hydrochlorothiazide) 25 Mg Tablet 1 Tab PO DAILY Tricor (Fenofibrate Nanocrystallized) 145 Mg Tablet 1 Tab PO DAILY Montelukast Sodium Tablet (Montelukast Sodium) 10 Mg Tablet 1 Tab PO DAILY Spiriva (Tiotropium [place]) 18 Mcg Cap.w.dev 2 Inh IH DAILY Multi Vitamin Daily (Multivitamin) 1 Each Tablet 1 Each PO DAILY Prinivil (Lisinopril) 10 Mg Tablet 10 Mg PO BID Imdur (Isosorbide Mononitrate) 60 Mg Tab.er.24h 60 Mg PO HS Glucosamine & Chondroitin Cap (Gluc 2KCL/Chondr/Sean Hy/Hy Ac) 1 Each Capsule 2 Each PO DAILY Calcium (Calcium Carbonate) 600 Mg Tablet 600 Mg PO HS Fish Oil ([place]-3 Fatty Acids) 300 Mg Capsule 2,000 Mg PO BID Ranitidine Hcl 150 Mg Capsule 150 Mg PO BID Aspirin Ec (Aspirin) 81 Mg Tablet.dr 81 Mg PO HS Claritin (Loratadine) 10 Mg Capsule 10 Mg PO HS Metformin Hcl 1,000 Mg Tablet 1,000 Mg PO BID Metoprolol Tartrate 50 Mg Tablet 50 Mg PO BID Vitals/I & O Vital Sign - Last 24 Hours 02/10/19 02/10/19 02/10/19 02/10/19 13:57 14:27 15:00 15:27 Temp 97.7 97.7 Pulse 75 73 73 73 Resp 16 B/P (MAP) 109/58 (75) 104/54 (71) 104/54 (71) 113/56 (75) Pulse Ox 96 98 97 98 02/10/19 02/10/19 02/10/19 02/10/19 19:00 20:15 21:12 21:13 Temp 97.6 97.6 Pulse 72 72 72 Resp 18 B/P (MAP) 137/75 (95) 137/75 137/75 Pulse Ox 98 O2 Delivery Room Air Room Air 02/10/19 02/10/19 02/10/19 02/10/19 21:14 21:25 21:55 23:00 Temp 98.7 98.7 Pulse 72 94 Resp 18 18 18 B/P (MAP) 137/75 148/81 (103) Pulse Ox 99 O2 Delivery Room Air Room Air Room Air 02/10/19 02/11/19 02/11/19 02/11/19 23:21 03:00 04:33 05:33 Temp 98.3 98.3 Pulse 95 Resp 18 18 18 18 B/P (MAP) 110/66 (81) Pulse Ox 91 O2 Delivery Room Air Room Air Room Air 02/11/19 02/11/19 02/11/19 02/11/19 07:00 08:00 08:21 08:22 Temp 97.8 97.8 Pulse 88 88 88 Resp 18 B/P (MAP) 127/73 (91) 127/73 127/73 Pulse Ox 95 O2 Delivery Room Air Room Air 02/11/19 02/11/19 02/11/19 02/11/19 08:27 09:45 11:00 12:30 Temp 98.2 98.2 Pulse 74 Resp 18 B/P (MAP) 123/69 (87) Pulse Ox 95 O2 Delivery Room Air Room Air Room Air Room Air Intake and Output 02/10/19 02/10/19 02/11/19 15:00 23:00 07:00 Intake Total 1650 ml 1120 ml Output Total 220 ml 575 ml Balance 1430 ml 545 ml MAR OLIVER III DO Feb 11, 2019 13:28
[2019-02-11 15:00] VITALS: BP 139/82
--- NOTE | 2019-02-11 17:09 | PATHOLOGY ---
[facility] Accession Number: [id number] . 01 Material submitted: . GALLBLADDER . 01 Clinical history: . Biliary dyskinesia . 02 Diagnosis: Gallbladder, laparoscopic cholecystectomy: - Chronic cholecystitis. (FRANNYM:markus; 02/11/2019) MBR/02/11/2019 . 02 Comment: There are no calculi identified within the gallbladder lumen or specimen container. There is no evidence of malignancy. (FRANNYM:markus; 02/11/2019) . 02 Electronically signed: . Nikos Villegas MD, Pathologist NPI- [id number] . 01 Gross description: . The specimen is received in formalin, labeled "Wilfrido, Luz, gallbladder" and consists of a pink-ribeiro and focally hemorrhagic gallbladder measuring 8.4 cm in length and up to 3.0 cm in diameter. The margin is inked black. Opening reveals a lumen filled with viscous green bile and no calculi. The mucosa is pink-albright with no polyps or mass lesions. The wall averages 0.1 cm. Code Clerk sections are submitted in A1. (MARY JOY; 02/10/2019) SYU/SYU . 02 Pathologist provided ICD-10: K81.1 . 02 CPT . 998890 Specimen Comment: A courtesy copy of this report has been sent to Specimen Comment: [phone], . Specimen Comment: Report sent to / DR RUBIO Specimen Comment: A duplicate report has been generated due to demographic updates. Performed at: 01 [facility] [address], [place], [place] [id number] MD Thomas Madera MD Phone: [phone] Performed at: 02 [facility] [address], [place] [id number] MD Nikos Villegas MD Phone: [phone]
[2019-02-11 19:00] VITALS: BP 145/88
[2019-02-11] MEDS: LACTOBACILLUS RHAMNOSUS GG 1 CAPSULE. PO SCH (21:45)
[2019-02-11] MEDS: ISOSORBIDE MONONITRATE ER 30 MG TAB.ER.24H PO SCH (21:46)
[2019-02-11] MEDS: CALCIUM CARBONATE 500 MG TABLET PO SCH (21:46)
[2019-02-11] MEDS: ASPIRIN ENTERIC COATED 81 MG TABLET.DR. PO SCH (21:48)
[2019-02-11] MEDS: CETIRIZINE HCL 10 MG TABLET. PO SCH (21:48)
[2019-02-11 23:00] VITALS: BP 90/42
[2019-02-12] MEDS: oxyCODONE/APAP 5/325 1 TAB TABLET PO PRN ×2 (02:07→08:21)
[2019-02-12 03:00] VITALS: BP 152/79
[2019-02-12 07:00] VITALS: BP 97/55
[2019-02-12] MEDS: INSULIN LISPRO 300 UNITS/3 ML INSULN.PEN. SQ SCH (08:00)
[2019-02-12] MEDS: metFORMIN 500 MG TABLET PO SCH (08:19)
[2019-02-12 08:20] VITALS: BP 97/55
[2019-02-12] MEDS: METOPROLOL TART IMMED RELEASE 50 MG TABLET. PO SCH (08:20)
[2019-02-12] MEDS: OMEGA-3 FATTY ACIDS/FISH OIL 1,000 MG CAPSULE. PO SCH (08:20)
[2019-02-12] MEDS: MULTIVITAMIN with MINERAL TABLET. PO SCH (08:21)
[2019-02-12] MEDS: MONTELUKAST SODIUM 10 MG TABLET. PO SCH (08:21)
[2019-02-12] MEDS: SENNOSIDES/DOCUSATE 8.6/50MG TABLET. PO SCH (08:22)
[2019-02-12] MEDS: FAMOTIDINE 20 MG TABLET. PO SCH (08:22)
[2019-02-12] MEDS: FENOFIBRATE,MICRONIZED 134 MG CAPSULE PO SCH (08:22)
[2019-02-12] MEDS: FLUTICASONE 50MCG/NASAL SPRAY 16GM BOTTLE. NS SCH (08:22)
[2019-02-12] MEDS: hydroCHLOROthiazide 25 MG TABLET PO SCH (08:22)
[2019-02-12] MEDS: LISINOPRIL 10 MG TABLET PO SCH (08:22)
[2019-02-12] MEDS: ENOXAPARIN 40 MG/0.4 ML SYRINGE. SQ SCH (08:25)
[2019-02-12] MEDS ORDERED: OXYC1TAB15 PO (09:40)
[2019-02-12] MEDS ORDERED: SENN-22 PO (09:40)
--- NOTE | 2019-02-12 10:43 | PDOC ---
SURGICAL PROGRESS NOTE Subjective tolerating diet ambulating pain managed Vital Signs Vital Signs Date Time Temp Pulse Resp B/P (MAP) Pulse Ox O2 Delivery O2 Flow Rate FiO2 02/12/19 09:32 Room Air 02/12/19 08:20 71 97/55 02/12/19 07:00 98.5 18 95 98.5 I&O Intake and Output 02/12/19 06:59 Intake Total 1760 ml Output Total 450 ml Balance 1310 ml Intake Oral 710 ml IV Total 1050 ml Output Urine Total 450 ml # Voids 6 General: Alert, Oriented X3, Cooperative, No acute distress Abdomen: Soft, Other (incision c/d/i, no erythema ) Labs Laboratory Tests Test 02/10/19 11:46 02/10/19 17:01 02/10/19 20:19 02/11/19 03:45 Glucose (Fingerstick) 172 mg/dL (70-99) 151 mg/dL (70-99) 173 mg/dL (70-99) White Blood Count 16.4 x10^3/uL (4.0-11.0) Red Blood Count 4.01 x10^6/uL (3.50-5.40) Hemoglobin 10.5 g/dL (12.0-15.5) Hematocrit 32.5 % (36.0-47.0) Mean Corpuscular Volume 81 fL (79-100) Mean Corpuscular Hemoglobin 26 pg (25-35) Mean Corpuscular Hemoglobin Concent 32 g/dL (31-37) Red Cell Distribution Width 14.9 % (11.5-14.5) Platelet Count 301 x10^3/uL (140-400) Neutrophils (%) (Auto) 85 % (31-73) Lymphocytes (%) (Auto) 8 % (24-48) Monocytes (%) (Auto) 7 % (0-9) Eosinophils (%) (Auto) 0 % (0-3) Basophils (%) (Auto) 0 % (0-3) Neutrophils # (Auto) 13.9 x10^3uL (1.8-7.7) Lymphocytes # (Auto) 1.3 x10^3/uL (1.0-4.8) Monocytes # (Auto) 1.1 x10^3/uL (0.0-1.1) Eosinophils # (Auto) 0.0 x10^3/uL (0.0-0.7) Basophils # (Auto) 0.0 x10^3/uL (0.0-0.2) Segmented Neutrophils % 81 % (35-66) Band Neutrophils % 5 % (0-9) Lymphocytes % 6 % (24-48) Atypical Lymphocytes % (Manual) 1 % (0-0) Monocytes % 7 % (0-10) Platelet Estimate Adequate (ADEQUATE) Sodium Level 138 mmol/L (136-145) Potassium Level 4.1 mmol/L (3.5-5.1) Chloride Level 101 mmol/L (98-107) Carbon Dioxide Level 25 mmol/L (21-32) Anion Gap 12 (6-14) Blood Urea Nitrogen 15 mg/dL (7-20) Creatinine 1.2 mg/dL (0.6-1.0) Estimated GFR (Cockcroft-Gault) 44.8 BUN/Creatinine Ratio 13 (6-20) Glucose Level 117 mg/dL (70-99) Calcium Level 8.7 mg/dL (8.5-10.1) Total Bilirubin 0.4 mg/dL (0.2-1.0) Aspartate Amino Transf (AST/SGOT) 44 U/L (15-37) Alanine Aminotransferase (ALT/SGPT) 42 U/L (14-59) Alkaline Phosphatase 50 U/L (46-116) Total Protein 6.1 g/dL (6.4-8.2) Albumin 3.0 g/dL (3.4-5.0) Albumin/Globulin Ratio 1.0 (1.0-1.7) Test 02/11/19 07:10 02/11/19 11:17 02/11/19 16:28 02/11/19 20:31 Glucose (Fingerstick) 111 mg/dL (70-99) 105 mg/dL (70-99) 91 mg/dL (70-99) 106 mg/dL (70-99) Test 02/12/19 07:37 Glucose (Fingerstick) 104 mg/dL (70-99) Laboratory Tests Test 02/11/19 11:17 02/11/19 16:28 02/11/19 20:31 02/12/19 07:37 Glucose (Fingerstick) 105 mg/dL (70-99) 91 mg/dL (70-99) 106 mg/dL (70-99) 104 mg/dL (70-99) Assessment/Plan s/p DEBO [place] VIH ok to dc, FU 2 weeks ABRAHAN LAFLEUR APRN Feb 12, 2019 10:43
--- NOTE | 2019-02-12 16:40 | PDOC3 ---
Discharge Summary Visit Information Date of Admission: Feb 10, 2019 Date of Discharge: Feb 12, 2019 Admitting Diagnosis: acute abd pain Final Diagnosis Laparoscopic DEBO, cholecystectomy, VIH repair (02/10) H/o extensive adhesiolysis, enterotomy (2016) H/o diverticulitis, SBO (11/2018) DM2 HTN Brief Hospital Course Allergies Allergies Coded Allergies Type Severity Reaction Last Updated Verified Iodinated Contrast- Oral and IV Dye Allergy Severe Shortness of Air 02/10/19 Yes erythromycin base Allergy Severe Shortness of Air 02/10/19 Yes morphine Allergy Severe Anaphylaxis 02/10/19 Yes hydrocodone Allergy Intermediate DIZZINESS 02/10/19 Yes iodine Allergy Intermediate 02/10/19 Yes Vital Signs Vital Signs Date Time Temp Pulse Resp B/P (MAP) Pulse Ox O2 Delivery O2 Flow Rate FiO2 02/12/19 09:32 Room Air 02/12/19 08:20 71 97/55 02/12/19 07:00 98.5 18 95 98.5 Lab Results Laboratory Tests Test 02/10/19 17:01 02/10/19 20:19 02/11/19 03:45 02/11/19 07:10 Glucose (Fingerstick) 151 mg/dL (70-99) 173 mg/dL (70-99) 111 mg/dL (70-99) White Blood Count 16.4 x10^3/uL (4.0-11.0) Red Blood Count 4.01 x10^6/uL (3.50-5.40) Hemoglobin 10.5 g/dL (12.0-15.5) Hematocrit 32.5 % (36.0-47.0) Mean Corpuscular Volume 81 fL (79-100) Mean Corpuscular Hemoglobin 26 pg (25-35) Mean Corpuscular Hemoglobin Concent 32 g/dL (31-37) Red Cell Distribution Width 14.9 % (11.5-14.5) Platelet Count 301 x10^3/uL (140-400) Neutrophils (%) (Auto) 85 % (31-73) Lymphocytes (%) (Auto) 8 % (24-48) Monocytes (%) (Auto) 7 % (0-9) Eosinophils (%) (Auto) 0 % (0-3) Basophils (%) (Auto) 0 % (0-3) Neutrophils # (Auto) 13.9 x10^3uL (1.8-7.7) Lymphocytes # (Auto) 1.3 x10^3/uL (1.0-4.8) Monocytes # (Auto) 1.1 x10^3/uL (0.0-1.1) Eosinophils # (Auto) 0.0 x10^3/uL (0.0-0.7) Basophils # (Auto) 0.0 x10^3/uL (0.0-0.2) Segmented Neutrophils % 81 % (35-66) Band Neutrophils % 5 % (0-9) Lymphocytes % 6 % (24-48) Atypical Lymphocytes % (Manual) 1 % (0-0) Monocytes % 7 % (0-10) Platelet Estimate Adequate (ADEQUATE) Sodium Level 138 mmol/L (136-145) Potassium Level 4.1 mmol/L (3.5-5.1) Chloride Level 101 mmol/L (98-107) Carbon Dioxide Level 25 mmol/L (21-32) Anion Gap 12 (6-14) Blood Urea Nitrogen 15 mg/dL (7-20) Creatinine 1.2 mg/dL (0.6-1.0) Estimated GFR (Cockcroft-Gault) 44.8 BUN/Creatinine Ratio 13 (6-20) Glucose Level 117 mg/dL (70-99) Calcium Level 8.7 mg/dL (8.5-10.1) Total Bilirubin 0.4 mg/dL (0.2-1.0) Aspartate Amino Transf (AST/SGOT) 44 U/L (15-37) Alanine Aminotransferase (ALT/SGPT) 42 U/L (14-59) Alkaline Phosphatase 50 U/L (46-116) Total Protein 6.1 g/dL (6.4-8.2) Albumin 3.0 g/dL (3.4-5.0) Albumin/Globulin Ratio 1.0 (1.0-1.7) Test 02/11/19 11:17 02/11/19 16:28 02/11/19 20:31 02/12/19 07:37 Glucose (Fingerstick) 105 mg/dL (70-99) 91 mg/dL (70-99) 106 mg/dL (70-99) 104 mg/dL (70-99) Laboratory Tests Test 02/11/19 20:31 02/12/19 07:37 Glucose (Fingerstick) 106 mg/dL (70-99) 104 mg/dL (70-99) Brief Hospital Course Ms. Anna is a 68 old female, admit with abd pain, acute on chronic poli, Discharge Information Condition at Discharge: Improved Follow Up: Weeks Disposition/Orders: D/C to Home Scheduled Aspirin (Aspirin Ec) 81 Mg Tablet.dr, 81 MG PO HS, (Reported) Entered as Reported by: AD CARLSON on 11/06/13 1539 Last Taken: Unknown Dose on 02/02/19 Last Action: Continued on 02/10/191057 by Kenneth Newsome Calcium Carbonate (Calcium) 600 Mg Tablet, 600 MG PO HS, (Reported) Entered as Reported by: AD CARLSON on 11/06/13 1541 Last Action: Converted on 02/10/191057 by Kenneth Newsome Fenofibrate Nanocrystallized (Tricor) 145 Mg Tablet, 1 TAB PO DAILY, #30 Ref 5 ( Reported) Entered as Reported by: ERMA EDWARD on 08/09/18 160 Last Taken: Unknown Dose on 02/10/19 0600 Last Action: Converted on 1057 by Kenneth Newsome Fluticasone Propionate (Flonase Allergy Relief) 9.9 Ml Murray.susp, 2 SPRAYS NS DAILY for asthma, (Reported) Entered as Reported by: TIFFANY BARFIELD on 02/09/19 0919 Last Action: Converted on 02/10/191057 by Kenneth Newsome Fluticasone/Salmeterol (Advair 250-50 Diskus) 1 Each Disk.w.dev, 1 PUFF IH BID, #3 Ref 3 (Reported) Entered as Reported by: ERMA EDWARD on 08/09/18 1607 Last Taken: Unknown Dose on 02/10/19 0600 Last Action: Converted on 1057 by Kenneth Newsome Gluc 2KCL/Chondr/Sean Hy/Hy Ac (Glucosamine & Chondroitin Cap) 1 Each Capsule, 2 EACH PO DAILY, (Reported) Entered as Reported by: AD CARLSON on 11/06/13 1550 Last Action: Converted on 02/10/191057 by Kenneth Newsome Hydrochlorothiazide (Hydrochlorothiazide Tablet ) 25 Mg Tablet, 1 TAB PO DAILY, #30 Ref 5 (Reported) Entered as Reported by: ERMA EDWARD on 08/09/18 1607 Last Action: Continued on 02/10/191057 by Kenneth Newsome Isosorbide Mononitrate (Imdur) 60 Mg Tab.er.24h, 60 MG PO HS for chest pain, ( Reported) Entered as Reported by: AD CARLSON on 11/06/13 1551 Last Taken: Unknown Dose on 02/09/19 Last Action: Converted on 02/10/191057 by Kenneth Newsome Lactobacillus Combo No.11 (Probiotic) 1 Each Cap.sprink, 2 EACH PO HS for supplement, (Reported) Entered as Reported by: TIFFANY BARFIELD on 02/09/19917 Last Action: Converted on 02/10/191057 by Kenneth Newsome Levalbuterol Hcl (Xopenex) 0.63 Mg/3 Ml Vial.neb, 1 VIAL NEB PRN for asthma, # 360 Ref 11 (Reported) Entered as Reported by: TIFFANY BARFIELD on 02/09/19917 Last Action: Converted on 02/10/191057 by Kenneth Newsome Levalbuterol Tartrate (Xopenex Hfa) 15 Gm Hfa.aer.ad, 2 PUFF IH PRN Q4-6HRS for asthma, #15 (Reported) Entered as Reported by: TIFFANY BARFIELD on 02/09/19916 Last Action: Converted on 02/10/191057 by Kenneth Newsome Lisinopril (Prinivil) 10 Mg Tablet, 10 MG PO BID for FOR HYPERTENSION, #30 Ref 0 (Reported) Entered as Reported by: ERMA EDWARD on 08/09/18 1607 Last Taken: Unknown Dose on 02/09/19 Last Action: Continued on 02/10/191057 by Kenneth Newsome Loratadine (Claritin) 10 Mg Capsule, 10 MG PO HS, (Reported) Entered as Reported by: AD CARLSON on 11/06/13 1539 Last Taken: Unknown Dose on 02/10/19 0600 Last Action: Converted on 1057 by Kenneth Newsome Metformin Hcl (Metformin Hcl) 1,000 Mg Tablet, 1,000 MG PO BID, (Reported) Entered as Reported by: AD CARLSON on 11/06/13 1538 Last Taken: Unknown Dose on 02/09/19 Last Action: Converted on 02/10/191057 by Kenneth Newsome Metoprolol Tartrate (Metoprolol Tartrate) 50 Mg Tablet, 50 MG PO BID, (Reported) Entered as Reported by: AD CARLSON on 11/06/13 1537 Last Taken: Unknown Dose on 02/10/19 0630 Last Action: Continued on 1057 by Kenneth Newsome Montelukast Sodium (Montelukast Sodium Tablet) 10 Mg Tablet, 1 TAB PO DAILY, # 30 Ref 5 (Reported) Entered as Reported by: ERMA EDWARD on 08/09/18 160 Last Action: Converted on 02/10/191057 by Kenneth Newsome Multivitamin (Multi Vitamin Daily) 1 Each Tablet, 1 EACH PO DAILY, (Reported) Entered as Reported by: ERMA EDWARD on 08/09/18 160 Last Action: Converted on 02/10/191057 by Kenneth Newsome [place]-3 Fatty Acids (Fish Oil) 300 Mg Capsule, 2,000 MG PO BID for supplement, ( Reported) Entered as Reported by: DA CARLSON on 11/06/13 1541 Last Taken: Unknown Dose on 02/02/19 Last Action: Converted on 02/10/191057 by Kenneth Newsome Ranitidine Hcl (Ranitidine Hcl) 150 Mg Capsule, 150 MG PO BID, (Reported) Entered as Reported by: AD CARLSON on 11/06/13 1540 Last Taken: Unknown Dose on 02/10/19 0600 Last Action: Converted on 1057 by Kenneth Newsome Sennosides/Docusate Sodium (Senna-Time S Tablet) 1 Each Tablet, 1 TAB PO BID for prevent constipation, #60 Prescribed by: BRYON ELDER on 02/12/19 0940 Tiotropium [place] (Spiriva) 18 Mcg Cap.w.dev, 2 INH IH DAILY, #1 Ref 0 ( Reported) Entered as Reported by: ERMA EDWARD on 08/09/18 160 Last Taken: Unknown Dose on 02/10/19 0600 Last Action: Converted on 1057 by Kenneth Newsome Scheduled PRN Oxycodone/Apap 5-325 (Percocet 5-325 Mg Tablet ) 1 Each Tablet, 1 TAB PO PRN Q4HRS PRN for MILD PAIN, 1ST CHOICE, #30 Prescribed by: BRYON ELDER on 02/12/19 0940 Discontinued Medications [place]-3/Dha/Epa/Fish Oil (Fish Oil 1,000 mg Softgel) 1,000 Mg Capsule, 2,000 MG PO HS for Heart Health, (Reported) Entered as Reported by: ERMA EDWARD on 08/09/18 1607 Last Action: Discontinued on 02/09/19 0917 by TIFFANY BARFIELD Patient Instructions Patient Instructions > 30 min face to face BRYON ELDER MD Feb 12, 2019 16:40
== END 2019-02-12 11:05 | disposition home or self-care (01) | DRG 336 ==
LOC: SURG 07:34 → 4 NORTH 11:35
PROVIDERS: ADMIT Surgery; ATTEND Surgery
PROC: 0WQF4ZZ Repair Abdominal Wall, Percutaneous Endoscopic Approach (ICD-10-PCS; 2019-02-10)
PROC: BF101ZZ Fluoroscopy of Bile Ducts using Low Osmolar Contrast (ICD-10-PCS; 2019-02-10)
PROC: 0DNU4ZZ Release Omentum, Percutaneous Endoscopic Approach (ICD-10-PCS; principal; 2019-02-10 09:00)
PROC: 0FT44ZZ Resection of Gallbladder, Percutaneous Endoscopic Approach (ICD-10-PCS; 2019-02-10 09:00)
DX: K43.2 Incisional hernia without obstruction or gangrene (principal); K56.49 Other impaction of intestine; K81.0 Acute cholecystitis; E44.0 Moderate protein-calorie malnutrition; K82.8 Other specified diseases of gallbladder; E11.9 Type 2 diabetes mellitus without complications; K66.0 Peritoneal adhesions (postprocedural) (postinfection); I10 Essential (primary) hypertension; G89.29 Other chronic pain; E78.5 Hyperlipidemia, unspecified; K21.9 Gastro-esophageal reflux disease without esophagitis; J45.909 Unspecified asthma, uncomplicated; Z90.710 Acquired absence of both cervix and uterus; Z88.5 Allergy status to narcotic agent; Z88.8 Allergy status to other drugs, medicaments and biological substances; Z91.041 Radiographic dye allergy status
CPT/HCPCS: 36415; 74018; 74300; 80053; 82962; 85007; 85025; 88304; A7015; J0171; J0330; J0696; J0780; J1100; J1170; J1644; J1650; J1815; J2001; J2250; J2405; J2704; J2710; J3010; J3490; J7030; J7120; Q9967

== ENCOUNTER 2019-02-15 18:18 | Emergency (ER) | payer MEDICARE, OTHER ==
[~2019-02-15] VITALS: Ht 174 cm; Wt 87.5 kg
[~2019-02-15 18:18] MED LIST changes: -BISACODYL 10 MG SUPP.RECT. ONE; -BUPIVAC MPF-EPI 0.5%-1:200000 30 ML VIAL. ONE; -HEPARIN 1,000 UNIT in IV NORMAL SALINE 1,000 ML for SURG PERIOP IRR ONE; -IBUPROFEN 200 MG TABLET. PO SCH; -IOHEXOL 300 MG/ML 100ML VIAL. ONE; -IV RINGERS,LACTATED 1000ML 1,000 ML IV SCH; -ONDANSETRON PF 4 MG/2 ML VIAL. IV PRN; +OXYC1TAB15 PO; -PROCHLORPERAZINE 10 MG/2 ML VIAL. IV PRN; +SENN-22 PO; -SURGICEL HEMOSTAT 4X8 EACH. ONE; -fentaNYL PF VIAL 100 MCG/2 ML VIAL IV PRN
[2019-02-15] MEDS ORDERED: IV NORMAL SALINE 1000ML BAG 1,000 ML IV SCH (18:43)
[2019-02-15] MEDS ORDERED: ONDANSETRON PF 4 MG/2 ML VIAL. IV ONE (18:45)
[2019-02-15 19:16] LABS: BASO % 0 % (0-3); EOS # 0.4 x10^3/uL (0.0-0.7); EOS % 4 % (0-3); HEMATOCRIT 35.4 % (36.0-47.0); HEMOGLOBIN 11.6 g/dL (12.0-15.5); LYMPH # 1.6 x10^3/uL (1.0-4.8); LYMPH % 15 % (24-48); MEAN CORPUSCULAR HEMOGLOBIN 26 pg (25-35); MEAN CORPUSCULAR HGB CONC 33 g/dL (31-37); MEAN CORPUSCULAR VOLUME 81 fL (79-100); MONO # 0.9 x10^3/uL (0.0-1.1); MONO % 9 % (0-9); NEUT # 7.6 x10^3uL (1.8-7.7); NEUT % 73 % (31-73); PLATELET COUNT 351 x10^3/uL (140-400); RED BLOOD COUNT 4.38 x10^6/uL (3.50-5.40); WHITE BLOOD COUNT 10.4 x10^3/uL (4.0-11.0)
[2019-02-15 19:24] LABS: CALCIUM 9.2 mg/dL (8.5-10.1); CREATININE 1.1 mg/dL (0.6-1.0); GFR 49.5; POTASSIUM 3.9 mmol/L (3.5-5.1)
[2019-02-15 19:29] LABS: PROTHROMBIN TIME PATIENT 12.6 SEC (11.7-14.0)
[2019-02-15 19:30] LABS: ALBUMIN 3.2 g/dL (3.4-5.0); ALBUMIN/GLOBULIN RATIO 0.8 (1.0-1.7); TOTAL BILIRUBIN 0.4 mg/dL (0.2-1.0); TOTAL PROTEIN 7.1 g/dL (6.4-8.2)
--- NOTE | 2019-02-15 20:12 | RAD ---
Abdominal series dated 02/15/2019. COMPARISON: 11/27/2018. CLINICAL INDICATION: Abdominal pain nausea and vomiting. Recent laparotomy. FINDINGS: Single upright portable exam performed. Heart and mediastinal contours are stable. Lungs are clear without focal consolidation. There are prominent interstitial markings, unchanged. No pleural effusion or pneumothorax. Flat and upright views the abdomen show mildly dilated loops of small and large bowel. No air-fluid level or pneumoperitoneum on the upright view. Small amount of stool throughout the colon. No abnormal calcifications. Clips in the right upper quadrant compatible with prior cholecystectomy. IMPRESSION: 1. Mildly dilated loops of small and large bowel, nonspecific. Given the clinical history this is likely related to a generalized ileus. Small bowel obstruction cannot be excluded.. Electronically signed by: Garry Garrett MD (02/15/2019 8:09 PM) [facility]
[2019-02-15] MEDS ORDERED: IV NORMAL SALINE 1000ML BAG 1,000 ML IV ONE (20:15)
--- NOTE | 2019-02-15 21:17 | PHYS DOC ---
Past Medical History Past Medical History: CAD, Diabetes-Type II, GERD, High Cholesterol, Hypertension, Other Additional Past Medical Histor: ruptured diverticulm, bowel obstruction,abd hernias Past Surgical History: Cholecystectomy, Hysterectomy, Tonsillectomy, Other Additional Past Surgical Histo: lumbar laminectomy, Colectomy,hernia repairs Alcohol Use: None Drug Use: None Adult General Chief Complaint Chief Complaint: NAUSEA/VOMITING/[facility] HPI Patient is a 68 year old female presented to the ER today for nausea and vomiting. Patient had open cholecystectomy , hernia repair, and adhesion removal on 02/10/19. She was discharged home on 02/12/19. She has been feeling very nauseous, not able to keep much down. Denied any fever, not much abdominal pain. Patient called her surgeon who told her to come to ER for iv fluid. Patient denied any chest pain, no shortness of air. Review of Systems Review of Systems Constitutional: Denies fever or chills [] Eyes: Denies change in visual acuity, redness, or eye pain [] HENT: Denies nasal congestion or sore throat [] Respiratory: Denies cough or shortness of breath [] Cardiovascular: No additional information not addressed in HPI [] GI: Denies abdominal pain, Positive for nausea, vomiting, NO bloody stools or diarrhea [] : Denies dysuria or hematuria [] Musculoskeletal: Denies back pain or joint pain [] Integument: Denies rash or skin lesions [] Neurologic: Denies headache, focal weakness or sensory changes [] Endocrine: Denies polyuria or polydipsia [] All other systems were reviewed and found to be within normal limits, except as documented in this note. Current Medications Current Medications Current Medications Medications (Trade) Dose Ordered Sig/Vera Start Time Stop Time Status Last Admin Dose Admin Ondansetron HCl (Zofran) 4 mg 1X ONCE 02/15/19 18:45 02/15/19 18:46 DC 02/15/19 19:16 4 MG Sodium Chloride 1,000 ml @ 1,000 mls/hr 1X ONCE 02/15/19 20:15 02/15/19 21:14 DC 02/15/19 20:25 1,000 MLS/HR Allergies Allergies Allergies Coded Allergies Type Severity Reaction Last Updated Verified Iodinated Contrast- Oral and IV Dye Allergy Severe Shortness of Air 02/10/19 Yes erythromycin base Allergy Severe Shortness of Air 02/10/19 Yes morphine Allergy Severe Anaphylaxis 02/10/19 Yes hydrocodone Allergy Intermediate DIZZINESS 02/10/19 Yes iodine Allergy Intermediate 02/10/19 Yes Physical Exam Physical Exam Constitutional: Well developed, well nourished, no acute distress, non-toxic appearance. [] HENT: Normocephalic, atraumatic, bilateral external ears normal, oropharynx moist, no oral exudates, nose normal. [] Eyes: PERRLA, EOMI, conjunctiva normal, no discharge. [] Neck: Normal range of motion, no tenderness, supple, no stridor. [] Cardiovascular:Heart rate regular rhythm, no murmur [] Lungs & Thorax: Bilateral breath sounds clear to auscultation [] Abdomen: Bowel sounds: HYPERACTIVE, soft, MILD TENDERNESS NOT PALPATION, VERTICAL INCISION INTACT, NO DRAINAGE. Skin: Warm, dry, no erythema, no rash. [] Back: No tenderness, no CVA tenderness. [] Extremities: No tenderness, no cyanosis, no clubbing, ROM intact, no edema. [] Neurologic: Alert and oriented X 3, normal motor function, normal sensory function, no focal deficits noted. [] Psychologic: Affect normal, judgement normal, mood normal. [] Current Patient Data Vital Signs Vital Signs Date Time Temp Pulse Resp B/P (MAP) Pulse Ox O2 Delivery O2 Flow Rate FiO2 02/15/19 21:55 86 18 120/65 (83) 95 02/15/19 20:09 Room Air 02/15/19 18:30 97.7 97.7 Lab Values Laboratory Tests Test 02/15/19 19:00 White Blood Count 10.4 x10^3/uL (4.0-11.0) Red Blood Count 4.38 x10^6/uL (3.50-5.40) Hemoglobin 11.6 g/dL (12.0-15.5) L Hematocrit 35.4 % (36.0-47.0) L Mean Corpuscular Volume 81 fL (79-100) Mean Corpuscular Hemoglobin 26 pg (25-35) Mean Corpuscular Hemoglobin Concent 33 g/dL (31-37) Red Cell Distribution Width 15.0 % (11.5-14.5) H Platelet Count 351 x10^3/uL (140-400) Neutrophils (%) (Auto) 73 % (31-73) Lymphocytes (%) (Auto) 15 % (24-48) L Monocytes (%) (Auto) 9 % (0-9) Eosinophils (%) (Auto) 4 % (0-3) H Basophils (%) (Auto) 0 % (0-3) Neutrophils # (Auto) 7.6 x10^3uL (1.8-7.7) Lymphocytes # (Auto) 1.6 x10^3/uL (1.0-4.8) Monocytes # (Auto) 0.9 x10^3/uL (0.0-1.1) Eosinophils # (Auto) 0.4 x10^3/uL (0.0-0.7) Basophils # (Auto) 0.0 x10^3/uL (0.0-0.2) Prothrombin Time 12.6 SEC (11.7-14.0) Prothrombin Time INR 1.0 (0.8-1.1) PTT 26 SEC (24-38) Sodium Level 136 mmol/L (136-145) Potassium Level 3.9 mmol/L (3.5-5.1) Chloride Level 99 mmol/L (98-107) Carbon Dioxide Level 29 mmol/L (21-32) Anion Gap 8 (6-14) Blood Urea Nitrogen 17 mg/dL (7-20) Creatinine 1.1 mg/dL (0.6-1.0) H Estimated GFR (Cockcroft-Gault) 49.5 BUN/Creatinine Ratio 15 (6-20) Glucose Level 130 mg/dL (70-99) H Calcium Level 9.2 mg/dL (8.5-10.1) Total Bilirubin 0.4 mg/dL (0.2-1.0) Aspartate Amino Transferase (AST) 41 U/L (15-37) H Alanine Aminotransferase (ALT) 67 U/L (14-59) H Alkaline Phosphatase 89 U/L (46-116) Total Protein 7.1 g/dL (6.4-8.2) Albumin 3.2 g/dL (3.4-5.0) L Albumin/Globulin Ratio 0.8 (1.0-1.7) L Lipase 74 U/L (73-393) Laboratory Tests 02/15/19 19:00 Laboratory Tests 02/15/19 19:00 EKG EKG [] Radiology/Procedures Radiology/Procedures [][facility] [address] [place] [address] IMAGING REPORT Signed PATIENT: FLOYD PLEITEZ ACCOUNT: [id number] : 1950 LOCATION: ER AGE: 68 SEX: F EXAM STATUS: REG ER ORD. PHYSICIAN: ALFREDITO MURRAY DO REASON: abdominal pain, nausea, vomiting, recent laparotomy on 02/10/19 PROCEDURE: ACUTE ABDOMEN SERIES Abdominal series dated 02/15/2019. COMPARISON: 11/27/2018. CLINICAL INDICATION: Abdominal pain nausea and vomiting. Recent laparotomy. FINDINGS: Single upright portable exam performed. Heart and mediastinal contours are stable. Lungs are clear without focal consolidation. There are prominent interstitial markings, unchanged. No pleural effusion or pneumothorax. Flat and upright views the abdomen show mildly dilated loops of small and large bowel. No air-fluid level or pneumoperitoneum on the upright view. Small amount of stool throughout the colon. No abnormal calcifications. Clips in the right upper quadrant compatible with prior cholecystectomy. IMPRESSION: 1. Mildly dilated loops of small and large bowel, nonspecific. Given the clinical history this is likely related to a generalized ileus. Small bowel obstruction cannot be excluded.. Electronically signed by: Garry Garrett MD (02/15/2019 8:09 PM) [facility] DICTATED and SIGNED BY: GARRY GARRETT MD DATE: 02/15/192008 Course & Med Decision Making Course & Med Decision Making Pertinent Labs and Imaging studies reviewed. (See chart for details) Patient was given iv fluid. She felt much better now. She denied any nausea or vomiting. Patient would like to go home with a prescription for some zofran. Dragon Disclaimer [place] Disclaimer This electronic medical record was generated, in whole or in part, using a voice recognition dictation system. Departure Departure Impression: Primary Impression: Nausea & vomiting Additional Impression: Dehydration Disposition: HOME, SELF-CARE Condition: IMPROVED Referrals: CORRINA RUBIO MD (PCP) follow up with your surgeon on Saturday Patient Instructions: Dehydration, Adult, Nausea and Vomiting Scripts Ondansetron Hcl (ZOFRAN) 4 Mg Tablet 1 TAB PO Q6HRS, #20 TAB Prov: ALFREDITO MURRAY DO 02/15/19 Problem Qualifiers ALFREDITO MURRAY DO Feb 15, 2019 21:17
[2019-02-15] MEDS ORDERED: ONDA4TAB7 PO (21:22)
[2019-02-15 21:55] VITALS: BP 120/65
== END 2019-02-15 22:09 | disposition home or self-care (01) ==
LOC: ER 18:18
DX: R11.2 Nausea with vomiting, unspecified (principal); E86.0 Dehydration; E78.00 Pure hypercholesterolemia, unspecified; K21.9 Gastro-esophageal reflux disease without esophagitis; I10 Essential (primary) hypertension; I25.10 Atherosclerotic heart disease of native coronary artery without angina pectoris; E11.9 Type 2 diabetes mellitus without complications; Z90.49 Acquired absence of other specified parts of digestive tract; Z90.710 Acquired absence of both cervix and uterus; Z98.890 Other specified postprocedural states; Z88.1 Allergy status to other antibiotic agents; Z88.5 Allergy status to narcotic agent; Z91.041 Radiographic dye allergy status; Z88.8 Allergy status to other drugs, medicaments and biological substances
CPT/HCPCS: 36415; 74022; 80053; 83690; 85025; 85610; 85730; 96361; 96374; 99284; J2405; J7030

== ENCOUNTER → 2019-07-29 | Outpatient (CLI) | payer OTHER, MEDICARE ==
[~2019-07-29] MED LIST changes: +MONT10TA49 PO; -MONT10TA9 PO; +ONDA4TAB7 PO
[2019-07-29 09:58] LABS: BASO # 0.1 x10^3/uL (0.0-0.2); BASO % 1 % (0-3); EOS # 0.1 x10^3/uL (0.0-0.7); EOS % 2 % (0-3); HEMATOCRIT 38.3 % (36.0-47.0); HEMOGLOBIN 12.7 g/dL (12.0-15.5); LYMPH # 1.8 x10^3/uL (1.0-4.8); LYMPH % 25 % (24-48); MEAN CORPUSCULAR HEMOGLOBIN 28 pg (25-35); MEAN CORPUSCULAR HGB CONC 33 g/dL (31-37); MEAN CORPUSCULAR VOLUME 83 fL (79-100); MONO # 0.6 x10^3/uL (0.0-1.1); MONO % 8 % (0-9); NEUT # 4.7 x10^3/uL (1.8-7.7); NEUT % 64 % (31-73); PLATELET COUNT 370 x10^3/uL (140-400); RED CELL DISTRIBUTION WIDTH 14.1 % (11.5-14.5); WHITE BLOOD COUNT 7.3 x10^3/uL (4.0-11.0)
[2019-07-29 10:22] LABS: ALBUMIN 3.9 g/dL (3.4-5.0); ALBUMIN/GLOBULIN RATIO 1.1 (1.0-1.7); CALCIUM 9.7 mg/dL (8.5-10.1); CREATININE 1.3 mg/dL (0.6-1.0); GFR 40.9; TOTAL BILIRUBIN 0.3 mg/dL (0.2-1.0); TOTAL PROTEIN 7.6 g/dL (6.4-8.2)
[2019-07-29 10:29] LABS: CHOLESTEROL/HDL RATIO 5.9
[2019-07-29 10:30] LABS: POTASSIUM 5.2 mmol/L (3.5-5.1)
[2019-07-29 10:35] LABS: FREE T4 1.13 ng/dL (0.76-1.46); THYROID STIM HORMONE (TSH) 1.464 uIU/mL (0.358-3.74)
--- NOTE | 2019-07-29 12:46 | CARD ---
MR#: [id number] Date of Study: 07/29/2019 Ordering Physician: CORRINA RUBIO, Referring Physician: CORRINA RUBIO Tech: Delilah Leblanc LEONELA APPROVED REPORT EXAM: Two-dimensional and M-mode echocardiogram with Doppler and color Doppler. Other Information Quality : Good INDICATION Pericardial Effusion Cardiac Disease: CAD 2D DIMENSIONS RVDd2.5 (2.9-3.5cm)Left Atrium(2D)3.3 (1.6-4.0cm) IVSd0.6 (0.7-1.1cm)Aortic Root(2D)2.8 (2.0-3.7cm) LVDd4.0 (3.9-5.9cm)LVOT Diameter2.1 (1.8-2.4cm) PWd0.7 (0.7-1.1cm)LVDs2.7 (2.5-4.0cm) FS (%) 33.5 %SV44.6 ml LVEF(%)62.8 (>50%) Aortic Valve AoV Peak Reginaldo.187.0cm/sAoV VTI33.2cm AO Peak GR.14.0mmHgLVOT Peak Reginaldo.141.2cm/s LVOT VTI 27.93cmAO Mean GR.7mmHg ISABEL (VMAX)2.95xa1NJK (VTI)2.92cm2 Mitral Valve MV E Yjjxhgzp95.4cm/sMV DECEL XALW978rq MV A Aiydtooq71.3cm/sMV VUV58ce E/A Ratio0.8MVA (PHT)2.23cm2 TDI E/Lateral E'7.2E/Medial E'13.0 Tricuspid Valve TR P. Bbxpnwsm129kb/sRAP AXRZDBJO4wxOe TR Peak Gr.46obLuCHTA39ozHk Pulmonary Vein S1 Gafluvtn44.4cm/sD2 Rhfgtyuq17.2cm/s LEFT VENTRICLE The left ventricle is normal size. There is normal left ventricular wall thickness. The left ventricu lar systolic function is normal and the ejection fraction is within normal range. The Ejection Fracti on is 55-60%. There is normal LV segmental wall motion. Transmitral Doppler flow pattern is Grade I-a bnormal relaxation pattern. RIGHT VENTRICLE The right ventricle is normal size. The right ventricular systolic function is normal. ATRIA The left atrium size is normal. The right atrium size is normal. The interatrial septum is intact wit h no evidence for an atrial septal defect or patent foramen ovale as noted on 2-D or Doppler imaging. AORTIC VALVE The aortic valve is calcified but opens well. Doppler and Color Flow revealed no significant aortic r egurgitation. There is no significant aortic valvular stenosis. MITRAL VALVE The mitral valve is calcified but opens well. Posterior mitral annular calcification is mild. There i s no evidence of mitral valve prolapse. There is no mitral valve stenosis. Doppler and Color-flow rev ealed trace mitral regurgitation. TRICUSPID VALVE The tricuspid valve is normal in structure and function. Doppler and Color Flow revealed trace tricus pid regurgitation. The PA pressure was estimated at 24 mmHg. There is no tricuspid valve stenosis. PULMONIC VALVE The pulmonic valve is not well visualized. Doppler and Color Flow revealed trace pulmonic valvular re gurgitation. There is no pulmonic valvular stenosis. GREAT VESSELS The aortic root is normal in size. The ascending aorta is not well seen. The IVC is normal in size an d collapses >50% with inspiration. PERICARDIAL EFFUSION There is no evidence of significant pericardial effusion. Critical Notification Critical Value: No <Conclusion> The left ventricle is normal size. The left ventricular systolic function is normal and the ejection fraction is within normal range. The Ejection Fraction is 55-60%. There is no significant aortic valvular stenosis. Doppler and Color Flow revealed no significant aortic regurgitation. Doppler and Color-flow revealed trace mitral regurgitation. Doppler and Color Flow revealed trace tricuspid regurgitation. The PA pressure was estimated at 24 mmHg. There is no evidence of significant pericardial effusion. Signed by : Blake Melton MD Electronically Approved : 07/29/2019 12:46:21
[2019-07-30 00:10] LABS: HEMOGLOBIN A1C 6.3 % (4.8-5.6)
== END | disposition home or self-care (01) ==
LOC: ECHO 09:26
PROVIDERS: ATTEND Family Medicine
DX: I08.0 Rheumatic disorders of both mitral and aortic valves (principal); I25.10 Atherosclerotic heart disease of native coronary artery without angina pectoris; I10 Essential (primary) hypertension; E11.9 Type 2 diabetes mellitus without complications; E78.5 Hyperlipidemia, unspecified
CPT/HCPCS: 36415; 80053; 80061; 83036; 84439; 84443; 85025; 93306

== ENCOUNTER → 2019-09-21 | Outpatient (CLI) | payer OTHER, MEDICARE ==
--- NOTE | 2019-09-21 09:08 | RAD ---
MR#: [id number] Date of Study: 09/21/2019 Ordering Physician: DAVID VUONG, Referring Physician: DAVID VUONG, Tech: Reggie Neal MBA, RDMS, RVT, RDCS, RTR APPROVED REPORT Bilateral Lower Extremity Venous Study for DVT Patient Location: OUT-PATIENT Indications Lower Extremity Edema: Bilateral Vein Imaging (Right) CFV (R): Compressible SFJ (R): Compressible FEM (R): Compressible POP (R): Compressible DFV (R): Compressible PTV (R): Spontaneous GSV (R): Spontaneous Peroneals (R): Spontaneous Vein Imaging (Left) CFV (L): Compressible SFJ (L): Compressible FEM (L): Compressible POP (L): Compressible DFV (L): Compressible PTV (L): Spontaneous GSV (L): Spontaneous Peroneals (L): Spontaneous Doppler Evaluation (Right) CFV (R): Spontaneous POP (R):Spontaneous Doppler Evaluation (Left) CFV (L):Spontaneous POP (L):Spontaneous Findings The bilateral lower extremity deep veins were evaluated for thrombus with color Doppler, spectral and grayscale images. On the right the grayscale images of the common femoral, superficial femoral and popliteal veins do n ot demonstrate any evidence of thrombus and these veins appear to be compressible. The below-knee vei ns were not well visualized but grossly appear to be compressible. Spectral imaging and color Doppler do not reveal any evidence of obstruction to flow with normal respirophasic variation above the knee . Below the knee there is spontaneous flow noted. On the left, the grayscale images of the common femoral, superficial femoral and popliteal veins do n ot demonstrate any evidence of thrombus and these veins appear to be compressible. The below-knee vei ns again were not well visualized but grossly appear to be compressible. Spectral imaging and color D oppler do not reveal any evidence of obstruction to flow with normal respirophasic variation above th e knee. The below-knee veins demonstrate spontaneous flow. Critical Notification Critical Value: No <Conclusion> Negative for DVT in the BLE Signed by : Neymar Hilliard, Electronically Approved : 09/21/2019 09:08:09
--- NOTE | 2019-09-21 09:10 | RAD ---
MR#: [id number] Date of Study: 09/21/2019 Ordering Physician: DAVID VUONG, Referring Physician: DAVID VUONG, Tech: Reggie Neal MBA, RDMS, RVT, RDCS, RTR APPROVED REPORT Patient Location : OUT-PATIENT Indications Lower Extremity Edema : Bilateral Findings Mackay scale images of the SFJ do not reveal any obvious evidence of thrombus. The RGSV measures 8.2 mm. The LGSV measures 8.0 mm. The bilateral GSV and LSV do not show any evidence of reflux. Critical Notification Critical Value: No <Conclusion> Negative for reflux Signed by : Neymar Hilliard, Electronically Approved : 09/21/2019 09:09:22
== END | disposition home or self-care (01) ==
LOC: US 07:36
PROVIDERS: ATTEND Internal Medicine Cardiovascular Disease
DX: R60.0 Localized edema (principal)
CPT/HCPCS: 93970

== ENCOUNTER → 2020-01-18 | Outpatient (CLI) | payer OTHER, MEDICARE ==
[~2020-01-18] MED LIST changes: +FURO40TA4 PO; +HYDR50TA6 PO; +ICOS1CAP PO; +LEVA15HF4 IH; +LISI10TA2 PO; +XOPENEX0.63 MG/3 IH
[2020-01-18 09:45] LABS: BASO # 0.1 x10^3/uL (0.0-0.2); BASO % 1 % (0-3); EOS # 0.1 x10^3/uL (0.0-0.7); EOS % 2 % (0-3); HEMATOCRIT 36.8 % (36.0-47.0); HEMOGLOBIN 12.2 g/dL (12.0-15.5); LYMPH # 1.9 x10^3/uL (1.0-4.8); LYMPH % 26 % (24-48); MEAN CORPUSCULAR HEMOGLOBIN 27 pg (25-35); MEAN CORPUSCULAR HGB CONC 33 g/dL (31-37); MEAN CORPUSCULAR VOLUME 82 fL (79-100); MONO # 0.6 x10^3/uL (0.0-1.1); MONO % 9 % (0-9); NEUT # 4.4 x10^3/uL (1.8-7.7); NEUT % 62 % (31-73); PLATELET COUNT 316 x10^3/uL (140-400); RED BLOOD COUNT 4.48 x10^6/uL (3.50-5.40); RED CELL DISTRIBUTION WIDTH 14.6 % (11.5-14.5); WHITE BLOOD COUNT 7.1 x10^3/uL (4.0-11.0)
[2020-01-18 10:06] LABS: ALBUMIN 3.5 g/dL (3.4-5.0); CALCIUM 9.3 mg/dL (8.5-10.1); CREATININE 1.1 mg/dL (0.6-1.0); GFR 49.4; POTASSIUM 4.5 mmol/L (3.5-5.1)
[2020-01-18 10:19] LABS: PROTHROMBIN TIME PATIENT 12.1 SEC (11.7-14.0)
--- NOTE | 2020-01-18 13:17 | EKG ---
[facility] [address] [place] [address] Test Date: 2020-01-18 Test Time: 13:13:56 Pat Name: FLOYD PLEITEZ Department: Room: Gender: F [employer]: : 1950 Requested By: AIDAN SOLIZ Order Number: [id number] Reading MD: Roger Hernandez Measurements Intervals [place] Rate: 80 P: 36 DC: 198 QRS: 34 QRSD: 76 T: 31 QT: 340 QTc: 395 Interpretive Statements SINUS RHYTHM NORMAL ECG RI6.02 Compared to ECG 11/24/2018 21:35:13 No significant changes Electronically Signed On 01-19-2020 10:10:43 BATTERY REPAIRER by Roger Hernandez
--- NOTE | 2020-01-18 17:51 | RAD ---
CHEST PA LATERAL Clinical indications: Joint rehabilitation class. History of hypertension. COMPARISON: February 15, 2019. Findings: No acute lung infiltrate or pleural effusion or pulmonary edema or lung mass or pneumothorax is seen. The heart size, pulmonary vasculature, mediastinum and both sravani are unremarkable. The osseous structures appear intact. Impression: No acute radiographic abnormality of the chest is seen. There is moderate dilatation of bowel loops. Electronically signed by: Cedric Sharif MD (01/18/2020 5:49 PM) [facility] [place]
[2020-01-19 00:07] LABS: HEMOGLOBIN A1C 7.1 % (4.8-5.6)
== END | disposition home or self-care (01) ==
LOC: SURGPAT 13:24
PROVIDERS: ATTEND Orthopaedic Surgery
DX: Z01.818 Encounter for other preprocedural examination (principal); M17.0 Bilateral primary osteoarthritis of knee; I10 Essential (primary) hypertension
CPT/HCPCS: 36415; 71046; 80048; 82040; 82306; 83036; 85025; 85610; 85651; 85730; 87641; 93005

== ENCOUNTER → 2020-05-10 | Outpatient (CLI) | payer OTHER, MEDICARE ==
[~2020-05-10] MED LIST changes: +FAMO20TA5 PO
[2020-05-11 07:21] LABS: ALBUMIN 3.7 g/dL (3.4-5.0); CALCIUM 8.8 mg/dL (8.5-10.1); CREATININE 1.2 mg/dL (0.6-1.0); GFR 44.7; POTASSIUM 3.4 mmol/L (3.5-5.1)
[2020-05-11 07:22] LABS: C-REACTIVE PROTEIN 0.7 mg/L (0-3.3)
[2020-05-11 07:23] LABS: PROTHROMBIN TIME PATIENT 12.2 SEC (11.7-14.0)
[2020-05-11 07:25] LABS: HEMOGLOBIN 12.3 g/dL (12.0-15.5); WHITE BLOOD COUNT 8.7 x10^3/uL (4.0-11.0)
[2020-05-11 07:26] LABS: BASO # 0.1 x10^3/uL (0.0-0.2); BASO % 1 % (0-3); EOS # 0.1 x10^3/uL (0.0-0.7); EOS % 1 % (0-3); HEMATOCRIT 36.3 % (36.0-47.0); LYMPH # 2.2 x10^3/uL (1.0-4.8); LYMPH % 25 % (24-48); MEAN CORPUSCULAR HEMOGLOBIN 28 pg (25-35); MEAN CORPUSCULAR HGB CONC 34 g/dL (31-37); MEAN CORPUSCULAR VOLUME 83 fL (79-100); MONO # 0.7 x10^3/uL (0.0-1.1); MONO % 9 % (0-9); NEUT # 5.6 x10^3/uL (1.8-7.7); NEUT % 65 % (31-73); PLATELET COUNT 334 x10^3/uL (140-400); RED CELL DISTRIBUTION WIDTH 13.6 % (11.5-14.5)
== END | disposition home or self-care (01) ==
LOC: SURGPAT 13:00
PROVIDERS: ATTEND Orthopaedic Surgery
DX: Z01.818 Encounter for other preprocedural examination (principal); Z11.59 Encounter for screening for other viral diseases; M17.0 Bilateral primary osteoarthritis of knee
CPT/HCPCS: 36415; 80048; 82040; 82306; 83036; 85025; 85610; 85730; 86140; 87641; U0003; C9803-CS

== ENCOUNTER 2020-05-17 08:27 | Inpatient (IN) | payer OTHER, MEDICARE ==
[~2020-05-17] VITALS: Ht 171.4 cm; Wt 90.5 kg
[~2020-05-17 08:27] MED LIST changes: +ACETAMINOPHEN 500 MG TABLET PO PRN; -CALC600T4 PO; +CALC600T5 PO; -FAMO20TA5 PO; +IV RINGERS,LACTATED 1000ML 1,000 ML IV SCH; +LIDOCAINE 1% PF 2 ML VIAL. ID PRN; +ONDANSETRON PF 4 MG/2 ML VIAL. IVP PRN; +PROCHLORPERAZINE 10 MG/2 ML VIAL. IVP PRN; +TRANEXAMIC ACID 1,000 MG in IV NS 50ML -- 1ST BAG INJ ONE; +TRANEXAMIC ACID 1,000 MG in IV NS 50ML -- 2ND BAG INJ ONE; +fentaNYL PF VIAL 100 MCG/2 ML VIAL IVP PRN
[2020-05-17] MEDS ORDERED: FAMO20TA5 PO (08:59)
[2020-05-17] MEDS: INSULIN LISPRO 100 UNIT/ML 3ML VIAL for OP,RR ONLY. SQ PRN ×2 (09:43→15:04)
[2020-05-17 09:45] LABS: PROTHROMBIN TIME PATIENT 12.7 SEC (11.7-14.0)
[2020-05-17] MEDS ORDERED: SCOPOLAMINE 1.5MG PATCH. TD ONE (09:45)
--- NOTE | 2020-05-17 09:49 | HP ---
ADMIT DATE: 05/17/2020 PREOPERATIVE HISTORY AND PHYSICAL CHIEF COMPLAINT: Bilateral knee pain. HISTORY OF PRESENT ILLNESS: The patient has increasingly severe bilateral knee pain, giving away, instability that has been unresponsive to previous corticosteroid viscosupplementation, use of an snuff grinder brace and now wants to proceed with more definitive treatment of a bilateral total knee replacement. PAST MEDICAL HISTORY: Significant for diabetes, asthma, hypertension, hyperlipidemia, coronary artery disease, reflux disease. PAST SURGICAL HISTORY: Spinal surgery, sinus surgery, cystocele repair, small bowel resection, laparoscopic cholecystectomy, lysis of adhesions and hernia repair. FAMILY HISTORY: Alcoholism in her father as well as colon cancer, diabetes and heart disease. Heart disease, asthma, and CREST syndrome in a sister. Hypercholesterolemia in a brother and diabetes in her family. 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 MEDICATIONS: List is reviewed. ALLERGIES: INCLUDE HYDROCODONE, IODINE, MORPHINE, ERYTHROMYCIN. PHYSICAL EXAMINATION: VITAL SIGNS: Per her admission sheet. HEENT: Atraumatic, normocephalic. HEART: Regular rate and rhythm. LUNGS: Clear to auscultation bilaterally. ABDOMEN: Benign. EXTREMITIES: Examination of both knees reveals slight varus on the left a little more so than the right. She has medial joint line tenderness bilaterally. Ligaments are grossly stable. She has [id number] patellofemoral crepitus without instability bilaterally, normal alignment, stability, bilateral hips and ankles with intact motor function, distal pulses, sensation, reflexes, skin in both lower extremities throughout. IMAGING: X-rays show tricompartmental degenerative changes, worse in the medial compartment bilaterally. IMPRESSION: Primary osteoarthritis, both knees. TREATMENT PLAN: We had previously talked through risks, benefits, postoperative course of total knee arthroplasty. She agrees to proceed with both at the same time, particularly given her very severe limitations to her activities of daily living and the previous failed nonoperative treatment of injections, bracing, activity modification, among others. She is aware of the possibility of infection, nerve or blood vessel damage, continued pain, instability, medical or other anesthetic complications and wants to proceed with bilateral total knee arthroplasty, which will occur today with [facility] admission following the procedure. AIDAN SOLIZ MD DR: PATRICK/adeline JOB#: [id number] / [id number]
[2020-05-17] MEDS ORDERED: IV NORMAL SALINE 1000ML BAG 1,000 ML IV SCH (10:24)
[2020-05-17] MEDS ORDERED: oxyCODONE IR 5 MG TABLET PO PRN (10:30)
[2020-05-17] MEDS ORDERED: diphenhydrAMINE 50 MG/ML VIAL IVP PRN (10:30)
[2020-05-17] MEDS ORDERED: ZOLPIDEM 5 MG TABLET. PO PRN (10:30)
[2020-05-17] MEDS ORDERED: DEXTROSE 50% 25 GM / 50ML DISP.SYRIN. IV PRN (10:30)
[2020-05-17] MEDS ORDERED: 0.9 % SODIUM CHLORIDE 10 ML DISP.SYRIN. IV PRN (10:30)
[2020-05-17] MEDS ORDERED: PROCHLORPERAZINE 5 MG TABLET. PO PRN (10:30)
[2020-05-17] MEDS ORDERED: NON FORMULARY ITEM (Levalbuterol Hcl (Xopenex) 1.25 MG) IH PRN (10:30)
[2020-05-17] MEDS ORDERED: CALCIUM CARBONATE 500 MG TAB.CHEW PO PRN (10:30)
[2020-05-17] MEDS ORDERED: fentaNYL PF VIAL 100 MCG/2 ML VIAL IVP PRN (10:30)
[2020-05-17] MEDS ORDERED: KETAMINE HCL IN NACL, ISO-OSM 50 MG/5 ML SYRINGE ONE (10:32)
[2020-05-17] MEDS ORDERED: MIDAZOLAM HCL/PF 2 MG/2 ML VIAL. ONE (10:32)
[2020-05-17] MEDS ORDERED: fentaNYL PF VIAL 250 MCG/5 ML VIAL ONE (10:33)
[2020-05-17] MEDS ORDERED: NEOSTIGMINE METHYLSULFATE 5 MG/5 ML SYRINGE. ONE (10:33)
[2020-05-17] MEDS ORDERED: GLYCOPYRROLATE 1 MG/5 ML VIAL. ONE (10:33)
[2020-05-17] MEDS ORDERED: ROCURONIUM 100 MG/10 ML VIAL. ONE (10:33)
[2020-05-17] MEDS ORDERED: ePHEDrine PF IN SALINE 50 MG/10 ML SYRINGE. IV ONE (11:24)
[2020-05-17] MEDS ORDERED: ALBUTEROL SULFATE 2.5 MG/3 ML NEBU. NEB PRN ×2 (11:30→11:45)
[2020-05-17] MEDS ORDERED: PHENYLEPHRINE in 0.9% NACL PF 1 MG/10 ML SYRINGE. IV ONE (11:33)
[2020-05-17] MEDS: ONDANSETRON ODT 4 MG TAB.RAPDIS. PO SCH ×3 (12:00→23:53)
[2020-05-17] MEDS: ONDANSETRON PF 4 MG/2 ML VIAL. IVP SCH ×3 (12:00→23:48)
[2020-05-17] MEDS ORDERED: VANCOMYCIN 1 GM VIAL. ONE ×2 (12:48)
[2020-05-17] MEDS: KETOROLAC 30MG VIAL 30 MG, ROPIVacaine 0.5% PF 60 ML, EPINEPHrine 0.5 MG in IV NORMAL S... INJ ONE ×2 (13:08→13:10)
[2020-05-17] MEDS: IPRATRPIUM/ALBUTEROL 0.5/2.5MG 3 ML NEBU. NEB SCH ×2 (16:00→20:00)
[2020-05-17] MEDS ORDERED: WARFARIN 7.5 MG TABLET. PO ONE (16:00)
--- NOTE | 2020-05-17 16:04 | RAD ---
2 view study of both knees Clinical indications: Postoperative study Right knee: Total right knee arthroplasty is evident which is well aligned. No acute fracture or lytic process is seen. Left knee: Total left knee arthroplasty is evident which is well aligned. No acute fracture or lytic process is seen. IMPRESSION: Bilateral total knee arthroplasties. Electronically signed by: Cedric Sharif MD (05/17/2020 4:01 PM) [id number]
[2020-05-17 16:19] VITALS: BP 129/68
[2020-05-17] MEDS: metFORMIN 500 MG TABLET PO SCH (17:00)
[2020-05-17] MEDS: FERROUS SULFATE 325 MG TABLET. PO SCH (17:00)
[2020-05-17] MEDS: INSULIN LISPRO 300 UNITS/3 ML VIAL. SQ SCH (17:00)
--- NOTE | 2020-05-17 17:00 | NUR ---
Rec'd from PACU per bed, alert/oriented, states discomfort level 4/10, ice pack to bilateral knees for comfort, elevated on pillow, bilateral outer wraps von, dry & intact, bilateral Hemovac,IAC, EDGAR hose in place, IVF infusing into left hand, call light within reach, side rails up x2 family member at bedside, see admission for details
[2020-05-17 17:38] VITALS: BP 117/67
[2020-05-17 17:49] VITALS: BP 115/64
--- NOTE | 2020-05-17 17:54 | PDOC4 ---
Operative Note Operative Note Date of surgery: 05/17/2020 Preoperative diagnosis: Degenerative joint disease bilateral knees Postoperative diagnosis: Same Operative procedure: Bilateral total knee arthroplasties Surgeon: Cristofer Draw String Knotter: Dell donnelly Anesthesia: General Estimated blood loss: 100 cc Complications: None Drains: Bilateral knee Hemovac drains and intra-articular pain catheters Operative indications: Please see my orthopedic clinic note and dictated history and physical of today for detailed operative indications Operative text: Patient was identified procedure verified patient placed in the supine position on the operating table. After adequate amounts of general anesthesia were administered bilateral lower extremities were prepped and draped in standard sterile fashion with thigh tourniquets. After timeout was performed patient procedure identified and verified attention was first turned to the right lower extremity which was exsanguinated by Esmarch bandage and a midline incision was made with a medial parapatellar approach patella was everted fat pad was excised and the distal femur was drilled for an intramedullary guide with a cut made in standard position. Distal femur was then sized at a size 6 and anterior posterior chamfer cuts were made with slight anterior translation to avoid notching. Menisci and anterior cruciate ligament were excised and tibial cut was made with the intramedullary cutting guide aligned with the second toe. Flexion extension gaps were balanced with a size 11 trial and the posterior cruciate ligament was noted to be compromised in the femur prepared with a posterior stabilized construct. Trialing was carried out with a size 5 tibial component which was drilled and broached and a size 6 posterior stabilized femoral component and patella was prepared with a biconvex patella size 26 with osteophytes removed and lateral bone excised to prevent any possible bony impingement. Patellar tracking was noted to be excellent as was ligament balance and stability. Trial components were removed bleeding points were controlled with particular attention to the posterior capsular area irrigation carried out normal saline solution and the following components were cemented in place with polymethylmethacrylate cement: A size 5 journey nonporous tibial component, a size 6 cobalt chrome posterior stabilized femoral component and a size 26 biconcave patella. Excess cement was curetted away and a size 11 posterior stabilized trial was placed and the knee held in extension until cement was verified dry. Trial spacer was then removed and a size 11 posterior stabilized component was locked in place Hemovac drain and pain catheter were placed and pain catheter mixture was injected throughout the joint capsule area. 1 g of vancomycin was sprinkled throughout the joint capsule and retinacular closure accomplished with interrupted #2 Ethibond suture reinforced with #1 PDS strata fix suture. Excellent patellofemoral tracking and alignment were noted. Subcutaneous closure accomplished with buried 2-0 Vicryl suture and skin closure with dwayne. Tourniquet was deflated on the right knee with toes noted to be warm and pink and attention turned to the left kneewhich was exsanguinated by Esmarch bandage and a midline incision was made with a medial parapatellar approach patella was everted fat pad was excised and the distal femur was drilled for an intramedullary guide with a cut made in standard position. Distal femur was then sized at a size 6 and anterior posterior chamfer cuts were performed. Menisci and anterior cruciate ligament were excised and tibial cut was made with the intramedullary cutting guide aligned with the second toe. Flexion extension gaps were balanced with a size 11 trial and the posterior cruciate ligament was noted to be compromised and therefore the femur prepared with a posterior stabilized construct. Trialing was carried out with a size 5 tibial component which was drilled and broached and a size 6 posterior stabi lized femoral component and patella was prepared with a biconvex patella size 26 with osteophytes removed and lateral bone excised to prevent any possible bony impingement. Patellar tracking was noted to be excellent as was ligament balance and stability. Trial components were removed bleeding points were controlled with particular attention to the posterior capsular area. Irrigation carried out with normal saline solution and the following components were cemented in place with polymethylmethacrylate cement: A size 5 journey nonporous tibial component, a size 6 cobalt chrome posterior stabilized femoral component and a size 26 biconcave patella. Excess cement was curetted away and a size 11 posterior stabilized trial was placed and the knee held in extension until cement was verified dry. Trial spacer was then removed and a size 11 posterior stabilized component was locked in place Hemovac drain and pain catheter were placed and pain catheter mixture was injected throughout the joint capsule area. 1 g of vancomycin was sprinkled throughout the joint capsule and retinacularclosure accomplished with interrupted #2 Ethibond suture reinforced with #1 PDS strata fix suture. Excellent patellofemoral tracking and alignment were noted. Subcutaneous closure accomplished with buried 2-0 Vicryl suture and skin closure with dwayne. Tourniquet was deflated on the left knee with toes noted to be warm and pink and susana dressings with Acticoat were placed on both knees and patient was returned to recovery room in stable condition having tolerated the procedure well. Dell donnelly was present for the procedure and assisted in patient positioning prepping draping retraction joint closure and dressings AIDAN SOLIZ MD May 17, 2020 17:53
[2020-05-17] MEDS: KETOROLAC 30MG VIAL 30 MG, BUPIVACAINE MPF 0.25% 20 ML, EPINEPHrine 0.5 MG in TOTAL VOL... INT ART SCH ×2 (18:00→18:36)
[2020-05-17 18:19] VITALS: BP 115/70
--- NOTE | 2020-05-17 19:55 | NUR ---
Medications held-Zofran, Insulin, no calories consumed
[2020-05-17] MEDS ORDERED: BUDESONIDE 0.5 MG/2 ML NEBU. NEB SCH (20:00)
[2020-05-17] MEDS ORDERED: OMEGA-3 FATTY ACIDS/FISH OIL 1,000 MG CAPSULE. PO SCH (21:00)
[2020-05-17] MEDS ORDERED: NON FORMULARY ITEM (Budesonide/Formoterol Fumarate (Symbicort 160-4.5 Mcg Inhaler) 2 PUFF) IH SCH (21:00)
[2020-05-17] MEDS ORDERED: NON FORMULARY ITEM (Tiotropium Bromide (Spiriva) 2 INH) IH SCH (21:00)
[2020-05-17] MEDS: ASPIRIN ENTERIC COATED 81 MG TABLET.DR. PO SCH (21:33)
[2020-05-17] MEDS: METOPROLOL TART IMMED RELEASE 50 MG TABLET. PO SCH (21:33)
[2020-05-17] MEDS: FAMOTIDINE 20 MG TABLET. PO SCH (21:33)
[2020-05-17] MEDS: ISOSORBIDE MONONITRATE ER 30 MG TAB.ER.24H PO SCH (21:34)
[2020-05-17] MEDS: [UNRECOGNIZED DRUG - OTHER] PO SCH (22:20)
[2020-05-17 23:00] VITALS: BP 99/59
[2020-05-18 03:00] VITALS: BP 102/63
[2020-05-18] MEDS: oxyCODONE IR 5 MG TABLET PO PRN ×4 (04:16→19:56)
[2020-05-18 05:12] LABS: PROTHROMBIN TIME PATIENT 14.6 SEC (11.7-14.0)
[2020-05-18] MEDS: KETOROLAC 30MG VIAL 30 MG, BUPIVACAINE MPF 0.25% 20 ML, EPINEPHrine 0.5 MG in TOTAL VOL... INT ART SCH ×2 (06:00→06:03)
[2020-05-18] MEDS: ONDANSETRON PF 4 MG/2 ML VIAL. IVP SCH (06:00)
[2020-05-18] MEDS ORDERED: MAGNESIUM HYDROXIDE 2,400 MG/30 ML ORAL.SUSP. PO PRN (06:00)
[2020-05-18] MEDS ORDERED: GABAPENTIN 100 MG CAPSULE. PO SCH (06:00)
[2020-05-18] MEDS: ONDANSETRON ODT 4 MG TAB.RAPDIS. PO SCH (06:00)
[2020-05-18 06:05] LABS: HEMOGLOBIN 10.4 g/dL (12.0-15.5)
[2020-05-18] MEDS: traMADol 50 MG TABLET PO SCH ×3 (06:14→17:22)
[2020-05-18 07:15] VITALS: BP 97/60
[2020-05-18] MEDS: INSULIN LISPRO 300 UNITS/3 ML VIAL. SQ SCH ×3 (08:00→17:00)
--- NOTE | 2020-05-18 08:43 | PDOC ---
PROGRESS NOTES Subjective Subjective Problems overnight: Pain well controlled this morning right knee a little more painful than left and reports that she got up for 5 times last night to go to the bathroom with no issues knees overall feel pretty good Objective Vital Signs Vital Signs Date Time Temp Pulse Resp B/P (MAP) Pulse Ox O2 Delivery O2 Flow Rate FiO2 05/18/20 07:15 99.6 90 18 97/60 (72) 96 Room Air 99.6 05/18/20 05:16 2.0 Physical Exam Dressings clean dry intact good stability distal neurovascular status intact Labs Laboratory Tests Test 05/17/20 09:00 05/17/20 09:31 05/17/20 15:01 05/17/20 17:48 Prothrombin Time 12.7 SEC (11.7-14.0) Prothromb Time International Ratio 1.0 (0.8-1.1) Activated Partial Thromboplast Time 28 SEC (24-38) Glucose (Fingerstick) 105 mg/dL (70-99) 193 mg/dL (70-99) 206 mg/dL (70-99) Test 05/17/20 20:39 05/18/20 04:21 05/18/20 07:24 Glucose (Fingerstick) 180 mg/dL (70-99) 108 mg/dL (70-99) Hemoglobin 10.4 g/dL (12.0-15.5) Hematocrit 31.0 % (36.0-47.0) Mean Corpuscular Hemoglobin Concent 33 g/dL (31-37) Prothrombin Time 14.6 SEC (11.7-14.0) Prothromb Time International Ratio 1.2 (0.8-1.1) Laboratory Tests Test 05/17/20 09:00 05/17/20 09:31 05/17/20 15:01 05/17/20 17:48 Prothrombin Time 12.7 SEC (11.7-14.0) Prothromb Time International Ratio 1.0 (0.8-1.1) Activated Partial Thromboplast Time 28 SEC (24-38) Glucose (Fingerstick) 105 mg/dL (70-99) 193 mg/dL (70-99) 206 mg/dL (70-99) Test 05/17/20 20:39 05/18/20 04:21 05/18/20 07:24 Glucose (Fingerstick) 180 mg/dL (70-99) 108 mg/dL (70-99) Hemoglobin 10.4 g/dL (12.0-15.5) Hematocrit 31.0 % (36.0-47.0) Mean Corpuscular Hemoglobin Concent 33 g/dL (31-37) Prothrombin Time 14.6 SEC (11.7-14.0) Prothromb Time International Ratio 1.2 (0.8-1.1) Imaging Postop x-rays show well sized total knee arthroplasties and overall good alignment Assessment Assessment POD#1 bilateral total knee arthroplasty Plan Plan of Care Continue mobilize with physical therapy standard total knee protocol Plan on home health versus outpatient physical therapy on discharge on discussion with patient and family Justicifation of Admission Dx: Justifications for Admission: Justification of Admission Dx: Yes Comments: Bilateral total knee arthroplasties AIDAN SOLIZ MD May 18, 2020 08:43
[2020-05-18] MEDS: metFORMIN 500 MG TABLET PO SCH ×2 (08:50→17:19)
[2020-05-18] MEDS: FENOFIBRATE,MICRONIZED 134 MG CAPSULE PO SCH (08:50)
[2020-05-18] MEDS: MONTELUKAST SODIUM 10 MG TABLET. PO SCH (08:50)
[2020-05-18] MEDS: FERROUS SULFATE 325 MG TABLET. PO SCH ×2 (08:51→17:19)
[2020-05-18] MEDS: MULTIVITAMIN with MINERAL TABLET. PO SCH (08:51)
[2020-05-18] MEDS: FAMOTIDINE 20 MG TABLET. PO SCH ×2 (08:51→20:55)
[2020-05-18] MEDS: SENNOSIDES/DOCUSATE 8.6/50MG TABLET. PO SCH (08:51)
[2020-05-18] MEDS: [UNRECOGNIZED DRUG - OTHER] PO SCH ×2 (08:53→20:59)
[2020-05-18] MEDS: ACETAMINOPHEN 500 MG TABLET PO SCH ×3 (08:57→20:59)
[2020-05-18] MEDS ORDERED: MULTIVITAMIN with MINERAL TABLET. PO SCH (09:00)
[2020-05-18] MEDS: FUROSEMIDE 40 MG TABLET. PO SCH (09:00)
[2020-05-18] MEDS: METOPROLOL TART IMMED RELEASE 50 MG TABLET. PO SCH ×2 (09:00→20:57)
[2020-05-18] MEDS: LISINOPRIL 10 MG TABLET PO SCH (09:00)
[2020-05-18] MEDS: FLUTICASONE 50MCG/NASAL SPRAY 16GM BOTTLE. NS SCH (09:00)
[2020-05-18] MEDS ORDERED: LEVALBUTEROL TARTRATE 45 MCG IH SCH (09:00)
[2020-05-18] MEDS: hydroCHLOROthiazide 25 MG TABLET PO SCH (09:00)
--- NOTE | 2020-05-18 10:52 | NUR ---
Pharmacy Warfarin Dosing Note S:Pharmacy consulted to assist with anticoagulation therapy started with target INR: 1.6 - 2.5 O:FLOYD PLEITEZ is a 69 year old F with bilateral TKA LABS: Last INR: 1.2 Last HGB: 10.4 Last HCT: 31 Last PLT: -- Last dose of 7.5 mg given on 05/17/20 at 1844 Vitamin K given: N Drug Interaction Changes: Same Interacting Drug Ongoing Drug Interactions: fenofibrate A:INR of 1.2 is below desired range. Target range for this patient is: 1.6 - 2.5 P: Warfarin dose: 5 mg Today at 1600 Bridge Therapy: None Next INR due 05/19/20 Pharmacy anticoagulation service will continue to follow. RUMA MCKEON RPH, 05/18/20 2005
[2020-05-18 11:06] VITALS: BP 91/52
[2020-05-18] MEDS ORDERED: ONDANSETRON PF 4 MG/2 ML VIAL. IVP PRN (12:00)
[2020-05-18] MEDS ORDERED: ONDANSETRON ODT 4 MG TAB.RAPDIS. PO PRN (12:00)
[2020-05-18 15:09] VITALS: BP 101/59
[2020-05-18] MEDS ORDERED: BISACODYL 10 MG SUPP.RECT. PR PRN (16:00)
[2020-05-18] MEDS ORDERED: WARFARIN 5 MG TABLET. PO ONE (16:00)
--- NOTE | 2020-05-18 18:00 | NUR ---
agus has done well this shift. pain is being controlled with oral medication. right knee is more painful and swollen than left. she has good sensation, motion and pedal pulses in bilateral lower extremities.
[2020-05-18 19:00] VITALS: BP 124/66
[2020-05-18] MEDS: IPRATRPIUM/ALBUTEROL 0.5/2.5MG 3 ML NEBU. NEB SCH (20:00)
--- NOTE | 2020-05-18 20:31 | PDOC ---
PROGRESS NOTES Subjective Subjective Problems overnight: Luz did very well with physical therapy today and is negotiating her transfers and ambulation quite well right knee is a bit more painful and swollen than the left Objective Vital Signs Vital Signs Date Time Temp Pulse Resp B/P (MAP) Pulse Ox O2 Delivery O2 Flow Rate FiO2 05/18/20 19:56 98 Room Air 05/18/20 19:00 99.4 96 20 124/66 (85) 99.4 05/18/20 05:16 2.0 Physical Exam On exam her Hemovac drains have both put out significant drainage today and have just been taken out now distal neurovascular status remains intact she has good early range of motion patellofemoral tracking and ligament balance Labs Laboratory Tests Test 05/17/20 09:00 05/17/20 09:31 05/17/20 15:01 05/17/20 17:48 Prothrombin Time 12.7 SEC (11.7-14.0) Prothromb Time International Ratio 1.0 (0.8-1.1) Activated Partial Thromboplast Time 28 SEC (24-38) Glucose (Fingerstick) 105 mg/dL (70-99) 193 mg/dL (70-99) 206 mg/dL (70-99) Test 05/17/20 20:39 05/18/20 04:21 05/18/20 07:24 05/18/20 16:53 Glucose (Fingerstick) 180 mg/dL (70-99) 108 mg/dL (70-99) 137 mg/dL (70-99) Hemoglobin 10.4 g/dL (12.0-15.5) Hematocrit 31.0 % (36.0-47.0) Mean Corpuscular Hemoglobin Concent 33 g/dL (31-37) Prothrombin Time 14.6 SEC (11.7-14.0) Prothromb Time International Ratio 1.2 (0.8-1.1) Laboratory Tests Test 05/17/20 20:39 05/18/20 04:21 05/18/20 07:24 05/18/20 16:53 Glucose (Fingerstick) 180 mg/dL (70-99) 108 mg/dL (70-99) 137 mg/dL (70-99) Hemoglobin 10.4 g/dL (12.0-15.5) Hematocrit 31.0 % (36.0-47.0) Mean Corpuscular Hemoglobin Concent 33 g/dL (31-37) Prothrombin Time 14.6 SEC (11.7-14.0) Prothromb Time International Ratio 1.2 (0.8-1.1) Assessment Assessment POD# 1 bilateral total knee arthroplasty Plan Plan of Care I told her that we could continue to keep a close eye on her ability to get up and around and check tomorrow's labs before making a decision on her potentially going home early Plans in any case are for home with home health versus outpatient therapy Justicifation of Admission Dx: Justifications for Admission: Justification of Admission Dx: Yes (Justification provided earlier today, needs check of morning labs with bilateral total knee procedure) AIDAN SOLIZ MD May 18, 2020 20:31
[2020-05-18] MEDS: ASPIRIN ENTERIC COATED 81 MG TABLET.DR. PO SCH (20:55)
[2020-05-18] MEDS: ISOSORBIDE MONONITRATE ER 30 MG TAB.ER.24H PO SCH (20:57)
[2020-05-18 23:00] VITALS: BP 108/56
[2020-05-19] MEDS: traMADol 50 MG TABLET PO SCH ×3 (00:06→12:30)
[2020-05-19] MEDS: ACETAMINOPHEN 500 MG TABLET PO SCH ×3 (03:08→15:00)
[2020-05-19] MEDS: oxyCODONE IR 5 MG TABLET PO PRN ×3 (03:08→14:50)
[2020-05-19 07:04] LABS: HEMATOCRIT 26.6 % (36.0-47.0); HEMOGLOBIN 9.1 g/dL (12.0-15.5)
[2020-05-19 07:15] VITALS: BP 95/56
[2020-05-19 07:15] LABS: PROTHROMBIN TIME PATIENT 17.9 SEC (11.7-14.0)
--- NOTE | 2020-05-19 07:22 | PDOC ---
PROGRESS NOTES Subjective Subjective Problems overnight: Still getting around well, pain well controlled Objective Vital Signs Vital Signs Date Time Temp Pulse Resp B/P (MAP) Pulse Ox O2 Delivery O2 Flow Rate FiO2 05/19/20 06:09 18 Room Air 05/19/20 01:06 91 05/18/20 23:00 98.7 94 108/56 (73) 98.7 05/18/20 20:56 2.0 Physical Exam Minimal spotting on susana drains good range of motion patellofemoral tracking intra-articular catheter successfully removed on right knee after some varus stress as it was caught in the joint but the entire catheter removed distal neurovascular status intact Labs Laboratory Tests Test 05/17/20 09:00 05/17/20 09:31 05/17/20 15:01 05/17/20 17:48 Prothrombin Time 12.7 SEC (11.7-14.0) Prothromb Time International Ratio 1.0 (0.8-1.1) Activated Partial Thromboplast Time 28 SEC (24-38) Glucose (Fingerstick) 105 mg/dL (70-99) 193 mg/dL (70-99) 206 mg/dL (70-99) Test 05/17/20 20:39 05/18/20 04:21 05/18/20 07:24 05/18/20 16:53 Glucose (Fingerstick) 180 mg/dL (70-99) 108 mg/dL (70-99) 137 mg/dL (70-99) Hemoglobin 10.4 g/dL (12.0-15.5) Hematocrit 31.0 % (36.0-47.0) Mean Corpuscular Hemoglobin Concent 33 g/dL (31-37) Prothrombin Time 14.6 SEC (11.7-14.0) Prothromb Time International Ratio 1.2 (0.8-1.1) Test 05/18/20 20:42 05/19/20 06:05 Glucose (Fingerstick) 134 mg/dL (70-99) Hemoglobin 9.1 g/dL (12.0-15.5) Hematocrit 26.6 % (36.0-47.0) Mean Corpuscular Hemoglobin Concent 34 g/dL (31-37) Prothrombin Time 17.9 SEC (11.7-14.0) Prothromb Time International Ratio 1.5 (0.8-1.1) Laboratory Tests Test 05/18/20 07:24 05/18/20 16:53 05/18/20 20:42 05/19/20 06:05 Glucose (Fingerstick) 108 mg/dL (70-99) 137 mg/dL (70-99) 134 mg/dL (70-99) Hemoglobin 9.1 g/dL (12.0-15.5) Hematocrit 26.6 % (36.0-47.0) Mean Corpuscular Hemoglobin Concent 34 g/dL (31-37) Prothrombin Time 17.9 SEC (11.7-14.0) Prothromb Time International Ratio 1.5 (0.8-1.1) Assessment Assessment POD#2 bilateral total knee arthroplasties Plan Plan of Care Labs are pending, she continues to progress well Discharge dependent on progress with physical therapy today Plan for home with outpatient physical therapy on discharge Justicifation of Admission Dx: Justifications for Admission: Justification of Admission Dx: Yes (Bilateral total knee procedure needs additional physical therapy for ambulation transfers, labs pending) AIDAN SOLIZ MD May 19, 2020 07:22
[2020-05-19] MEDS ORDERED: OXYC10TA PO (07:28)
[2020-05-19] MEDS ORDERED: WARF3TAB50 PO (07:28)
--- NOTE | 2020-05-19 07:31 | DISCH ---
DISCHARGE INSTRUCTIONS Condition on Discharge Condition on Discharge: Stable Activity After Discharge Activity Instructions for Disc: Activity as tolerated Bathing Instructions: No Tub Bath until see Lifting Instructions after Dis: No heavy lifting Driving Instructions after Dis: Do not drive Weight Bearing Status after Di: As tolerated Diet after Discharge Diet after Discharge: Diabetic No Calorie Level Diet Texture: Regular Wound Incision Care Wound/Incision Care: Do not change dressing (Report if dressing is saturated or leaking) Checks after Discharge Checks after discharge: Check blood sugar, ac/hs Community/Resources/Services Services at Discharge: PT EVALUATE & TREAT (Outpatient physical therapy at [facility]) Contacting the after DC Call your doctor for: Concerns you may have Follow-Up Follow up with: Dr. Cleveland 2 weeks postop Treatment/Equipment after DC Adaptive Equipment Issued: Front wheeled walker Warfarin Follow-Up Warfarin Follow UP: Warfarin testing and dosing per [facility] anticoagulation clinic AIDAN CLEVELAND MD May 19, 2020 07:31
[2020-05-19] MEDS: INSULIN LISPRO 300 UNITS/3 ML VIAL. SQ SCH ×2 (08:00→12:00)
[2020-05-19] MEDS: IPRATRPIUM/ALBUTEROL 0.5/2.5MG 3 ML NEBU. NEB SCH ×2 (08:00→11:44)
[2020-05-19] MEDS: [UNRECOGNIZED DRUG - OTHER] PO SCH (08:05)
[2020-05-19] MEDS: FLUTICASONE 50MCG/NASAL SPRAY 16GM BOTTLE. NS SCH (08:05)
[2020-05-19] MEDS: FENOFIBRATE,MICRONIZED 134 MG CAPSULE PO SCH (08:06)
[2020-05-19] MEDS: FERROUS SULFATE 325 MG TABLET. PO SCH (08:06)
[2020-05-19] MEDS: metFORMIN 500 MG TABLET PO SCH (08:06)
[2020-05-19] MEDS: MULTIVITAMIN with MINERAL TABLET. PO SCH (08:07)
[2020-05-19] MEDS: MONTELUKAST SODIUM 10 MG TABLET. PO SCH (08:07)
[2020-05-19] MEDS: SENNOSIDES/DOCUSATE 8.6/50MG TABLET. PO SCH (08:08)
[2020-05-19] MEDS: FAMOTIDINE 20 MG TABLET. PO SCH (08:08)
--- NOTE | 2020-05-19 08:10 | NUR ---
Lasix not given this morning. Pt states its only PRN. Also held HCTZ, Lisinopril and Metoprolol due to low bp 107/55. Cont. monitor.
[2020-05-19] MEDS: hydroCHLOROthiazide 25 MG TABLET PO SCH (09:00)
[2020-05-19] MEDS: METOPROLOL TART IMMED RELEASE 50 MG TABLET. PO SCH (09:00)
[2020-05-19] MEDS: LISINOPRIL 10 MG TABLET PO SCH (09:00)
[2020-05-19] MEDS: FUROSEMIDE 40 MG TABLET. PO SCH (09:00)
--- NOTE | 2020-05-19 12:24 | NUR ---
Pharmacy Warfarin Dosing Note S: Pharmacy consulted to assist with anticoagulation therapy started 05/17/20 O: FLOYD PLEITEZ is a 69 year old F with TKA BILATERAL KNEE LABS: Last INR: 1.5 Last HGB: 9.1 Last HCT: 26.6 Last PLT: -- Last dose of 5 mg given on 05/18/20 at 1720 Ongoing Drug Interactions: fenofibrate A:INR of 1.5 is below desired range. Target range for this patient is: 1.6 - 2.5 P: Warfarin dose: 3 mg Today at 1600 Bridge Therapy: None Next INR due 05/20/20 AM Pharmacy anticoagulation service will continue to follow. NELLA FENTON [facility], 05/19/20 0232
--- NOTE | 2020-05-19 13:45 | NUR ---
Pt wanting to go home today. Notified Dr. Cleveland and gave orders to discharge.
[2020-05-19 15:02] VITALS: BP 123/66
--- NOTE | 2020-05-19 15:15 | NUR ---
Discharge instructions given with prescription. Answered questions and concerns. Verbalized understanding. Pt discharge home. Accompanied by daughter.
[2020-05-19] MEDS ORDERED: WARFARIN 3 MG TABLET. PO ONE (16:00)
--- NOTE | 2020-05-19 18:06 | PATHOLOGY ---
[facility] Accession Number: [id number] . 01 Material submitted: . PART A: knee - RIGHT KNEE BONE AND TISSUE. Modifiers: right PART B: knee - LEFT KNEE BONE AND TISSUE. Modifiers: left . 01 Clinical history: . Osteoarthritis, bilateral knees . 02 Diagnosis: A. Segments of bone and soft tissue, right total knee arthroplasty: - Advanced degenerative arthritis. . B. Segments of bone and soft tissue, left total knee arthroplasty: - Advanced degenerative arthritis. (JPM/db; 05/19/2020) LBQ 05/19/2020 1546 Local . 02 Electronically signed: . Nikos Villegas MD, Pathologist NPI- [id number] . 01 Gross description: . A. The specimen is received in formalin, labeled "Susan Anna, right knee bone and tissue". Received are multiple segments of bone, including the tibial plateau, admixed with soft tissue measuring 9.5 x 7.6 x 3.2 cm in aggregate dimensions. Meniscus is present. The articular surfaces are smooth to granular in appearance with evidence of eburnation. The specimen is submitted representatively in cassette A1, following decalcification. . B. The specimen is received in formalin, labeled "Susan Anna, left knee bone and tissue". Received are multiple segments of bone, including the tibial plateau, measuring 9.3 x 6.8 x 2.5 cm in aggregate dimensions. Meniscus is present. The articular surfaces are smooth to granular in appearance with evidence of eburnation. The specimen is submitted representatively in cassette B1, following decalcification. (CAA; 05/18/2020) QAC/QAC 05/18/2020 1716 Local . 02 Pathologist provided ICD-10: M17.11, M17.12 . 02 CPT . 474221, 508295, 609400, [id number] Specimen Comment: A courtesy copy of this report has been sent to [phone], [phone] Specimen Comment: [id number] Specimen Comment: Report sent to / DR RUBIO Performed at: 01 [facility] [address], [place] [id number] MD Thomas Madera MD Phone: [phone] Performed at: 02 [facility] [address] [place], [place] [id number] MD Nikos Villegas MD Phone: [phone]
--- NOTE | 2020-05-21 17:26 | DS ---
DATE OF DISCHARGE: 05/19/2020 PRINCIPAL DIAGNOSIS: Degenerative joint disease, bilateral knees. PROCEDURE: Bilateral total knee arthroplasty. DISPOSITION: Home with outpatient physical therapy. DISCHARGE MEDICATIONS: Include oxycodone 10 mg p.o. q.4 hours p.r.n. pain, dispensed #60; warfarin sodium 3 mg daily or as directed by anticoagulation Clinic. Remainder of her home medications are continued. FOLLOWUP: Dr. Cleveland in 2 weeks postoperatively. ACTIVITY: Weightbearing as tolerated, standard total knee protocol. Maintain MITCHEL dressings. May shower as long as dressings are intact and not saturated or leaking. Call if any uncontrolled pain or other problems. BRIEF DESCRIPTION OF HOSPITAL COURSE: The patient underwent uncomplicated bilateral total knee arthroplasties. Postoperatively, pain was well controlled. Laboratory examination significant for hemoglobin level postop day #1 of 10.4 and 9.1 on postop day #2. She was asymptomatic and did well with physical therapy, got around well in terms of her ambulation and transfers safely and was discharged home with a plan for outpatient physical therapy at [facility]. She was discharged home in stable condition. AIDAN CLEVELAND MD DR: PATRICK/adeline JOB#: [id number] / [id number]
== END 2020-05-19 15:15 | disposition home or self-care (01) | DRG 462 ==
LOC: OPSVCIP 08:27 → 4 NORTH 16:31
PROVIDERS: ADMIT Orthopaedic Surgery; ATTEND Orthopaedic Surgery
PROC: 0SRC0J9 Replacement of Right Knee Joint with Synthetic Substitute, Cemented, Open Approach (ICD-10-PCS; 2020-05-17)
PROC: 0SRD0J9 Replacement of Left Knee Joint with Synthetic Substitute, Cemented, Open Approach (ICD-10-PCS; principal; 2020-05-17 10:30)
DX: M17.0 Bilateral primary osteoarthritis of knee (principal); E11.9 Type 2 diabetes mellitus without complications; E78.5 Hyperlipidemia, unspecified; I10 Essential (primary) hypertension; I25.10 Atherosclerotic heart disease of native coronary artery without angina pectoris; J45.909 Unspecified asthma, uncomplicated; K21.9 Gastro-esophageal reflux disease without esophagitis; Z80.0 Family history of malignant neoplasm of digestive organs; Z81.1 Family history of alcohol abuse and dependence; Z82.5 Family history of asthma and other chronic lower respiratory diseases; Z83.3 Family history of diabetes mellitus; Z90.49 Acquired absence of other specified parts of digestive tract; Z88.5 Allergy status to narcotic agent; Z88.8 Allergy status to other drugs, medicaments and biological substances; Z91.041 Radiographic dye allergy status
CPT/HCPCS: 36415; 73560; 82962; 85014; 85018; 85610; 85730; 86850; 86900; 86901; A7015; C1713; J0171; J0690; J1200; J1815; J1885; J2250; J2370; J2405; J2710; J2795; J3010; J3370; J3490; J7030; J7120; 97110-GP; 97116-GP; 97530-GP; 97535-GO; C1769; C1776; G0378

== ENCOUNTER → 2020-05-30 | Outpatient (CLI) | payer OTHER ==
[2020-05-19 07:15] VITALS: BP 95/56
[~2020-05-30] MED LIST changes: -ACETAMINOPHEN 500 MG TABLET PO PRN; +FAMO20TA5 PO; -IV RINGERS,LACTATED 1000ML 1,000 ML IV SCH; -LIDOCAINE 1% PF 2 ML VIAL. ID PRN; -ONDANSETRON PF 4 MG/2 ML VIAL. IVP PRN; +OXYC10TA PO; -PROCHLORPERAZINE 10 MG/2 ML VIAL. IVP PRN; -TRANEXAMIC ACID 1,000 MG in IV NS 50ML -- 1ST BAG INJ ONE; -TRANEXAMIC ACID 1,000 MG in IV NS 50ML -- 2ND BAG INJ ONE; +WARF3TAB50 PO; -fentaNYL PF VIAL 100 MCG/2 ML VIAL IVP PRN
== END | disposition home or self-care (01) ==
LOC: LAB 11:49
PROVIDERS: ATTEND Internal Medicine Pulmonary Disease
DX: Z20.828 Contact with and (suspected) exposure to other viral communicable diseases (principal); R50.9 Fever, unspecified; J98.8 Other specified respiratory disorders; R19.7 Diarrhea, unspecified; Z96.653 Presence of artificial knee joint, bilateral
CPT/HCPCS: U0003-CS

== ENCOUNTER → 2021-03-17 | Outpatient (CLI) | payer OTHER ==
[~2021-03-17] MED LIST changes: -ASPI-612 PO; +ASPI-886 PO; -CALC600T5 PO; +CALC600T60 PO; -HYDR50TA6 PO; +HYDR50TA9 PO; -LISI-334 PO; +LISI10TA16 PO; -LISI10TA2 PO; +LISI20TA18 PO
[2021-03-17 08:01] LABS: BASO # 0.1 x10^3/uL (0.0-0.2); BASO % 1 % (0-3); EOS # 0.2 x10^3/uL (0.0-0.7); EOS % 2 % (0-3); HEMATOCRIT 37.2 % (36.0-47.0); HEMOGLOBIN 12.3 g/dL (12.0-15.5); LYMPH # 1.7 x10^3/uL (1.0-4.8); LYMPH % 21 % (24-48); MEAN CORPUSCULAR HEMOGLOBIN 27 pg (25-35); MEAN CORPUSCULAR HGB CONC 33 g/dL (31-37); MEAN CORPUSCULAR VOLUME 83 fL (79-100); MONO # 0.8 x10^3/uL (0.0-1.1); MONO % 10 % (0-9); NEUT # 5.3 x10^3/uL (1.8-7.7); NEUT % 66 % (31-73); PLATELET COUNT 335 x10^3/uL (140-400); RED CELL DISTRIBUTION WIDTH 14.6 % (11.5-14.5)
[2021-03-17 08:19] LABS: ALBUMIN 4.1 g/dL (3.4-5.0); ALBUMIN/GLOBULIN RATIO 1.2 (1.0-1.7); CALCIUM 9.1 mg/dL (8.5-10.1); CREATININE 0.9 mg/dL (0.6-1.0); GFR 62.1; POTASSIUM 5.2 mmol/L (3.5-5.1); TOTAL BILIRUBIN 0.3 mg/dL (0.2-1.0); TOTAL PROTEIN 7.4 g/dL (6.4-8.2)
[2021-03-17 08:23] LABS: CHOLESTEROL/HDL RATIO 5.4
[2021-03-18 00:08] LABS: HEMOGLOBIN A1C 6.5 % (4.8-5.6)
== END ==
LOC: LAB 07:32
PROVIDERS: ATTEND Nurse Practitioner Gerontology
DX: Z00.00 Encounter for general adult medical examination without abnormal findings (principal); I10 Essential (primary) hypertension; E78.5 Hyperlipidemia, unspecified; E11.9 Type 2 diabetes mellitus without complications
CPT/HCPCS: 36415; 80053; 80061; 83036; 85025

== ENCOUNTER 2021-03-22 22:36 | Emergency (ER) | payer OTHER, MEDICARE ==
[~2021-03-22] VITALS: Ht 174 cm; Wt 90.4 kg
--- NOTE | 2021-03-22 22:52 | PHYS DOC ---
Past Medical History Past Medical History: CAD, Diabetes-Type II, GERD, High Cholesterol, Hype rtension, Other Additional Past Medical Histor: ruptured diverticulm, bowel obstruction,abd hernias Past Surgical History: Cholecystectomy, Hysterectomy, Tonsillectomy, Other Additional Past Surgical Histo: lumbar laminectomy, Colectomy,hernia repairs Smoking Status: Never Smoker Alcohol Use: None Drug Use: None General Adult EDM: Chief Complaint: HYPOTENSION HPI: HPI: Patient is a 70-year-old female who presents for lightheadedness. 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 States she started seeing spots and got nauseous. States she thought to her self that she needed to sit down soon otherwise that she was going to pass out. She ambulated out of room and was greeted by fellow ICU nurse who noted patient looked pale and ill. Patient was sat down in a seated position and blood pressure was obtained, it was 80/60s. Patient is a noninsulin dependent diabetic, fingerstick blood glucose was not checked but there was fear of hypoglycemia spell and so, patient was fed an orange, banana and several crackers. Patient was then transported to our ER for evaluation. On arrival, patient's vital signs stable. She denies any ongoing feelings of lightheadedness or dizziness. States she does feel fatigued only. No recent changes in health, no fever, reports she has had some generalized cough and congestion without any obvious sick contacts, no chest pain or shortness of breath, no UTI-like symptoms. Has significant medical history for numerous conditions such as CAD, hypercholesterol, hypertension etc. She takes 81 mg aspirin daily, no other blood thinners. Review of Systems: Review of Systems: Fourteen body systems of review of systems have been reviewed. See HPI for pertinent positives and negative responses, other hernandez all other systems are negative, non-pertinent or non-contributory Heart Score: C/O Chest Pain: No HEART Score for Chest Pain: HEART Score for Chest Pain Response (Comments) Value History Slighlty/Non-Suspicious 0 ECG Normal 0 Age > 65 2 Risk Factors >3 Risk Factors or Hx CAD 2 Troponin < Normal Limit 0 Total 4 Risk Factors: Risk Factors: DM, Current or recent (<one month) smoker, HTN, HLP, family history of CAD, obesity. Risk Scores: Score 0 - 3: 2.5% MACE over next 6 weeks - Discharge Home Score 4 - 6: 20.3% MACE over next 6 weeks - Admit for Clinical Observation Score 7 - 10: 72.7% MACE over next 6 weeks - Early Invasive Strategies Allergies: Allergies: Allergies Coded Allergies Type Severity Reaction Last Updated Verified Iodinated Contrast Media Allergy Severe Shortness of Air 05/17/20 Yes erythromycin base Allergy Severe Shortness of Air 05/17/20 Yes morphine Allergy Severe Anaphylaxis 05/17/20 Yes hydrocodone Allergy Intermediate DIZZINESS 05/17/20 Yes iodine Allergy Intermediate 05/17/20 Yes Physical Exam: PE: Constitutional: Well developed, well nourished, no acute distress, non-toxic appearance. HENT: Normocephalic, atraumatic, bilateral external ears normal, oropharynx moist, no oral exudates, nose normal. Eyes: PERRLA, EOMI, conjunctiva normal, no discharge. Neck: Normal range of motion, no tenderness, supple, no stridor. Cardiovascular: Heart rate regular, sinus rhythm, no murmurs rubs or gallops Lungs & Thorax: Bilateral breath sounds clear to auscultation Abdomen: Bowel sounds normal, soft, no tenderness, no masses, no pulsatile masses. Nonsurgical abdomen, no peritoneal signs Skin: Warm, dry, no erythema, no rash. Back: No tenderness, no CVA tenderness. Extremities: No tenderness, no cyanosis, no clubbing, ROM intact, no edema. Neurologic: Alert and oriented X 3, grossly normal motor & sensory function, no focal deficits noted. Psychologic: Affect normal, judgement normal, mood normal. Current Patient Data: Labs: Laboratory Tests Test 03/22/21 22:43 03/22/21 22:44 Glucose (Fingerstick) 165 mg/dL White Blood Count 11.9 x10^3/uL Red Blood Count 4.58 x10^6/uL Hemoglobin 12.5 g/dL Hematocrit 37.6 % Mean Corpuscular Volume 82 fL Mean Corpuscular Hemoglobin 27 pg Mean Corpuscular Hemoglobin Concent 33 g/dL Red Cell Distribution Width 14.4 % Platelet Count 396 x10^3/uL Neutrophils (%) (Auto) 59 % Lymphocytes (%) (Auto) 31 % Monocytes (%) (Auto) 8 % Eosinophils (%) (Auto) 2 % Basophils (%) (Auto) 1 % Neutrophils # (Auto) 7.0 x10^3/uL Lymphocytes # (Auto) 3.6 x10^3/uL Monocytes # (Auto) 1.0 x10^3/uL Eosinophils # (Auto) 0.2 x10^3/uL Basophils # (Auto) 0.1 x10^3/uL Sodium Level 138 mmol/L Potassium Level 4.6 mmol/L Chloride Level 101 mmol/L Carbon Dioxide Level 25 mmol/L Anion Gap 12 Blood Urea Nitrogen 24 mg/dL Creatinine 1.4 mg/dL Estimated GFR (Cockcroft-Gault) 37.3 BUN/Creatinine Ratio 17 Glucose Level 181 mg/dL Calcium Level 9.7 mg/dL Total Bilirubin 0.5 mg/dL Aspartate Amino Transf (AST/SGOT) 36 U/L Alanine Aminotransferase (ALT/SGPT) 34 U/L Alkaline Phosphatase 87 U/L Troponin I Quantitative < 0.017 ng/mL Total Protein 7.2 g/dL Albumin 4.0 g/dL Albumin/Globulin Ratio 1.3 Current Medications Medications (Trade) Dose Ordered Sig/Vera Route PRN Reason Start Time Stop Time Status Last Admin Dose Admin Aspirin (Aspirin Chewable) 162 mg 1X ONCE PO 03/22/21 23:30 03/22/21 23:31 DC 03/22/21 23:04 Vital Signs: Vital Signs Date Time Temp Pulse Resp B/P (MAP) Pulse Ox O2 Delivery O2 Flow Rate FiO2 03/22/21 22:36 94.5 92 16 120/72 (88) 100 Room Air 94.5 Vital Signs Date Time Temp Pulse Resp B/P (MAP) Pulse Ox O2 Delivery O2 Flow Rate FiO2 03/22/21 22:36 94.5 92 16 120/72 (88) 100 Room Air 94.5 EKG: EKG: EKG ordered and interpreted by myself at 2248 hrs. as sinus rhythm at 93 bpm, unremarkable intervals, no axis deviation, no ischemic findings, no STEMI Radiology/Procedures: Radiology/Procedures: INDICATION: Reason: productive cough / Spl. Instructions: / History: COMPARISON: January 18, 2020 FINDINGS: Single view of chest obtained. No definite focal airspace consolidation or edema. Cardiac silhouette is unremarkable. Degenerative changes of the spine and shoulders. IMPRESSION: * No focal airspace consolidation or edema. Electronically signed by: Tyree Cruz MD (03/22/2021 11:31 PM) [id number] Course & Med Decision Making: Course & Med Decision Making Hypothermic which is apparently normal for patient otherwise unremarkable vitals. HPI concerning for orthostatic versus vasovagal type near syncope episode. Physical exam nonconcerning Comprehensive ER work-up obtained and grossly unremarkable. I reviewed all ER findings in its entirety with patient with good understanding. Joint decision to pursue IV fluid rehydration for which she tolerated well I discussed patient's comprehensive past medical history, I did offer and recommend hospital admission but patient reports feeling much better and asymptomatic and requesting discharge home. P.o. challenge and subsequent ambulatory challenge was passed without issue, patient feels at baseline health I disclose that this might be an acute presentation more concerning pathology and without hospital admission, there is higher risk of negative outcomes. She understands this. She has good access to PCP and reports she will follow-up for today's episode Strict return precautions were discussed with good understanding by patient, all questions and concerns addressed prior to ER departure Dragon Disclaimer: Darion Disclaimer: This electronic medical record was generated, in whole or in part, using a voice recognition dictation system. Departure Departure Impression: Primary Impression: Hypotension Additional Impression: Dizziness Disposition: 01 HOME / SELF CARE / HOMELESS Condition: IMPROVED Referrals: CORRINA RUBIO MD (PCP) Patient Instructions: Dizziness, Hypotension Additional Instructions: As discussed prior to ER departure, your ER evaluation was nonconcerning for any emergent or surgical issues. We discussed utility of further diagnostic work-up and/or hospital admission but given that you were symptomatically improved and at baseline health, you deferred to be discharged. As such, it is important to call your primary care physician immediately after ER departure to schedule outpatient follow-up for continuity of care. There might be indication for changing home medications such as Lasix as it appeared you were dry/dehydrated. If any concerning signs or symptoms present prior to outpatient follow-up please do not hesitate to come back for repeat evaluation. It was a pleasure to take care of you and I wish you the best going forward KRYSTYNA PINEDA DO March 22, 2021 22:52
[2021-03-22] MEDS ORDERED: ASPIRIN CHEWABLE 81 MG TABLET. PO ONE (23:30)
[2021-03-22 23:31] LABS: BASO # 0.1 x10^3/uL (0.0-0.2); BASO % 1 % (0-3); EOS # 0.2 x10^3/uL (0.0-0.7); EOS % 2 % (0-3); HEMATOCRIT 37.6 % (36.0-47.0); HEMOGLOBIN 12.5 g/dL (12.0-15.5); LYMPH # 3.6 x10^3/uL (1.0-4.8); LYMPH % 31 % (24-48); MEAN CORPUSCULAR HEMOGLOBIN 27 pg (25-35); MEAN CORPUSCULAR HGB CONC 33 g/dL (31-37); MEAN CORPUSCULAR VOLUME 82 fL (79-100); MONO % 8 % (0-9); NEUT % 59 % (31-73); PLATELET COUNT 396 x10^3/uL (140-400); RED BLOOD COUNT 4.58 x10^6/uL (3.50-5.40); RED CELL DISTRIBUTION WIDTH 14.4 % (11.5-14.5); WHITE BLOOD COUNT 11.9 x10^3/uL (4.0-11.0)
--- NOTE | 2021-03-22 23:33 | RAD ---
INDICATION: Reason: productive cough / Spl. Instructions: / History: COMPARISON: January 18, 2020 FINDINGS: Single view of chest obtained. No definite focal airspace consolidation or edema. Cardiac silhouette is unremarkable. Degenerative c hanges of the spine and shoulders. IMPRESSION: * No focal airspace consolidation or edema. Electronically signed by: Tyree Cruz MD (03/22/2021 11:31 PM) [id number]
[2021-03-22 23:41] LABS: CALCIUM 9.7 mg/dL (8.5-10.1); CREATININE 1.4 mg/dL (0.6-1.0); GFR 37.3; POTASSIUM 4.6 mmol/L (3.5-5.1)
[2021-03-22 23:46] LABS: ALBUMIN/GLOBULIN RATIO 1.3 (1.0-1.7); TOTAL BILIRUBIN 0.5 mg/dL (0.2-1.0); TOTAL PROTEIN 7.2 g/dL (6.4-8.2)
[2021-03-23] MEDS ORDERED: IV NORMAL SALINE 500ML BAG 500 ML IV ONE
[2021-03-23 00:50] VITALS: BP 116/63
== END 2021-03-23 01:16 | disposition home or self-care (01) ==
LOC: ER 22:36
DX: I95.9 Hypotension, unspecified (principal); R42 Dizziness and giddiness; E11.9 Type 2 diabetes mellitus without complications; K21.9 Gastro-esophageal reflux disease without esophagitis; E78.00 Pure hypercholesterolemia, unspecified; I10 Essential (primary) hypertension; I25.10 Atherosclerotic heart disease of native coronary artery without angina pectoris; Z91.041 Radiographic dye allergy status; Z88.5 Allergy status to narcotic agent; Z88.1 Allergy status to other antibiotic agents; Z88.8 Allergy status to other drugs, medicaments and biological substances
CPT/HCPCS: 36415; 71045; 80053; 82962; 84484; 85025; 93005; 96360; 99285; J7040

== ENCOUNTER → 2021-04-10 | Outpatient (CLI) | payer OTHER ==
[2021-03-23 00:50] VITALS: BP 116/63
[~2021-04-10] MED LIST changes: +REGADENOSON 0.4 MG/5 ML DISP.SYRIN. IV ONE
--- NOTE | 2021-04-11 07:25 | RAD ---
MR#: [id number] Date of Study: 04/10/2021 Ordering Physician: BAILEY HILLIARD, Referring Physician: LASHAUN LEGER Tech: DANIELLE Solis, XIN (R) (N) APPROVED REPORT Test Type: Pharmacological Stress Nurse/Tech: Marisa Bond RN Test Indications: Chest pain Cardiac History: Hypertension, Diabetes Medications: See Electronic Medical Record Medical History: See Electronic Medical Record Resting ECG: SR Resting Heart Rate: 87 bpm Resting Blood Pressure: 129/74mmHg Pretest Chest Pain: No chest pain Nurse/Tech Notes S1,S2 and lungs clear to auscultation. Consent: The procedure was explained to the patient in lay terms. Informed consent was witnessed. Simon eout was entered into [employer]. History and Stress Test performed by RT Niya (R) (N) Pharm. Details Pharmacologic stress testing was performed using 0.4mg per 5ml of regadenoson given intravenously ove r 7-10 seconds. Stress Symptoms Dyspnea,headache POST EXERCISE Reason for Termination: Infusion complete Target HR: No Max HR: 114 bpm 89% of Maximum Predicted HR: 128 bpm Max Blood Pressure: 155/70mmHg Blood Pressure response to exercise: Normal blood pressure response during stress. Heart Rate response to exercise: WNL Chest Pain: No. Arrhythmia: No. ST Change: No. INTERPRETATION Stress EKG Conclusion: No evidence of stress induced EKG changes. Imaging Protocol IMAGE PROTOCOL: Rest Tc-99m/stress Tc-99m 1 day Rest: Stress: Viability: Radiopharm.Tc99m RyhyueagmUm20m Sestamibi Cscb04sBp 33mCi Img Date 04/10/2021 04/10/2021 Inj-Img Tayr21kjf. 60min. Rest Admin Site:IV - Left WristAdministrator:DANIELLE Solis, ARRGarfield (R)(N) Stress Admin Site: IV - Left WristAdministrator: RT Romie Núñez)(N) STRESS DATA End Diast. Vol.79.0mlAv. Heart Rate88.0bpm End Syst. Vol.13.0mlCO Index BSA0.0L/min Myocardial Zxht932.0gEject. Wwcypocw63.0% Stress Rates Pk. Fill Rate3.44EDV/secLVtime Pk. Fill 151.54msec Pk. Empty Rate3.87ESV/secLVtime Pk. Eject84.25msec 1/3 Pk. Fill1.34EDV/sec Stress Scores Regional WT0.00Summed WT2.00 Regional WM0.00Summed WM1.00 The rest and stress images show normal perfusion, normal contraction and thickening. LV Perf. Quant 17 Seg. SSS4.00 17 Seg. SRS1.00 17 Seg. SDS3.00 Stress Defect Extent (% LAD)0.00Rest Defect Extent (% LAD)0.00Rev. Defect Extent (% LAD)0.00 Stress Defect Extent (% LCX) 0.00Rest Defect Extent (% LCX)0.00Rev. Defect Extent (% LCX)0.00 Stress Defect Extent (% RCA)0.00Rest Defect Extent (% RCA)0.00Rev. Defect Extent (% RCA)0.00 Stress Defect Extent (% RALPH)0.00Rest Defect Extent (% RALPH)0.00Rev. Defect Extent (% RALPH)0.00 Other Information Quality:Average Risk Assessment: Low Risk Conclusion 1. No evidence of EKG changes with stress testing. 2. Normal perfusion at stress/rest. 3. Low risk study. 4. EF > 60%. Signed by : Bailey Hilliard, Electronically Approved : 04/11/2021 07:25:10
== END ==
LOC: NM 08:50
PROVIDERS: ATTEND Internal Medicine Cardiovascular Disease
DX: I10 Essential (primary) hypertension (principal)
CPT/HCPCS: 78452; 93017; A9500; J2785

== ENCOUNTER → 2021-04-19 | Outpatient (CLI) | payer OTHER, MEDICARE ==
[2021-03-23 00:50] VITALS: BP 116/63
[~2021-04-19] MED LIST changes: -REGADENOSON 0.4 MG/5 ML DISP.SYRIN. IV ONE
--- NOTE | 2021-04-20 18:19 | CARD ---
MR#: [id number] Date of Study: 04/19/2021 Ordering Physician: BAILEY MONAE, Referring Physician: BAILEY MONAE, Tech: Vani Katerina, [facility] APPROVED REPORT EXAM: Two-dimensional and M-mode echocardiogram with Doppler and color Doppler. Other Information Quality : AverageHR: 84bpm INDICATION Near Syncope RISK FACTORS Hypertension Hyperlipidemia Diabetes Asthma 2D DIMENSIONS RVDd3.1 (2.9-3.5cm)Left Atrium(2D)3.0 (1.6-4.0cm) IVSd0.9 (0.7-1.1cm)Aortic Root(2D)3.1 (2.0-3.7cm) LVDd4.1 (3.9-5.9cm)LVOT Diameter2.0 (1.8-2.4cm) PWd0.8 (0.7-1.1cm)LVDs2.9 (2.5-4.0cm) FS (%) 27.6 %SV39.5 ml LVEF(%)54.1 (>50%) Aortic Valve AoV Peak Reginaldo.175.3cm/sAoV VTI36.0cm AO Peak GR.12.3mmHgLVOT Peak Reginaldo.119.7cm/s LVOT VTI 26.63cmAO Mean GR.7mmHg ISABEL (VMAX)1.11ga3GKS (VTI)2.31cm2 Mitral Valve MV E Hsfmcbsb00.1cm/sMV DECEL OBMM807gk MV A Oiilufrc783.0cm/sMV E Mean Gr.4mmHg MV GSS84lhA/A Ratio0.8 MVA (PHT)3.87cm2 TDI E/Lateral E'6.8E/Medial E'9.2 Pulmonary Valve PV Peak Xukeozyn01.8cm/sPV Peak Grad.4mmHg Tricuspid Valve TR P. Xmmjbqxr041cy/sRAP YCBRSRMU0ddJm TR Peak Gr.33vsHpELIK51msDm Pulmonary Vein S1 Flasbvwp05.9cm/sD2 Uncwwjpw59.9cm/s PVa flksovek774vrgc LEFT VENTRICLE The left ventricle is normal size. There is normal left ventricular wall thickness. The left ventricu lar systolic function is normal and the ejection fraction is within normal range. The Ejection Fracti on is 55-60%. There is normal LV segmental wall motion. Transmitral Doppler flow pattern is Grade I-a bnormal relaxation pattern. RIGHT VENTRICLE The right ventricle is normal size. There is normal right ventricular wall thickness. The right ventr icular systolic function is normal. ATRIA The left atrium size is normal. There is an area of outpocketing of tissue in the lateral wall of the right atrium with a probable small connection to the septum. There is no obstruction of flow. This does not appear like a classic Chiari network. The interatrial septum is intact with no evidence for an atrial septal defect or patent foramen ovale as noted on 2-D or Doppler imaging. AORTIC VALVE The aortic valve is thickened but opens well. Doppler and Color Flow revealed trace aortic regurgitat ion. There is no significant aortic valvular stenosis. Calculated aortic valve area is 2.47 cm2 with maximum pressure gradient of 14 mmHg and mean pressure gradient of 7 mmHg. MITRAL VALVE The mitral valve is normal in structure and function. Mitral annular calcification is mild. There is no evidence of mitral valve prolapse. There is no mitral valve stenosis. Doppler and Color-flow revea led trace mitral regurgitation. TRICUSPID VALVE The tricuspid valve is normal in structure and function. Doppler and Color Flow revealed trace tricus pid regurgitation with an estimated PAP of 30 mmHg. There is no tricuspid valve stenosis. PULMONIC VALVE The pulmonic valve is not well visualized. Doppler and Color Flow revealed trace pulmonic valvular re gurgitation. GREAT VESSELS The aortic root is normal in size. The ascending aorta is normal in size. The IVC is normal in size a nd collapses >50% with inspiration. PERICARDIAL EFFUSION There is no evidence of significant pericardial effusion. Critical Notification Critical Value: No <Conclusion> The left ventricle is normal size. The left ventricular systolic function is normal and the ejection fraction is within normal range. The Ejection Fraction is 55-60%. There is an area of outpocketing of tissue in the lateral wall of the right atrium with a probable sm all connection to the septum. There is no obstruction of flow. This does not appear like a classic Chiari network. Doppler and Color Flow revealed trace aortic regurgitation. There is no significant aortic valvular stenosis. Doppler and Color-flow revealed trace mitral regurgitation. Doppler and Color Flow revealed trace tricuspid regurgitation with an estimated PAP of 30 mmHg. Signed by : Blake Melton MD Electronically Approved : 04/20/2021 18:19:06
== END ==
LOC: ECHO 08:42
PROVIDERS: ATTEND Internal Medicine Cardiovascular Disease
DX: I34.0 Nonrheumatic mitral (valve) insufficiency (principal)
CPT/HCPCS: 93306

== ENCOUNTER → 2021-10-03 | Outpatient (CLI) | payer OTHER ==
--- NOTE | 2021-10-03 11:18 | RAD ---
BILATERAL DIGITAL SCREENING 2-D AND 3-D MAMMOGRAM INDICATION: Routine screening. COMPARISON: May 29, 2016, May 30, 2015 Interpretation was made using CAD. FINDINGS: Breast Density: There are scattered areas of fibroglandular density. RIGHT BREAST: No suspicious masses, calcifications or areas of architectural distortion are seen. LEFT BREAST: There is been an interval decrease in size of an oval circumscribed mass that now measur es 1.2 cm in the central breast. It contains a coarse calcification. No suspicious masses, calcificat ions or areas of architectural distortion are seen.. IMPRESSION: 1. No imaging evidence of malignancy. ASSESSMENT: BI-RADS 2. Benign finding. RECOMMENDATION: Routine annual screening mammogram. The facility will notify the patient of the results via mail. Patient information will be entered int o the mammography reminder system with a target recall date for the next mammogram. A reminder letter will be generated by the facility. Electronically signed by: Amaya Enriquez MD (10/03/2021 11:16 AM) [id number]
== END ==
LOC: MAMMO 10:10
PROVIDERS: ATTEND Family Medicine
DX: Z12.31 Encounter for screening mammogram for malignant neoplasm of breast (principal)
CPT/HCPCS: 77063; 77067